=== PATIENT | female | born 1955 | race Caucasian/White ===

== ENCOUNTER 2017-09-19 14:18 | Inpatient (IN) | payer MEDICARE, SELFPAY ==
[2017-09-19] VITALS (9 sets, daily range): BP systolic 113–130; BP diastolic 71–83; PULSE 83–90; RESP 17–22; TEMP 36.8; O2SAT 92–99; BMI 50.2; BMI 47.3
--- NOTE | 2017-09-19 14:42 | EKG12_ITS ---
Test Reason : COMPLIANT Blood Pressure : / mmHG Vent. Rate : 087 BPM Atrial Rate : 087 BPM P-R Int : 198 ms QRS Dur : 092 ms QT Int : 346 ms P-R-T Axes : 045 -14 009 degrees QTc Int : 416 ms Normal sinus rhythm Inferior infarct , age undetermined Abnormal ECG Confirmed by RUBA MAYORGA ([id number]), editorial intern POPPY DIAZ ([id number] on 09/30/2017 6:31:28 PM Referred By: MIGUELANGEL Confirmed By:RUBA MAYORGA
[2017-09-19 15:36] LABS: Absolute Lymphocyte Count 2.76 X10^3/ul (0.83-4.51); Absolute Neutrophil Count 3.2 X10^3/uL (2.0-7.7); Basophil# 0.01 X10^3/uL; Basophil% 0.1 % (0-1); Eosinophil# 0.21 X10^3/uL; Eosinophils% 2.8 % (0-5); Hematocrit 39.3 % (37-47); Hemoglobin 12.4 g/dl (12.0-15.0); Lymphocyte # 2.76 X10^3/ul (4.0); Lymphocyte % 37.4 % (19-41); Mean Corp Hgb Conc 31.6 g/gl (32-36); Mean Corpuscular Hgb 30.5 pg (27.0-32.0); Mean Corpuscular Volume 96.8 fL (81-99); Monocyte# 1.16 X10^3/uL; Monocyte% 15.7 % (0-10); Neutrophil # 3.19 X10^3/uL (2.7-7.7); Neutrophil % 43.5 % (47-70); Platelet Count 153 K/mm3 (150-450); RBC Distribution Width CV 14.4 % (11.6-14.6); RBC Distribution Width SD 48.8 fl (35.1-43.9); Red Blood Count 4.06 M/mm3 (4.2-5.4); White Blood Count 7.4 K/mm3 (4.4-11.0)
[2017-09-19 15:39] LABS: POSITIVE COUNT NO; POSITIVE DIFFERENTIAL NO; POSITIVE MORPHOLOGY NO
[2017-09-19 15:43] LABS: Mucous, Urine 0 SEEN /hpf (<or=2+); Squamous Epithelial Cells - UA 0 SEEN /hpf (5-10)
--- NOTE | 2017-09-19 15:43 | ED.RN ---
PT HAS MULTIPLE OPEN AREAS AND EXCORIATED ABDOMINAL FOLDS AND GROIN. PT ON RIGHT ABDOMINAL FOLD WITH OPEN AREA OOZING THICK YELLOW/BROWN DRAINAGE. PT TURNED OVER AND ON RIGHT BUTTOCK MULTIPLE PINPOINT OPEN AREAS NOTED. PT'S TOES HAVE SCABBED AREAS. DR. MEANS INFORMED OF SAME.
[2017-09-19 15:47] LABS: Anion Gap 4 (5-15); BUN 26 mg/dL (7-18); BUN/Creat Ratio 26.1 RATIO (10-20); Calcium,Total 9.1 mg/dL (8.5-10.1); Chloride 106 mmol/L (98-107); EST Glomerular Filtration Rate 60 mL/min (>60); Est Glom Filt Rate - Afr Amer 72 mL/min (>60); Estimated Creatinine Clearance 46.13 ml/min; Glucose 89 mg/dL (74-106); Potassium 4.4 mmol/L (3.5-5.1); Sodium Level 145 mmol/L (136-145)
[2017-09-19 15:50] LABS: Color, Urine Red (Yellow); Glucose, Dipstick Normal (Normal); Ketone-Dipstick 5 mg/dl (Negative); Leukocyte Esterase-Dipstick 500 /ul (Negative); Nitrite-Dipstick Negative (Negative); Occult Blood-Urine 250 /ul (Negative); Protein-Dipstick 500 mg/dl (Negative); Urine Clarity Turbid (Clear); Urine Urobilinogen 1 mg/dl (Normal)
[2017-09-19 16:04] LABS: Urine Bilirubin Dipstick 1 mg/dL (Negative)
[2017-09-19 16:08] LABS: Bacteria 4+ /hpf (None Seen)
[2017-09-19 16:09] LABS: Red Blood Cells-Urine > 100 SEEN /hpf (0-5); White Blood Cells >100 SEEN /hpf (0-5)
[2017-09-19 16:24] LABS: Lactic Acid 2.5 mmol/L (0.4-2.0)
--- NOTE | 2017-09-19 16:41 | ED.VISSUMM ---
- ER Visit Summary Date of Service: 09/19/17 Chief Complaint: UTI History of Present Illness: The patient is a 62 F sent in from [facility] secondary to UTI. Patient has a chronic indwelling Milan catheter, we do not know when it was last changed. [facility] reports mental status change but did not elaborate a nurse report. Patient has a history of CHF, high cholesterol, diabetes, schizoaffective disorder, cardia myopathy, bipolar disorder, and fibromyalgia. On examination patient knows who she is and where she is. When asked if anything is bothering her she states that her legs are achy. Physical Examination: Blood pressure is 130/83, temperature 98.3, heart rate 90, respiratory rate 22, pulse ox 94% on room air. Patient is an obese female lying flat in bed. She is alert but confused. She is in no distress. Head neck examination reveals dry mucous membranes. Heart is regular rate and rhythm. Lung sounds are grossly clear but diminished at the bases. Abdomen is soft, obese, nontender. Lower external examination reveals no focal tenderness and no pain with logroll. Test Results: EKG is sinus [address] change. CBC is normal. Chemistry studies reveal bicarb of 35 and a BUN of 26. Urinalysis was obtained after placing a new Milan catheter. She has greater than 100 white blood cells, gram 100 red blood cells, and 4+ bacteria. Lactate is minimally elevated at 2.5. Emergency Department Course and Treatment: When nursing staff placed a new Milan catheter, they did report that she has some skin breakdown on her buttocks. There is pinprick area openings. Urine culture from the custodial was sent along with the patient. I do not know if this urine was obtained from a clean catheter or had been indwelling for some time. Urine reportedly grew E. coli as well as Pseudomonas. She has multiple resistances to antibiotics. Her infection is sensitive to meropenem. I spoke with Noemi, nurse at [facility] who is familiar with the patient. She states that 3 weeks ago the patient was alert and able to ambulate. She was working with physical therapy at that time. Over the past 3 weeks she has had slow decline, but symptoms have been much worse over the past 2 days. He states she is much more confused than her baseline and has not been up and walking. At this time we will admit the patient. We will await urine culture from the new catheter that was placed. Patient may require PICC line and IV antibiotics at the custodial. Treatment Plan: [] Disposition: Admit Impression: 1. Cystitis 2. Confusion This note was generated with [employer] dictation software. It may contain incorrect words, spelling, and punctuation that were not noted in review of the chart prior to signing ED Disposition - Plan for ED Patient: Chief Complaint: Complaint Referrals: Geremias Novak III, MD [Primary Care Provider] -
--- NOTE | 2017-09-19 16:45 | ED.DCSUM_ITS ---
- ER Visit Summary Date of Service: 09/19/17 Chief Complaint: UTI History of Present Illness: The patient is a 62 F sent in from [facility] secondary to UTI. Patient has a chronic indwelling Milan catheter , we do not know when it was last changed. [facility] reports mental status change but did not elaborate a nurse report. Patient has a history of CHF, high cholesterol, diabetes, schizoaffective disorder, cardia myopathy, bipolar disorder, and fibromyalgia. On examination patient knows who she is and where she is. When asked if anything is bothering her she states that her legs are achy. Physical Examination: Blood pressure is 130/83, temperature 98.3, heart rate 90 , respiratory rate 22, pulse ox 94% on room air. Patient is an obese female lying flat in bed. She is alert but confused. She is in no distress. Head neck examination reveals dry mucous membranes. Heart is regular rate and rhythm. Lung sounds are grossly clear but diminished at the bases. Abdomen is soft, obese, nontender. Lower external examination reveals no focal tenderness and no pain with logroll. Test Results: EKG is sinus [address] change. CBC is normal. Chemistry studies reveal bicarb of 35 and a BUN of 26. Urinalysis was obtained after placing a new Milan catheter. She has greater than 100 white blood cells , gram 100 red blood cells, and 4+ bacteria. Lactate is minimally elevated at 2.5. Emergency Department Course and Treatment: When nursing staff placed a new Milan catheter, they did report that she has some skin breakdown on her buttocks. There is pinprick area openings. Urine culture from the [facility] was sent along with the patient. I do not know if this urine was obtained from a clean catheter or had been indwelling for some time. Urine reportedly grew E. coli as well as Pseudomonas. She has multiple resistances to antibiotics. Her infection is sensitive to meropenem. I spoke with Noemi, nurse at [facility] who is familiar with the patient. She states that 3 weeks ago the patient was alert and able to ambulate. She was working with physical therapy at that time. Over the past 3 weeks she has had slow decline, but symptoms have been much worse over the past 2 days. He states she is much more confused than her baseline and has not been up and walking. At this time we will admit the patient. We will await urine culture from the new catheter that was placed. Patient may require PICC line and IV antibiotics at the [facility]. Treatment Plan: [] Disposition: Admit Impression: 1. Cystitis 2. Confusion This note was generated with [employer] dictation software. It may contain incorrect words, spelling, and punctuation that were not noted in review of the chart prior to signing ED Disposition - Plan for ED Patient: Chief Complaint: Complaint Referrals: Geremias Novak III, MD [Primary Care Provider] -
[2017-09-19] MEDS: 0.9% Normal Saline 1,000 ML 999 ML IV (16:46)
--- NOTE | 2017-09-19 17:25 | HP.PCM_ITS ---
<Bin Rivas - Last Filed: 09/19/17 17:28> Problem List (1) Cystitis Status: Acute (2) Sepsis Status: Acute (3) Metabolic encephalopathy Status: Acute (4) Benign hypertension Status: Chronic (5) Hyperlipidemia Status: Chronic (6) Schizoaffective disorder Status: Chronic (7) Diabetes mellitus, type 2 Status: Chronic (8) Fibromyalgia Status: Chronic (9) CHF (congestive heart failure) Status: Chronic Comment: ef=40% (10) Morbid obesity with BMI of 40.0-44.9, adult Status: Chronic (11) Sleep apnea Status: Chronic History of Present Illness Date of Admission: 09/19/17 Chief Complaint: confusion The patient is a 62 year old F with a hx of UTIs, chronic systolic CHF, HLD, nonischemic cardiomyopathy - pt of Dr. Chaney, ALLY, morbid obesity, schizoaffective disorder, DMt2, breast cancer s/p right mastectomy 12/14/16 with negative node biopsy, who has been staying at [facility] for debility, who has progressively declining over the past few weeks. She was very confused today and sent to the ER. Her hx is difficult as she is very confused and unable to provide much, for example she could not tell me where she came from today to the ER. She recently had a urine culture taken on 09/13/2017 which did demonstrate >100,000 of ESBL E coli and >100,000 Pseudomonas, and <10,000 E faecalis. She states she has had several UTIs. She has had an indwelling catheter which was changed in the ED today, and when it was changed a new culture was obtained. She remains confused, but with stable vitals. She states she has had fevers and chills the last week, and feels week. She denies dysuria. She is on O2, and when I ask her she states she is supposed to be on o2 normally but does not wear it. She has no dizziness, LH, CP, SOB, cough, nausea, vomiting, diarrhea. [] Past Medical History Past Medical History (Chronic Problems): Chronic Problems (Last Reviewed 05/21/17 @ 14:12 by Jordan Chaney MD) Dilated cardiomyopathy (Chronic) Benign hypertension (Chronic) Hyperlipidemia (Chronic) Intertrigo (Chronic) Schizoaffective disorder (Chronic) Bipolar disorder (Chronic) Diabetes mellitus, type 2 (Chronic) Fibromyalgia (Chronic) Frequent falls (Chronic) Gait abnormality (Chronic) Morbid obesity (Chronic) CHF (congestive heart failure) (Chronic) ef=40% Morbid obesity with BMI of 40.0-44.9, adult (Chronic) Sleep apnea (Chronic) Medical History: Medical History (Last Reviewed 05/21/17 @ 14:12 by Jordan Chaney MD) Dilated cardiomyopathy (Chronic) I42.0 Benign hypertension (Chronic) I10 Hyperlipidemia (Chronic) E78.5 Schizoaffective disorder (Chronic) F25.9 Bipolar disorder (Chronic) F31.9 Diabetes mellitus, type 2 (Chronic) E11.9 Morbid obesity (Chronic) E66.01 CHF (congestive heart failure) (Chronic) I50.9 ef=40% Sleep apnea (Chronic) G47.30 Allergies Sulfa (Sulfonamide Antibiotics) Allergy (Verified 09/19/17 14:48) Unknown sulfamethoxazole [From Bactrim] Allergy (Verified 09/19/17 14:48) Unknown trimethoprim [From Bactrim] Allergy (Verified 09/19/17 14:48) Unknown Home Medications: Ambulatory Orders Medication Instructions Recorded Divalproex (ER) [Depakote ER] 500 mg PO BID 03/16/13 Docusate Sodium [Colace] 200 mg PO DAILY PRN PRN 03/16/13 Levothyroxine Sodium [Levoxyl] 112 mcg PO DAILY 03/16/13 Metformin HCl [Glucophage] 850 mg PO BID 03/16/13 Pravastatin Sodium [Pravachol] 40 mg PO QHS 03/16/13 Aspirin E.C. [Ecotrin] 81 mg PO DAILY@0800 #30 tab 03/20/13 Polyethylene Glycol 3350 [Miralax] 17 gm PO DAILY PRN PRN 01/21/15 Albuterol Aerosols [Ventolin 2.5 mg INHALATION Q6H PRN PRN 08/05/16 Aerosols] Calcitriol [Rocaltrol] 1 mcg PO DAILY 08/05/16 Carvedilol [Coreg (Beta Kaushik)] 6.25 mg PO BID 08/05/16 Cyclobenzaprine [Flexeril] 5 mg PO TID PRN PRN 08/05/16 Gabapentin [Neurontin] 100 mg PO TIDCM 08/05/16 Glucagon,Human Recombinant 1 mg IJ X1 PRN 08/05/16 [Glucagen] Lisinopril [Zestril] 5 mg PO DAILY 08/05/16 buPROPion XL [Wellbutrin Xl] 300 mg PO DAILY 08/05/16 Ibuprofen 800 mg PO BID 12/11/16 Insulin Detemir [Levemir FlexPen] 30 units SC DAILY 12/11/16 Montelukast [Singulair] 10 mg PO QHS 12/11/16 Oxycodone [Oxyir] 5 mg PO Q4H PRN PRN #30 tab 12/15/16 Senna [Senokot] 1 tab PO QHS PRN PRN 02/20/17 furosemide 20 mg tablet 20 mg PO DAILY 05/20/17 paroxetine 20 mg tablet 60 mg PO DAILY 05/20/17 risperidone 1 mg tablet 1 mg PO TID 05/20/17 Acetaminophen [Pain Relief] 1,000 mg PO BID PRN PRN 09/19/17 Anastrozole [Arimidex] 1 mg PO DAILY 09/19/17 Nifblprus-Wfehgmr-Iuhwizuq-Pet 1 applic TP 4X/DAY PRN PRN 09/19/17 [Anbesol Cold Sore Ointment] Fludrocortisone Acetate [Florinef] 0.1 mg PO DAILY@0800 09/19/17 Ibuprofen [Motrin] 800 mg PO TID PRN PRN 09/19/17 Magnesium Hydroxide [Milk Of 30 ml PO DAILY PRN PRN 09/19/17 Magnesia] Melatonin 2 mg PO QHS 09/19/17 Omeprazole 20 mg PO DAILY 09/19/17 Oxybutynin Chloride [Ditropan Xl] 15 mg PO DAILY 09/19/17 Polyvinyl Alcohol/Povidone/Pf 2 drop EACH EYE PRN PRN 09/19/17 [Refresh Classic Eye Drops] Potassium Chloride [K-Dur] 20 meq PO DAILY 09/19/17 Ropinirole HCl [Requip] 0.5 mg PO QHS 09/19/17 Witch Lynne [Preparation H] 1 each TP BID PRN PRN 09/19/17 Surgical History: hysterectomy Smoking Status: Former smoker - *Family History Maternal History Items: Unknown Review of Systems Constitutional: Reports: Chills, Fever, Malaise, Weakness, Fatigue. Denies: Weight Change HEENT: Denies: Head Aches, Sinus Congestion, Sinus Drainage Cardiovascular: Denies: Chest Pain, Palpitations Respiratory: Denies: Cough, Shortness of breath at rest, Sputum production Gastrointestinal: Denies: Abdominal Pain, Nausea, Vomiting Genitourinary: Reports: - - chronic cath. Denies: Dysuria Musculoskeletal: Denies: Joint Pain, Joint Tenderness Skin: Denies: Rash, Wounds Neurological: Denies: Numbness, Tingling, Focal weakness Psychiatric: Denies: Anxiety, Depression, Homicidal Ideations, Suicidal Ideations Hematologic/ Lymphatic: Denies: Easy Bruising, Easy Bleeding VTE Information - Inpt Only VTE Present on Admission: No VTE Mechan Device Prophylaxis: SCD's VTE Pharm Prophylaxis ordered?: Yes Patient Problems: Active and Suspected Problems (Last Reviewed 05/21/17 @ 14:12 by Jordan Chaney MD ) Cystitis (Acute) Sepsis (Acute) Metabolic encephalopathy (Acute) - Physical Exam General: Alert, Cooperative, Confused, - - A/Ox2 HEENT: Atraumatic, PERRLA, EOMI, Normocephalic Neck: Supple, No JVD, Negative Carotid Bruits Lungs: Clear to auscultation, Normal air movement Cardiovascular: Regular rate, No murmurs Abdomen: Bowel Sounds Present, Soft, Non Tender Extremities: No edema, Capillary Refill Less than 3 Seconds Skin: No rashes, No breakdown Musculoskeletal: No Tenderness to Palpation of Joints or Extremities Neurological: Cranial nerves II-XII grossly intact Psych/Mental Status: Normal Affect, Appropriate, Alert and oriented to time, place, person, mood and affect Vital Signs Temp Pulse Resp BP Pulse Ox 98.3 F 86 18 113/74 99 09/19/17 14:20 09/19/17 16:48 09/19/17 16:48 09/19/17 16:48 09/19/17 16:48 Assessment/Plan All Active Problems (Last Reviewed 05/21/17 @ 14:12 by Jordan Chaney MD) Cystitis (Acute) Sepsis (Acute) Metabolic encephalopathy (Acute) Septic shock due to urinary tract infection (Acute) Chest pain (Acute) 1. Acute severe sepsis 2/2 multibacterial UTI - criteria met with + UA, pulse > 90, tachypnea, low BP responded to fluids, elevated lactate. Recent culture with ESBL E coli and pseudomonas - both >100,000. E faecalis with <10,000 growth. Repeat culture taken with new cath placement. Continue Meropenem. Follow cultures. Continue fluids, appears dehydrated. Repeat lactate x 1. -currently no fever or white count elevation 2. Acute metabolic encephalopathy 2/2 above - remains very confused, avoid anticholinergics 3. DMt2 - SSI, continue long acting, hold metformin 4. Chronic sytolic CHF and nonischemic cardiomyopathy - EKG negative. no acute issues, avoid overdiuresis. Hold diuretics x 1 day. 5. Hx Schizoaffective disorder - continue home meds 6. Hypothyroidism - synthroid 7. HTN - was running low, now stable. Hold lasix x 1. 8. Morbid obesity - dietary eval 9. Debility - PTOT, return to SNF DVT ppx: lovenox DC planning: return to SNF This patient was seen by Bin Rivas PA-C under the supervision of Doctor Rhina. <Cassi Lantigua E - Last Filed: 09/19/17 19:13> History of Present Illness The patient is a 62 year old F [] Past Medical History Medical History: Medical History (Last Reviewed 05/21/17 @ 14:12 by Jordan Chaney MD) Dilated cardiomyopathy (Chronic) I42.0 Benign hypertension (Chronic) I10 Hyperlipidemia (Chronic) E78.5 Schizoaffective disorder (Chronic) F25.9 Bipolar disorder (Chronic) F31.9 Diabetes mellitus, type 2 (Chronic) E11.9 Morbid obesity (Chronic) E66.01 CHF (congestive heart failure) (Chronic) I50.9 ef=40% Sleep apnea (Chronic) G47.30 Allergies Sulfa (Sulfonamide Antibiotics) Allergy (Verified 09/19/17 14:48) Unknown sulfamethoxazole [From Bactrim] Allergy (Verified 09/19/17 14:48) Unknown trimethoprim [From Bactrim] Allergy (Verified 09/19/17 14:48) Unknown - Physical Exam Vital Signs Temp Pulse Resp BP Pulse Ox 98.3 F 83 17 126/71 H 92 09/19/17 18:37 09/19/17 18:45 09/19/17 18:37 09/19/17 18:37 09/19/17 18:37 Oxygen Flow Rate (L/min) 2 Oxygen Delivery Method Nasal Cannula Weight: 257 lb 4.471 oz Body Mass Index (BMI) 47.3 Assessment/Plan Hospitalist note: I am seeing this patient in conjunction with Bin Rivas. I independently seen and examined the patient. History and physical, laboratory data and imaging studies reviewed and I agree with above admission and treatment plan. Patient was brought to the emergency room from the residential because of lethargy and confusion. At this time, patient is disoriented to time, oriented to self. Her main presenting complaint was confusion and functional decline over the last couple of weeks. Patient was seen and examined. Recently, she had a urine culture done that demonstrated ESBL E. coli and pseudomonas aeruginosa. She denied chest pain or shortness of breath. Denies focal arm or leg weakness. Her vital signs are stable, afebrile. Her routine blood work is unremarkable, no leukocytosis. Lactic acid was 2.5. Urinalysis revealed turbid urine, negative for nitrite, positive for leukocyte esterase, there was more than 100 WBCs and 4+ bacteria. She is being admitted for acute complicated UTI/cystitis with sepsis. - Physical Exam General: Alert, confused, disoriented, Cooperative, No apparent distress. HEENT: Atraumatic, PERRLA, EOMI. Neck: Supple, No JVD, Negative Carotid Bruits, Trachea Midline, Thyroid Normal. Lungs: Decreased breath sounds bilateral, otherwise clear no rhonchi, No wheeze , No rales. Cardiovascular: Regular rate, Regular Rhythm, Normal S1, Normal S2, PMI Normal. Abdomen: Bowel Sounds Present, Soft, Non Tender, Non-Distended, No Hepato- splenomegaly. Extremities: No clubbing, No cyanosis, No edema Skin: No rashes, No breakdown Neurological: Neuro grossly intact, global weakness. Vital Signs are stable. Assessment and plan: #1 acute complicated cystitis/UTI/sepsis: With recent urine culture that was positive for ESBL E. coli and pseudomonas aeruginosa. Lactic acid is 2.5. Blood pressure and heart rate are stable. Plan: Blood culture, urine culture, IV meropenem as above, repeat CBC and BMP tomorrow morning, PT OT evaluation and treatment. #2 encephalopathy: Likely metabolic because of infection and sepsis. Plan to treat underlying infection. #3 other chronic medical problems: Stable, continue current medication as above. This note was generated with [employer] dictation software. It may contain incorrect words, spelling, and punctuation that were not noted in checking the note before signing. Code Visit Inpatient E&M: 42446 Init Hosp L2
[2017-09-19] MEDS: 0.9% Normal Saline 1,000 ML 75 ML IV (18:35)
--- NOTE | 2017-09-19 19:08 | NURSING ---
histotechnologist supervisor notified of conversation with Dr. Lantigua regarding admission order and that we have no admission order in computer.
--- NOTE | 2017-09-19 19:13 | DT_ITS ---
This patient was seen during an EMR downtime September 23, 2017 - September 30, 2017. This patient may have a combination of paper and electronic documentation or all paper documentation. All documentation is viewable within the e-chart portion of [facility] for each patient visit.
[2017-09-19 19:28] LABS: Reflex Lactate? Y
[2017-09-19] MEDS: Menthol/Lanolin/Calamine/Znox 113 GM Tube 1 APPLIC TOPICAL (22:12)
[2017-09-19] MEDS: Nystatin Powder 15gm Bottle 1 APPLIC TOPICAL (22:12)
[2017-09-19] MEDS: NYSTATIN 500,000 UNIT/5 ML UDC 500000 UNIT PO (22:22)
[2017-09-19] MEDS: RisperiDONE 1 MG Tablet PO (22:22)
[2017-09-19] MEDS: Divalproex (ER) 500 MG Tablet PO (22:25)
[2017-09-19] MEDS: Carvedilol 6.25 MG Tablet PO (22:26)
[2017-09-19] MEDS: Pramipexole Di-HCl 0.25 MG Tablet PO (22:26)
[2017-09-19] MEDS: Montelukast 10 MG Tablet PO (22:27)
[2017-09-19 22:46] LABS: Bedside Glucose 65 mg/dL (70-110)
[2017-09-20] VITALS (8 sets, daily range): BP systolic 125–139; BP diastolic 78–91; PULSE 78–97; RESP 16–18; TEMP 36.5–37.1; O2SAT 94–99
[2017-09-20 00:05] LABS: Bedside Glucose 85 mg/dL (70-110)
[2017-09-20] MEDS: Nystatin Powder 15gm Bottle 1 APPLIC TOPICAL ×3 (05:21→22:20)
[2017-09-20] MEDS: Levothyroxine 112 MCG Tablet PO (05:21)
[2017-09-20] MEDS: RisperiDONE 1 MG Tablet PO ×3 (05:21→22:19)
[2017-09-20] MEDS: Menthol/Lanolin/Calamine/Znox 113 GM Tube 1 APPLIC TOPICAL ×4 (05:22→22:19)
[2017-09-20 06:45] LABS: Bedside Glucose 79 mg/dL (70-110)
--- NOTE | 2017-09-20 06:55 | PCM.PROGNOTE ---
Patient Problems: Active and Suspected Problems (Last Reviewed 05/21/17 @ 14:12 by Jordan Chaney MD) Cystitis (Acute) Sepsis (Acute) Metabolic encephalopathy (Acute) Subjective: The patient is a 62-year-old female with a past medical history of hypertension, hyperlipidemia, schizoaffective disorder, diabetes mellitus type 2, fibromyalgia, morbid obesity, congestive heart failure and obstructive sleep apnea who presented to the emergency department at [facility] on 09/19/2017 from [facility] with complaints of increased confusion. A recent urine culture at [facility] on 09/13/2017 showed greater than 100,000 colonies of an ESBL E. coli and greater than 100,000 colonies of Pseudomonas. She has a chronic indwelling Tijerina catheter. Vital signs at presentation to the emergency room were temperature 98.3, pulse rate 90, blood pressure 130/83, respiratory rate 22 and she was 94% saturated on room air. White blood cell count was 7.4 with an unremarkable differential. Hemoglobin was normal at 12.4 and the platelets were 153,000. BMP showed an elevated serum bicarbonate 35 with a BUN of 26 and a creatinine of 1.0. The initial lactic acid was 2.5 but following hydration dropped rapidly to 1.0. The UA had greater than 100 RBCs and greater than 100 WBCs with 4+ bacteria. Urine and blood cultures were sent from the emergency room. She was admitted to the hospital with a diagnosis of acute severe sepsis secondary to UTI due to E. coli ESBL and pseudomonas aeruginosa. She was started on meropenem. The patient was seen independently and in conjunction with Bin RAGSDALE. She has been afebrile since admission. Current vital signs are temperature 98.3, pulse rate 84, blood pressure 139/91, respiratory rate 18 and she was 95% saturated on 1 L Cannula Fluid balance since admission is +1597. White blood cell count today is 4.6 with 37% neutrophils and 40% lymphocytes. Monocytes are 19.5. Hemoglobin is 10.2 following hydration. Platelet count is down to 122,000. Sodium is 146 today and the potassium is 3.5. BUN is 23 and the creatinine is 0.65. - Physical Exam General: No apparent distress, - - Extremely difficult to arouse this a.m. but once she was awake she was able to follow simple commands. HEENT: PERRLA, EOMI, - - short thick neck Oral: Dry Mucosa Neck: No Nodes, Trachea Midline Lungs: Clear to auscultation - anterior and lateral.....could no turn in the bed or sit forward. She is not tachypneic. No accessory muscle use., Diminished Cardiovascular: Regular rate, Regular Rhythm, Normal S1, Normal S2, No murmurs, No Ectopic Activity, No rub noted, No Gallop Abdomen: Bowel Sounds Present, Soft, Non Tender, Non-Distended, Obese Extremities: No edema - skin over the LE's is wrinkled, Peripheral Pulses Normal Skin: No rashes Neurological: Cranial nerves II-XII grossly intact, Neuro grossly intact Vital Signs Temp Pulse Resp BP Pulse Ox 98.3 F 84 18 139/91 H 95 09/20/17 05:43 09/20/17 05:43 09/20/17 05:43 09/20/17 05:43 09/20/17 05:43 Oxygen Flow Rate (L/min) 1 Oxygen Delivery Method Nasal Cannula Weight: 257 lb 4.471 oz Body Mass Index (BMI) 47.3 Intake and Output for Last 24 Hours 09/18/17 09/19/17 09/20/17 23:59 23:59 23:59 Intake Total 1320 / 1320 977 / 977 Output Total 250 / 250 450 / 450 Balance 1070 / 1070 527 / 527 Laboratory Tests Past 24 Hrs 09/19/17 21:30 Lactic Acid 1.0 POC Glucose 09/20/17 09/19/17 09/19/17 06:41 23:59 22:36 POC Glucose 79 85 65 L Medical Necessity - Tobacco Use Smoking Status: Former smoker Assessment/Plan All Active Problems (Last Reviewed 05/21/17 @ 14:12 by Jordan Chaney MD) Cystitis (Acute) Sepsis (Acute) Metabolic encephalopathy (Acute) Septic shock due to urinary tract infection (Acute) Chest pain (Acute) Impressions 1. Severe sepsis due to E. Coli ESBL and Pseudomonas complicated cystitis - due to the presence of chronic indwelling tijerina. 2. recent decline in function over the past few weeks 3. Hypoxemia - 94% on RA in the ED while awake States she is supposed to be on oxygen but she does not wear it. PSG in late 2016 was negative for leep apnea. 4. CM with a 40% EF in 2012....global hypokinesis with moderate LVH. An ECHO in 2017 showed mild concentric left ventricular hypertrophy with normal left ventricular systolic function and an ejection fraction of 60%. There was a suggestion of impaired relaxation of the left ventricle. 5. Metabolic encephalopathy-secondary to infection? 6. Hypertension 7. Hyperlipidemia 8. Schizoaffective disorder 9. Diabetes mellitus type 2-hemoglobin A1c is 5.8 10. Fibromyalgia 11. History of systolic congestive heart failure 12. Super obesity 13. reported hx of ALLY - sleep study in February of 2017 was negative for sleep apnea. 14. Hx of invasive ductal CA left breast November 2016 continue the current antibiotic. Await the results of the culture obtained after the tijerina was changed in the ED. I suspect the reason for her decline recently is psychiatric and not due to infection. she was obviously awake when I was trying to get her to talk to ne this AM because she resisted me when I tried to open her eyes and mouth but chose not to comply. Can likely DC as soon as the cultures are available. If the organisms are not sensitive to any oral antibiotics then will need a midline and then can be discharged on IV antibiotics Code Visit Inpatient E&M: 53655 Subs Hosp L2
--- NOTE | 2017-09-20 07:06 | PN_ITS ---
Patient Problems: Active and Suspected Problems (Last Reviewed 05/21/17 @ 14:12 by Jordan Chaney MD ) Cystitis (Acute) Sepsis (Acute) Metabolic encephalopathy (Acute) Subjective: The patient is a 62-year-old female with a past medical history of hypertension , hyperlipidemia, schizoaffective disorder, diabetes mellitus type 2, fibromyalgia, morbid obesity, congestive heart failure and obstructive sleep apnea who presented to the emergency department at [facility] on 09/19/2017 from [facility] with complaints of increased confusion. A recent urine culture at [facility] on 09/13/2017 showed greater than 100,000 colonies of an ESBL E. coli and greater than 100,000 colonies of Pseudomonas. She has a chronic indwelling Tijerina catheter. Vital signs at presentation to the emergency room were temperature 98.3, pulse rate 90, blood pressure 130/83, respiratory rate 22 and she was 94% saturated on room air. White blood cell count was 7.4 with an unremarkable differential. Hemoglobin was normal at 12.4 and the platelets were 153,000. BMP showed an elevated serum bicarbonate 35 with a BUN of 26 and a creatinine of 1.0. The initial lactic acid was 2.5 but following hydration dropped rapidly to 1.0. The UA had greater than 100 RBCs and greater than 100 WBCs with 4+ bacteria. Urine and blood cultures were sent from the emergency room. She was admitted to the hospital with a diagnosis of acute severe sepsis secondary to UTI due to E. coli ESBL and pseudomonas aeruginosa. She was started on meropenem. The patient was seen independently and in conjunction with Bin RAGSDALE. She has been afebrile since admission. Current vital signs are temperature 98.3, pulse rate 84, blood pressure 139/91, respiratory rate 18 and she was 95% saturated on 1 L Cannula Fluid balance since admission is +1597. White blood cell count today is 4.6 with 37% neutrophils and 40% lymphocytes. Monocytes are 19.5. Hemoglobin is 10.2 following hydration. Platelet count is down to 122,000. Sodium is 146 today and the potassium is 3.5. BUN is 23 and the creatinine is 0.65. - Physical Exam General: No apparent distress, - - Extremely difficult to arouse this a.m. but once she was awake she was able to follow simple commands. HEENT: PERRLA, EOMI, - - short thick neck Oral: Dry Mucosa Neck: No Nodes, Trachea Midline Lungs: Clear to auscultation - anterior and lateral.....could no turn in the bed or sit forward. She is not tachypneic. No accessory muscle use., Diminished Cardiovascular: Regular rate, Regular Rhythm, Normal S1, Normal S2, No murmurs, No Ectopic Activity, No rub noted, No Gallop Abdomen: Bowel Sounds Present, Soft, Non Tender, Non-Distended, Obese Extremities: No edema - skin over the LE's is wrinkled, Peripheral Pulses Normal Skin: No rashes Neurological: Cranial nerves II-XII grossly intact, Neuro grossly intact Vital Signs Temp Pulse Resp BP Pulse Ox 98.3 F 84 18 139/91 H 95 09/20/17 05:43 09/20/17 05:43 09/20/17 05:43 09/20/17 05:43 09/20/17 05:43 Oxygen Flow Rate (L/min) 1 Oxygen Delivery Method Nasal Cannula Weight: 257 lb 4.471 oz Body Mass Index (BMI) 47.3 Intake and Output for Last 24 Hours 09/18/17 09/19/17 09/20/17 23:59 23:59 23:59 Intake Total 1320 / 1320 977 / 977 Output Total 250 / 250 450 / 450 Balance 1070 / 1070 527 / 527 Laboratory Tests Past 24 Hrs 09/19/17 21:30 Lactic Acid 1.0 POC Glucose 09/20/17 09/19/17 09/19/17 06:41 23:59 22:36 POC Glucose 79 85 65 L Medical Necessity - Tobacco Use Smoking Status: Former smoker Assessment/Plan All Active Problems (Last Reviewed 05/21/17 @ 14:12 by Jordan Chaney MD) Cystitis (Acute) Sepsis (Acute) Metabolic encephalopathy (Acute) Septic shock due to urinary tract infection (Acute) Chest pain (Acute) Impressions 1. Severe sepsis due to E. Coli ESBL and Pseudomonas complicated cystitis - due to the presence of chronic indwelling tijerina. 2. recent decline in function over the past few weeks 3. Hypoxemia - 94% on RA in the ED while awake States she is supposed to be on oxygen but she does not wear it. PSG in late 2016 was negative for leep apnea. 4. CM with a 40% EF in 2012....global hypokinesis with moderate LVH. An ECHO in 2017 showed mild concentric left ventricular hypertrophy with normal left ventricular systolic function and an ejection fraction of 60%. There was a suggestion of impaired relaxation of the left ventricle. 5. Metabolic encephalopathy-secondary to infection? 6. Hypertension 7. Hyperlipidemia 8. Schizoaffective disorder 9. Diabetes mellitus type 2-hemoglobin A1c is 5.8 10. Fibromyalgia 11. History of systolic congestive heart failure 12. Super obesity 13. reported hx of ALLY - sleep study in February of 2017 was negative for sleep apnea. 14. Hx of invasive ductal CA left breast November 2016 continue the current antibiotic. Await the results of the culture obtained after the tijerina was changed in the ED. I suspect the reason for her decline recently is psychiatric and not due to infection. she was obviously awake when I was trying to get her to talk to ne this AM because she resisted me when I tried to open her eyes and mouth but chose not to comply. Can likely DC as soon as the cultures are available. If the organisms are not sensitive to any oral antibiotics then will need a midline and then can be discharged on IV antibiotics Code Visit Inpatient E&M: 51827 Subs Hosp L2
[2017-09-20 07:40] LABS: Absolute Lymphocyte Count 1.83 X10^3/ul (0.83-4.51); Absolute Neutrophil Count 1.7 X10^3/uL (2.0-7.7); Basophil# 0.01 X10^3/uL; Basophil% 0.2 % (0-1); Eosinophil# 0.13 X10^3/uL; Eosinophils% 2.8 % (0-5); Hematocrit 32.6 % (37-47); Hemoglobin 10.2 g/dl (12.0-15.0); Lymphocyte # 1.83 X10^3/ul (4.0); Mean Corp Hgb Conc 31.3 g/gl (32-36); Mean Corpuscular Hgb 29.7 pg (27.0-32.0); Mean Corpuscular Volume 94.8 fL (81-99); Mean Platelet Vol. 10.3 fl (6.2-12.0); Monocyte# 0.89 X10^3/uL; Monocyte% 19.5 % (0-10); Neutrophil % 37.3 % (47-70); Platelet Count 122 K/mm3 (150-450); RBC Distribution Width CV 14.4 % (11.6-14.6); RBC Distribution Width SD 49.2 fl (35.1-43.9); Red Blood Count 3.44 M/mm3 (4.2-5.4); White Blood Count 4.6 K/mm3 (4.4-11.0)
[2017-09-20 07:45] LABS: POSITIVE COUNT NO; POSITIVE DIFFERENTIAL NO; POSITIVE MORPHOLOGY NO
[2017-09-20 08:06] LABS: Anion Gap 8 (5-15); BUN 23 mg/dL (7-18); BUN/Creat Ratio 35.6 RATIO (10-20); Calcium,Total 8.4 mg/dL (8.5-10.1); Chloride 106 mmol/L (98-107); Creatinine, Serum 0.65 mg/dL (0.55-1.02); EST Glomerular Filtration Rate 99 mL/min (>60); Est Glom Filt Rate - Afr Amer 120 mL/min (>60); Estimated Creatinine Clearance 67.72 ml/min; Glucose 74 mg/dL (74-106); Potassium 3.5 mmol/L (3.5-5.1); Sodium Level 146 mmol/L (136-145)
[2017-09-20 08:14] LABS: Hemoglobin A1c 5.8 % (4.2-6.3)
[2017-09-20] MEDS: Gabapentin 100 MG Capsule PO ×3 (08:23→17:30)
[2017-09-20] MEDS: Aspirin E.C. 81 MG Tablet PO (08:23)
[2017-09-20] MEDS: Fludrocortisone Acetate 0.1 MG Tablet PO (08:23)
[2017-09-20] MEDS: Glucerna Shake 120 ML LIQUID PO ×3 (08:25→17:29)
[2017-09-20 09:20] LABS: AST(SGOT) 19 U/L (15-37); Alanine Aminotransfer ALT/SGPT 14 U/L (13-56); Albumin, Serum 2.1 g/dL (3.2-5.0); Alkaline Phosphatase 62 U/L (45-117); Bilirubin, Direct 0.08 mg/dL (0.00-0.30); Globulin 3.5 g/dL (2.2-4.2); Magnesium 1.3 mg/dL (1.6-2.6); Protein, Total 5.6 g/dL (6.4-8.2)
[2017-09-20] MEDS: Pantoprazole Sodium 20 MG Tablet PO (09:53)
[2017-09-20] MEDS: buPROPion (XL) 300 MG TABLET.XL PO (09:53)
[2017-09-20] MEDS: Carvedilol 6.25 MG Tablet PO ×2 (09:53→22:20)
[2017-09-20] MEDS: Lisinopril 5 MG Tablet PO (09:53)
[2017-09-20] MEDS: Divalproex (ER) 500 MG Tablet PO ×2 (09:54→22:19)
[2017-09-20] MEDS: Enoxaparin 40 MG/0.4 ML Syringe SC (09:54)
[2017-09-20] MEDS: Tolterodine Tartrate 4 MG CAP.SA PO (09:54)
[2017-09-20] MEDS: Pravastatin 40 MG Tablet PO (09:57)
[2017-09-20] MEDS: Calcitriol 0.25 MCG Capsule 1 MCG PO (09:57)
[2017-09-20] MEDS: NYSTATIN 500,000 UNIT/5 ML UDC 500000 UNIT PO ×4 (09:57→22:20)
[2017-09-20] MEDS: Anastrozole 1 MG Tablet PO (10:13)
--- NOTE | 2017-09-20 11:11 | CASEMGMT ---
Social Work Note This worker was informed that pt is from [facility]. SW in to meet with pt to confirm discharge plans. Pt is confused unable to answer questions. Pt denied having any family or friends for this worker to call. KAREN placed a call to [facility] and spoke with iM in admissions. Per Mi pt originally came to [facility] on skilled side but transferred to [facility]. Mi states that pt will come back to [facility] long term care pharmacist. Per Mi pt will need pre-cert if pt returns to [facility] on skilled side. KAREN faxed available clinicals to Mi at [facility]. Green sheet on chart in the event that pt is able to return to [facility] side without skilled services. If pt requires skilled, pre-cert will need to be obtained before pt is able to return. KAREN will continue to follow to assist with discharge planning. Plan: Return to [facility] at discharge skilled vs. long term care pharmacist Aura Gonzalez TWISTER TENDER PAPER, DISABILITY MANAGER
[2017-09-20 13:15] LABS: Bedside Glucose 84 mg/dL (70-110)
--- NOTE | 2017-09-20 13:45 | CHAPLAIN ---
Type of Pastoral Visit _x__ Initial Visit ___ Follow-up Visit ___ On-call Visit ___ General Patient Visit ___ Spiritual Assessment ___ Family Conference ___ Bereavement ___ Rapid Response ___ Code Blue ___ Other (describe below) Pastoral Care Referral From _x__ Patient ___ Family ___ Nurse ___ Physician ___ [place] Knock Out Worker ___ Compliance Review Specialist ___ Other (describe below) Sacrament/Intervention _x__ Active listening ___ Anointing ___ Denominational ___ Bereavement ___ Communion ___ Peace exploration ___ ___ Life review _x__ Prayer ___ Reconciliation ___ Sacrament of Sick _x__ Supportive presence ___ Wedding ___ Other (describe below) Pastoral Comments
--- NOTE | 2017-09-20 14:19 | PN_ITS ---
Patient Problems: Active and Suspected Problems (Last Reviewed 05/21/17 @ 14:12 by Jordan Chaney MD ) Cystitis (Acute) Sepsis (Acute) Metabolic encephalopathy (Acute) - Physical Exam General: Alert, Cooperative, Confused, - - alert, but cannot / or will not tell me her full name, or answer the a/o questions correctly. mumbling answers and refusing to answer some questions, others normal HEENT: Atraumatic, PERRLA, EOMI, Normocephalic Neck: Supple, No JVD, Negative Carotid Bruits Lungs: Clear to auscultation, Normal air movement Cardiovascular: Regular rate, No murmurs Abdomen: Bowel Sounds Present, Soft, Non Tender Extremities: No edema, Capillary Refill Less than 3 Seconds Skin: No rashes, No breakdown Musculoskeletal: No Tenderness to Palpation of Joints or Extremities Neurological: Cranial nerves II-XII grossly intact Psych/Mental Status: Flat Affect Vital Signs Temp Pulse Resp BP Pulse Ox 98.1 F 78 18 135/80 H 98 09/20/17 09:50 09/20/17 09:50 09/20/17 09:50 09/20/17 09:50 09/20/17 09:50 Oxygen Flow Rate (L/min) 1 Oxygen Delivery Method Nasal Cannula Weight: 116.7 kg Intake and Output for Last 24 Hours 09/18/17 09/19/17 09/20/17 23:59 23:59 23:59 Intake Total 1320 / 1320 1277 / 1277 Output Total 250 / 250 950 / 950 Balance 1070 / 1070 327 / 327 Laboratory Tests Past 24 Hrs 09/19/17 09/20/17 09/20/17 21:30 06:53 06:53 WBC 4.6 RBC 3.44 L Hgb 10.2 L Hct 32.6 L MCV 94.8 MCH 29.7 MCHC 31.3 L RDW 14.4 RDW Differential 49.2 H Plt Count 122 L MPV 10.3 Immature Gran % (Auto) 0.200 Neut % (Auto) 37.3 L Lymph % (Auto) 40.0 Dickinson % (Auto) 19.5 H Eos % (Auto) 2.8 Baso % (Auto) 0.2 Absolute Neuts (auto) 1.7 L Absolute Lymphs (auto) 1.83 Total Counted Not Reportable Sodium 146 H Potassium 3.5 Chloride 106 Carbon Dioxide 32.0 Anion Gap 8 BUN 23 H Creatinine 0.65 Estim Creat Clear Calc 67.72 Est GFR (MDRD) Af Amer 120 Est GFR (MDRD) Non-Af 99 BUN/Creatinine Ratio 35.6 H Glucose 74 Hemoglobin A1c Lactic Acid 1.0 Calcium 8.4 L Magnesium Total Bilirubin Direct Bilirubin AST ALT Alkaline Phosphatase Total Protein Albumin Globulin 09/20/17 09/20/17 06:53 06:53 WBC RBC Hgb Hct MCV MCH MCHC RDW RDW Differential Plt Count MPV Immature Gran % (Auto) Neut % (Auto) Lymph % (Auto) Dickinson % (Auto) Eos % (Auto) Baso % (Auto) Absolute Neuts (auto) Absolute Lymphs (auto) Total Counted Sodium Potassium Chloride Carbon Dioxide Anion Gap BUN Creatinine Estim Creat Clear Calc Est GFR (MDRD) Af Amer Est GFR (MDRD) Non-Af BUN/Creatinine Ratio Glucose Hemoglobin A1c 5.8 Lactic Acid Calcium Magnesium 1.3 L Total Bilirubin 0.20 Direct Bilirubin 0.08 AST 19 ALT 14 Alkaline Phosphatase 62 Total Protein 5.6 L Albumin 2.1 L Globulin 3.5 POC Glucose 09/20/17 09/20/17 09/19/17 12:16 06:41 23:59 POC Glucose 84 79 85 09/19/17 22:36 POC Glucose 65 L Medical Necessity - Tobacco Use Smoking Status: Former smoker Assessment/Plan All Active Problems (Last Reviewed 05/21/17 @ 14:12 by Jordan Chaney MD) Cystitis (Acute) Sepsis (Acute) Metabolic encephalopathy (Acute) Septic shock due to urinary tract infection (Acute) Chest pain (Acute) 1. Acute severe sepsis 2/2 multibacterial UTI - criteria met with + UA, pulse > 90, tachypnea, low BP responded to fluids, elevated lactate. Recent culture with ESBL E coli and pseudomonas - both >100,000. E faecalis with <10,000 growth. Repeat culture taken with new cath placement. Continue Meropenem. Follow cultures. Repeat lactate x 1 is normal. -currently no fever or white count elevation -repeat culture prelim showing gnr lactose orthopedic shoe fitter, gnr both >100,000 growth. 2. Acute metabolic encephalopathy 2/2 above - remains confused, avoid anticholinergics. She answers some questions, but others like her name she will not answer, which is unusual. Flat affect. Possibly skewed by underlying psychiatric issues as below. 3. DMt2 - SSI, continue long acting, hold metformin. A1c with good control, daily glucose stable. 4. Chronic sytolic CHF and nonischemic cardiomyopathy - EKG negative. no acute issues, avoid overdiuresis. Hold diuretics x 1 more day, but will dc fluids. 5. Hx Schizoaffective disorder - continue home meds 6. Hypothyroidism - synthroid 7. HTN - was running low, now stable. Hold lasix x 1. 8. Morbid obesity - dietary eval 9. Debility - PTOT, return to SNF 10. Low mag - replete with oral. DVT ppx: lovenox - mild drop in platelets - trend. dc if continues. DC planning: return to SNF This patient was seen by Bin Rivas PA-C under the supervision of Doctor Casas.
[2017-09-20] MEDS: Magnesium Oxide 400 MG Tablet PO ×2 (14:30→17:31)
[2017-09-20 18:10] LABS: Bedside Glucose 77 mg/dL (70-110)
--- NOTE | 2017-09-20 19:45 | NURSING ---
This nurse spoke with Martina at [facility] regarding whether or not patient usually has a chronic tijerina catheter. Per Martina patient does not have a chronic tijerina catheter and is able to get up and use the bathroom with assistance. Patient is also partially incontinent and wears attends. Will reevalute pt's need for tijerina this shift.
[2017-09-20] MEDS: Montelukast 10 MG Tablet PO (22:19)
[2017-09-20] MEDS: Pramipexole Di-HCl 0.25 MG Tablet PO (22:19)
[2017-09-20 23:25] LABS: Bedside Glucose 118 mg/dL (70-110)
[2017-09-21 02:00] VITALS: BP 146/88; PULSE 83; RESP 16; TEMP 36.2; O2SAT 96
[2017-09-21 03:36] LABS: Bedside Glucose 74 mg/dL (70-110)
[2017-09-21] MEDS: Nystatin Powder 15gm Bottle 1 APPLIC TOPICAL ×3 (06:08→22:08)
[2017-09-21] MEDS: RisperiDONE 1 MG Tablet PO ×3 (06:09→22:08)
[2017-09-21] MEDS: Levothyroxine 112 MCG Tablet PO (06:09)
[2017-09-21 06:50] LABS: Basophil# 0.01 X10^3/uL; Basophil% 0.2 % (0-1); Eosinophil# 0.14 X10^3/uL; Eosinophils% 2.6 % (0-5); Hematocrit 32.7 % (37-47); Hemoglobin 10.6 g/dl (12.0-15.0); Lymphocyte % 43.7 % (19-41); Mean Corp Hgb Conc 32.4 g/gl (32-36); Mean Corpuscular Volume 92.6 fL (81-99); Mean Platelet Vol. 10.2 fl (6.2-12.0); Monocyte# 0.92 X10^3/uL; Monocyte% 16.8 % (0-10); Neutrophil % 36.3 % (47-70); Platelet Count 121 K/mm3 (150-450); RBC Distribution Width CV 14.1 % (11.6-14.6); RBC Distribution Width SD 47.6 fl (35.1-43.9); Red Blood Count 3.53 M/mm3 (4.2-5.4); White Blood Count 5.5 K/mm3 (4.4-11.0)
[2017-09-21 06:51] LABS: Bedside Glucose 78 mg/dL (70-110)
[2017-09-21 06:56] LABS: POSITIVE COUNT NO; POSITIVE DIFFERENTIAL NO; POSITIVE MORPHOLOGY NO
[2017-09-21 08:51] VITALS: BP 146/80; PULSE 81; RESP 16; TEMP 36.7; O2SAT 96
[2017-09-21 08:55] LABS: Anion Gap 6 (5-15); BUN 15 mg/dL (7-18); BUN/Creat Ratio 30.6 RATIO (10-20); Calcium,Total 8.3 mg/dL (8.5-10.1); Chloride 103 mmol/L (98-107); Creatinine, Serum 0.49 mg/dL (0.55-1.02); EST Glomerular Filtration Rate 136 mL/min (>60); Est Glom Filt Rate - Afr Amer 165 mL/min (>60); Estimated Creatinine Clearance 89.83 ml/min; Glucose 76 mg/dL (74-106); Magnesium 1.2 mg/dL (1.6-2.6); Potassium 3.3 mmol/L (3.5-5.1); Sodium Level 143 mmol/L (136-145)
[2017-09-21] MEDS: Fludrocortisone Acetate 0.1 MG Tablet PO (09:11)
[2017-09-21] MEDS: Aspirin E.C. 81 MG Tablet PO (09:11)
[2017-09-21] MEDS: Magnesium Oxide 400 MG Tablet PO ×2 (09:11→12:06)
[2017-09-21] MEDS: Glucerna Shake 120 ML LIQUID PO ×3 (09:11→16:26)
[2017-09-21] MEDS: Menthol/Lanolin/Calamine/Znox 113 GM Tube 1 APPLIC TOPICAL ×4 (09:12→22:07)
[2017-09-21] MEDS: Anastrozole 1 MG Tablet PO (09:12)
[2017-09-21] MEDS: Gabapentin 100 MG Capsule PO ×3 (09:12→16:26)
[2017-09-21] MEDS: Divalproex (ER) 500 MG Tablet PO ×2 (09:13→22:09)
[2017-09-21] MEDS: Carvedilol 6.25 MG Tablet PO ×2 (09:14→22:07)
[2017-09-21] MEDS: Tolterodine Tartrate 4 MG CAP.SA PO (09:14)
[2017-09-21] MEDS: NYSTATIN 500,000 UNIT/5 ML UDC 500000 UNIT PO ×4 (09:15→22:09)
[2017-09-21] MEDS: Enoxaparin 40 MG/0.4 ML Syringe SC (09:15)
[2017-09-21] MEDS: Pravastatin 40 MG Tablet PO (09:17)
[2017-09-21] MEDS: Calcitriol 0.25 MCG Capsule 1 MCG PO (09:17)
[2017-09-21] MEDS: Pantoprazole Sodium 20 MG Tablet PO (09:17)
[2017-09-21] MEDS: buPROPion (XL) 300 MG TABLET.XL PO (09:19)
[2017-09-21] MEDS: Lisinopril 5 MG Tablet PO (09:19)
[2017-09-21 09:52] LABS: Phosphorus 2.2 mg/dL (2.5-4.9)
[2017-09-21 11:21] LABS: Bedside Glucose 108 mg/dL (70-110)
[2017-09-21 14:01] VITALS: O2SAT 93
[2017-09-21 14:20] VITALS: BP 137/69; PULSE 85; RESP 16; TEMP 36.8; O2SAT 94
--- NOTE | 2017-09-21 15:57 | PCM.PROGNOTE ---
<Bin Rivas - Last Filed: 09/21/17 15:57> Patient Problems: Active and Suspected Problems (Last Reviewed 05/21/17 @ 14:12 by Jordan Chaney MD) Cystitis (Acute) Sepsis (Acute) Metabolic encephalopathy (Acute) Subjective: Pt resting comfortably in bed. Appears lethargic. Slow to respond to questions. Mumbling. No fever or chills. Describes some lower abdominal pain, rubbing lower abdomen saying it hurts. Tolerating cath. Cannot tell me why she has this all the time. - Physical Exam General: Alert, Cooperative, Confused, Lethargic HEENT: Atraumatic, PERRLA, EOMI, Normocephalic Neck: Supple, No JVD, Negative Carotid Bruits Lungs: Clear to auscultation, Normal air movement Cardiovascular: Regular rate, No murmurs Abdomen: Bowel Sounds Present, Soft, Non Tender Extremities: No edema, Capillary Refill Less than 3 Seconds Skin: No rashes, No breakdown Musculoskeletal: No Tenderness to Palpation of Joints or Extremities Neurological: Cranial nerves II-XII grossly intact Psych/Mental Status: Flat Affect Vital Signs Temp Pulse Resp BP Pulse Ox 98.3 F 85 16 137/69 H 94 09/21/17 14:20 09/21/17 14:20 09/21/17 14:20 09/21/17 14:20 09/21/17 14:20 Oxygen Flow Rate (L/min) 2 Oxygen Delivery Method Room Air Weight: 116.7 kg Intake and Output for Last 24 Hours 09/19/17 09/20/17 09/21/17 23:59 23:59 23:59 Intake Total 1320 / 1320 1960 / 1960 1421 / 1421 Output Total 250 / 250 1275 / 1275 1050 / 1050 Balance 1070 / 1070 685 / 685 371 / 371 Laboratory Tests Past 24 Hrs 09/21/17 09/21/17 09/21/17 05:50 05:50 05:50 WBC 5.5 RBC 3.53 L Hgb 10.6 L Hct 32.7 L MCV 92.6 MCH 30.0 MCHC 32.4 RDW 14.1 RDW Differential 47.6 H Plt Count 121 L MPV 10.2 Immature Gran % (Auto) 0.400 Neut % (Auto) 36.3 L Lymph % (Auto) 43.7 H Maury % (Auto) 16.8 H Eos % (Auto) 2.6 Baso % (Auto) 0.2 Absolute Neuts (auto) 2.0 Absolute Lymphs (auto) 2.40 Total Counted Not Reportable Sodium 143 Potassium 3.3 L Chloride 103 Carbon Dioxide 34.0 H Anion Gap 6 BUN 15 Creatinine 0.49 L Estim Creat Clear Calc 89.83 Est GFR (MDRD) Af Amer 165 Est GFR (MDRD) Non-Af 136 BUN/Creatinine Ratio 30.6 H Glucose 76 Calcium 8.3 L Phosphorus 2.2 L Magnesium 1.2 L POC Glucose 09/21/17 09/21/17 09/21/17 11:15 06:46 03:28 POC Glucose 108 78 74 09/20/17 09/20/17 22:07 17:33 POC Glucose 118 H 77 Medical Necessity - Tobacco Use Smoking Status: Former smoker Assessment/Plan All Active Problems (Last Reviewed 05/21/17 @ 14:12 by Jordan Chaney MD) Cystitis (Acute) Sepsis (Acute) Metabolic encephalopathy (Acute) Septic shock due to urinary tract infection (Acute) Chest pain (Acute) 1. Acute severe sepsis 2/2 multibacterial UTI - criteria met with + UA, pulse >90, tachypnea, low BP responded to fluids, elevated lactate. Recent culture with ESBL E coli and pseudomonas - both >100,000. E faecalis with <10,000 growth. Repeat culture taken with new cath placement. Continue Meropenem. Follow cultures. Repeat lactate x 1 is normal. -currently no fever or white count elevation -repeat culture prelim showing gnr lactose piston maker, gnr both >100,000 growth. Possible Pseudomonas, await final cx/sens. This is c/w prior culture. -Blood cx negative. 2. Acute metabolic encephalopathy 2/2 above - remains confused, avoid anticholinergics. She answers some questions, but others like her name she will not answer, which is unusual. Flat affect. Possibly skewed by underlying psychiatric issues as below. 3. DMt2 - SSI, continue long acting, hold metformin. A1c with good control, daily glucose stable. 4. Chronic sytolic CHF and nonischemic cardiomyopathy - restart diuretics when appropriate. 5. Hx Schizoaffective disorder - continue home meds 6. Hypothyroidism - synthroid 7. HTN - was running low, now stable. 8. Morbid obesity - dietary eval 9. Debility - PTOT, return to SNF 10. Low mag / phos / potassium - replete all with oral and re-evaluate. DVT ppx: lovenox - mild drop in platelets - trend. dc if continues. DC planning: return to SNF - needs to go back on skilled side so needs pre auth and qualifying stay. This patient was seen by Bin Rivas PA-C under the supervision of Doctor Azam. <Batsheva Nascimento - Last Filed: 09/21/17 16:37> - Physical Exam Vital Signs Temp Pulse Resp BP Pulse Ox 98.3 F 85 16 137/69 H 94 09/21/17 14:20 09/21/17 14:20 09/21/17 14:20 09/21/17 14:20 09/21/17 14:20 Oxygen Flow Rate (L/min) 2 Oxygen Delivery Method Room Air Weight: 116.7 kg Intake and Output for Last 24 Hours 09/19/17 09/20/17 09/21/17 23:59 23:59 23:59 Intake Total 1320 / 1320 1960 / 1960 1421 / 1421 Output Total 250 / 250 1275 / 1275 1050 / 1050 Balance 1070 / 1070 685 / 685 371 / 371 Laboratory Tests Past 24 Hrs 09/21/17 09/21/17 09/21/17 05:50 05:50 05:50 WBC 5.5 RBC 3.53 L Hgb 10.6 L Hct 32.7 L MCV 92.6 MCH 30.0 MCHC 32.4 RDW 14.1 RDW Differential 47.6 H Plt Count 121 L MPV 10.2 Immature Gran % (Auto) 0.400 Neut % (Auto) 36.3 L Lymph % (Auto) 43.7 H Maury % (Auto) 16.8 H Eos % (Auto) 2.6 Baso % (Auto) 0.2 Absolute Neuts (auto) 2.0 Absolute Lymphs (auto) 2.40 Total Counted Not Reportable Sodium 143 Potassium 3.3 L Chloride 103 Carbon Dioxide 34.0 H Anion Gap 6 BUN 15 Creatinine 0.49 L Estim Creat Clear Calc 89.83 Est GFR (MDRD) Af Amer 165 Est GFR (MDRD) Non-Af 136 BUN/Creatinine Ratio 30.6 H Glucose 76 Calcium 8.3 L Phosphorus 2.2 L Magnesium 1.2 L POC Glucose 09/21/17 09/21/17 09/21/17 11:15 06:46 03:28 POC Glucose 108 78 74 09/20/17 09/20/17 22:07 17:33 POC Glucose 118 H 77 Assessment/Plan Patient was seen and examined with physician assistant auto center manager Bin Rivas. I agree with this above interval history, physical examination assessment and plan. Patient denies any new complaints, states he feels much better than she did before. She is slightly slow in answering questions but is appropriate. Denies any fever or chills or shortness of breath. Vitals were reviewed and were stable. Medications were also reviewed. However that she is running relatively low in blood sugars, changes made to her insulin with a decrease from 28 units of Levemir to 25 units, will continue to monitor Accu-Cheks and hold metformin. Urine cultures are growing gram-negative niyah lactose piston maker, will await final culture and sensitivity; continue on meropenem for now Code Visit Inpatient E&M: 19368 Subs Hosp L2
--- NOTE | 2017-09-21 16:03 | PN_ITS ---
<Bin Rivas - Last Filed: 09/21/17 15:57> Patient Problems: Active and Suspected Problems (Last Reviewed 05/21/17 @ 14:12 by Jordan Chaney MD ) Cystitis (Acute) Sepsis (Acute) Metabolic encephalopathy (Acute) Subjective: Pt resting comfortably in bed. Appears lethargic. Slow to respond to questions. Mumbling. No fever or chills. Describes some lower abdominal pain, rubbing lower abdomen saying it hurts. Tolerating cath. Cannot tell me why she has this all the time. - Physical Exam General: Alert, Cooperative, Confused, Lethargic HEENT: Atraumatic, PERRLA, EOMI, Normocephalic Neck: Supple, No JVD, Negative Carotid Bruits Lungs: Clear to auscultation, Normal air movement Cardiovascular: Regular rate, No murmurs Abdomen: Bowel Sounds Present, Soft, Non Tender Extremities: No edema, Capillary Refill Less than 3 Seconds Skin: No rashes, No breakdown Musculoskeletal: No Tenderness to Palpation of Joints or Extremities Neurological: Cranial nerves II-XII grossly intact Psych/Mental Status: Flat Affect Vital Signs Temp Pulse Resp BP Pulse Ox 98.3 F 85 16 137/69 H 94 09/21/17 14:20 09/21/17 14:20 09/21/17 14:20 09/21/17 14:20 09/21/17 14:20 Oxygen Flow Rate (L/min) 2 Oxygen Delivery Method Room Air Weight: 116.7 kg Intake and Output for Last 24 Hours 09/19/17 09/20/17 09/21/17 23:59 23:59 23:59 Intake Total 1320 / 1320 1960 / 1960 1421 / 1421 Output Total 250 / 250 1275 / 1275 1050 / 1050 Balance 1070 / 1070 685 / 685 371 / 371 Laboratory Tests Past 24 Hrs 09/21/17 09/21/17 09/21/17 05:50 05:50 05:50 WBC 5.5 RBC 3.53 L Hgb 10.6 L Hct 32.7 L MCV 92.6 MCH 30.0 MCHC 32.4 RDW 14.1 RDW Differential 47.6 H Plt Count 121 L MPV 10.2 Immature Gran % (Auto) 0.400 Neut % (Auto) 36.3 L Lymph % (Auto) 43.7 H Rawlins % (Auto) 16.8 H Eos % (Auto) 2.6 Baso % (Auto) 0.2 Absolute Neuts (auto) 2.0 Absolute Lymphs (auto) 2.40 Total Counted Not Reportable Sodium 143 Potassium 3.3 L Chloride 103 Carbon Dioxide 34.0 H Anion Gap 6 BUN 15 Creatinine 0.49 L Estim Creat Clear Calc 89.83 Est GFR (MDRD) Af Amer 165 Est GFR (MDRD) Non-Af 136 BUN/Creatinine Ratio 30.6 H Glucose 76 Calcium 8.3 L Phosphorus 2.2 L Magnesium 1.2 L POC Glucose 09/21/17 09/21/17 09/21/17 11:15 06:46 03:28 POC Glucose 108 78 74 09/20/17 09/20/17 22:07 17:33 POC Glucose 118 H 77 Medical Necessity - Tobacco Use Smoking Status: Former smoker Assessment/Plan All Active Problems (Last Reviewed 05/21/17 @ 14:12 by Jordan Chaney MD) Cystitis (Acute) Sepsis (Acute) Metabolic encephalopathy (Acute) Septic shock due to urinary tract infection (Acute) Chest pain (Acute) 1. Acute severe sepsis 2/2 multibacterial UTI - criteria met with + UA, pulse > 90, tachypnea, low BP responded to fluids, elevated lactate. Recent culture with ESBL E coli and pseudomonas - both >100,000. E faecalis with <10,000 growth. Repeat culture taken with new cath placement. Continue Meropenem. Follow cultures. Repeat lactate x 1 is normal. -currently no fever or white count elevation -repeat culture prelim showing gnr lactose manager english, gnr both >100,000 growth. Possible Pseudomonas, await final cx/sens. This is c/w prior culture. -Blood cx negative. 2. Acute metabolic encephalopathy 2/2 above - remains confused, avoid anticholinergics. She answers some questions, but others like her name she will not answer, which is unusual. Flat affect. Possibly skewed by underlying psychiatric issues as below. 3. DMt2 - SSI, continue long acting, hold metformin. A1c with good control, daily glucose stable. 4. Chronic sytolic CHF and nonischemic cardiomyopathy - restart diuretics when appropriate. 5. Hx Schizoaffective disorder - continue home meds 6. Hypothyroidism - synthroid 7. HTN - was running low, now stable. 8. Morbid obesity - dietary eval 9. Debility - PTOT, return to SNF 10. Low mag / phos / potassium - replete all with oral and re-evaluate. DVT ppx: lovenox - mild drop in platelets - trend. dc if continues. DC planning: return to SNF - needs to go back on skilled side so needs pre auth and qualifying stay. This patient was seen by Bin Rivas PA-C under the supervision of Doctor Azam. <Batsheva Nascimento - Last Filed: 09/21/17 16:37> - Physical Exam Vital Signs Temp Pulse Resp BP Pulse Ox 98.3 F 85 16 137/69 H 94 09/21/17 14:20 09/21/17 14:20 09/21/17 14:20 09/21/17 14:20 09/21/17 14:20 Oxygen Flow Rate (L/min) 2 Oxygen Delivery Method Room Air Weight: 116.7 kg Intake and Output for Last 24 Hours 09/19/17 09/20/17 09/21/17 23:59 23:59 23:59 Intake Total 1320 / 1320 1960 / 1960 1421 / 1421 Output Total 250 / 250 1275 / 1275 1050 / 1050 Balance 1070 / 1070 685 / 685 371 / 371 Laboratory Tests Past 24 Hrs 09/21/17 09/21/17 09/21/17 05:50 05:50 05:50 WBC 5.5 RBC 3.53 L Hgb 10.6 L Hct 32.7 L MCV 92.6 MCH 30.0 MCHC 32.4 RDW 14.1 RDW Differential 47.6 H Plt Count 121 L MPV 10.2 Immature Gran % (Auto) 0.400 Neut % (Auto) 36.3 L Lymph % (Auto) 43.7 H Rawlins % (Auto) 16.8 H Eos % (Auto) 2.6 Baso % (Auto) 0.2 Absolute Neuts (auto) 2.0 Absolute Lymphs (auto) 2.40 Total Counted Not Reportable Sodium 143 Potassium 3.3 L Chloride 103 Carbon Dioxide 34.0 H Anion Gap 6 BUN 15 Creatinine 0.49 L Estim Creat Clear Calc 89.83 Est GFR (MDRD) Af Amer 165 Est GFR (MDRD) Non-Af 136 BUN/Creatinine Ratio 30.6 H Glucose 76 Calcium 8.3 L Phosphorus 2.2 L Magnesium 1.2 L POC Glucose 09/21/17 09/21/17 09/21/17 11:15 06:46 03:28 POC Glucose 108 78 74 09/20/17 09/20/17 22:07 17:33 POC Glucose 118 H 77 Assessment/Plan Patient was seen and examined with physician school health assistant Bin Rivas. I agree with this above interval history, physical examination assessment and plan. Patient denies any new complaints, states he feels much better than she did before. She is slightly slow in answering questions but is appropriate. Denies any fever or chills or shortness of breath. Vitals were reviewed and were stable. Medications were also reviewed. However that she is running relatively low in blood sugars, changes made to her insulin with a decrease from 28 units of Levemir to 25 units, will continue to monitor Accu-Cheks and hold metformin. Urine cultures are growing gram-negative niyah lactose manager english, will await final culture and sensitivity; continue on meropenem for now Code Visit Inpatient E&M: 85147 Subs Hosp L2
[2017-09-21 16:35] LABS: Bedside Glucose 99 mg/dL (70-110)
[2017-09-21 19:50] VITALS: BP 147/81; PULSE 84; RESP 16; TEMP 37.4; O2SAT 96
[2017-09-21] MEDS: Pramipexole Di-HCl 0.25 MG Tablet PO (22:09)
[2017-09-21] MEDS: Montelukast 10 MG Tablet PO (22:11)
[2017-09-21] MEDS: Na Biphos/Potassium Phosphate PACKET 1 PACKET PO (22:21)
[2017-09-21 22:26] LABS: Bedside Glucose 83 mg/dL (70-110)
[2017-09-22] VITALS (7 sets, daily range): BP systolic 123–140; BP diastolic 72–91; PULSE 83–86; RESP 15–20; TEMP 36.6–37.3; O2SAT 92–94
[2017-09-22] MEDS: Nystatin Powder 15gm Bottle 1 APPLIC TOPICAL ×3 (05:59→21:53)
[2017-09-22] MEDS: Levothyroxine 112 MCG Tablet PO (06:03)
[2017-09-22] MEDS: RisperiDONE 1 MG Tablet PO ×3 (06:03→21:52)
[2017-09-22 06:11] LABS: Bedside Glucose 88 mg/dL (70-110)
[2017-09-22 06:21] LABS: Absolute Lymphocyte Count 2.48 X10^3/ul (0.83-4.51); Absolute Neutrophil Count 1.8 X10^3/uL (2.0-7.7); Basophil# 0.02 X10^3/uL; Basophil% 0.4 % (0-1); Eosinophils% 1.9 % (0-5); Hematocrit 34.1 % (37-47); Hemoglobin 11.2 g/dl (12.0-15.0); Lymphocyte # 2.48 X10^3/ul (4.0); Lymphocyte % 46.6 % (19-41); Mean Corp Hgb Conc 32.8 g/gl (32-36); Mean Corpuscular Hgb 29.9 pg (27.0-32.0); Mean Corpuscular Volume 91.2 fL (81-99); Mean Platelet Vol. 9.7 fl (6.2-12.0); Monocyte# 0.87 X10^3/uL; Monocyte% 16.4 % (0-10); Neutrophil # 1.82 X10^3/uL (2.7-7.7); Neutrophil % 34.1 % (47-70); Platelet Count 131 K/mm3 (150-450); RBC Distribution Width CV 13.9 % (11.6-14.6); RBC Distribution Width SD 45.8 fl (35.1-43.9); Red Blood Count 3.74 M/mm3 (4.2-5.4); White Blood Count 5.3 K/mm3 (4.4-11.0)
[2017-09-22 06:28] LABS: POSITIVE COUNT NO; POSITIVE DIFFERENTIAL NO; POSITIVE MORPHOLOGY NO
[2017-09-22 06:35] LABS: Anion Gap 6 (5-15); BUN 9 mg/dL (7-18); BUN/Creat Ratio 19.1 RATIO (10-20); Calcium,Total 8.3 mg/dL (8.5-10.1); Chloride 102 mmol/L (98-107); Creatinine, Serum 0.47 mg/dL (0.55-1.02); EST Glomerular Filtration Rate 142 mL/min (>60); Est Glom Filt Rate - Afr Amer 172 mL/min (>60); Estimated Creatinine Clearance 93.65 ml/min; Glucose 79 mg/dL (74-106); Magnesium 1.4 mg/dL (1.6-2.6); Potassium 3.4 mmol/L (3.5-5.1); Sodium Level 141 mmol/L (136-145)
[2017-09-22 06:43] LABS: Phosphorus 2.2 mg/dL (2.5-4.9)
[2017-09-22] MEDS: Gabapentin 100 MG Capsule PO ×3 (08:40→17:24)
[2017-09-22] MEDS: Fludrocortisone Acetate 0.1 MG Tablet PO (08:40)
[2017-09-22] MEDS: Glucerna Shake 120 ML LIQUID PO (08:40)
[2017-09-22] MEDS: Aspirin E.C. 81 MG Tablet PO (08:40)
[2017-09-22] MEDS: Magnesium Oxide 400 MG Tablet PO ×2 (09:08→18:35)
[2017-09-22] MEDS: Pravastatin 40 MG Tablet PO (11:24)
[2017-09-22] MEDS: Pantoprazole Sodium 20 MG Tablet PO (11:24)
[2017-09-22] MEDS: Lisinopril 5 MG Tablet PO (11:24)
[2017-09-22] MEDS: Calcitriol 0.25 MCG Capsule 1 MCG PO (11:24)
[2017-09-22] MEDS: buPROPion (XL) 300 MG TABLET.XL PO (11:24)
[2017-09-22] MEDS: Tolterodine Tartrate 4 MG CAP.SA PO (11:25)
[2017-09-22] MEDS: Divalproex (ER) 500 MG Tablet PO ×2 (11:25→21:52)
[2017-09-22] MEDS: Anastrozole 1 MG Tablet PO (11:25)
[2017-09-22] MEDS: Furosemide 20 MG Tablet PO (11:25)
[2017-09-22] MEDS: Menthol/Lanolin/Calamine/Znox 113 GM Tube 1 APPLIC TOPICAL ×4 (11:26→21:53)
[2017-09-22] MEDS: Carvedilol 6.25 MG Tablet PO ×2 (11:26→21:53)
[2017-09-22] MEDS: Enoxaparin 40 MG/0.4 ML Syringe SC (11:27)
[2017-09-22] MEDS: Na Biphos/Potassium Phosphate PACKET 1 PACKET PO ×2 (11:27→21:53)
[2017-09-22 12:00] LABS: Bedside Glucose 131 mg/dL (70-110)
--- NOTE | 2017-09-22 12:28 | PN_ITS ---
<Bin Rivas - Last Filed: 09/22/17 12:23> Patient Problems: Active and Suspected Problems (Last Reviewed 05/21/17 @ 14:12 by Jordan Chaney MD ) Cystitis (Acute) Sepsis (Acute) Metabolic encephalopathy (Acute) Subjective: Pt resting comfortably in bed NAD. No abdominal pain, no SOB, no cough, no CP, no n/v. No BM since admission, would like stool softener. No F/C. - Physical Exam General: Alert, Oriented x3, Cooperative HEENT: Atraumatic, PERRLA, EOMI, Normocephalic Neck: Supple, No JVD, Negative Carotid Bruits Lungs: Clear to auscultation, Normal air movement Cardiovascular: Regular rate, No murmurs Abdomen: Bowel Sounds Present, Soft, Non Tender Extremities: No edema, Capillary Refill Less than 3 Seconds Skin: No rashes, No breakdown Musculoskeletal: No Tenderness to Palpation of Joints or Extremities Neurological: Cranial nerves II-XII grossly intact Psych/Mental Status: Normal Affect, Appropriate, Alert and oriented to time, place, person, mood and affect Vital Signs Temp Pulse Resp BP Pulse Ox 98.5 F 85 20 H 123/74 H 93 09/22/17 08:32 09/22/17 08:55 09/22/17 08:55 09/22/17 08:32 09/22/17 08:32 Oxygen Flow Rate (L/min) 2 Oxygen Delivery Method Room Air Weight: 119.3 kg Intake and Output for Last 24 Hours 09/20/17 09/21/17 09/22/17 23:59 23:59 23:59 Intake Total 1959 / 1959 1421 / 1421 521.7 / 521.7 Output Total 1275 / 1275 1050 / 1050 1550 / 1550 Balance 685 / 685 371 / 371 -1028.3 / -1028.3 Laboratory Tests Past 24 Hrs 09/22/17 09/22/17 09/22/17 05:50 05:50 05:50 WBC 5.3 RBC 3.74 L Hgb 11.2 L Hct 34.1 L MCV 91.2 MCH 29.9 MCHC 32.8 RDW 13.9 RDW Differential 45.8 H Plt Count 131 L MPV 9.7 Immature Gran % (Auto) 0.600 Neut % (Auto) 34.1 L Lymph % (Auto) 46.6 H Kershaw % (Auto) 16.4 H Eos % (Auto) 1.9 Baso % (Auto) 0.4 Absolute Neuts (auto) 1.8 L Absolute Lymphs (auto) 2.48 Total Counted Not Reportable Sodium 141 Potassium 3.4 L Chloride 102 Carbon Dioxide 33.0 H Anion Gap 6 BUN 9 Creatinine 0.47 L Estim Creat Clear Calc 93.65 Est GFR (MDRD) Af Amer 172 Est GFR (MDRD) Non-Af 142 BUN/Creatinine Ratio 19.1 Glucose 79 Calcium 8.3 L Phosphorus 2.2 L Magnesium 1.4 L POC Glucose 09/22/17 09/22/17 09/21/17 11:43 06:05 22:03 POC Glucose 131 H 88 83 09/21/17 16:28 POC Glucose 99 Medical Necessity - Tobacco Use Smoking Status: Former smoker Assessment/Plan All Active Problems (Last Reviewed 05/21/17 @ 14:12 by Jordan Chaney MD) Cystitis (Acute) Sepsis (Acute) Metabolic encephalopathy (Acute) Septic shock due to urinary tract infection (Acute) Chest pain (Acute) 1. Acute severe sepsis 2/2 multibacterial UTI - criteria met with + UA, pulse > 90, tachypnea, low BP responded to fluids, elevated lactate. Recent culture with ESBL E coli and pseudomonas - both >100,000. E faecalis with <10,000 growth. Repeat culture taken with new cath placement. Repeat lactate x 1 is normal. -currently no fever or white count elevation -Urine Culture with 3 bacteria - E coli, pseudomonas, Burkholderia, the first 2 which are suspectible to cabapenems, only aztronam tested for B cepacia. -ID will be consulted with the above findings to direct type and duration of abx therapy going forward. -Blood cx negative. 2. Acute metabolic encephalopathy 2/2 above -improving, skewed by underlying psychosis. 3. DMt2 - SSI, continue long acting, hold metformin. A1c with good control, daily glucose stable. 4. Chronic sytolic CHF and nonischemic cardiomyopathy - stable 5. Hx Schizoaffective disorder - continue home meds 6. Hypothyroidism - synthroid 7. HTN - stable 8. Morbid obesity - dietary c/s. supplement daily. PO intake poor. 9. Debility - PTOT, return to SNF 10. Low mag / phos / potassium - replete all with oral and re-evaluate. 11. Thrombocytopenia - trending with lovenox therapy. DVT ppx: lovenox - trend with low platelets DC planning: return to SNF - needs to go back on skilled side of ECF so she needs pre auth and qualifying stay. Plan for DC tomorrow with ID rec. for abx. This patient was seen by Bin Rivas PA-C under the supervision of Doctor Nascimento. <Batsheva Nascimento - Last Filed: 09/22/17 15:40> - Physical Exam Vital Signs Temp Pulse Resp BP Pulse Ox 98 F 83 20 H 137/83 H 93 09/22/17 14:30 09/22/17 14:53 09/22/17 14:53 09/22/17 14:30 09/22/17 14:30 Oxygen Flow Rate (L/min) 2 Oxygen Delivery Method Room Air Weight: 119.3 kg Intake and Output for Last 24 Hours 09/20/17 09/21/17 09/22/17 23:59 23:59 23:59 Intake Total 1959 / 1959 1421 / 1421 895.7 / 895.7 Output Total 1275 / 1275 1050 / 1050 2150 / 2150 Balance 685 / 685 371 / 371 -1254.3 / -1254.3 Laboratory Tests Past 24 Hrs 09/22/17 09/22/17 09/22/17 05:50 05:50 05:50 WBC 5.3 RBC 3.74 L Hgb 11.2 L Hct 34.1 L MCV 91.2 MCH 29.9 MCHC 32.8 RDW 13.9 RDW Differential 45.8 H Plt Count 131 L MPV 9.7 Immature Gran % (Auto) 0.600 Neut % (Auto) 34.1 L Lymph % (Auto) 46.6 H Kershaw % (Auto) 16.4 H Eos % (Auto) 1.9 Baso % (Auto) 0.4 Absolute Neuts (auto) 1.8 L Absolute Lymphs (auto) 2.48 Total Counted Not Reportable Sodium 141 Potassium 3.4 L Chloride 102 Carbon Dioxide 33.0 H Anion Gap 6 BUN 9 Creatinine 0.47 L Estim Creat Clear Calc 93.65 Est GFR (MDRD) Af Amer 172 Est GFR (MDRD) Non-Af 142 BUN/Creatinine Ratio 19.1 Glucose 79 Calcium 8.3 L Phosphorus 2.2 L Magnesium 1.4 L POC Glucose 09/22/17 09/22/17 09/21/17 11:43 06:05 22:03 POC Glucose 131 H 88 83 09/21/17 16:28 POC Glucose 99 Assessment/Plan Patient was seen and examined with physician assistant men's soccer coach Bin Rivas. I agree with this above interval history, physical examination assessment and plan. Patient denies any new complaints, no acute events overnight. Denies any fever or chills or shortness of breath. Vitals were reviewed and were stable. Urine cultures are growing E. Coli and Burkholderia, sensitive to both imipenem and Zosyn, will switch to Zosyn for now pending ID consult. Blood sugars are still relatively low, will decrease from Levemir 25 units, to 23 units, continue to monitor Accu-Cheks and hold metformin. Code Visit Inpatient E&M: 41410 Subs Hosp L2
[2017-09-22] MEDS: NYSTATIN 500,000 UNIT/5 ML UDC 500000 UNIT PO ×2 (14:45→22:07)
[2017-09-22 17:31] LABS: Bedside Glucose 110 mg/dL (70-110)
[2017-09-22] MEDS: Docusate Sodium 100 MG Capsule 200 MG PO (18:34)
[2017-09-22] MEDS: Montelukast 10 MG Tablet PO (21:52)
[2017-09-22] MEDS: Pramipexole Di-HCl 0.25 MG Tablet PO (21:52)
[2017-09-22] MEDS: Piperacil/Tazobactam 3.375 GM/50 ML ML IV (21:58)
[2017-09-23] VITALS: RESP 15
[2017-10-01 14:09] LABS: Bedside Glucose 174 mg/dL (70-110)
[2017-10-01 14:10] LABS: Bedside Glucose 159 mg/dL (70-110)
[2017-10-09 10:35] LABS: Bedside Glucose 99 mg/dL (70-110)
[2017-10-09 10:35] LABS: Bedside Glucose 82 mg/dL (70-110)
== END 2017-09-24 16:20 | disposition skilled nursing facility (03) | DRG 871 ==
LOC: ED 15:08 → MS3 17:05
PROVIDERS: Internal Medicine; Physician Assistant; Admitting Provider Hospitalist; Emergency Provider Emergency Medicine; Family Provider Family Medicine; PCP Family Medicine; Visit Provider Internal Medicine
DX: A41.51 Sepsis due to Escherichia coli [E. coli] (principal); G93.41 Metabolic encephalopathy; N30.00 Acute cystitis without hematuria; I50.22 Chronic systolic (congestive) heart failure; Z68.41 Body mass index [BMI] 40.0-44.9, adult; I42.9 Cardiomyopathy, unspecified; R33.9 Retention of urine, unspecified; I11.0 Hypertensive heart disease with heart failure; F25.9 Schizoaffective disorder, unspecified; E11.9 Type 2 diabetes mellitus without complications; M79.7 Fibromyalgia; E78.5 Hyperlipidemia, unspecified; E66.01 Morbid (severe) obesity due to excess calories; Z71.3 Dietary counseling and surveillance; G47.33 Obstructive sleep apnea (adult) (pediatric); E03.9 Hypothyroidism, unspecified; Z16.12 Extended spectrum beta lactamase (ESBL) resistance; Z85.3 Personal history of malignant neoplasm of breast; Z87.891 Personal history of nicotine dependence
CPT/HCPCS: 36415; 51702; 80048; 80076; 81001; 82962; 83036; 83605; 83735; 84100; 85025; 87040; 87077; 87086; 87088; 87184; 87186; 93005; 97110; 97162; 97166; 97530; 97802; 99285; J2185; J7030; J7050; A4216

== ENCOUNTER → 2020-01-28 15:40 | Outpatient (CLI) | payer MEDICARE, SELFPAY ==
--- NOTE | 2020-01-28 15:42 | BI_ITS ---
MAMMOGRAPHY - UNILATERAL SCREENING: RIGHT BREAST REASON FOR EXAM: Female, 64 years old. Routine annual screening examination (unilateral). PERTINENT HISTORY: Personal history of breast cancer. Prior left lumpectomy. TECHNIQUE: Digital unilateral breast iveth (3D mammographic acquisition) in the CC and MLO projections. 2-D mediolateral oblique (MLO) and craniocaudad (CC) views of both breasts were obtained. CAD: Full Field Digital Mammography with Computer Added Detection was performed. COMPARISON: Comparison is made with prior outside examination dated 02/24/2018 and 07/09/2013. FINDINGS: Breast Composition: There are scattered areas of fibroglandular density. There are no dominant masses or suspicious calcifications. No other significant abnormalities are identified. There has been no significant change since the prior study. BI/SCREEN MAMM (CAD) W/IVETH UNI R IMPRESSION: Stable unilateral screening mammogram. Yearly follow-up mammogram recommended. (A) ASSESSMENT CATEGORY: BIRADS Category 1: Negative. A letter regarding these results will be sent to the patient by the facility within 30 days. Approximately 10% of breast cancers are not detected by mammography. A normal mammogram should not delay biopsy of a clinically suspicious abnormality. [id number] Electronically Signed: Pablo Bean, at 14:49 EDT , Service support ,
== END ==
PROVIDERS: PCP Family Medicine; Referring Provider Family Medicine; Visit Provider Family Medicine
DX: Z12.31 Encounter for screening mammogram for malignant neoplasm of breast (principal); Z85.3 Personal history of malignant neoplasm of breast; Z90.12 Acquired absence of left breast and nipple
CPT/HCPCS: 77063; 77067

== ENCOUNTER 2020-03-02 10:52 | Inpatient (IN) | payer MEDICARE, MEDICAID, SELFPAY ==
[2020-02-01 13:39] VITALS: BMI 47.3
[2020-03-02] VITALS (7 sets, daily range): BP systolic 81–141; BP diastolic 35–81; PULSE 74–90; RESP 18–28; TEMP 36.4–37.2; O2SAT 92–99; BMI 43.1; BMI 41.6
--- NOTE | 2020-03-02 11:09 | ED.DCSUM_ITS ---
- ER Visit Summary Date of Service: 03/02/20 Chief Complaint: [Rash and possible UTI] History of Present Illness: The patient is a 64 F [presents to the emergency department via EMS from group home. Patient's had a rash for several days. Patient apparently developed a fever and there is concern that her urine looks infected as she has a indwelling catheter. Patient has history of urosepsis. She denies any cough. She denies any chest pain or abdominal pain. Patient denies feeling short of breath. She has history of CHF, diabetes, hypertension, high cholesterol, and sleep apnea.] Patient had COVID-19 testing today and it was negative per note that arrived with patient from extended-care facility. Physical Examination: [HEENT-PERRLA, EOMI. Cranial nerves II through XII grossly intact. TMs clear. Mucous membranes moist. No adenopathy. Cardiovascular-regular rate and rhythm without murmur or ectopy Lungs-coarse rhonchi bilaterally. Good aeration. No significant conversational dyspnea. No accessory muscle use or retractions. Abdomen-normoactive bowel sounds, soft, nontender, no rebound or rigidity, no peritoneal signs. Patient has a indwelling Milan catheter that has thick whitish discharge noted within the catheter and urine that appears infected. Extremities-intact ?4, normal range of motion, normal pulses, atraumatic] Test Results: [CBC with differential obtained showed a white count 10.5, hemoglobin 11.5, hematocrit 38, placed 239. Chemistries unremarkable. Lactate was 1.3. Urinalysis was positive for 5 1 leukocyte esterase and positive for nitrites. She was positive for greater than 100 WBCs and +2 bacteria. Chest x- ray showed nothing acute.] Emergency Department Course and Treatment: [IV line established on arrival. Patient was given total of a liter normal same fluid bolus initially followed by second liter and ordered 1/3 L as well to make 30 cc/kg. His blood pressure did respond to IV hydration. She looks well and is mentating. Does not appear diaphoretic. Patient has good pulses throughout. She was started on Zosyn 4.5 g IV. Urine culture sent.] Treatment Plan: [Admit] Disposition: [Admit] Impression: [UTI Sepsis Hypotension] This note was generated with [employer] dictation software. It may contain incorrect words, spelling, and punctuation that were not noted in review of the chart prior to signing ED Disposition - Plan for ED Patient: Referrals: Babar Sahu MD [Primary Care Provider] -
--- NOTE | 2020-03-02 11:30 | RAD_ITS ---
STUDY: X-RAY CHEST REASON FOR EXAM: Female, 64 years old. FEVER, RASH, POSSIBLE UTI. TECHNIQUE: Single AP portable view of the chest. COMPARISON: Comparison is made with prior study dated 08/05/2016. FINDINGS: EKG electrodes are seen. The lungs are clear. There is no demonstrated pleural abnormality. Normal size heart. Normal mediastinum and john. Normal visualized pulmonary arteries. There is atherosclerotic tortuosity of the aortic arch and descending thoracic aorta. There are diffuse degenerative changes of the visualized thoracic spine. There is degenerative osteoarthritis of the bilateral shoulders. There is no demonstrated abnormality of the visualized soft tissue structures of the upper abdomen. RAD/Chest 1 View (Portable) IMPRESSION: No acute abnormality is seen. Electronically Signed: Pablo Bean, at 12:11 EST , Service support ,
[2020-03-02 11:31] LABS: Absolute Lymphocyte Count 3.35 X10^3/uL (0.83-4.51); Absolute Neutrophil Count 5.5 X10^3/uL (2.0-7.7); Basophil# 0.05 X10^3/uL; Basophil% 0.5 % (0-1); Eosinophil# 0.11 X10^3/uL; Eosinophils% 1.1 % (0-5); Hematocrit 37.6 % (37-47); Hemoglobin 11.5 g/dL (12.0-15.0); Lymphocyte # 3.35 X10^3/ul (4.0); Lymphocyte % 32.1 % (19-41); Mean Corp Hgb Conc 30.6 g/dL (32-36); Mean Corpuscular Hgb 26.6 pg (27.0-32.0); Mean Platelet Vol. 10.7 fl (6.2-12.0); Monocyte# 1.44 X10^3/uL; Monocyte% 13.8 % (0-10); NRBC Flagged by Analyzer 0 % (0-5); Neutrophil # 5.47 X10^3/uL (2.7-7.7); Neutrophil % 52.2 % (47-70); Platelet Count 239 K/mm3 (150-450); RBC Distribution Width SD 44.7 fl (35.1-43.9); Red Blood Count 4.32 M/mm3 (4.2-5.4); White Blood Count 10.5 K/mm3 (4.4-11.0)
[2020-03-02] MEDS: 0.9% Normal Saline 1,000 ML 1000 ML IV (11:40)
[2020-03-02 11:45] LABS: ALB/GLOB Ratio 0.5 RATIO (0.9-2.4); AST(SGOT) 15 U/L (15-37); Alanine Aminotransfer ALT/SGPT 23 U/L (13-56); Albumin, Serum 2.3 g/dL (3.2-5.0); Alkaline Phosphatase 123 U/L (45-117); Anion Gap 3 (5-15); BUN 21 mg/dL (7-18); BUN/Creat Ratio 22.4 RATIO (10-20); Calcium,Total 8.6 mg/dL (8.5-10.1); Chloride 106 mmol/L (98-107); Creatinine, Serum 0.94 mg/dL (0.55-1.02); EST Glomerular Filtration Rate 64 mL/min (>60); Est Glom Filt Rate - Afr Amer 77 mL/min (>60); Estimated Creatinine Clearance 47.82 ml/min; Glucose 118 mg/dL (74-106); Potassium 3.6 mmol/L (3.5-5.1); Protein, Total 7.3 g/dL (6.4-8.2); Sodium Level 142 mmol/L (136-145)
[2020-03-02 11:58] LABS: Lactic Acid 1.3 mmol/L (0.4-1.9)
[2020-03-02] MEDS: 0.9% Normal Saline 1,000 ML 999 ML IV ×2 (12:37→14:37)
[2020-03-02 13:25] LABS: Mucous, Urine 0 SEEN /hpf (<or=2+); Squamous Epithelial Cells - UA 0 SEEN /hpf (5-10)
[2020-03-02 13:27] LABS: Color, Urine Straw (Yellow); Glucose, Dipstick Normal (Normal); Ketone-Dipstick Negative (Negative); Leukocyte Esterase-Dipstick 500 /ul (Negative); Nitrite-Dipstick Positive (Negative); Occult Blood-Urine 250 /ul (Negative); Protein-Dipstick 30 mg/dl (Negative); Specific Gravity, Urine 1.015 (1.002-1.030); Urine Bilirubin Dipstick Negative (Negative); Urine Clarity Cloudy (Clear); Urine Urobilinogen Normal (Normal)
[2020-03-02 13:33] LABS: Red Blood Cells-Urine 50-100 SEEN /hpf (0-5); White Blood Cells >100 SEEN /hpf (0-5)
[2020-03-02 13:34] LABS: Bacteria 2+ /hpf (None Seen)
--- NOTE | 2020-03-02 14:07 | NURSING ---
DR JAIME FORDE
--- NOTE | 2020-03-02 14:22 | NURSING ---
MED SURG JAIME UTI, SEPSIS, HYPOTENSION
--- NOTE | 2020-03-02 14:45 | PCM.HP.STD ---
Problem List (1) UTI (urinary tract infection) Status: Acute Qualifiers: Urinary tract infection type: catheter-associated UTI Indwelling urinary catheter type: indwelling urethral catheter Encounter type: initial encounter Qualified Code(s): T83.511A - Infection and inflammatory reaction due to indwelling urethral catheter, initial encounter; N39.0 - Urinary tract infection, site not specified (2) Peripheral arterial occlusive disease Status: Chronic (3) Cystitis Status: Acute (4) Metabolic encephalopathy Status: Acute (5) Dilated cardiomyopathy Status: Chronic (6) Benign hypertension Status: Chronic (7) Hyperlipidemia Status: Chronic Qualifiers: (8) Intertrigo Status: Chronic (9) Schizoaffective disorder Status: Chronic (10) Bipolar disorder Status: Chronic (11) Diabetes mellitus, type 2 Status: Chronic Qualifiers: (12) Fibromyalgia Status: Chronic (13) Frequent falls Status: Chronic (14) Gait abnormality Status: Chronic (15) Morbid obesity Status: Chronic (16) CHF (congestive heart failure) Status: Chronic Comment: ef=40% (17) Morbid obesity with BMI of 40.0-44.9, adult Status: Chronic (18) Sleep apnea Status: Chronic (19) Septic shock due to urinary tract infection Status: Acute (20) Chest pain Status: Acute History of Present Illness Date of Admission: 03/02/20 Chief Complaint: malaise The patient is a 64 year old F presents from retirement with malaise over the past few days. Patient is also developed a rash. That began across her body. Patient feels that the rash may be associated with the facility using a different detergent other than Dreft. She states that the rash is actually gotten better. Patient does have a chronic Milan and concern was for UTI. Patient's urinalysis in the emergency room was abnormal. Catheter was changed and given her history of ESBL organisms, patient received Pipracil and/tazobactam. The hospitalist service was contacted for admission. Patient did have a rapid Covid test at the facility prior to transfer and that was negative. I did call [facility] to verify this and they verified that it was negative. They also stated that there are no active Covid cases at their facility currently. [] Past Medical History Past Medical History (Chronic Problems): Chronic Problems (Last Reviewed 02/01/20 @ 13:35 by Yeimi Olsen) Peripheral arterial occlusive disease (Chronic) Dilated cardiomyopathy (Chronic) Benign hypertension (Chronic) Hyperlipidemia (Chronic) Intertrigo (Chronic) Schizoaffective disorder (Chronic) Bipolar disorder (Chronic) Diabetes mellitus, type 2 (Chronic) Fibromyalgia (Chronic) Frequent falls (Chronic) Gait abnormality (Chronic) Morbid obesity (Chronic) CHF (congestive heart failure) (Chronic) ef=40% Morbid obesity with BMI of 40.0-44.9, adult (Chronic) Sleep apnea (Chronic) Medical History: Medical History (Last Reviewed 03/02/20 @ 14:[address] Johann Malloy, DO) Dilated cardiomyopathy (Chronic) I42.0 Benign hypertension (Chronic) I10 Hyperlipidemia (Chronic) E78.5 Schizoaffective disorder (Chronic) F25.9 Bipolar disorder (Chronic) F31.9 Diabetes mellitus, type 2 (Chronic) E11.9 Morbid obesity (Chronic) E66.01 CHF (congestive heart failure) (Chronic) I50.9 ef=40% Sleep apnea (Chronic) G47.30 Allergies Sulfa (Sulfonamide Antibiotics) Allergy (Verified 03/02/20 10:54) Unknown sulfamethoxazole [From Bactrim] Allergy (Verified 03/02/20 10:54) Unknown trimethoprim [From Bactrim] Allergy (Verified 03/02/20 10:54) Unknown Home Medications: Ambulatory Orders Medication Instructions Recorded Divalproex (ER) [Depakote ER] 500 mg PO QHS 03/16/13 Docusate Sodium [Colace] 200 mg PO DAILY PRN PRN 03/16/13 Levothyroxine Sodium [Levoxyl] 125 mcg PO DAILY 03/16/13 Pravastatin Sodium [Pravachol] 40 mg PO QHS 03/16/13 Aspirin E.C. [Ecotrin] 81 mg PO DAILY@0800 #30 tab 03/20/13 furosemide 20 mg tablet 20 mg PO DAILY 05/20/17 Acetaminophen [Pain Relief] 1,000 mg PO Q6H PRN 09/19/17 Anastrozole [Arimidex] 1 mg PO DAILY 09/19/17 Fludrocortisone Acetate [Florinef] 0.1 mg PO BID 09/19/17 Ibuprofen [Motrin] 400 mg PO TID PRN PRN 09/19/17 Melatonin 2 mg PO QHS 09/19/17 Omeprazole 20 mg PO DAILY 09/19/17 Apixaban [Eliquis] 5 mg PO BID 03/02/20 Atenolol 25 mg PO DAILY 03/02/20 Bisacodyl 10 mg RC DAILY PRN 03/02/20 Cetirizine HCl [Allergy Relief] 10 mg PO DAILY 03/02/20 DiphenhydrAMINE [Benadryl] 25 mg PO TID PRN PRN 03/02/20 Divalproex Sodium [Depakote] 250 mg PO DAILY 03/02/20 Ergocalciferol (Vitamin D2) 50,000 unit PO QWEEK 03/02/20 [Vitamin D2] Erythromycin Base [Erythromycin] 0 gm RIGHT EYE 4X/DAY 03/02/20 Insulin Detemir [Levemir] 45 unit SQ QHS 03/02/20 Insulin Lispro [Humalog] 16 unit SQ TIDCM 03/02/20 Lactobacillus Acidophilus 2 ea PO TID 03/02/20 [Acidophilus] Nystatin Powder [Mycostatin Powder] 1 applic TOPICAL BID 03/02/20 Potassium Chloride 10 meq PO DAILY 03/02/20 Quetiapine Fumarate [Seroquel] 100 mg PO BID 03/02/20 Surgical History: Surgical History (Last Reviewed 03/02/20 @ 14:[address] 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 Denies: Anorexia, Chills, Fever Eyes: Denies: Blurred vision, Drainage HEENT: Denies: Head Aches, Sinus Congestion, Sinus Drainage Cardiovascular: Denies: Chest Pain, Palpitations Respiratory: Reports: Cough. Denies: Shortness of Breath Gastrointestinal: Denies: Abdominal Pain, Nausea, Vomiting Genitourinary: Reports: Dysuria - Did have pain at the catheter site but actually improved once a change the catheter over in the emergency room Skin: Reports: Rash - Diffuse rash on her trunk, arms and legs. Neurological: Denies: Numbness, Tingling, Focal weakness Psychiatric: Denies: Anxiety, Depression Hematologic/ Lymphatic: Denies: Easy Bruising, Easy Bleeding, Hx of blood clot Comment: All review of systems were negative except as mentioned above in the history of present illness and the other review of systems. VTE Information - Inpt Only VTE Present on Admission: No VTE Mechan Device Prophylaxis: None VTE Pharm Prophylaxis ordered?: No Reason prophylaxis not ordered:: Treatment Not Indicated - Physical Exam Vitals/I&O's: Vital Signs Temp Pulse Resp BP Pulse Ox 36.6 C 74 24 H 105/62 99 03/02/20 14:34 03/02/20 14:34 03/02/20 14:34 03/02/20 14:34 03/02/20 14:34 Oxygen Flow Rate (L/min) 2 Oxygen Delivery Method Nasal Cannula Weight: 106.9 kg Body Mass Index (BMI) 43.1 Finger Stick Blood Glucose 99 Intake and Output for Last 24 Hours 02/29/20 03/01/20 03/02/20 23:59 23:59 23:59 Intake Total 2099 Balance 2099 General: Alert, Cooperative, No apparent distress HEENT: Atraumatic, Normocephalic Oral: Moist Mucosa, No Gingival or Mucosal Lesions/ Ulcerations Neck: No Nodes, Thyroid Normal Size and Texture Lungs: Clear to auscultation, Normal air movement, No rhonchi, No wheeze, No rales Cardiovascular: Regular rate, Regular Rhythm, Normal S1, Normal S2, No murmurs Abdomen: Bowel Sounds Present, Soft, Non Tender, Non-Distended, No Hepato-splenomegaly, Obese Extremities: No edema, No Calf Tenderness Skin: - - Morbilliform rash involving her trunk, back, arms. Less prominent on her legs. The overall color of the rash is a very light pink. It seems to be sparing her neck and face. Neurological: Muscle tone normal, - - No clonus Psych/Mental Status: Normal Affect, Appropriate Laboratory Results 03/02/20:: WBC 10.5, RBC 4.32, Hgb 11.5 L, Hct 37.6, MCV 87.0, MCH 26.6 L, MCHC 30.6 L, RDW Std Deviation 44.7 H, RDW Coeff of Derek 14.0, Plt Count 239, MPV 10.7, Immature Gran % (Auto) 0.300, Neut % (Auto) 52.2, Lymph % (Auto) 32.1, [place] % (Auto) 13.8 H, Eos % (Auto) 1.1, Baso % (Auto) 0.5, Absolute Neuts (auto) 5.5, Absolute Lymphs (auto) 3.35, Nucleated RBC % 0 03/02/20 11:20: Sodium 142, Potassium 3.6, Chloride 106, Carbon Dioxide 33.0 H, Anion Gap 3 L, BUN 21 H, Creatinine 0.94, Estim Creat Clear Calc 47.82, Est GFR (MDRD) Af Amer 77, Est GFR (MDRD) Non-Af 64, BUN/Creatinine Ratio 22.4 H, Glucose 118 H, Calcium 8.6, Total Bilirubin 0.30, AST 15, ALT 23, Alkaline Phosphatase 123 H, Total Protein 7.3, Albumin 2.3 L, Globulin 5.0 H, Albumin/Globulin Ratio 0.5 L 03/02/20 11:20: Lactic Acid 1.3 03/02/20 13:20: Urine Color Straw, Urine Clarity Cloudy, Urine pH 6.0, Ur Specific [place] 1.015, Urine Protein 30 H, Urine Glucose (UA) Normal, Urine Ketones Negative, Urine Occult Blood 250 H, Urine Nitrite Positive H, Urine Bilirubin Negative, Urine Urobilinogen Normal, Ur Leukocyte Esterase 500 H, Urine RBC 50-100 SEEN, Urine WBC >100 SEEN, Ur Squamous Epith Cells 0 SEEN, Urine Bacteria 2+, Urine Mucus 0 SEEN Clinical Impression(s) from Imaging Studies Chest X-Ray 03/02/20 11:30 IMPRESSION: No acute abnormality is seen. Electronically Signed: Pablo Bean, at 12:11 EST , Service support , Assessment/Plan All Active Problems (Last Reviewed 02/01/20 @ 13:35 by Yeimi Olsen) UTI (urinary tract infection) (Acute) Cystitis (Acute) Metabolic encephalopathy (Acute) Septic shock due to urinary tract infection (Acute) Chest pain (Acute) 1. Urinary tract infection, catheter associated: Catheter changed over in the emergency room. Patient does have history of ESBL E. coli from 2018. Is possible she may not have one now but, given that she has a chronic catheter, will continue with treatment with Pipracil and/tazobactam. Follow-up on urine cultures and adjust antibiotics accordingly. 2. Rash: Suspect contact dermatitis. Even though it is fairly diffuse this seems to be more confined to the trunk and arms and sparing the face and less prominent on her legs. Patient concerned that it may been related with the detergent change at her facility though she is not completely sure about that. Patient does state that it is getting better. I do not feel that this is a viral exanthem. 3. Diabetes mellitus type 2: Continue with basal insulin and add sliding scale. 4. Hypotension, transient: Hold off on furosemide for now. Will give additional liter of IV fluids slowly. Patient did receive 3 L of IV fluids in the emergency room. 5. VTE prophylaxis: Patient is already anticoagulated on apixaban. 6. Advanced care planning: [facility]PC forms at the patient is DNR comfort care. Will modify that to DNR Comfort Care arrest no intubation in the hospital. 7. Disposition: Given that we are currently waiting on a culture, anticipate the patient not be able to be discharged for another 48 hours. Inpatient E&M: 23693 Init Hosp L3
[2020-03-02] MEDS: 0.9% Normal Saline 1,000 ML 150 ML IV ×2 (16:00→20:25)
--- NOTE | 2020-03-02 16:03 | NURSING ---
Was asked to see patient for redness to buttocks and abdominal folds. patient has large area of incontinence associated dermatitis to bilateral buttocks. Pt also has redness to abdominal folds. received orders for calmoseptine and nystatin powder. will monitor as needed.
[2020-03-02 17:15] LABS: Bedside Glucose 89 mg/dL (70-110)
--- NOTE | 2020-03-02 17:21 | CASEMGMT ---
Social Work Note Pt is listed as being from [place]. SW placed a call to Maryana at [place]. 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 Maryana states if pt returns within 72 hours, COVID test will not be needed for pt to return. Aura Gonzalez HEAVY FORGER HELPER, COMPUTER FORENSICS TECHNICIAN
--- NOTE | 2020-03-02 18:14 | NURSING ---
attempted to call patient's brother to notify of admission and give and update. there was no answer. patient has her personal cell phone and states she will call him later.
[2020-03-02] MEDS: Menthol/Lanolin/Calamine/Znox 113 GM Tube 1 APPLIC TOPICAL (18:30)
[2020-03-02] MEDS: Nystatin Powder 15gm Bottle 1 APPLIC TOPICAL (18:31)
[2020-03-02] MEDS: Fludrocortisone Acetate 0.1 MG Tablet PO (18:32)
[2020-03-02] MEDS: Divalproex (ER) 500 MG Tablet PO (20:38)
[2020-03-02] MEDS: Pravastatin 40 MG Tablet PO (20:44)
[2020-03-02] MEDS: QUEtiapine 100 MG Tablet PO (20:44)
[2020-03-02] MEDS: APIXABAN 5 MG TABLET PO (20:46)
[2020-03-02 21:21] LABS: Bedside Glucose 163 mg/dL (70-110)
[2020-03-03] VITALS (7 sets, daily range): BP systolic 103–141; BP diastolic 57–82; PULSE 67–106; RESP 16–20; TEMP 36.4–37.7; O2SAT 93–99
[2020-03-03] MEDS: Ibuprofen 400 MG Tablet PO (02:44)
[2020-03-03] MEDS: 0.9% Normal Saline 1,000 ML 150 ML IV ×4 (02:57→23:05)
[2020-03-03 05:41] LABS: Bedside Glucose 173 mg/dL (70-110)
[2020-03-03] MEDS: Levothyroxine 125 MCG Tablet PO (05:58)
[2020-03-03 06:01] LABS: Absolute Lymphocyte Count 2.73 X10^3/uL (0.83-4.51); Absolute Neutrophil Count 7.5 X10^3/uL (2.0-7.7); Basophil# 0.05 X10^3/uL; Basophil% 0.4 % (0-1); Hematocrit 33.2 % (37-47); Hemoglobin 9.9 g/dL (12.0-15.0); Lymphocyte # 2.73 X10^3/ul (4.0); Mean Corp Hgb Conc 29.8 g/dL (32-36); Mean Corpuscular Hgb 26.2 pg (27.0-32.0); Mean Corpuscular Volume 87.8 fL (81-99); Mean Platelet Vol. 10.6 fl (6.2-12.0); Monocyte# 1.51 X10^3/uL; Monocyte% 12.7 % (0-10); NRBC Flagged by Analyzer 0 % (0-5); Neutrophil # 7.49 X10^3/uL (2.7-7.7); Neutrophil % 63.3 % (47-70); POSITIVE DIFFERENTIAL YES; Platelet Count 206 K/mm3 (150-450); RBC Distribution Width SD 45.1 fl (35.1-43.9); Red Blood Count 3.78 M/mm3 (4.2-5.4); White Blood Count 11.9 K/mm3 (4.4-11.0)
[2020-03-03] MEDS: 0.9% Saline Lock 10 ML Syringe IV (06:09)
[2020-03-03] MEDS: Insulin Lispro 100 UNIT/ML INSULN.PEN SC ×2 (06:14→12:24)
[2020-03-03 06:18] LABS: Differential Indicated SCAN CRITERIA MET
[2020-03-03 06:22] LABS: Differential Comment SCANNED
[2020-03-03 06:44] LABS: Anion Gap 5 (5-15); BUN 20 mg/dL (7-18); BUN/Creat Ratio 20.1 RATIO (10-20); Calcium,Total 7.7 mg/dL (8.5-10.1); Chloride 110 mmol/L (98-107); Creatinine, Serum 0.99 mg/dL (0.55-1.02); EST Glomerular Filtration Rate 60 mL/min (>60); Est Glom Filt Rate - Afr Amer 72 mL/min (>60); Estimated Creatinine Clearance 47.49 ml/min; Glucose 169 mg/dL (74-106); Potassium 3.3 mmol/L (3.5-5.1); Sodium Level 144 mmol/L (136-145)
--- NOTE | 2020-03-03 07:25 | PN_ITS ---
Patient Problems: Active and Suspected Problems (Last Reviewed 03/02/20 @ 14:[address] Johann Malloy, DO) UTI (urinary tract infection) (Acute) Cystitis (Acute) Metabolic encephalopathy (Acute) Septic shock due to urinary tract infection (Acute) Chest pain (Acute) Subjective: Patient with no acute events overnight per discussion with staff, unclear if catheter was changed in the emergency room, possibly only tubing and bag, requested investigation and catheter changed if not. Patient is intermittently alert with staff and oriented, from [place] but per report frequent episodes of decreased interaction which is chronic and possibly psychiatrically related with underlying history of schizoaffective and bipolar disorder. Patient vitals remained stable overnight, afebrile, low blood pressures improved. Patient without evidence of fevers, chills, nausea, emesis, abdominal pain, chest pain or dyspnea. Objective: Physical Examination: General: Awakens, intermittently alert, will answer orientation questions to various individuals but does have periods of decreased interactivity, laying in the medical surgical bed, currently no acute distress. Skin: normal color, turgor, no icterus, cyanosis noted intertrigo. HEENT: AT/NC, EOMI, PERRLA, mildly dry MM. Lungs: CTA bilaterally, moderate effort, mild decrease BL bases, no rales, ronchi or wheezing. Heart: Regular rate and rhythm; no gallop, rub audible. Abdomen: soft, morbidly obese, mild suprapubic discomfort with palpation otherwise nontender to palpation of the abdomen, unable to discern distention, distant normal bowel sounds. Extremities: no cyanosis or clubbing, mild bilateral ankle nonpitting edema. Neurological: patient awake, alert, oriented as noted; cognitive function vacillates which is chronic for patient with underlying psychiatric history, intermittently interactive; pupils equally reactive to light and accomodation; cranial nerves II-XII grossly normal, moving all 4 extremities, no focal deficits, strength moderately to severely global decreased. Psychiatric: affect appears currently flat, no acute evidence of depressive or anxiety feelings. Vitals/I&O's: Vital Signs Temp Pulse Resp BP Pulse Ox 98 F 106 H 20 H 113/61 99 03/03/20 05:40 03/03/20 02:38 03/03/20 02:39 03/03/20 02:38 03/03/20 02:38 Oxygen Flow Rate (L/min) 2 Oxygen Delivery Method Room Air Weight: 235 lb 1.6 oz Body Mass Index (BMI) 41.6 Finger Stick Blood Glucose 99 Intake and Output for Last 24 Hours 03/01/20 03/02/20 03/03/20 23:59 23:59 23:59 Intake Total 3912.5 / 3912.5 1305 / 1305 Output Total 400 / 400 700 / 700 Balance 3512.5 / 3512.5 605 / 605 Laboratory Results 03/02/20 11:20: WBC 10.5, RBC 4.32, Hgb 11.5 L, Hct 37.6, MCV 87.0, MCH 26.6 L, MCHC 30.6 L, RDW Std Deviation 44.7 H, RDW Coeff of Derek 14.0, Plt Count 239, MPV 10.7, Immature Gran % (Auto) 0.300, Neut % (Auto) 52.2, Lymph % (Auto) 32.1, [place] % (Auto) 13.8 H, Eos % (Auto) 1.1, Baso % (Auto) 0.5, Absolute Neuts (auto) 5.5, Absolute Lymphs (auto) 3.35, Nucleated RBC % 0 03/02/20 11:20: Sodium 142, Potassium 3.6, Chloride 106, Carbon Dioxide 33.0 H, Anion Gap 3 L, BUN 21 H, Creatinine 0.94, Estim Creat Clear Calc 47.82, Est GFR (MDRD) Af Amer 77, Est GFR (MDRD) Non-Af 64, BUN/Creatinine Ratio 22.4 H, Glucose 118 H, Calcium 8.6, Total Bilirubin 0.30, AST 15, ALT 23, Alkaline Phosphatase 123 H, Total Protein 7.3, Albumin 2.3 L, Globulin 5.0 H, Album in/Globulin Ratio 0.5 L 03/02/20 11:20: Lactic Acid 1.3 03/02/20 13:20: Urine Color Straw, Urine Clarity Cloudy, Urine pH 6.0, Ur Specific [place] 1.015, Urine Protein 30 H, Urine Glucose (UA) Normal, Urine Ketones Negative, Urine Occult Blood 250 H, Urine Nitrite Positive H, Urine Bilirubin Negative, Urine Urobilinogen Normal, Ur Leukocyte Esterase 500 H, Urine RBC 50-100 SEEN, Urine WBC >100 SEEN, Ur Squamous Epith Cells 0 SEEN, Urine Bacteria 2+, Urine Mucus 0 SEEN 03/02/20 17:03: POC Glucose 89 03/02/20 20:31: POC Glucose 163 H 03/03/20 05:28: WBC 11.9 H, RBC 3.78 L, Hgb 9.9 L, Hct 33.2 L, MCV 87.8, MCH 26.2 L, MCHC 29.8 L, RDW Std Deviation 45.1 H, RDW Coeff of Derek 14.0, Plt Count 206, MPV 10.6, Immature Gran % (Auto) 0.600, Neut % (Auto) 63.3, Lymph % (Auto) 23.0, [place] % (Auto) 12.7 H, Eos % (Auto) 0.0, Baso % (Auto) 0.4, Absolute Neuts (auto) 7.5, Absolute Lymphs (auto) 2.73, Nucleated RBC % 0, Differential Comment SCANNED, Diff Path Review August03/03/20 05:28: Sodium 144, Potassium 3.3 L, Chloride 110 H, Carbon Dioxide 29.0, Anion Gap 5, BUN 20 H, Creatinine 0.99, Estim Creat Clear Calc 47.49, Est GFR (MDRD) Af Amer 72, Est GFR (MDRD) Non-Af 60, BUN/Creatinine Ratio 20.1 H, Glucose 169 H, Calcium 7.7 L 03/03/20 05:33: POC Glucose 173 H Current Medications Acetaminophen (Acetaminophen 500 Mg Tablet) 1,000 mg PO Q6H PRN PRN Reason: Pain Score 1-10 Anastrozole (Anastrozole 1 Mg Tablet) 1 mg PO DAILY PENDING SALE TO [facility] Apixaban (Apixaban 5 Mg Tablet) 5 mg PO BID PENDING SALE TO [facility] Last Admin: 03/02/20 20:46 Dose: 5 mg Documented by: Aspirin (Aspirin E.C. 81 Mg Tablet) 81 mg PO DAILY@0800 PENDING SALE TO [facility] Atenolol (Atenolol 25 Mg Tablet) 25 mg PO DAILY PENDING SALE TO [facility] Bisacodyl (Bisacodyl 10 Mg Suppository) 10 mg RECTAL DAILY PRN PRN Reason: Constipation Calamine/Phenol (Menthol/Lanolin/Calamine/Znox 113 Gm Tube) 1 applic TOPICAL BID PENDING SALE TO [facility]; Protocol Last Admin: 03/02/20 18:30 Dose: 1 applicatio Documented by: Dextrose (Dextrose 50%-Water 25 Gm/50 Ml Disp.Syrin) 0 gm IV X1 PRN; Protocol PRN Reason: Hypoglycemia Diphenhydramine HCl (Diphenhydramine 25 Mg Capsule) 25 mg PO TID PRN PRN PRN Reason: RASH/TOPICAL IRRITATION Divalproex Sodium (Divalproex (Er) 500 Mg Tablet) 500 mg PO QHS PENDING SALE TO [facility] Last Admin: 03/02/20 20:38 Dose: 500 mg Documented by: Divalproex Sodium (Divalproex Sodium 250 Mg Tablet) 250 mg PO DAILY PENDING SALE TO [facility] Docusate Sodium (Docusate Sodium 100 Mg Capsule) 200 mg PO DAILY PRN PRN PRN Reason: Constipation Ergocalciferol (Ergocalciferol 50,000 Unit Capsule) 50,000 unit PO Fr PENDING SALE TO [facility] Erythromycin (Erythromycin Base 1 Gm Opth.Tube) 1 gm RIGHT EYE 4X/DAY PENDING SALE TO [facility] Last Admin: 03/02/20 20:38 Dose: 1 gm Documented by: Fludrocortisone Acetate (Fludrocortisone Acetate 0.1 Mg Tablet) 0.1 mg PO BIDCM PENDING SALE TO [facility] Last Admin: 03/02/20 18:32 Dose: 0.1 mg Documented by: Glucagon (Glucagon 1 Mg/Ml Syringe) 1 mg IM .X1 PRN PRN Reason: Hypoglycemia Sodium Chloride () 1,000 mls @ 150 mls/hr IV .Q6H40M PENDING SALE TO [facility] Last Admin: 03/03/20 02:57 Dose: 150 mls/hr Documented by: Piperacillin Sod/Tazobactam (Sod 3.375 gm/ Sodium Chloride) 50 mls @ 12.5 mls/hr IV Q8 PENDING SALE TO [facility] Stop: 03/09/20 22:01 Last Admin: 03/03/20 06:09 Dose: 12.5 mls/hr Documented by: Ibuprofen (Ibuprofen 400 Mg Tablet) 400 mg PO TID PRN PRN PRN Reason: PAIN 1-10/FEVER Last Admin: 03/03/20 02:44 Dose: 400 mg Documented by: Insulin Glargine (Insulin Glargine 100 Units/Ml Pen) 45 units SC QHS PENDING SALE TO [facility] Last Admin: 03/02/20 20:43 Dose: 45 u Documented by: Insulin Human Lispro (Insulin Lispro 100 Unit/Ml Insuln.Pen) 16 unit SC TIDCM PENDING SALE TO [facility] Insulin Human Lispro (Insulin Lispro 100 Unit/Ml Insuln.Pen) 0 unit SC TIDAC PENDING SALE TO [facility]; Protocol Last Admin: 03/03/20 06:14 Dose: 1 u Documented by: Lactobacillus Acidophilus (Lactobacillus Acidophilus) 2 tablet PO TID PENDING SALE TO [facility] Last Admin: 03/03/20 05:58 Dose: 2 tablet Documented by: Levothyroxine Sodium (Levothyroxine 125 Mcg Tablet) 125 mcg PO DAILY@0600 PENDING SALE TO [facility] Last Admin: 03/03/20 05:58 Dose: 125 mcg Documented by: Loratadine (Loratadine 10 Mg Tablet) 10 mg PO DAILY PENDING SALE TO [facility] Nutritional Formula (Lactose Free) (Glucerna Shake 120 Ml Liquid) 120 ml PO 4X/DAY PENDING SALE TO [facility] Last Admin: 03/02/20 20:43 Dose: Not Given Documented by: Nystatin (Nystatin Powder 15gm Bottle) 1 applic TOPICAL BID PENDING SALE TO [facility]; Protocol Last Admin: 03/02/20 18:31 Dose: 1 applicatio Documented by: Ondansetron HCl (Ondansetron 4 Mg/2 Ml Vial) 4 mg IV Q8H PRN PRN PRN Reason: NAUSEA/VOMITING Pantoprazole Sodium (Pantoprazole Sodium 20 Mg Tablet) 20 mg PO DAILY PENDING SALE TO [facility] Potassium Chloride (Potassium Chloride 10 Meq Tablet) [facility] Pravastatin Sodium (Pravastatin 40 Mg Tablet) 40 mg PO QHS PENDING SALE TO [facility] Last Admin: 03/02/20 20:44 Dose: 40 mg Documented by: Quetiapine Fumarate (Quetiapine 100 Mg Tablet) 100 mg PO BID PENDING SALE TO [facility] Last Admin: 03/02/20 20:44 Dose: 100 mg Documented by: Sodium Chloride (0.9% Saline Lock 10 Ml Syringe) 10 - 40 ml IV UD PRN PRN Reason: SALINE FLUSH Last Admin: 03/03/20 06:09 Dose: 10 ml Documented by: STROKE Vital Signs/Narrative: Vital Signs Temp 03/03/20 05:40 98 F 03/03/20 05:36 98.0 F Medical Necessity - Tobacco Use Smoking Status: Unknown if ever smoked Assessment/Plan All Active Problems (Last Reviewed 03/02/20 @ 14:[address] Johann Malloy DO) UTI (urinary tract infection) (Acute) Cystitis (Acute) Metabolic encephalopathy (Acute) Septic shock due to urinary tract infection (Acute) Chest pain (Acute) The patient is a 64 y/o F w/ PMHx: PAOD, HTN, HLD, Chronic CHF, Dilated Cardiomyopathy, Bipolar disorder/Schizoaffective disorder, Morbid obesity, ALLY, Former tobacco use, Hx Breast CA who presents to the [facility] ED from SNF on 03/02/20 with history of fatigue, malaise, erythematous rash across her body possibly secondary to a detergent which clinically improved with a chronic Milan with history of ESBL with recent change with noted negative Covid testing at their facility. 1. Acute Encephalopathy secondary to Acute Complicated Urinary Tract Infection with chronic indwelling Milan catheter, complicated by underlying psychiatric disease: Work-up in the ED included T 98.8, heart rate 89, BP initially 81/35, respiratory rate 28, 97% on 2 L nasal cannula, CBC with WC 10.5, hemoglobin 11.5, platelet 239 without market shift, CMP with carbon oxide 33, BUN/creatinine 21/0.94, glucose 118, lactic acid 1.3, urinalysis with specific gravity 1.015, protein 30, occult blood 250, positive nitrite, 500 leukocyte esterase, RBC 50-100, greater than 100 WBC, 2+ urine bacteria, blood culture x2 pending per ED, urine culture pending per ED. Given patient initial BP improvement as initially low upon ED presentation, patient admitted to medical surgical floor, continued on a judicious hydration, catheter complete change will be performed as unclear upon presentation, urinalysis remarkable, pending UCX and blood culture x2, will continue IVFs, monitor I/Os, continue IV Zosyn given history w/ transition as able pending sensitivities and speciation. 2. Diabetes mellitus type II: Hold oral home regimen, continue home insulin regimen, ADA diet, accu checks w/ ISS. 3. Chronic CHF, unclear type with reportedly dilated cardiomyopathy: We will continue patient home aspirin, Eliquis, atenolol, statin therapy, not on RONALDO inhibitor or ARB. 4. History of asthma: Reported per patient, encourage head of bed, I-S, as needed albuterol if needed. 5. Hypertension: Given clinical improvement we will continue patient home atenolol regimen with hold parameters as needed, as needed IV hydralazine. 6. Hyperlipidemia: Continue home statin regimen. 7. Hypothyroidism: Continue home synthroid regimen, TSH pending. 8. Bipolar disorder/schizoaffective disorder: We will continue patient home quetiapine and Depakote regimen. 9. History of breast cancer: Status post left mastectomy, continue Arimidex, remission. 10. Morbid Obesity: Weight loss and lifestyle changes encouraged, nutrition consulted. 11. GERD: We will continue patient on PPI. 12. DVT prophylaxis: SCDs, continue home Eliquis regimen. 13. Code status: DNR-CCA, no intubation. Inpatient E&M: 13016 Subs Hosp L2
[2020-03-03 07:35] LABS: Bedside Glucose 166 mg/dL (70-110)
[2020-03-03] MEDS: Aspirin E.C. 81 MG Tablet PO (09:18)
[2020-03-03] MEDS: Fludrocortisone Acetate 0.1 MG Tablet PO ×2 (09:19→17:46)
[2020-03-03] MEDS: Menthol/Lanolin/Calamine/Znox 113 GM Tube 1 APPLIC TOPICAL ×2 (09:24→22:48)
[2020-03-03] MEDS: Anastrozole 1 MG Tablet PO (09:24)
[2020-03-03] MEDS: Loratadine 10 MG Tablet PO (09:25)
[2020-03-03] MEDS: Atenolol 25 MG Tablet PO (09:26)
[2020-03-03] MEDS: APIXABAN 5 MG TABLET PO ×2 (09:27→22:49)
[2020-03-03] MEDS: Divalproex Sodium 250 MG Tablet PO (09:27)
[2020-03-03] MEDS: Nystatin Powder 15gm Bottle 1 APPLIC TOPICAL ×2 (09:29→22:49)
[2020-03-03] MEDS: Glucerna Shake 120 ML LIQUID PO ×2 (09:31→14:40)
[2020-03-03] MEDS: QUEtiapine 100 MG Tablet PO ×2 (09:32→22:49)
[2020-03-03] MEDS: Pantoprazole Sodium 20 MG Tablet PO (09:32)
[2020-03-03] MEDS: Insulin Lispro 100 UNIT/ML INSULN.PEN 16 UNIT SC ×3 (09:39→17:46)
--- NOTE | 2020-03-03 10:32 | CASEMGMT ---
Social Work Note SW in to speak with pt. SW introduced self and role at [facility]. Pt is alert and orientated. Pt confirms that she is from [place] and plan is to return. SW faxed updated clinicals to [place]. Plan: Return to [place] when medically cleared Aura Gonzalez STAMPING MACHINE OPERATOR, WEB CONTENT SPECIALIST
[2020-03-03 11:00] LABS: Bedside Glucose 183 mg/dL (70-110)
[2020-03-03 13:48] LABS: Pathologist Review Reviewed
[2020-03-03 16:51] LABS: Bedside Glucose 124 mg/dL (70-110)
[2020-03-03] MEDS: Fluconazole 100 MG Tablet 200 MG PO (17:46)
[2020-03-03] MEDS: Divalproex (ER) 500 MG Tablet PO (22:48)
[2020-03-03] MEDS: Pravastatin 40 MG Tablet PO (22:50)
[2020-03-03 23:01] LABS: Bedside Glucose 139 mg/dL (70-110)
[2020-03-04 03:46] VITALS: BP 131/78; PULSE 84; RESP 18; TEMP 37.1; O2SAT 95
[2020-03-04] MEDS: 0.9% Normal Saline 1,000 ML 150 ML IV ×2 (06:07→14:26)
[2020-03-04] MEDS: Levothyroxine 125 MCG Tablet PO (06:07)
--- NOTE | 2020-03-04 07:21 | PN_ITS ---
Patient Problems: Active and Suspected Problems (Last Reviewed 03/02/20 @ 14:[address] Johann Malloy, DO) UTI (urinary tract infection) (Acute) Cystitis (Acute) Metabolic encephalopathy (Acute) Septic shock due to urinary tract infection (Acute) Chest pain (Acute) Vitals/I&O's: Vital Signs Temp Pulse Resp BP Pulse Ox 98.7 F 84 18 131/78 H 95 03/04/20 03:46 03/04/20 03:46 03/04/20 03:46 03/04/20 03:46 03/04/20 03:46 Oxygen Flow Rate (L/min) 2 Oxygen Delivery Method Room Air Weight: 235 lb 1.615 oz Body Mass Index (BMI) 41.6 Finger Stick Blood Glucose 99 Intake and Output for Last 24 Hours 03/02/20 03/03/20 03/04/20 23:59 23:59 23:59 Intake Total 3912.5 / 3912.5 5194.75 / 5614.75 1892.75 / 1892.75 Output Total 400 / 400 1700 / 2100 2150 / 2150 Balance 3512.5 / 3512.5 3494.75 / 3514.75 -257.25 / -257.25 Microbiology Past 72 Hours 03/02/20 11:15 Blood Culture (Wb) - Left Wrist Blood Culture - Preliminary No growth in 48 hours. 03/02/20 11:20 Blood Culture (Wb) - Right Wrist Blood Culture - Preliminary No growth in 48 hours. 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 81 Mg Tablet) 81 mg PO DAILY@0800 [facility] Last Admin: 03/03/20 09:18 Dose: 81 mg Documented by: Atenolol (Atenolol 25 Mg Tablet) 25 mg PO DAILY [facility] Last Admin: 03/03/20 09:26 Dose: 25 mg Documented by: Bisacodyl (Bisacodyl 10 Mg Suppository) 10 mg RECTAL DAILY PRN PRN Reason: Constipation Calamine/Phenol (Menthol/Lanolin/Calamine/Znox 113 Gm Tube) 1 applic TOPICAL BID [facility]; Protocol Last Admin: 03/03/20 22:48 Dose: 1 applicatio Documented by: Dextrose (Dextrose 50%-Water 25 Gm/50 Ml Disp.Syrin) 0 gm IV X1 PRN; Protocol PRN Reason: Hypoglycemia Diphenhydramine HCl (Diphenhydramine 25 Mg Capsule) 25 mg PO TID PRN PRN PRN Reason: RASH/TOPICAL IRRITATION Divalproex Sodium (Divalproex (Er) 500 Mg Tablet) 500 mg PO QHS [facility] Last Admin: 03/03/20 22:48 Dose: 500 mg Documented by: Divalproex Sodium (Divalproex Sodium 250 Mg Tablet) 250 mg PO DAILY [facility] Last Admin: 03/03/20 09:27 Dose: 250 mg Documented by: Docusate Sodium (Docusate Sodium 100 Mg Capsule) 200 mg PO DAILY PRN PRN PRN Reason: Constipation Ergocalciferol (Ergocalciferol 50,000 Unit Capsule) 50,000 unit PO Fr [facility] Erythromycin (Erythromycin Base 1 Gm Opth.Tube) 1 gm RIGHT EYE 4X/DAY [facility] Last Admin: 03/03/20 22:49 Dose: 1 gm Documented by: Fludrocortisone Acetate (Fludrocortisone Acetate 0.1 Mg Tablet) 0.1 mg PO BIDCM [facility] Last Admin: 03/03/20 17:46 Dose: 0.1 mg Documented by: Glucagon (Glucagon 1 Mg/Ml Syringe) 1 mg IM .X1 PRN PRN Reason: Hypoglycemia Sodium Chloride () 1,000 mls @ 150 mls/hr IV .Q6H40M [facility] Last Admin: 03/04/20 06:07 Dose: 150 mls/hr Documented by: Piperacillin Sod/Tazobactam (Sod 3.375 gm/ Sodium Chloride) 50 mls @ 12.5 mls/hr IV Q8 [facility] Stop: 03/09/20 22:01 Last Admin: 03/04/20 06:07 Dose: 12.5 mls/hr Documented by: Sodium Chloride () 250 mls @ 15 mls/hr IV .[id number] PRN PRN Reason: Saline Flush Last Infusion: 03/04/20 06:07 Dose: 0 mls/hr Documented by: Sodium Chloride () 250 mls @ 15 mls/hr IV .[id number] PRN PRN Reason: Additional IVPB Infusion Ibuprofen (Ibuprofen 400 Mg Tablet) 400 mg PO TID PRN PRN PRN Reason: PAIN 1-10/FEVER Last Admin: 03/03/20 02:44 Dose: 400 mg Documented by: Insulin Glargine (Insulin Glargine 100 Units/Ml Pen) 45 units SC QHS [facility] Last Admin: 03/03/20 22:55 Dose: 45 u Documented by: Insulin Human Lispro (Insulin Lispro 100 Unit/Ml Insuln.Pen) 16 unit SC TIDCM [facility] Last Admin: 03/03/20 17:46 Dose: 16 u Documented by: Insulin Human Lispro (Insulin Lispro 100 Unit/Ml Insuln.Pen) 0 unit SC TIDAC [facility]; Protocol Last Admin: 03/03/20 16:41 Dose: Not Given Documented by: Lactobacillus Acidophilus (Lactobacillus Acidophilus) 2 tablet PO TID [facility] Last Admin: 03/04/20 06:07 Dose: 2 tablet Documented by: Levothyroxine Sodium (Levothyroxine 125 Mcg Tablet) 125 mcg PO DAILY@0600 [facility] Last Admin: 03/04/20 06:07 Dose: 125 mcg Documented by: Loratadine (Loratadine 10 Mg Tablet) 10 mg PO DAILY [facility] Last Admin: 03/03/20 09:25 Dose: 10 mg Documented by: Nystatin (Nystatin Powder 15gm Bottle) 1 applic TOPICAL BID [facility]; Protocol Last Admin: 03/03/20 22:49 Dose: 1 applicatio Documented by: Ondansetron HCl (Ondansetron 4 Mg/2 Ml Vial) 4 mg IV Q8H PRN PRN PRN Reason: NAUSEA/VOMITING Pantoprazole Sodium (Pantoprazole Sodium 20 Mg Tablet) 20 mg PO DAILY [facility] Last Admin: 03/03/20 09:32 Dose: 20 mg Documented by: Potassium Chloride (Potassium Chloride 10 Meq Tablet) 10 meq PO DAILYCM [facility] Last Admin: 03/03/20 09:22 Dose: 10 meq Documented by: Pravastatin Sodium (Pravastatin 40 Mg Tablet) 40 mg PO QHS [facility] Last Admin: 03/03/20 22:50 Dose: 40 mg Documented by: Quetiapine Fumarate (Quetiapine 100 Mg Tablet) 100 mg PO BID [facility] Last Admin: 03/03/20 22:49 Dose: 100 mg Documented by: Sodium Chloride (0.9% Saline Lock 10 Ml Syringe) 10 - 40 ml IV UD PRN PRN Reason: SALINE FLUSH Last Admin: 03/03/20 06:09 Dose: 10 ml Documented by: STROKE Vital Signs/Narrative: Vital Signs Temp Pulse Resp BP Pulse Ox 03/04/20 03:46 98.7 F 84 18 131/78 H 95 Medical Necessity - Tobacco Use Smoking Status: Unknown if ever smoked Assessment/Plan All Active Problems (Last Reviewed 03/02/20 @ 14:[address] Johann Malloy, DO) UTI (urinary tract infection) (Acute) Cystitis (Acute) Metabolic encephalopathy (Acute) Septic shock due to urinary tract infection (Acute) Chest pain (Acute)
[2020-03-04 07:50] LABS: Bedside Glucose 175 mg/dL (70-110)
[2020-03-04] MEDS: QUEtiapine 100 MG Tablet PO (08:21)
[2020-03-04] MEDS: Fludrocortisone Acetate 0.1 MG Tablet PO ×2 (08:25→17:24)
[2020-03-04] MEDS: Pantoprazole Sodium 20 MG Tablet PO (08:25)
[2020-03-04] MEDS: Aspirin E.C. 81 MG Tablet PO (08:26)
[2020-03-04] MEDS: Loratadine 10 MG Tablet PO (08:27)
[2020-03-04] MEDS: Atenolol 25 MG Tablet PO (08:28)
[2020-03-04] MEDS: APIXABAN 5 MG TABLET PO (08:28)
[2020-03-04] MEDS: Anastrozole 1 MG Tablet PO (08:29)
[2020-03-04] MEDS: Divalproex Sodium 250 MG Tablet PO (08:29)
[2020-03-04 08:30] VITALS: BP 141/62; PULSE 111; RESP 17; TEMP 36.6; O2SAT 95
[2020-03-04] MEDS: Insulin Lispro 100 UNIT/ML INSULN.PEN 16 UNIT SC ×3 (08:30→17:22)
[2020-03-04] MEDS: Insulin Lispro 100 UNIT/ML INSULN.PEN SC ×3 (08:31→17:23)
[2020-03-04] MEDS: Menthol/Lanolin/Calamine/Znox 113 GM Tube 1 APPLIC TOPICAL (08:32)
[2020-03-04] MEDS: Nystatin Powder 15gm Bottle 1 APPLIC TOPICAL (08:33)
[2020-03-04 09:07] LABS: Absolute Lymphocyte Count 2.27 X10^3/uL (0.83-4.51); Absolute Neutrophil Count 6.6 X10^3/uL (2.0-7.7); Basophil# 0.04 X10^3/uL; Basophil% 0.4 % (0-1); Eosinophil# 0.03 X10^3/uL; Eosinophils% 0.3 % (0-5); Hematocrit 33.4 % (37-47); Hemoglobin 10.6 g/dL (12.0-15.0); Lymphocyte # 2.27 X10^3/ul (4.0); Lymphocyte % 22.6 % (19-41); Mean Corp Hgb Conc 31.7 g/dL (32-36); Mean Corpuscular Hgb 28.6 pg (27.0-32.0); Mean Platelet Vol. 10.7 fl (6.2-12.0); Monocyte# 1.09 X10^3/uL; Monocyte% 10.8 % (0-10); NRBC Flagged by Analyzer 0 % (0-5); Neutrophil # 6.57 X10^3/uL (2.7-7.7); Neutrophil % 65.3 % (47-70); Platelet Count 241 K/mm3 (150-450); RBC Distribution Width CV 16.8 % (11.6-14.6); RBC Distribution Width SD 54.4 fl (35.1-43.9); Red Blood Count 3.71 M/mm3 (4.2-5.4); White Blood Count 10.1 K/mm3 (4.4-11.0)
[2020-03-04 09:17] LABS: Anion Gap 7 (5-15); BUN 24 mg/dL (7-18); BUN/Creat Ratio 21.8 RATIO (10-20); Calcium,Total 7.7 mg/dL (8.5-10.1); Chloride 112 mmol/L (98-107); EST Glomerular Filtration Rate 53 mL/min (>60); Est Glom Filt Rate - Afr Amer 64 mL/min (>60); Estimated Creatinine Clearance 42.74 ml/min; Glucose 159 mg/dL (74-106); Potassium 3.9 mmol/L (3.5-5.1); Sodium Level 144 mmol/L (136-145)
[2020-03-04 10:00] VITALS: BP 136/78; PULSE 113; RESP 18; TEMP 37; O2SAT 95
--- NOTE | 2020-03-04 10:20 | CASEMGMT ---
Social Work Note Pt may be able to discharge back to [facility] today. KAREN reviewed chart, no PT/OT available. KAREN placed a call to Maryana at [facility]. Maryana states if pt discharges today, a new COVID will not be needed. If pt doesn't discharge today and will be discharged over the weekend then a new COVID will be needed. KAREN informed Maryana that there are no PT/OT notes available. Plan: Return to [facility] when medically cleared Aura Gonzalez CARTRIDGE LOADER, [employer]
[2020-03-04 12:00] LABS: Bedside Glucose 211 mg/dL (70-110)
--- NOTE | 2020-03-04 14:40 | PCM.TXEXTCAR ---
- Diet ADMISSION DIAGNOSES: 1. Acute Encephalopathy secondary to Acute Complicated Klebsiella pneumoniae Urinary Tract Infection with chronic indwelling Milan catheter, complicated by underlying psychiatric disease 2. Diabetes mellitus type II 3. Chronic CHF, unclear type with reportedly dilated cardiomyopathy 4. History of asthma 5. Hypertension 6. Hyperlipidemia 7. Hypothyroidism 8. Bipolar disorder/schizoaffective disorder 9. History of breast cancer 10. Morbid Obesity 11. GERD 03/02/20 16:04 Diet: Consistent Carb - Calorie Controlled Food consistency:: Regular Liquid Consistency:: Regular/Thin Dietary Modifications:: Cardiac / Heart Healthy How many daily calories?: 1800 calorie - Routine Orders/Code Status Enema Type: Fleetz Enema Frequency: Daily PRN Suppository Type: Dulcolax 10mg Suppository Frequency: Daily PRN Keep PO Greater than or Equal to (%): 92 Code Status: DNRCC-A - DNR-CCA, no intubation - Wound(s) bilateral buttocks Wound Type: incontinence associated dermatitis Dressing Change: Barrier cream - Suggestions for Active Care Change Position every (hours): 2 Hours to sit in a chair: 6 Times a day to sit in chair: 3 - Therapies Weight Bearing: Full weight bearing Physical Therapy: Eval and Treat Occupational Therapy: Eval and Treat - Allergies/Procedures Done in Hospital Allergies/Adverse Reactions: Allergies Sulfa (Sulfonamide Antibiotics) Allergy (Verified 03/02/20 10:54) Unknown sulfamethoxazole [From Bactrim] Allergy (Verified 03/02/20 10:54) Unknown trimethoprim [From Bactrim] Allergy (Verified 03/02/20 10:54) Unknown Procedures: EKG - Type of Care/Length of Stay Estimated LOS: More Than 30 Days Type of Care Needed: Retirement/Assisted Living Rehab Potential: Good Prognosis: Good - Additional Orders/Day of Discharge Additional Orders: (1) Maintain HOB with aspiration precautions. (2) Maintain on fall precautions. (3) Encourage IS usage 10x/hr 7a-7p. (4) Continue antibiotic treatment to completion for complicated UTI. (5) Continue aggressive barrier carrier for patient buttock/coccyx region. (6) Continue aggressive treatment intertrigo care with nystatin powder and general fold skin care. Day of Discharge: 03/04/20 - Dietary and Speech Recommendations Dietitian Recommendations/Changes: Will change diet to cardiac- consistent carb, 1800 calorie controlled. Will d/c Glucerna Shake 4x/day w/ medpass given BMI and overall good intake. - Follow Up Care Primary Care Physician: Babar Sahu MD [Primary Care Provider] - Please follow up with your Primary Care Physician in: Follow-up within 3-5 days to review admission.
[2020-03-04 16:00] VITALS: RESP 18
--- NOTE | 2020-03-04 16:15 | CASEMGMT ---
Social Work Note Pt is discharging back to [place] today. KAREN faxed completed discharge paperwork to Maryana at [facility] including transfer to extended care facility, signed medication list and any scripts. Original in SNF folder and copy on pt's chart. RN states pt is [facility], needs cot transportation. KAREN placed a call to physician's and arranged transportation via cot for 5:00pm. Transportation form completed and placed on SNF folder and copy on pt's chart. SW updated RN on transportation time. KAREN placed a call to Maryana and updated her on transportation time. SW updated pt on transportation time. Pt is alert and orientated. Plan: Return to [place] with physician's ambulance transportation pt at 5:00pm Aura CARLSON, QUALITY CONTROL DIRECTOR
[2020-03-04 16:35] LABS: Bedside Glucose 197 mg/dL (70-110)
[2020-03-04 16:42] VITALS: BP 125/64; PULSE 75; RESP 18; TEMP 36.8; O2SAT 98
--- NOTE | 2020-03-04 17:01 | DS.PCM_ITS ---
Discharge Date and Diagnosis - Problem List Patient Problems: Active and Suspected Problems (Last Reviewed 03/02/20 @ 14:[address] Johann Malloy DO) UTI (urinary tract infection) (Acute) Cystitis (Acute) Metabolic encephalopathy (Acute) Septic shock due to urinary tract infection (Acute) Chest pain (Acute) Date of Admission: 03/02/20 Date of Discharge: 03/04/20 - Primary Discharge Diagnosis Acute Problems: Active Problems (Last Reviewed 03/02/20 @ 14:[address] Johann Malloy DO) 1. Acute Encephalopathy secondary to Acute Complicated Klebsiella pneumoniae Urinary Tract Infection with chronic indwelling Milan catheter, complicated by underlying psychiatric disease 2. Diabetes mellitus type II 3. Chronic CHF, unclear type with reportedly dilated cardiomyopathy 4. History of asthma 5. Hypertension 6. Hyperlipidemia 7. Hypothyroidism 8. Bipolar disorder/schizoaffective disorder 9. History of breast cancer 10. Morbid Obesity 11. GERD - Secondary Discharge Diagnosis Chronic Problems: Chronic Problems (Last Reviewed 03/02/20 @ 14:[address] Johann Malloy DO) Peripheral arterial occlusive disease (Chronic) Dilated cardiomyopathy (Chronic) Benign hypertension (Chronic) Hyperlipidemia (Chronic) Intertrigo (Chronic) Schizoaffective disorder (Chronic) Bipolar disorder (Chronic) Diabetes mellitus, type 2 (Chronic) Fibromyalgia (Chronic) Frequent falls (Chronic) Gait abnormality (Chronic) Morbid obesity (Chronic) CHF (congestive heart failure) (Chronic) ef=40% Morbid obesity with BMI of 40.0-44.9, adult (Chronic) Sleep apnea (Chronic) Hospital Course and Treatment Operations: None Procedures: EKG Summary of Care Provided: The patient is a 64 y/o F w/ PMHx: PAOD, HTN, HLD, Chronic CHF, Dilated Cardiomyopathy, Bipolar disorder/Schizoaffective disorder, Morbid obesity, ALLY, Former tobacco use, Hx Breast CA who presented to the [facility] ED from SNF on [facility]20 with history of fatigue, malaise, erythematous rash across her body possibly secondary to a detergent which clinically improved with a chronic Milan with history of ESBL with recent change with noted negative Covid testing at their facility. Work-up in the ED included T 98.8, heart rate 89, BP initially 81/35, respiratory rate 28, 97% on 2 L nasal cannula, CBC with WC 10.5, hemoglobin 11.5, platelet 239 without market shift, CMP with carbon oxide 33, BUN/creatinine 21/0.94, glucose 118, lactic acid 1.3, urinalysis with specific gravity 1.015, protein 30, occult blood 250, positive nitrite, 500 leukocyte es terase, RBC 50-100, greater than 100 WBC, 2+ urine bacteria, blood culture x2 pending per ED, urine culture eventually with Klebsiella noted susceptible to cephalosporins with transition at discharge to Keflex. Given patient initial BP improvement as initially low upon ED presentation, patient admitted to medical surgical floor, continued on a judicious hydration, catheter complete change will be performed as unclear upon presentation. Given patient clinical improvement, improvement of mental status with increased activity and alertness with susceptibilities obtained patient discharged back to detention facility for ongoing jail care. Encourage continuation and completion of antibiotic therapy regimen as well as more aggressive skin care with rx for calmoseptine and encouraged continued usage of nystatin powder for intertrigo. DAY OF DISCHARGE PROGRESS NOTE: Subjective: Patient without acute event overnight per self and nursing report. Patient denies fever, chills, nausea, emesis, abdominal pain, chest pain or dyspnea but not best historian but no overt findings noted per staff with increased interactivity. Patient agreeable to discharge to detention facility. Patient will be discharged with follow-up with primary care physician within 3-5 days. Objective: T 98.3, heart rate 75, BP 125/64, respiratory rate 18, 98% on room air. Physical Examination: General: awake, alert, oriented self and some recent events but chronic underlying difficulties with interaction secondary to underlying psychiatric history, remains cooperative, seated upright in the medical surgical bed, eating food, no acute distress. Skin: normal color, turgor, no icterus, cyanosis. HEENT: AT/NC, EOMI, PERRLA, MMM. Lungs: CTA bilaterally, moderate effort, mild decrease BL bases, no rales, ronchi or wheezing; Heart: Regular rate and rhythm; no gallop, rub audible. Abdomen: soft, obese, NTTP, ND, normal BS, catheter in place with improved appearance of urine. Extremities: no cyanosis or clubbing, mild bilateral ankle nonpitting edema. Neurological: patient awake, alert, oriented as noted; cognitive function suspect near baseline with deficits baseline; pupils equally reactive to light and accomodation; cranial nerves II-XII grossly normal, moving all 4 extremities, strength improving, moderately global decrease. Psychiatric: affect appears improved, more normal, no acute evidence of depressive or anxiety feelings. Assessment and Plan: Please see hospital summary above. Patient Problems: Active and Suspected Problems (Last Reviewed 03/02/20 @ 14:[address] Johann Malloy, DO) UTI (urinary tract infection) (Acute) Cystitis (Acute) Metabolic encephalopathy (Acute) Septic shock due to urinary tract infection (Acute) Chest pain (Acute) - Physical Exam Vitals/I&O's: Vital Signs Temp Pulse Resp BP Pulse Ox 98.3 F 75 18 125/64 H 98 03/04/20 16:42 03/04/20 16:42 03/04/20 16:42 03/04/20 16:42 03/04/20 16:42 Oxygen Flow Rate (L/min) 2 Oxygen Delivery Method Room Air Weight: 235 lb 1.615 oz Body Mass Index (BMI) 41.6 Finger Stick Blood Glucose 99 Intake and Output for Last 24 Hours 03/02/20 03/03/20 03/04/20 23:59 23:59 23:59 Intake Total 3912.5 / 3912.5 5194.75 / 5614.75 3592.75 / 3592.75 Output Total 400 / 400 1700 / 2100 3250 / 3250 Balance 3512.5 / 3512.5 3494.75 / 3514.75 342.75 / 342.75 Microbiology Past 72 Hours 03/02/20 13:20 Urine Catheter - Catheter Urine Culture - Preliminary Klebsiella pneumoniae sp pneum 03/02/20 11:15 Blood Culture (Wb) - Left Wrist Blood Culture - Preliminary No growth in 48 hours. 03/02/20 11:20 Blood Culture (Wb) - Right Wrist Blood Culture - Preliminary No growth in 48 hours. Laboratory Results 03/03/20 22:54: POC Glucose 139 H 03/04/20 07:38: POC Glucose 175 H 03/04/20 07:48: WBC 10.1, RBC 3.71 L, Hgb 10.6 L, Hct 33.4 L, MCV 90.0, MCH 28.6, MCHC 31.7 L D, RDW Std Deviation 54.4 H, RDW Coeff of Derek 16.8 H, Plt Count 241, MPV 10.7, Immature Gran % (Auto) 0.600, Neut % (Auto) 65.3, Lymph % (Auto) 22.6, [place] % (Auto) 10.8 H, Eos % (Auto) 0.3, Baso % (Auto) 0.4, Absolute Neuts (auto) 6.6, Absolute Lymphs (auto) 2.27, Nucleated RBC % 0 03/04/20 07:48: Sodium 144, Potassium 3.9, Chloride 112 H, Carbon Dioxide 25.0, Anion Gap 7, BUN 24 H, Creatinine 1.10 H, Estim Creat Clear Calc 42.74, Est GFR (MDRD) Af Amer 64, Est GFR (MDRD) Non-Af 53 L, BUN/Creatinine Ratio 21.8 H, Glucose 159 H, Calcium 7.7 L 03/04/20 11:43: POC Glucose 211 H 03/04/20 16:30: POC Glucose 197 H Current Medications Acetaminophen (Acetaminophen 500 Mg Tablet) 1,000 mg PO Q6H PRN PRN Reason: Pain Score 1-10 Anastrozole (Anastrozole 1 Mg Tablet) 1 mg PO DAILY [facility] Last Admin: 03/04/20 08:29 Dose: 1 mg Documented by: Apixaban (Apixaban 5 Mg Tablet) 5 mg PO BID [facility] Last Admin: 03/04/20 08:28 Dose: 5 mg Documented by: Aspirin (Aspirin E.C. 81 Mg Tablet) 81 mg PO DAILY@0800 [facility] Last Admin: 03/04/20 08:26 Dose: 81 mg Documented by: Atenolol (Atenolol 25 Mg Tablet) 25 mg PO DAILY [facility] Last Admin: 03/04/20 08:28 Dose: 25 mg Documented by: Bisacodyl (Bisacodyl 10 Mg Suppository) 10 mg RECTAL DAILY PRN PRN Reason: Constipation Calamine/Phenol (Menthol/Lanolin/Calamine/Znox 113 Gm Tube) 1 applic TOPICAL BID [facility]; Protocol Last Admin: 03/04/20 08:32 Dose: 1 applicatio Documented by: Dextrose (Dextrose 50%-Water 25 Gm/50 Ml Disp.Syrin) 0 gm IV X1 PRN; Protocol PRN Reason: Hypoglycemia Diphenhydramine HCl (Diphenhydramine 25 Mg Capsule) 25 mg PO TID PRN PRN PRN Reason: RASH/TOPICAL IRRITATION Divalproex Sodium (Divalproex (Er) 500 Mg Tablet) 500 mg PO QHS [facility] Last Admin: 03/03/20 22:48 Dose: 500 mg Documented by: Divalproex Sodium (Divalproex Sodium 250 Mg Tablet) 250 mg PO DAILY [facility] Last Admin: 03/04/20 08:29 Dose: 250 mg Documented by: Docusate Sodium (Docusate Sodium 100 Mg Capsule) 200 mg PO DAILY PRN PRN PRN Reason: Constipation Ergocalciferol (Ergocalciferol 50,000 Unit Capsule) 50,000 unit PO Fr [facility] Last Admin: 03/04/20 08:26 Dose: 50,000 unit Documented by: Erythromycin (Erythromycin Base 1 Gm Opth.Tube) 1 gm RIGHT EYE 4X/DAY [facility] Last Admin: 03/04/20 14:29 Dose: 1 gm Documented by: Fludrocortisone Acetate (Fludrocortisone Acetate 0.1 Mg Tablet) 0.1 mg PO BIDCM [facility] Last Admin: 03/04/20 08:25 Dose: 0.1 mg Documented by: Glucagon (Glucagon 1 Mg/Ml Syringe) 1 mg IM .X1 PRN PRN Reason: Hypoglycemia Sodium Chloride () 1,000 mls @ 150 mls/hr IV .[id number] [facility] Last Admin: 03/04/20 14:26 Dose: 150 mls/hr Documented by: Piperacillin Sod/Tazobactam (Sod 3.375 gm/ Sodium Chloride) 50 mls @ 12.5 mls/hr IV Q8 [facility] Stop: 03/09/20 22:01 Last Admin: 03/04/20 14:25 Dose: 12.5 mls/hr Documented by: Sodium Chloride () 250 mls @ 15 mls/hr IV .[id number] PRN PRN Reason: Saline Flush Last Infusion: 03/04/20 06:07 Dose: 0 mls/hr Documented by: Sodium Chloride () 250 mls @ 15 mls/hr IV .[id number] PRN PRN Reason: Additional IVPB Infusion Ibuprofen (Ibuprofen 400 Mg Tablet) 400 mg PO TID PRN PRN PRN Reason: PAIN 1-10/FEVER Last Admin: 03/03/20 02:44 Dose: 400 mg Documented by: Insulin Glargine (Insulin Glargine 100 Units/Ml Pen) 45 units SC QHS [facility] Last Admin: 03/03/20 22:55 Dose: 45 u Documented by: Insulin Human Lispro (Insulin Lispro 100 Unit/Ml Insuln.Pen) 16 unit SC TIDCM [facility] Last Admin: 03/04/20 11:47 Dose: 16 u Documented by: Insulin Human Lispro (Insulin Lispro 100 Unit/Ml Insuln.Pen) 0 unit SC TIDAC [facility]; Protocol Last Admin: 03/04/20 11:47 Dose: 2 u Documented by: Lactobacillus Acidophilus (Lactobacillus Acidophilus) 2 tablet PO TID [facility] Last Admin: 03/04/20 14:29 Dose: 2 tablet Documented by: Levothyroxine Sodium (Levothyroxine 125 Mcg Tablet) 125 mcg PO DAILY@0600 [facility] Last Admin: 03/04/20 06:07 Dose: 125 mcg Documented by: Loratadine (Loratadine 10 Mg Tablet) 10 mg PO DAILY [facility] Last Admin: 03/04/20 08:27 Dose: 10 mg Documented by: Nystatin (Nystatin Powder 15gm Bottle) 1 applic TOPICAL BID [facility]; Protocol Last Admin: 03/04/20 08:33 Dose: 1 applicatio Documented by: Ondansetron HCl (Ondansetron 4 Mg/2 Ml Vial) 4 mg IV Q8H PRN PRN PRN Reason: NAUSEA/VOMITING Pantoprazole Sodium (Pantoprazole Sodium 20 Mg Tablet) 20 mg PO DAILY [facility] Last Admin: 03/04/20 08:25 Dose: 20 mg Documented by: Potassium Chloride (Potassium Chloride 10 Meq Tablet) [facility] Last Admin: 03/04/20 08:26 Dose: 10 meq Documented by: Pravastatin Sodium (Pravastatin 40 Mg Tablet) 40 mg PO QHS [facility] Last Admin: 03/03/20 22:50 Dose: 40 mg Documented by: Quetiapine Fumarate (Quetiapine 100 Mg Tablet) 100 mg PO BID [facility] Last Admin: 03/04/20 08:21 Dose: 100 mg Documented by: Sodium Chloride (0.9% Saline Lock 10 Ml Syringe) 10 - 40 ml IV UD PRN PRN Reason: SALINE FLUSH Last Admin: 03/03/20 06:09 Dose: 10 ml Documented by: Home Medications: Medications to take at Discharge Divalproex (ER) [Depakote ER] 500 mg PO QHS 03/16/13 Docusate Sodium [Colace] 200 mg PO DAILY PRN PRN 03/16/13 Levothyroxine Sodium [Levoxyl] 125 mcg PO DAILY 03/16/13 Pravastatin Sodium [Pravachol] 40 mg PO QHS 03/16/13 Aspirin E.C. [Ecotrin] 81 mg PO DAILY@0800 #30 tab 03/20/13 furosemide 20 mg tablet 20 mg PO DAILY 05/20/17 Anastrozole [Arimidex] 1 mg PO DAILY 09/19/17 Fludrocortisone Acetate [Florinef] 0.1 mg PO BID 09/19/17 Ibuprofen [Motrin] 400 mg PO TID PRN PRN 09/19/17 Melatonin 2 mg PO QHS 09/19/17 Omeprazole 20 mg PO DAILY 09/19/17 Apixaban [Eliquis] 5 mg PO BID 03/02/20 Ascorbic Acid [Vitamin C] 500 mg PO DAILY 03/02/20 Atenolol 25 mg PO DAILY 03/02/20 Bisacodyl 10 mg RC DAILY PRN 03/02/20 Cetirizine HCl [Allergy Relief] 10 mg PO DAILY 03/02/20 DiphenhydrAMINE [Benadryl] 25 mg PO TID PRN PRN 03/02/20 Divalproex Sodium [Depakote] 250 mg PO DAILY 03/02/20 Ergocalciferol (Vitamin D2) [Vitamin D2] 50,000 unit PO FR 03/02/20 Erythromycin Base [Erythromycin] 0 gm RIGHT EYE 4X/DAY 03/02/20 Insulin Detemir [Levemir] 45 unit SQ QHS 03/02/20 Insulin Lispro [Humalog] 16 unit SQ TIDCM 03/02/20 Lactobacillus Acidophilus [Acidophilus] 2 ea PO TID 03/02/20 Nystatin Powder [Mycostatin Powder] 1 applic TOPICAL BID 03/02/20 Ondansetron [Zofran Odt] 4 mg PO Q12H PRN PRN 03/02/20 Potassium Chloride 20 meq PO DAILY 03/02/20 Quetiapine Fumarate [Seroquel] 100 mg PO BID 03/02/20 Cephalexin [Keflex] 500 mg PO Q6 5 Days #20 cap 03/04/20 Menthol/Lanolin/Calamine/Znox [Calmoseptine Ointment] 1 applic TOPICAL BID #1 tube 03/04/20 Following Prescriptions Were Given to Patient: Menthol/Lanolin/Calamine/Znox [Calmoseptine Ointment] 1 applic TOPICAL BID #1 tube Cephalexin [Keflex] 500 mg PO Q6 5 Days #20 cap Primary Care Physician: Babar Sahu MD [Primary Care Provider] - Please follow up with your Primary Care Physician in: Follow-up within 3-5 days to review admission. Disposition: Care Home facility Minutes spent on discharge:: 35 Patient Condition:: Fair Medical Necessity - Tobacco Use Smoking Status: Unknown if ever smoked Meaningful Use Info Meaningful Use Diagnoses (Choose all that apply): None applicable Inpatient E&M: [id number] [facility]
== END 2020-03-04 18:31 | disposition skilled nursing facility (03) | DRG 698 ==
LOC: ED 11:41 → MS3 15:13
PROVIDERS: Emergency Provider Emergency Medicine; PCP Family Medicine; Visit Provider Family Medicine
DX: T83.511A Infection and inflammatory reaction due to indwelling urethral catheter, initial encounter (principal); G93.41 Metabolic encephalopathy; N30.00 Acute cystitis without hematuria; I42.0 Dilated cardiomyopathy; Z68.41 Body mass index [BMI] 40.0-44.9, adult; M79.7 Fibromyalgia; B96.1 Klebsiella pneumoniae [K. pneumoniae] as the cause of diseases classified elsewhere; K21.9 Gastro-esophageal reflux disease without esophagitis; E66.01 Morbid (severe) obesity due to excess calories; Z85.3 Personal history of malignant neoplasm of breast; F31.9 Bipolar disorder, unspecified; I11.0 Hypertensive heart disease with heart failure; I50.9 Heart failure, unspecified; F25.9 Schizoaffective disorder, unspecified; E78.00 Pure hypercholesterolemia, unspecified; E11.51 Type 2 diabetes mellitus with diabetic peripheral angiopathy without gangrene; E03.9 Hypothyroidism, unspecified; J45.909 Unspecified asthma, uncomplicated; L30.4 Erythema intertrigo; L25.9 Unspecified contact dermatitis, unspecified cause; G47.33 Obstructive sleep apnea (adult) (pediatric); R26.9 Unspecified abnormalities of gait and mobility; R29.6 Repeated falls; Y84.6 Urinary catheterization as the cause of abnormal reaction of the patient, or of later complication, without mention of misadventure at the time of the procedure; Z66 Do not resuscitate; Z86.19 Personal history of other infectious and parasitic diseases; Z90.12 Acquired absence of left breast and nipple; Z79.01 Long term (current) use of anticoagulants; Z79.4 Long term (current) use of insulin; Z79.82 Long term (current) use of aspirin; Z79.890 Hormone replacement therapy; Z87.891 Personal history of nicotine dependence; Z79.899 Other long term (current) drug therapy
CPT/HCPCS: 36415; 71045; 80048; 80053; 81001; 82962; 83605; 85025; 87040; 87077; 87086; 87088; 87184; 87186; 97162; 97165; 97802; 99285; J7030; J7050; A4216

== ENCOUNTER 2020-06-28 13:57 | Inpatient (IN) | payer MEDICARE, MEDICAID, SELFPAY ==
[2020-03-02 16:04] VITALS: BMI 41.6
[2020-06-28] VITALS (10 sets, daily range): BP systolic 109–129; BP diastolic 64–74; PULSE 74–82; RESP 16–25; TEMP 36.2–36.9; O2SAT 96–100; BMI 36.3; BMI 35.8
--- NOTE | 2020-06-28 14:12 | ED.RN ---
PT ONLY ALERT AND ORIENTED X 1. USUALLY 4. PT DOES NOT ANSWER QUESTIONS NOR COMMUNICATE WITH STAFF AT THIS TIME
--- NOTE | 2020-06-28 14:28 | EKG12_ITS ---
Test Reason : Blood Pressure : / mmHG Vent. Rate : 080 BPM Atrial Rate : 080 BPM P-R Int : 214 ms QRS Dur : 100 ms QT Int : 316 ms P-R-T Axes : 052 -05 -05 degrees QTc Int : 364 ms Sinus rhythm with 1st degree A-V block Inferior infarct , age undetermined Abnormal ECG Confirmed by KESHA KEENAN, HUGO ([id number]), film editor supervisor JOSE FLORES ([id number]) on 07/04/2020 10:20:46 A M Referred By: JASBIR Confirmed By:COMFORT REBOLLEDO MD
[2020-06-28 14:41] LABS: Absolute Lymphocyte Count 2.69 X10^3/uL (0.83-4.51); Basophil# 0.04 X10^3/uL; Basophil% 0.4 % (0-1); Eosinophil# 0.11 X10^3/uL; Eosinophils% 1.2 % (0-5); Hematocrit 33.1 % (37-47); Hemoglobin 10.1 g/dL (12.0-15.0); Lymphocyte # 2.69 X10^3/ul (4.0); Lymphocyte % 29.6 % (19-41); Mean Corp Hgb Conc 30.5 g/dL (32-36); Mean Corpuscular Hgb 26.9 pg (27.0-32.0); Mean Corpuscular Volume 88.3 fL (81-99); Mean Platelet Vol. 10.5 fl (6.2-12.0); Monocyte# 1.26 X10^3/uL; Monocyte% 13.9 % (0-10); NRBC Flagged by Analyzer 0 % (0-5); Neutrophil # 4.96 X10^3/uL (2.7-7.7); Neutrophil % 54.6 % (47-70); Platelet Count 167 K/mm3 (150-450); RBC Distribution Width CV 14.1 % (11.6-14.6); RBC Distribution Width SD 45.2 fl (35.1-43.9); Red Blood Count 3.75 M/mm3 (4.2-5.4); White Blood Count 9.1 K/mm3 (4.4-11.0)
[2020-06-28 14:53] LABS: Anion Gap 5 (5-15); BUN 40 mg/dL (7-18); BUN/Creat Ratio 23.5 RATIO (10-20); Calcium,Total 8.8 mg/dL (8.5-10.1); Chloride 104 mmol/L (98-107); EST Glomerular Filtration Rate 32 mL/min (>60); Est Glom Filt Rate - Afr Amer 39 mL/min (>60); Estimated Creatinine Clearance 32.51 ml/min; Glucose 75 mg/dL (74-106); Potassium 2.9 mmol/L (3.5-5.1); Sodium Level 141 mmol/L (136-145)
[2020-06-28 14:56] LABS: Lactic Acid 0.7 mmol/L (0.4-1.9)
--- NOTE | 2020-06-28 15:11 | RAD_ITS ---
STUDY: X-RAY CHEST REASON FOR EXAM: Female, 64 years old. sob TECHNIQUE: Single AP portable view of the chest. COMPARISON: 08/05/2016. FINDINGS: The lungs are underexpanded. Subsegmental atelectases are noted in the left lung base. There is no demonstrated pleural abnormality. Normal size heart. Normal mediastinum and john. Normal visualized pulmonary arteries. Normal visualized aortic arch and descending thoracic aorta. Normal visualized thoracic spine. There is degenerative osteoarthritis of the bilateral shoulders. There is no demonstrated abnormality of the visualized soft tissue structures of the upper abdomen. RAD/Chest 1 View (Portable) IMPRESSION: Degenerative changes, as described above. No demonstrated acute cardiopulmonary process. Electronically Signed: Jason Arceo MD at 16:13 EST Tel , Service support ,
[2020-06-28 15:17] LABS: Mucous, Urine 0 SEEN /hpf (<or=2+)
[2020-06-28] MEDS: 0.9% Normal Saline 1,000 ML 1000 ML IV (15:20)
[2020-06-28 15:24] LABS: Color, Urine Yellow (Yellow); Glucose, Dipstick Normal (Normal); Ketone-Dipstick 5 mg/dl (Negative); Leukocyte Esterase-Dipstick 500 /ul (Negative); Nitrite-Dipstick Positive (Negative); Occult Blood-Urine 250 /ul (Negative); Protein-Dipstick 100 mg/dl (Negative); Specific Gravity, Urine 1.015 (1.002-1.030); Urine Bilirubin Dipstick Negative (Negative); Urine Clarity Cloudy (Clear); Urine Urobilinogen 1 mg/dl (Normal)
[2020-06-28 15:32] LABS: Bacteria 2+ /hpf (None Seen); Red Blood Cells-Urine 25-50 SEEN /hpf (0-5); Squamous Epithelial Cells - UA 0-5 SEEN /hpf (5-10); White Blood Cells 25-50 SEEN /hpf (0-5)
--- NOTE | 2020-06-28 16:56 | ED.DCSUM_ITS ---
- ER Visit Summary Date of Service: 06/28/20 Chief Complaint: Decreased responsiveness History of Present Illness: The patient is a 64 F presenting with decreased [facility] from [facility]. Patient has been less responsive than usual. Per [facility] staff she was A&O x1 today. Typically she is A&O x3. She is currently on Cipro for UTI. She has had UTI on and off for the past several months. She has not been eating or drinking. No fever. Physical Examination: Vitals are stable. Patient is afebrile. Alert no acute distress. HEENT exam dry mucous membranes Neck is supple. Lungs are clear and equal bilaterally. Heart is regular rate and rhythm. Abdomen is soft nontender nondistended. Extremities are unremarkable. Skin is warm and dry. Alert and oriented x2, no focal neuro deficit. Remainder of exam is unremarkable. Emergency Department Course and Treatment: EKG is sinus rhythm rate of 80 with no acute ischemic changes. Chest x-ray read by myself and radiology shows no acute process. CBC shows hemoglobin 10.1. Chemistries show potassium 2.9, BUN 40, creatinine 1.7. Urinalysis shows 25-50 white blood cells, 25-50 red blood cells. Troponin is negative. Lactic acid is normal. Covid is negative. Blood and urine cultures were sent. Patient was given vancomycin and Zosyn IV. Discussed with hospitalist for admission. Disposition: Admission Impression: Altered mental status, UTI This note was generated with [employer] dictation software. It may contain incorrect words, spelling, and punctuation that were not noted in review of the chart prior to signing ED Disposition - Plan for ED Patient: Referrals: Babar Sahu MD [Primary Care Provider] -
--- NOTE | 2020-06-28 17:05 | NURSING ---
MED SURG UTI, AMS BOZENA
--- NOTE | 2020-06-28 17:05 | PCM.HP.STD ---
Problem List (1) LING (acute kidney injury) Status: Acute (2) CKD (chronic kidney disease) stage 2, GFR 60-89 ml/min Status: Chronic (3) Anemia Status: Chronic (4) Hypokalemia Status: Acute (5) UTI (urinary tract infection) Status: Acute Qualifiers: (6) Peripheral arterial occlusive disease Status: Chronic (7) Cystitis Status: Resolved (8) Metabolic encephalopathy Status: Acute (9) Dilated cardiomyopathy Status: Chronic (10) Benign hypertension Status: Chronic (11) Hyperlipidemia Status: Chronic Qualifiers: (12) Intertrigo Status: Chronic (13) Schizoaffective disorder Status: Chronic (14) Bipolar disorder Status: Chronic (15) Diabetes mellitus, type 2 Status: Chronic Qualifiers: (16) Fibromyalgia Status: Chronic (17) Frequent falls Status: Chronic (18) Gait abnormality Status: Chronic (19) Morbid obesity Status: Chronic (20) CHF (congestive heart failure) Status: Chronic Comment: ef=40% (21) Morbid obesity with BMI of 40.0-44.9, adult Status: Chronic (22) Sleep apnea Status: Chronic History of Present Illness Date of Admission: 06/28/20 Ms. Bruce is a 64 year old WF with a past medical history of HFrEF (EF 40%), DM-2, HPL, morbid obesity, recurrent urinary tract infections, chronic Milan, schizoaffective disorder, hypertension, bipolar disorder, neck anemia, hypothyroidism, adrenal insufficiency, breast cancer, DVT, and vitamin D deficiency presented to the emergency department [facility] on 06/28/2020 from her resident skilled nursing secondary to acute mental status change. Per the skilled nursing staff she is typically ANO x3 and upon presentation she was ANO x1. She was diagnosed with a urinary tract infection and placed on ciprofloxacin. Per the discussion with the skilled nursing and the ED physician she has been on antibiotics on and off for the last several months secondary to UTI. She has a chronic Milan. They also reports she has not been eating or drinking well for approximately 1 week. The patient is unfortunately unable to give me a reliable view of systems. Her vital signs emergency department were stable, she is afebrile and satting 100% on room air. Her CBC shows a mild chronic anemia but no white count. Her hemoglobin is at baseline. Her BMP shows hypokalemia with a potassium of 2.9, and an elevated BUN and creatinine. Her lactic acid was 0.7. And her troponin was 0.015. A chest x-ray was unremarkable. Her UA shows elevated protein, occult blood, positivity for nitrite and leukoesterase and marked white blood cells were noted. X-ray was performed and shows no acute processes. In the emergency department she was given Vanco and Zosyn after discussing the case with the ER physician because she has a chronic indwelling Milan and lives in a nursing facility. She will be admitted to [facility] for further treatment and work-up. Past Medical History Past Medical History (Chronic Problems): Chronic Problems (Last Reviewed 03/02/20 @ 14:[address] Johann Malloy DO) CKD (chronic kidney disease) stage 2, GFR 60-89 ml/min (Chronic) Anemia (Chronic) Peripheral arterial occlusive disease (Chronic) Dilated cardiomyopathy (Chronic) Benign hypertension (Chronic) Hyperlipidemia (Chronic) Intertrigo (Chronic) Schizoaffective disorder (Chronic) Bipolar disorder (Chronic) Diabetes mellitus, type 2 (Chronic) Fibromyalgia (Chronic) Frequent falls (Chronic) Gait abnormality (Chronic) Morbid obesity (Chronic) CHF (congestive heart failure) (Chronic) ef=40% Morbid obesity with BMI of 40.0-44.9, adult (Chronic) Sleep apnea (Chronic) Medical History: Medical History (Last Reviewed 06/28/20 @ 17:[address] Viri Munoz DO) Dilated cardiomyopathy (Chronic) I42.0 Benign hypertension (Chronic) I10 Hyperlipidemia (Chronic) E78.5 Schizoaffective disorder (Chronic) F25.9 Bipolar disorder (Chronic) F31.9 Diabetes mellitus, type 2 (Chronic) E11.9 Morbid obesity (Chronic) E66.01 CHF (congestive heart failure) (Chronic) I50.9 ef=40% Sleep apnea (Chronic) G47.30 Allergies Sulfa (Sulfonamide Antibiotics) Allergy (Verified 06/28/20 14:05) Unknown sulfamethoxazole [From Bactrim] Allergy (Verified 06/28/20 14:05) Unknown trimethoprim [From Bactrim] Allergy (Verified 06/28/20 14:05) Unknown Home Medications: Ambulatory Orders Medication Instructions Recorded Divalproex (ER) [Depakote ER] 500 mg PO QHS 03/16/13 Docusate Sodium [Colace] 200 mg PO QHS 03/16/13 Aspirin E.C. [Ecotrin] 81 mg PO DAILY@0800 #30 tab 03/20/13 furosemide 20 mg tablet 20 mg PO DAILY 05/20/17 Anastrozole [Arimidex] 1 mg PO DAILY 09/19/17 Fludrocortisone Acetate [Florinef] 0.1 mg PO BID 09/19/17 Apixaban [Eliquis] 5 mg PO BID 03/02/20 Ascorbic Acid [Vitamin C] 500 mg PO DAILY 03/02/20 Atenolol 25 mg PO DAILY 03/02/20 Divalproex Sodium [Depakote] 250 mg PO DAILY 03/02/20 Ergocalciferol (Vitamin D2) 50,000 unit PO TH 03/02/20 [Vitamin D2] Insulin Detemir [Levemir] 45 unit SQ QHS 03/02/20 Insulin Lispro [Humalog] 16 unit SQ TIDCM 03/02/20 Lactobacillus Acidophilus 1 cap PO BID 03/02/20 [Acidophilus] Potassium Chloride 20 meq PO DAILY 03/02/20 Quetiapine Fumarate [Seroquel] 100 mg PO BID 03/02/20 Cetirizine HCl 10 mg PO DAILY 06/28/20 Ciprofloxacin [Cipro] 500 mg PO BID 06/28/20 Cran/Vitc/Mannose/Fos/Bromeln 30 ml PO DAILY 06/28/20 [Uti-Stat Liquid] Levothyroxine Sodium 125 mcg PO DAILY 06/28/20 Melatonin 2 mg PO QHS 06/28/20 Menthol/Lanolin/Calamine/Znox 1 applic TOPICAL BID 06/28/20 [Calmoseptine Ointment] Multivitamins,Therapeutic 1 tab PO DAILY 06/28/20 [Multivitamin] Omeprazole 20 mg PO DAILY 06/28/20 Pravastatin Sodium 40 mg PO DAILY 06/28/20 buPROPion XL [Wellbutrin Xl] 300 mg PO DAILY 06/28/20 Surgical History: Surgical History (Last Reviewed 06/28/20 @ 17:[address] 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 Lives: [facility] Smoking Status: Unknown if ever smoked Alcohol: None Drugs: None - *Family History Maternal History Items: Unknown Review of Systems Unable to obtain accurate/complete ROS d/t: patient unable to communicate any specific complaints/states she feels unwe VTE Information - Inpt Only VTE Present on Admission: No VTE Mechan Device Prophylaxis: None VTE Pharm Prophylaxis ordered?: No Reason prophylaxis not ordered:: Treatment Not Indicated - Patient already fully anticoagulated with apixaban - Physical Exam Vitals/I&O's: Vital Signs Temp Pulse Resp BP Pulse Ox 97.8 F 76 19 H 121/74 H 100 06/28/20 16:10 06/28/20 16:10 06/28/20 16:10 06/28/20 16:10 06/28/20 16:10 Oxygen Flow Rate (L/min) 2 Oxygen Delivery Method Room Air Weight: 105.3 kg Body Mass Index (BMI) 36.3 Finger Stick Blood Glucose 99 Intake and Output for Last 24 Hours 06/26/20 06/27/20 06/28/20 23:59 23:59 23:59 Intake Total 1000 / 1000 Balance 1000 / 1000 General: Alert, Oriented x3, Cooperative, No apparent distress, Well developed, Well nourished, - - Morbidly obese white female who appears much older than stated age lying in bed somewhat somnolent, able to answer simple questions but not specifics HEENT: Atraumatic, PERRLA, EOMI, Normocephalic, EAC Clear Oral: Moist Mucosa, Dry Mucosa, - - Edentulous, Mallampati 4 Neck: Supple, No JVD, Negative Carotid Bruits, Negative Hepatojugular Reflux, No Nodes, No Nuchal Rigidity, Trachea Midline, Thyroid Normal Size and Texture Lungs: Clear to auscultation, Normal air movement, No rhonchi, No wheeze, No rales Cardiovascular: Regular rate, Regular Rhythm, Normal S1, Normal S2, No murmurs, No Ectopic Activity, No rub noted, No Gallop Abdomen: Bowel Sounds Present, Soft, Non-Distended, Obese, Tender - Use Extremities: No clubbing, No cyanosis, No edema, Capillary Refill Less than 3 Seconds, Peripheral Pulses Normal Skin: No rashes, No breakdown, - - Pale Musculoskeletal: No Tenderness to Palpation of Joints or Extremities, No Muscle Wasting, Arthritic Changes Lymphatic: No Cervical, Supraclavicular, or Inguinal Adenopathy Neurological: Cranial nerves II-XII grossly intact, Deep Tendon Reflexes 2+/4 and Symmetrical, Neuro grossly intact, Muscle tone normal, Sensory exam intact to light touch and pain, - - Generalized weakness proximal greater than distal and patient nonambulatory, patient is confused and alert to self, birthdate, month but not year and president of [facility] Psych/Mental Status: Flat Affect, - - Confused Microbiology Past 72 Hours 06/28/20 15:35 Mucosa - Nose SARS-CoV-2 Antigen (Rapid) - Final Laboratory Results 06/28/20 14:25: WBC 9.1, RBC 3.75 L, Hgb 10.1 L, Hct 33.1 L, MCV 88.3, MCH 26.9 L, MCHC 30.5 L, RDW Std Deviation 45.2 H, RDW Coeff of Derek 14.1, Plt Count 167, MPV 10.5, Immature Gran % (Auto) 0.300, Neut % (Auto) 54.6, Lymph % (Auto) 29.6, [place] % (Auto) 13.9 H, Eos % (Auto) 1.2, Baso % (Auto) 0.4, Absolute Neuts (auto) 5.0, Absolute Lymphs (auto) 2.69, Nucleated RBC % 0 06/28/20 14:25: Sodium 141, Potassium 2.9 L, Chloride 104, Carbon Dioxide 32.0, Anion Gap 5, BUN 40 H, Creatinine 1.70 H, Estim Creat Clear Calc 32.51, Est GFR (MDRD) Af Amer 39 L, Est GFR (MDRD) Non-Af 32 L, BUN/Creatinine Ratio 23.5 H, Glucose 75, Calcium 8.8, Troponin I < 0.015 06/28/20 14:25: Lactic Acid 0.7 06/28/20 15:07: Urine Color Yellow, Urine Clarity Cloudy, Urine pH 6.0, Ur Specific [place] 1.015, Urine Protein 100 H, Urine Glucose (UA) Normal, Urine Ketones 5 H, Urine Occult Blood 250 H, Urine Nitrite Positive H, Urine Bilirubin Negative, Urine Urobilinogen 1 H, Ur Leukocyte Esterase 500 H, Urine RBC 25-50 SEEN, Urine WBC 25-50 SEEN, Ur Squamous Epith Cells 0-5 SEEN, Urine Bacteria 2+, Urine Mucus 0 SEEN Current Medications Vancomycin HCl 1,500 mg/ (Sodium Chloride) 530 mls @ 250 mls/hr IV X1 ONE Stop: 06/28/20 19:07 Assessment/Plan All Active Problems (Last Reviewed 03/02/20 @ 14:[address] Johann Malloy, DO) UTI (urinary tract infection) (Acute) LING (acute kidney injury) (Acute) Hypokalemia (Acute) Metabolic encephalopathy (Acute) Cystitis (Resolved) Suspected UTI -UA looks infected -Urine and blood cultures pending -Covid is negative -Patient's most recent urinary tract infection we have documentation of was in February 2020 -She was at that time were positive for Klebsiella and Pseudomonas--> both were resistant organisms--> they were sensitive to Zosyn -We will place on Vanco and Zosyn at this time and await culture results to narrow antibiotics -Exchange Milan Metabolic encephalopathy -Suspect related to above UTI -Check ammonia as patient is on Depakote at baseline -ABG was assessed and pH is normal with a mildly elevated PCO2 at 46.5 -Continue psychiatric drugs -TSH in a.m. Hypokalemia -40 mEq of p.o. potassium x2 doses -Repeat BMP in a.m. -Check mag level in a.m. LING on CKD stage II -baseline creatinine is about 1-1.1 -Normal saline at 75 cc an hour -BMP in a.m. -Hold Lasix, ibuprofen and reduce insulin doses Failure to thrive -Discussion with the emergency room physician the skilled nursing reported her p.o. intake is poor -Unclear if this is progression of disease or related to her acute infection -We will consult palliative care for input -Will initiate a liberal diet for now and restrict if needed -Social work consult in place History of DVT -Continue Eliquis grams twice daily Hypertension -Continue LR atenolol 25 mg daily -Hold furosemide 20 mg daily GERD -Continue PPI Hyperlipidemia -Continue pravastatin 40 mg daily DM-2 -Patient typically takes Levemir 45 mg at at bedtime -With recent reduced p.o. intake and LING will reduce dose to 20 mg nightly for now of Lantus -Scheduled lispro with meals 16 units -SSI -Will give a regular diet at this point in time as p.o. 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
[2020-06-28 17:30] LABS: Allen Test Positive; Base Excess 3 mmol/L (-2 to +2); Bicarbonate 27.8 mmol/L (22-26); Blood Gas Specimen Type ART; O2 Delivery Device Cannula; PO2 67 mmHG (75-100); SITE L Radial; SO2 93 % (95-99); Total Carbon Dioxide 29 mmol/L; pCO2 46.5 mmHg (35-45); pH 7.39 (7.35-7.45)
[2020-06-28] MEDS: Potassium Chloride Oral Tablet 20 MEQ 40 MEQ PO (18:57)
[2020-06-28 19:21] LABS: Bedside Glucose 92 mg/dL (70-110)
[2020-06-28 19:21] LABS: Bedside Glucose 61 mg/dL (70-110)
[2020-06-28 19:21] LABS: Bedside Glucose 69 mg/dL (70-110)
[2020-06-28] MEDS: 0.9% Normal Saline 1,000 ML 75 ML IV (19:21)
--- NOTE | 2020-06-28 19:36 | NURSING ---
Pt glucose on admission 61, pt asymptomatic given oj per policy. Recheck 15 min. later 69, oj repeated and meal given. Pt continues to be asymptomatic. Recheck at 1910 glucose 92 and pt finished 75% of meal.
--- NOTE | 2020-06-28 20:58 | PCM.RX.CS ---
Consult Pharmacy has been consulted to manage selected antiobiotic: Vancomycin Type of Consult: New start Suspected Infection: Other Labs: Sodium 141 mmol/L (136-145) 06/28/20 14:25 Potassium 2.9 mmol/L (3.5-5.1) L 06/28/20 14:25 Chloride 104 mmol/L (98-107) 06/28/20 14:25 Carbon Dioxide 32.0 mmol/L (21.0-32.0) 06/28/20 14:25 Anion Gap 5 (5-15) 06/28/20 14:25 BUN 40 mg/dL (7-18) H 06/28/20 14:25 Creatinine 1.70 mg/dL (0.55-1.02) H 06/28/20 14:25 Est GFR (MDRD) Af Amer 39 mL/min (>60) L 06/28/20 14:25 Est GFR (MDRD) Non-Af 32 mL/min (>60) L 06/28/20 14:25 BUN/Creatinine Ratio 23.5 RATIO (10-20) H 06/28/20 14:25 Glucose 75 mg/dL (74-106) 06/28/20 14:25 Microbiology: Microbiology 06/28/20 15:35 Mucosa - Nose SARS-CoV-2 Antigen (Rapid) - Final Goal Trough: 10-15 mcg/mL Pharmacy Plan for Drug Dosing: NEW START IV VANCOMYCIN Consulting Physician: David Munoz Indication: UTI Goal Trough: 10-15 SrCr: 1.70 CrCl: 42 (using and adjusted body weight of 78kg) Comments: pt received a 1500mg dose in the ER 06/28 at 1943 Vancomcyin Dose: 1500mg q24 starting 06/29/20 at 1900 Pending Level: 06/30/20 at 1830 Pharmacy Service will continue to monitor and adjust dosing as required. Follow-Up Labs: Trough Vancomycin - 06/30 at 1830
[2020-06-28 21:50] LABS: Bedside Glucose 149 mg/dL (70-110)
[2020-06-28] MEDS: APIXABAN 5 MG TABLET PO (21:56)
[2020-06-28] MEDS: Divalproex Sodium 250 MG Tablet 500 MG PO (21:56)
[2020-06-28] MEDS: Fludrocortisone Acetate 0.1 MG Tablet PO (21:56)
[2020-06-28] MEDS: Nystatin Powder 15gm Bottle 1 APPLIC TOPICAL (21:57)
[2020-06-28] MEDS: QUEtiapine 100 MG Tablet PO (22:01)
[2020-06-28] MEDS: Pravastatin 40 MG Tablet PO (22:01)
[2020-06-29] VITALS (9 sets, daily range): BP systolic 120–158; BP diastolic 56–83; PULSE 78–93; RESP 14–18; TEMP 36.7–37.2; O2SAT 93–99
--- NOTE | 2020-06-29 02:29 | NURSING ---
Pt. arrives to [facility] from [facility]
--- NOTE | 2020-06-29 02:51 | NURSING ---
Pt. weaned off 2L O2 at this time. SpO2 97 % on RA. See vitals PRN documentation.
--- NOTE | 2020-06-29 03:14 | NURSING ---
Addendum entered by Ira Stevenson 06/29/20 04:15: Accepts meds whole in pudding. Original Note: Update called to Yoanna DECKER at [facility] in regards to room change and to obtain pt.'s baseline of care. Yoanna reports pt. is bedbound, with a chronic tijerina, can be incont. of bowel at times, is on RA, and they mix an antacid, zinc and nystatin for topical treatment to skin.
[2020-06-29 06:04] LABS: Absolute Lymphocyte Count 1.71 X10^3/uL (0.83-4.51); Absolute Neutrophil Count 2.6 X10^3/uL (2.0-7.7); Basophil# 0.02 X10^3/uL; Basophil% 0.4 % (0-1); Eosinophil# 0.18 X10^3/uL; Eosinophils% 3.3 % (0-5); Hematocrit 30.3 % (37-47); Hemoglobin 9.3 g/dL (12.0-15.0); Lymphocyte # 1.71 X10^3/ul (4.0); Lymphocyte % 31.6 % (19-41); Mean Corp Hgb Conc 30.7 g/dL (32-36); Mean Corpuscular Volume 88.1 fL (81-99); Mean Platelet Vol. 10.3 fl (6.2-12.0); Monocyte# 0.89 X10^3/uL; Monocyte% 16.5 % (0-10); NRBC Flagged by Analyzer 0 % (0-5); Neutrophil # 2.58 X10^3/uL (2.7-7.7); Neutrophil % 47.6 % (47-70); Platelet Count 147 K/mm3 (150-450); RBC Distribution Width CV 13.6 % (11.6-14.6); RBC Distribution Width SD 43.9 fl (35.1-43.9); Red Blood Count 3.44 M/mm3 (4.2-5.4); White Blood Count 5.4 K/mm3 (4.4-11.0)
[2020-06-29] MEDS: Levothyroxine 125 MCG Tablet PO (06:48)
[2020-06-29 06:51] LABS: ALB/GLOB Ratio 0.4 RATIO (0.9-2.4); AST(SGOT) 27 U/L (15-37); Alanine Aminotransfer ALT/SGPT 17 U/L (13-56); Albumin, Serum 1.7 g/dL (3.2-5.0); Alkaline Phosphatase 110 U/L (45-117); Anion Gap 5 (5-15); BUN 29 mg/dL (7-18); BUN/Creat Ratio 24.2 RATIO (10-20); Calcium,Total 8.3 mg/dL (8.5-10.1); Chloride 109 mmol/L (98-107); EST Glomerular Filtration Rate 48 mL/min (>60); Est Glom Filt Rate - Afr Amer 58 mL/min (>60); Estimated Creatinine Clearance 46.06 ml/min; Globulin 4.3 g/dL (2.2-4.2); Glucose 190 mg/dL (74-106); Magnesium 1.8 mg/dL (1.6-2.6); Phosphorus 2.1 mg/dL (2.5-4.9); Potassium 3.3 mmol/L (3.5-5.1); Sodium Level 143 mmol/L (136-145); Thyroid Stim Hormone (TSH) 2.78 uIU/mL (0.358-3.74)
[2020-06-29] MEDS: Insulin Lispro 100 UNIT/ML INSULN.PEN SC ×3 (06:54→16:33)
[2020-06-29 07:00] LABS: Bedside Glucose 151 mg/dL (70-110)
--- NOTE | 2020-06-29 09:31 | CASEMGMT ---
RN LIVE updated that a Palliative referral order placed. CHUCK MANCINI faxed info to Palliative Care and left vm for Shena regarding the referral.
--- NOTE | 2020-06-29 09:33 | CASEMGMT ---
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 KAREN faxed clinicals to Maryana with [facility]. Annia QUIJANO ADMINISTRATIVE ASSISTANT OFFICE MANAGER
[2020-06-29] MEDS: Potassium Chloride Oral Tablet 20 MEQ 40 MEQ PO (10:10)
[2020-06-29] MEDS: Pantoprazole Sodium 20 MG Tablet PO (10:11)
[2020-06-29] MEDS: Loratadine 10 MG Tablet PO (10:11)
[2020-06-29] MEDS: Atenolol 25 MG Tablet PO (10:11)
[2020-06-29] MEDS: Aspirin E.C. 81 MG Tablet PO (10:11)
[2020-06-29] MEDS: APIXABAN 5 MG TABLET PO ×2 (10:12→21:43)
[2020-06-29] MEDS: Fludrocortisone Acetate 0.1 MG Tablet PO ×2 (10:12→21:43)
[2020-06-29] MEDS: Glucerna Shake 120 ML LIQUID PO ×4 (10:12→21:44)
[2020-06-29] MEDS: Divalproex Sodium 250 MG Tablet PO (10:12)
[2020-06-29] MEDS: Nystatin Powder 15gm Bottle 1 APPLIC TOPICAL ×2 (10:13→21:45)
[2020-06-29] MEDS: 0.9% Normal Saline 1,000 ML 75 ML IV (10:17)
[2020-06-29] MEDS: Anastrozole 1 MG TABLET PO (11:18)
[2020-06-29] MEDS: QUEtiapine 100 MG Tablet PO ×2 (11:18→21:43)
[2020-06-29] MEDS: buPROPion (XL) 300 MG TABLET.XL PO (11:18)
[2020-06-29 11:40] LABS: Bedside Glucose 194 mg/dL (70-110)
--- NOTE | 2020-06-29 13:41 | PN_ITS ---
Patient Problems: Active and Suspected Problems (Last Reviewed 06/28/20 @ 17:[address] Viri Munoz, DO) UTI (urinary tract infection) (Acute) LING (acute kidney injury) (Acute) Hypokalemia (Acute) Metabolic encephalopathy (Acute) Subjective: Patient seen and examined. She was admitted with a complaint of altered mental status,a nd is being managed for UTI and acute metabolic encephalopathy due to UTI. She has no complaints this morning. Review of systems is otherwise negative. She has remained hemodynamically stable. Potassium is 3.3 today, from 2.9 on admission. Vitals/I&O's: Vital Signs Temp Pulse Resp BP Pulse Ox 98.5 F 85 18 120/79 94 06/29/20 11:30 06/29/20 11:30 06/29/20 11:30 06/29/20 11:30 06/29/20 11:30 Oxygen Flow Rate (L/min) 2 Oxygen Delivery Method Room Air Weight: 228 lb 11.215 oz Body Mass Index (BMI) 35.8 Finger Stick Blood Glucose 99 Intake and Output for Last 24 Hours 06/27/20 06/28/20 06/29/20 23:59 23:59 23:59 Intake Total 2147.5 / 2147.5 1512.5 / 1512.5 Output Total 1100 / 1100 1600 / 1600 Balance 1047.5 / 1047.5 -87.5 / -87.5 General: Alert, Oriented x3, Cooperative, No apparent distress, - - obese HEENT: Atraumatic, PERRLA, EOMI, Normocephalic Oral: Dry Mucosa Neck: Supple, No JVD, Negative Carotid Bruits Lungs: Clear to auscultation, Normal air movement, No rhonchi, No wheeze Cardiovascular: Regular rate, Regular Rhythm, Normal S1, Normal S2, No murmurs Abdomen: Bowel Sounds Present, Soft, Non Tender, Non-Distended, No Hepato- splenomegaly Extremities: No clubbing, No cyanosis, No edema, Capillary Refill Less than 3 Seconds Skin: No rashes, No breakdown Musculoskeletal: No Tenderness to Palpation of Joints or Extremities Lymphatic: No Cervical, Supraclavicular, or Inguinal Adenopathy Neurological: Cranial nerves II-XII grossly intact, Neuro grossly intact, Motor Exam 5/5 strength throughout Psych/Mental Status: Normal Affect, Appropriate, Alert and oriented to time, place, person, mood and affect Microbiology Past 72 Hours 06/28/20 15:07 Urine Catheter - [place] 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 06/28/20 15:35 Mucosa - Nose SARS-CoV-2 Antigen (Rapid) - Final Laboratory Results 06/28/20 14:25: WBC 9.1, RBC 3.75 L, Hgb 10.1 L, Hct 33.1 L, MCV 88.3, MCH 26.9 L, MCHC 30.5 L, RDW Std Deviation 45.2 H, RDW Coeff of Derek 14.1, Plt Count 167, MPV 10.5, Immature Gran % (Auto) 0.300, Neut % (Auto) 54.6, Lymph % (Auto) 29.6, Cache % (Auto) 13.9 H, Eos % (Auto) 1.2, Baso % (Auto) 0.4, Absolute Neuts (auto) 5.0, Absolute Lymphs (auto) 2.69, Nucleated RBC % 0 06/28/20 14:25: Sodium 141, Potassium 2.9 L, Chloride 104, Carbon Dioxide 32.0, Anion Gap 5, BUN 40 H, Creatinine 1.70 H, Estim Creat Clear Calc 32.51, Est GFR (MDRD) Af Amer 39 L, Est GFR (MDRD) Non-Af 32 L, BUN/Creatinine Ratio 23.5 H, Glucose 75, Calcium 8.8, Troponin I < 0.015 06/28/20 14:25: Lactic Acid 0.7 06/28/20 15:07: Urine Color Yellow, Urine Clarity Cloudy, Urine pH 6.0, Ur Specific Dawson 1.015, Urine Protein 100 H, Urine Glucose (UA) Normal, Urine Ketones 5 H, Urine Occult Blood 250 H, Urine Nitrite Positive H, Urine Bilirubin Negative, Urine Urobilinogen 1 H, Ur Leukocyte Esterase 500 H, Urine RBC 25-50 SEEN, Urine WBC 25-50 SEEN, Ur Squamous Epith Cells 0-5 SEEN, Urine Bacteria 2+, Urine Mucus 0 SEEN 06/28/20 17:23: Specimen Type ART, Sample Site L Radial, pH 7.39, Bicarbonate Actual 27.8 H, Total CO2 29, Base Excess 3 H, O2 Saturation 93 L, ABG pCO2 46.5 H, ABG pO2 67 L, Michael Test Positive, O2 Delivery Device Cannula, Liter Flow 2.0 06/28/20 18:23: POC Glucose 61 L 06/28/20 18:45: POC Glucose 69 L 06/28/20 18:54: Ammonia 26.0 06/28/20 19:11: POC Glucose 92 06/28/20 21:46: POC Glucose 149 H 06/29/20 05:36: WBC 5.4, RBC 3.44 L, Hgb 9.3 L, Hct 30.3 L, MCV 88.1, MCH 27.0, MCHC 30.7 L, RDW Std Deviation 43.9, RDW Coeff of Derek 13.6, Plt Count 147 L, MPV 10.3, Immature Gran % (Auto) 0.600, Neut % (Auto) 47.6, Lymph % (Auto) 31.6, Cache % (Auto) 16.5 H, Eos % (Auto) 3.3, Baso % (Auto) 0.4, Absolute Neuts (auto) 2.6, Absolute Lymphs (auto) 1.71, Nucleated RBC % 0 06/29/20 05:36: Sodium 143, Potassium 3.3 L, Chloride 109 H, Carbon Dioxide 29.0, Anion Gap 5, BUN 29 H, Creatinine 1.20 H, Estim Creat Clear Calc 46.06, Est GFR (MDRD) Af Amer 58 L, Est GFR (MDRD) Non-Af 48 L, BUN/Creatinine Ratio 24.2 H, Glucose 190 H, Calcium 8.3 L, Phosphorus 2.1 L, Magnesium 1.8, Total Bilirubin 0.30, AST 27, ALT 17, Alkaline Phosphatase 110, Total Protein 6.0 L, Albumin 1.7 L, Globulin 4.3 H, Albumin/Globulin Ratio 0.4 L, TSH 2.78 06/29/20 06:50: POC Glucose 151 H 06/29/20 11:16: POC Glucose 194 H Diagnostic Data Chest X-Ray 06/28/20 15:11 IMPRESSION: Degenerative changes, as described above. No demonstrated acute cardiopulmonary process. Electronically Signed: Jason Arceo MD at 16:13 EST Tel , Service support , Current Medications Acetaminophen (Acetaminophen 325 Mg Tablet) 650 mg PO Q6H PRN PRN PRN Reason: Pain Score 1-10/Temp > 100.7 F Al Hydroxide/Mg Hydroxide (Mag Hydrox/Al Hydrox/Simeth 30 Ml Udc) 30 ml PO Q6H PRN PRN PRN Reason: Gastric Burning Albuterol Sulfate (Albuterol 2.5 Mg/3 Ml Vial.Neb.) 2.5 mg INHALATION Q2H PRN PRN PRN Reason: Shortness of Breath/Wheezing Anastrozole (Anastrozole 1 Mg Tablet) 1 mg PO DAILY [facility] Last Admin: 06/29/20 11:18 Dose: 1 mg Documented by: Apixaban (Apixaban 5 Mg Tablet) 5 mg PO BID [facility] Last Admin: 06/29/20 10:12 Dose: 5 mg Documented by: Aspirin (Aspirin E.C. 81 Mg Tablet) 81 mg PO DAILY@0800 [facility] Last Admin: 06/29/20 10:11 Dose: 81 mg Documented by: Atenolol (Atenolol 25 Mg Tablet) 25 mg PO DAILY [facility] Last Admin: 06/29/20 10:11 Dose: 25 mg Documented by: Bupropion HCl (Bupropion (Xl) 300 Mg Tablet.Xl) 300 mg PO DAILY [facility] Last Admin: 06/29/20 11:18 Dose: 300 mg Documented by: Divalproex Sodium (Divalproex Sodium 250 Mg Tablet) 500 mg PO QHS [facility] Last Admin: 06/28/20 21:56 Dose: 500 mg Documented by: Divalproex Sodium (Divalproex Sodium 250 Mg Tablet) 250 mg PO DAILY [facility] Last Admin: 06/29/20 10:12 Dose: 250 mg Documented by: Fludrocortisone Acetate (Fludrocortisone Acetate 0.1 Mg Tablet) 0.1 mg PO BID [facility] Last Admin: 06/29/20 10:12 Dose: 0.1 mg Documented by: Sodium Chloride () 1,000 mls @ 75 mls/hr IV .[id number] [facility] Last Admin: 06/29/20 10:17 Dose: 75 mls/hr Documented by: Piperacillin Sod/Tazobactam (Sod 3.375 gm/ Sodium Chloride) 50 mls @ 12.5 mls/hr IV Q8 [facility] Stop: 07/05/20 22:01 Last Admin: 06/29/20 13:26 Dose: 12.5 mls/hr Documented by: Vancomycin HCl 1,500 mg/ (Sodium Chloride) 530 mls @ 250 mls/hr IV Q24H [facility] Insulin Glargine (Insulin Glargine 100 Units/Ml Pen) 20 units SC QHS [facility] Last Admin: 06/28/20 21:57 Dose: 20 units Documented by: Insulin Human Lispro (Insulin Lispro 100 Unit/Ml Insuln.Pen) 0 unit SC TIDAC [facility]; Protocol Last Admin: 06/29/20 11:18 Dose: 2 u Documented by: Levothyroxine Sodium (Levothyroxine 125 Mcg Tablet) 125 mcg PO DAILY@0600 [facility] Last Admin: 06/29/20 06:48 Dose: 125 mcg Documented by: Loratadine (Loratadine 10 Mg Tablet) 10 mg PO DAILY [facility] Last Admin: 06/29/20 10:11 Dose: 10 mg Documented by: Nutritional Formula (Lactose Free) (Glucerna Shake 120 Ml Liquid) 120 ml PO 4X/DAY [facility] Last Admin: 06/29/20 13:26 Dose: 120 ml Documented by: Nystatin (Nystatin Powder 15gm Bottle) 1 applic TOPICAL BID [facility]; Protocol Last Admin: 06/29/20 10:13 Dose: 1 applicatio Documented by: Ondansetron HCl (Ondansetron 4 Mg/2 Ml Vial) 4 mg IV Q8H PRN PRN PRN Reason: NAUSEA/VOMITING Pantoprazole Sodium (Pantoprazole Sodium 20 Mg Tablet) 20 mg PO DAILY [facility] Last Admin: 06/29/20 10:11 Dose: 20 mg Documented by: Pravastatin Sodium (Pravastatin 40 Mg Tablet) 40 mg PO QHS [facility] Last Admin: 06/28/20 22:01 Dose: 40 mg Documented by: Quetiapine Fumarate (Quetiapine 100 Mg Tablet) 100 mg PO BID [facility] Last Admin: 06/29/20 11:18 Dose: 100 mg Documented by: Senna/Docusate Sodium (Senna/Docusate Sodium 1 Tablet) 2 tablet PO BID PRN PRN PRN Reason: Constipation Sodium Chloride (0.9% Saline Lock 10 Ml Syringe) 10 - 40 ml IV UD PRN PRN Reason: SALINE FLUSH STROKE Vital Signs/Narrative: Vital Signs Temp Pulse Resp BP Pulse Ox 03/10/21 11:30 98.5 F 85 18 120/79 94 06/29/20 10:53 14 93 Medical Necessity - Tobacco Use Smoking Status: Unknown if ever smoked Assessment/Plan All Active Problems (Last Reviewed 06/28/20 @ 17:[address] 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 Patient is alert and oriented today * Was normal at 26. * Likely due to UTI. TSH was 2.78. Will monitor. * #Hypokalemia: Potassium is 3.3 today. Will replace and monitor. #LING on CKD stage II: Cr is 1.2. Will trend and monitor #Failure to thrive: palliative care consulted. Case management and nutrition on board #History of DVT: On Eliquis #Hypertension: On atenolol. #GERD: On PPI #Hyperlipidemia: On statin #TYpe 2 diabetes mellitus: * Usually takes Levemir 45 units nightly. * This was reduced to 20 units of Lantus on admission on account of decreased intake. * Insulin sliding scale. * Accu-Cheks AC at bedtime. #History of breast cancer: on arimidex #Schizoaffective disorder/bipolar disorder * on depakote and wellbutrin as well as seroquel * #Hypothyroidism; on synthroid #Adrenal insufficiencey: on florinef #HFrEF: not in exacerbation. EF is known to be 40%. DVT prophylaxis: on eliquis Inpatient E&M: [id number] Subs Hosp L2
--- NOTE | 2020-06-29 14:57 | CHAPLAIN ---
Type of Pastoral Visit _x__ Initial Visit ___ Follow-up Visit ___ On-call Visit ___ General Patient Visit ___ Spiritual Assessment ___ Family Conference ___ Bereavement ___ Rapid Response ___ Code Blue ___ Other (describe below) Pastoral Care Referral From _x__ Patient ___ Family ___ Nurse ___ Physician ___ System Dispatcher ___ [employer]ic Field Service ___ Other (describe below) Sacrament/Intervention _x__ Active listening ___ Anointing ___ Holiness ___ Bereavement ___ Communion ___ Peace exploration ___ ___ Life review _x__ Prayer ___ Reconciliation ___ Sacrament of Sick _x__ Supportive presence ___ Wedding ___ Other (describe below) Pastoral Comments introduced self and role to patient who was welcoming of this sponge maker; pt however could not tell where she was and thought she was still at [facility]; pt did ask for a prayer; pt did answer some questions but did not stay focused and did not answer some other questions; sat with patient and gave casual conversation for a time; RN came to give meds
[2020-06-29 16:50] LABS: Bedside Glucose 244 mg/dL (70-110)
[2020-06-29] MEDS: Pravastatin 40 MG Tablet PO (21:43)
[2020-06-29] MEDS: Divalproex Sodium 250 MG Tablet 500 MG PO (21:43)
[2020-06-29 22:10] LABS: Bedside Glucose 211 mg/dL (70-110)
[2020-06-30] MEDS: 0.9% Normal Saline 1,000 ML 75 ML IV ×2 (00:26→13:23)
[2020-06-30 03:00] VITALS: BP 117/52; PULSE 73; RESP 18; TEMP 36.5; O2SAT 98
[2020-06-30] MEDS: Levothyroxine 125 MCG Tablet PO (06:22)
[2020-06-30 06:30] LABS: Bedside Glucose 125 mg/dL (70-110)
[2020-06-30 07:53] VITALS: O2SAT 98
[2020-06-30 08:35] LABS: Absolute Lymphocyte Count 2.23 X10^3/uL (0.83-4.51); Absolute Neutrophil Count 2.2 X10^3/uL (2.0-7.7); Basophil# 0.05 X10^3/uL; Basophil% 0.8 % (0-1); Eosinophil# 0.39 X10^3/uL; Eosinophils% 6.6 % (0-5); Hematocrit 31.9 % (37-47); Lymphocyte # 2.23 X10^3/ul (4.0); Lymphocyte % 37.8 % (19-41); Mean Corp Hgb Conc 31.3 g/dL (32-36); Mean Corpuscular Hgb 27.6 pg (27.0-32.0); Mean Corpuscular Volume 88.1 fL (81-99); Mean Platelet Vol. 10.3 fl (6.2-12.0); Monocyte# 0.99 X10^3/uL; Monocyte% 16.8 % (0-10); NRBC Flagged by Analyzer 0 % (0-5); Neutrophil # 2.19 X10^3/uL (2.7-7.7); Neutrophil % 37.2 % (47-70); Platelet Count 154 K/mm3 (150-450); RBC Distribution Width CV 13.3 % (11.6-14.6); RBC Distribution Width SD 43.4 fl (35.1-43.9); Red Blood Count 3.62 M/mm3 (4.2-5.4); White Blood Count 5.9 K/mm3 (4.4-11.0)
[2020-06-30 09:21] LABS: Anion Gap 5 (5-15); BUN 19 mg/dL (7-18); BUN/Creat Ratio 19.4 RATIO (10-20); Calcium,Total 8.2 mg/dL (8.5-10.1); Chloride 109 mmol/L (98-107); Creatinine, Serum 0.98 mg/dL (0.55-1.02); EST Glomerular Filtration Rate 61 mL/min (>60); Est Glom Filt Rate - Afr Amer 74 mL/min (>60); Glucose 124 mg/dL (74-106); Sodium Level 140 mmol/L (136-145)
[2020-06-30] MEDS: Aspirin E.C. 81 MG Tablet PO (09:24)
[2020-06-30] MEDS: Divalproex Sodium 250 MG Tablet PO (09:25)
[2020-06-30] MEDS: APIXABAN 5 MG TABLET PO ×2 (09:25→20:54)
[2020-06-30] MEDS: Fludrocortisone Acetate 0.1 MG Tablet PO ×2 (09:25→20:54)
[2020-06-30] MEDS: Anastrozole 1 MG TABLET PO (09:25)
[2020-06-30] MEDS: Nystatin Powder 15gm Bottle 1 APPLIC TOPICAL ×2 (09:25→20:32)
[2020-06-30] MEDS: Loratadine 10 MG Tablet PO (09:25)
[2020-06-30] MEDS: Pantoprazole Sodium 20 MG Tablet PO (09:26)
[2020-06-30] MEDS: QUEtiapine 100 MG Tablet PO ×2 (09:26→20:54)
[2020-06-30] MEDS: buPROPion (XL) 300 MG TABLET.XL PO (09:26)
[2020-06-30] MEDS: Atenolol 25 MG Tablet PO (09:26)
[2020-06-30] MEDS: Glucerna Shake 120 ML LIQUID PO ×4 (09:27→20:31)
[2020-06-30 09:32] VITALS: BP 148/75; PULSE 81; RESP 18; TEMP 36.3; O2SAT 100
--- NOTE | 2020-06-30 10:19 | CON.PCM_ITS ---
Problem List (1) Immobility Status: Chronic (2) Gait abnormality Status: Chronic (3) Frequent falls Status: Chronic (4) UTI (urinary tract infection) Status: Acute Qualifiers: Urinary tract infection type: catheter-associated UTI Indwelling urinary catheter type: indwelling urethral catheter Encounter type: subsequent en counter Qualified Code(s): T83.511D - Infection and inflammatory reaction due to indwelling urethral catheter, subsequent encounter; N39.0 - Urinary tract infection, site not specified (5) LING (acute kidney injury) Status: Acute (6) CKD (chronic kidney disease) stage 2, GFR 60-89 ml/min Status: Chronic (7) Anemia Status: Chronic (8) Hypokalemia Status: Acute (9) Peripheral arterial occlusive disease Status: Chronic (10) Metabolic encephalopathy Status: Acute (11) Dilated cardiomyopathy Status: Chronic (12) Benign hypertension Status: Chronic (13) Hyperlipidemia Status: Chronic Qualifiers: (14) Intertrigo Status: Chronic (15) Schizoaffective disorder Status: Chronic (16) Bipolar disorder Status: Chronic (17) Diabetes mellitus, type 2 Status: Chronic Qualifiers: (18) Fibromyalgia Status: Chronic (19) Morbid obesity Status: Chronic (20) CHF (congestive heart failure) Status: Chronic Comment: ef=40% (21) Sleep apnea Status: Chronic (22) Obesity (BMI 30-39.9) Status: Acute History of Present Illness Date of Consult: 06/30/20 Reason for Consult: weakness Requesting physician: [] Primary care physician: Dr. Babar Sahu MD - History of Present Illness The patient is a 64 year old F with a past medical history as below, presented to the ED 06/28/2020 secondary to acute mental status changes, baseline A&O x3. She is a resident of [place]. Was not answering questions or communicating with staff as well, and her oral intake was very poor for approximately 1 week. Patient has a history of recurrent UTIs and has been on multiple antibiotics in the last several months. Work-up in the ED showed stable anemia, hypokalemia at 2.9, and elevated renal function. Chest x-ray was unremarkable. She was hypokalemic at 2.9 and had an elevation in her renal function. Covid negative. UA was positive, patient was started on Cipro and admitted for further evaluation and management. She has had some hypoglycemia requiring intervention. She has been weaned off supplemental oxygen. Pain meds whole in pudding. Patient is bedbound at baseline, has a chronic Milan, intermittent incontinence of bowel. She is a long-term resident of [place]. penitentiary paperwork apparently had DNR CC on file, however patient was sent to the ED via squad. She is currently a DNR CCA with no intubation. Patient does have a significant psychiatric history, including schizoaffective disorder and bipolar. She is on low-dose Florinef for unknown reason, possible adrenal insufficiency? Reports she has a history of breast cancer with left mastectomy a long time ago. She is unsure if she followed with oncology. She has not had a repeat mammogram in a very long time. Has a rash on bilateral forearms, comes and goes for the last several weeks. Per patient, no treatment at the assisted. She is on Claritin 10 mg daily. Also gets nystatin to the groin for yeast issues. Has issues with chronic constipation, currently ordered 2 tabs of senna plus twice daily as needed. Also has chronic pain to bilateral knees, has tried Tylenol and ibuprofen in the past. Tylenol is ineffective, ibuprofen helps at times. Denies any previous imaging. Has been nonambulatory for several years. She is not sure what year she entered the assisted, however has been there a long time. Has 2 children but have no idea where they are, states she has tried to get hold of them in the past but has been unsuccessful. When asked why she had to live at a assisted, she states that she just decided 1 day she was not going to walk anymore because it was too painful. Mainly her legs. She does have some external rotation of the legs and dropfoot. Patient Problems: Chronic Problems (Last Reviewed 06/28/20 @ 17:[address] Viri Munoz, DO) CKD (chronic kidney disease) stage 2, GFR 60-89 ml/min (Chronic) Anemia (Chronic) Immobility (Chronic) Peripheral arterial occlusive disease (Chronic) Dilated cardiomyopathy (Chronic) Benign hypertension (Chronic) Hyperlipidemia (Chronic) Intertrigo (Chronic) Schizoaffective disorder (Chronic) Bipolar disorder (Chronic) Diabetes mellitus, type 2 (Chronic) Fibromyalgia (Chronic) Frequent falls (Chronic) Gait abnormality (Chronic) Morbid obesity (Chronic) CHF (congestive heart failure) (Chronic) ef=40% Morbid obesity with BMI of 40.0-44.9, adult (Chronic) Sleep apnea (Chronic) Surgical History: hysterectomy Psychiatric History: Bipolar, Schizophrenia Home Medications: Ambulatory Orders Medication Instructions Recorded Divalproex (ER) [Depakote ER] 500 mg PO QHS 03/16/13 Docusate Sodium [Colace] 200 mg PO QHS 03/16/13 Aspirin E.C. [Ecotrin] 81 mg PO DAILY@0800 #30 tab 03/20/13 furosemide 20 mg tablet 20 mg PO DAILY 05/20/17 Anastrozole [Arimidex] 1 mg PO DAILY 09/19/17 Fludrocortisone Acetate [Florinef] 0.1 mg PO BID 09/19/17 Apixaban [Eliquis] 5 mg PO BID 03/02/20 Ascorbic Acid [Vitamin C] 500 mg PO DAILY 03/02/20 Atenolol 25 mg PO DAILY 03/02/20 Divalproex Sodium [Depakote] 250 mg PO DAILY 03/02/20 Ergocalciferol (Vitamin D2) 50,000 unit PO TH 03/02/20 [Vitamin D2] Insulin Detemir [Levemir] 45 unit SQ QHS 03/02/20 Insulin Lispro [Humalog] 16 unit SQ TIDCM 03/02/20 Lactobacillus Acidophilus 1 cap PO BID 03/02/20 [Acidophilus] Potassium Chloride 20 meq PO DAILY 03/02/20 Quetiapine Fumarate [Seroquel] 100 mg PO BID 03/02/20 Cetirizine HCl 10 mg PO DAILY 06/28/20 Ciprofloxacin [Cipro] 500 mg PO BID 06/28/20 Cran/Vitc/Mannose/Fos/Bromeln 30 ml PO DAILY 06/28/20 [Uti-Stat Liquid] Levothyroxine Sodium 125 mcg PO DAILY 06/28/20 Melatonin 2 mg PO QHS 06/28/20 Menthol/Lanolin/Calamine/Znox 1 applic TOPICAL BID 06/28/20 [Calmoseptine Ointment] Multivitamins,Therapeutic 1 tab PO DAILY 06/28/20 [Multivitamin] Omeprazole 20 mg PO DAILY 06/28/20 Pravastatin Sodium 40 mg PO DAILY 06/28/20 buPROPion XL [Wellbutrin Xl] 300 mg PO DAILY 06/28/20 Allergies Sulfa (Sulfonamide Antibiotics) Allergy (Verified 06/28/20 14:05) Unknown sulfamethoxazole [From Bactrim] Allergy (Verified 06/28/20 14:05) Unknown trimethoprim [From Bactrim] Allergy (Verified 06/28/20 14:05) Unknown Maternal History Items: Unknown - Social History Lives: Half-Way Smoking Status: Unknown if ever smoked Alcohol: None Drugs: None Code Status: DNRCC-A Review of Systems Constitutional: Denies: Chills, Fever, Weight Change Eyes: Denies: Vision Change HEENT: Denies: Difficulty Swallowing, Sinus Congestion, Sore Throat Cardiovascular: Reports: Edema. Denies: Chest Pain, Palpitations Respiratory: Denies: Cough, Shortness of Breath, Wheezing Gastrointestinal: Reports: Constipation, Nausea. Denies: Abdominal Pain, Diarrhea, Vomiting Genitourinary: Reports: - - Chronic indwelling Milan. Denies: Dysuria Musculoskeletal: Reports: Joint Pain, Leg Pain Skin: Reports: Rash - bilat arms x few months intermittently Neurological: Reports: Confusion. Denies: Change in Speech, Difficulty swallowing, Numbness, Tingling, Tremor Psychiatric: Reports: Depression. Denies: Anxiety, Homicidal Ideations, Suicidal Ideations Hematologic/ Lymphatic: Reports: Anemia. Denies: Easy Bruising, Easy Bleeding Physical Exam Subjective: Awake and alert, states she feels better since coming to the hospital. Was surprised she was brought here in the first place. No current n/v/d. Legs hurt when palpated, knees hurt all the time. Rating pain 5/10 today. General: Alert, Oriented x3, Cooperative, No apparent distress HEENT: Atraumatic, Normocephalic Oral: No Gingival or Mucosal Lesions/ Ulcerations, - - edentulous Neck: Supple, No JVD Lungs: Clear to auscultation, Diminished, - - poor inspiratory effort, obese Cardiovascular: Regular rate, Regular Rhythm, Normal S1, Normal S2, - - Distant heart sounds secondary to body habitus Abdomen: Bowel Sounds Present, Soft, Non Tender, Obese Extremities: No clubbing, No cyanosis, Diminished Peripheral Pulses, Edema, - - External rotation bilateral lower extremities Skin: Rash Present - Bilateral forearms, pruritis, - - Pale flaky Musculoskeletal: Arthritic Changes, Muscle Wasting, Tenderness - to legs w/ palpation Lymphatic: No Cervical, Supraclavicular, or Inguinal Adenopathy Neurological: Neuro grossly intact Psych/Mental Status: Appropriate, Flat Affect Objective: Vital Signs Temp Pulse Resp BP Pulse Ox 97.3 F L 81 18 148/75 H 100 06/30/20 09:32 06/30/20 09:32 06/30/20 09:32 06/30/20 09:32 06/30/20 09:32 Oxygen Flow Rate (L/min) 2 Oxygen Delivery Method Nasal Cannula Weight: 103.737 kg Body Mass Index (BMI) 35.8 Finger Stick Blood Glucose 99 Intake and Output for Last 24 Hours 06/28/20 06/29/20 06/30/20 23:59 23:59 23:59 Intake Total 2147.5 / 2147.5 3512.5 / 3732.5 463.96 / 463.96 Output Total 1100 / 1100 2700 / 3325 1525 / 1525 Balance 1047.5 / 1047.5 812.5 / 407.5 -1061.04 / -1061.04 Microbiology Past 72 Hours 06/28/20 14:40 Blood Culture - Preliminary Blood Culture (Wb) - Arm Left No growth in 48 hours. 06/28/20 14:25 Blood Culture - Preliminary Blood Culture (Wb) - Right Hand No growth in 48 hours. 06/28/20 15:07 Urine Culture - Preliminary Urine Catheter - Milan Escherichia coli 06/28/20 15:35 SARS-CoV-2 Antigen (Rapid) - Final Mucosa - Nose Laboratory Tests Past 24 Hrs 06/30/20 06/30/20 08:14 08:14 WBC 5.9 RBC 3.62 L Hgb 10.0 L Hct 31.9 L MCV 88.1 MCH 27.6 MCHC 31.3 L RDW Std Deviation 43.4 RDW Coeff of Derek 13.3 Plt Count 154 MPV 10.3 Immature Gran % (Auto) 0.800 Neut % (Auto) 37.2 L Lymph % (Auto) 37.8 [place] % (Auto) 16.8 H Eos % (Auto) 6.6 H Baso % (Auto) 0.8 Absolute Neuts (auto) 2.2 Absolute Lymphs (auto) 2.23 Nucleated RBC % 0 Sodium 140 Potassium 3.0 L Chloride 109 H Carbon Dioxide 26.0 Anion Gap 5 BUN 19 H Creatinine 0.98 Estim Creat Clear Calc 56.40 Est GFR (MDRD) Af Amer 74 Est GFR (MDRD) Non-Af 61 BUN/Creatinine Ratio 19.4 Glucose 124 H Calcium 8.2 L Assessment/Plan All Active Problems (Last Reviewed 06/28/20 @ 17:[address] Viri Munoz, DO) UTI (urinary tract infection) (Acute) LING (acute kidney injury) (Acute) Hypokalemia (Acute) Obesity (BMI 30-39.9) (Acute) Metabolic encephalopathy (Acute) Cystitis (Resolved) 64-year-old resident of [place], seen today for palliative care consultation for weakness, immobility, bedbound at baseline. Also w/ significant mental health history. 1. Weakness/immobility/falls/confusion/FTT: comorbid conditions are likely complicating this, as well as acute infection. She is improving. Fall precautions in place. We will f/u with her at [place]. 2. Schizoaffective d/o, bipolar: takes wellbutrin 300 qd, depakote 250mg qam and 500 qhs, seroquel 100mg BID. Unclear if she follows with psych in the assisted. We will see her as outpatient and go from there. Depression may be undertreated? Not sure if she has behaviors at baseline. 3. Recurrent UTIs w/ ED visits: would recommend prophylactic antibiotics to avoid unneccessary trips to the ED and avoid confusion, which increases risk for other complications including falls. 4. Rash: We will try some topical hydrocortisone, preferably 1% BID for 10 days. Note sent to pharmacy, only strength coming up is 2.5%. Thank you for the opportunity to participate in this patient's care, please do not hesitate to contact [facility] with any further questions or concerns. RN will follow up within 3 days of discharge from the hospital. This note was generated with [employer] dictation software. It may contain incorrect words, spelling, and punctuation that were not noted in checking the note before signing.
[2020-06-30] MEDS: Insulin Lispro 100 UNIT/ML INSULN.PEN SC ×2 (11:25→17:07)
[2020-06-30 11:40] LABS: Bedside Glucose 211 mg/dL (70-110)
[2020-06-30] MEDS: Hydrocortisone 2.5% Crm 1 APPLIC TOPICAL ×2 (13:24→20:32)
--- NOTE | 2020-06-30 13:38 | PN_ITS ---
Patient Problems: Active and Suspected Problems (Last Reviewed 06/28/20 @ 17:[address] Viri Munoz DO) UTI (urinary tract infection) (Acute) LING (acute kidney injury) (Acute) Hypokalemia (Acute) Obesity (BMI 30-39.9) (Acute) Metabolic encephalopathy (Acute) Subjective: Patient seen and examined. He had no complaints and was resting in bed. She had had an uneventful night and review of systems otherwise negative. Has remained hemodynamically stable and remains on 2 L of oxygen. Potassium today was 3. Urine culture growing E. coli and blood cultures are negative. Vitals/I&O's: Vital Signs Temp Pulse Resp BP Pulse Ox 97.3 F L 81 18 148/75 H 100 06/30/20 09:32 06/30/20 09:32 06/30/20 09:32 06/30/20 09:32 06/30/20 09:32 Oxygen Flow Rate (L/min) 2 Oxygen Delivery Method Nasal Cannula Weight: 228 lb 11.215 oz Body Mass Index (BMI) 35.8 Finger Stick Blood Glucose 99 Intake and Output for Last 24 Hours 06/28/20 06/29/20 06/30/20 23:59 23:59 23:59 Intake Total 2147.5 / 2147.5 3512.5 / 3732.5 1965.21 / 1965.21 Output Total 1100 / 1100 2700 / 3325 2475 / 2475 Balance 1047.5 / 1047.5 812.5 / 407.5 -509.79 / -509.79 General: Alert, Oriented x3, Cooperative, No apparent distress, - - obese HEENT: Atraumatic, PERRLA, EOMI, Normocephalic Oral: Dry Mucosa Neck: Supple, No JVD, Negative Carotid Bruits Lungs: Clear to auscultation, Normal air movement, No rhonchi, No wheeze Cardiovascular: Regular rate, Regular Rhythm, Normal S1, Normal S2, No murmurs Abdomen: Bowel Sounds Present, Soft, Non Tender, Non-Distended, No Hepato- splenomegaly Extremities: No clubbing, No cyanosis, No edema, Capillary Refill Less than 3 Seconds Skin: No rashes, No breakdown Musculoskeletal: No Tenderness to Palpation of Joints or Extremities Lymphatic: No Cervical, Supraclavicular, or Inguinal Adenopathy Neurological: Cranial nerves II-XII grossly intact, Neuro grossly intact, Motor Exam 5/5 strength throughout Psych/Mental Status: Normal Affect, Appropriate, Alert and oriented to time, place, person, mood and affect Microbiology Past 72 Hours 06/28/20 14:40 Blood Culture (Wb) - Arm Left Blood Culture - Preliminary No growth in 48 hours. 06/28/20 14:25 Blood Culture (Wb) - Right Hand Blood Culture - Preliminary No growth in 48 hours. 06/28/20 15:07 Urine Catheter - [place] Urine Culture - Preliminary Escherichia coli 06/28/20 15:35 Mucosa - Nose SARS-CoV-2 Antigen (Rapid) - Final Laboratory Results 06/29/20 16:32: POC Glucose 244 H 06/29/20 21:50: POC Glucose 211 H 06/30/20 06:21: POC Glucose 125 H 06/30/20 08:14: WBC 5.9, RBC 3.62 L, Hgb 10.0 L, Hct 31.9 L, MCV 88.1, MCH 27.6, MCHC 31.3 L, RDW Std Deviation 43.4, RDW Coeff of Derek 13.3, Plt Count 154, MPV 10.3, Immature Gran % (Auto) 0.800, Neut % (Auto) 37.2 L, Lymph % (Auto) 37.8, Traill % (Auto) 16.8 H, Eos % (Auto) 6.6 H, Baso % (Auto) 0.8, Absolute Neuts (auto) 2.2, Absolute Lymphs (auto) 2.23, Nucleated RBC % 0 06/30/20 08:14: Sodium 140, Potassium 3.0 L, Chloride 109 H, Carbon Dioxide 26.0, Anion Gap 5, BUN 19 H, Creatinine 0.98, Estim Creat Clear Calc 56.40, Est GFR (MDRD) Af Amer 74, Est GFR (MDRD) Non-Af 61, BUN/Creatinine Ratio 19.4, Glucose 124 H, Calcium 8.2 L 06/30/20 11:24: POC Glucose 211 H Current Medications Acetaminophen (Acetaminophen 325 Mg Tablet) 650 mg PO Q6H PRN PRN PRN Reason: Pain Score 1-10/Temp > 100.7 F Al Hydroxide/Mg Hydroxide (Mag Hydrox/Al Hydrox/Simeth 30 Ml Udc) 30 ml PO Q6H PRN PRN PRN Reason: Gastric Burning Albuterol Sulfate (Albuterol 2.5 Mg/3 Ml Vial.Neb.) 2.5 mg INHALATION Q2H PRN PRN PRN Reason: Shortness of Breath/Wheezing Anastrozole (Anastrozole 1 Mg Tablet) 1 mg PO DAILY [facility] Last Admin: 06/30/20 09:25 Dose: 1 mg Documented by: Apixaban (Apixaban 5 Mg Tablet) 5 mg PO BID [facility] Last Admin: 06/30/20 09:25 Dose: 5 mg Documented by: Aspirin (Aspirin E.C. 81 Mg Tablet) 81 mg PO DAILY@0800 [facility] Last Admin: 06/30/20 09:24 Dose: 81 mg Documented by: Atenolol (Atenolol 25 Mg Tablet) 25 mg PO DAILY [facility] Last Admin: 06/30/20 09:26 Dose: 25 mg Documented by: Bupropion HCl (Bupropion (Xl) 300 Mg Tablet.Xl) 300 mg PO DAILY [facility] Last Admin: 06/30/20 09:26 Dose: 300 mg Documented by: Divalproex Sodium (Divalproex Sodium 250 Mg Tablet) 500 mg PO QHS [facility] Last Admin: 06/29/20 21:43 Dose: 500 mg Documented by: Divalproex Sodium (Divalproex Sodium 250 Mg Tablet) 250 mg PO DAILY [facility] Last Admin: 06/30/20 09:25 Dose: 250 mg Documented by: Fludrocortisone Acetate (Fludrocortisone Acetate 0.1 Mg Tablet) 0.1 mg PO BID [facility] Last Admin: 06/30/20 09:25 Dose: 0.1 mg Documented by: Hydrocortisone (Hydrocortisone 2.5% Crm) 1 applic TOPICAL BID [facility]; Protocol Stop: 07/10/20 11:26 Last Admin: 06/30/20 13:24 Dose: 1 applicatio Documented by: Sodium Chloride () 1,000 mls @ 75 mls/hr IV .[id number] [facility] Last Admin: 06/30/20 13:23 Dose: 75 mls/hr Documented by: Piperacillin Sod/Tazobactam (Sod 3.375 gm/ Sodium Chloride) 50 mls @ 12.5 mls/hr IV Q8 [facility] Stop: 07/05/20 22:01 Last Admin: 06/30/20 13:24 Dose: 12.5 mls/hr Documented by: Vancomycin HCl 1,500 mg/ (Sodium Chloride) 530 mls @ 250 mls/hr IV Q24H [facility] Last Infusion: 06/29/20 21:15 Dose: Infused Documented by: Potassium Chloride () 10 meq in 100 mls @ 100 mls/hr IV BOLUS Q1H [facility] Stop: 06/30/20 17:44 Insulin Glargine (Insulin Glargine 100 Units/Ml Pen) 20 units SC QHS [facility] Last Admin: 06/29/20 21:44 Dose: 20 units Documented by: Insulin Human Lispro (Insulin Lispro 100 Unit/Ml Insuln.Pen) 0 unit SC TIDAC [facility]; Protocol Last Admin: 06/30/20 11:25 Dose: 2 u Documented by: Levothyroxine Sodium (Levothyroxine 125 Mcg Tablet) 125 mcg PO DAILY@0600 [facility] Last Admin: 06/30/20 06:22 Dose: 125 mcg Documented by: Loratadine (Loratadine 10 Mg Tablet) 10 mg PO DAILY [facility] Last Admin: 06/30/20 09:25 Dose: 10 mg Documented by: Nutritional Formula (Lactose Free) (Glucerna Shake 120 Ml Liquid) 120 ml PO 4X/DAY [facility] Last Admin: 06/30/20 13:24 Dose: 120 ml Documented by: Nystatin (Nystatin Powder 15gm Bottle) 1 applic TOPICAL BID [facility]; Protocol Last Admin: 06/30/20 09:25 Dose: 1 applicatio Documented by: Ondansetron HCl (Ondansetron 4 Mg/2 Ml Vial) 4 mg IV Q8H PRN PRN PRN Reason: NAUSEA/VOMITING Pantoprazole Sodium (Pantoprazole Sodium 20 Mg Tablet) 20 mg PO DAILY [facility] Last Admin: 06/30/20 09:26 Dose: 20 mg Documented by: Pravastatin Sodium (Pravastatin 40 Mg Tablet) 40 mg PO QHS [facility] Last Admin: 06/29/20 21:43 Dose: 40 mg Documented by: Quetiapine Fumarate (Quetiapine 100 Mg Tablet) 100 mg PO BID [facility] Last Admin: 06/30/20 09:26 Dose: 100 mg Documented by: Senna/Docusate Sodium (Senna/Docusate Sodium 1 Tablet) 2 tablet PO BID PRN PRN PRN Reason: Constipation Sodium Chloride (0.9% Saline Lock 10 Ml Syringe) 10 - 40 ml IV UD PRN PRN Reason: SALINE FLUSH Medical Necessity - Tobacco Use Smoking Status: Unknown if ever smoked Assessment/Plan All Active Problems (Last Reviewed 06/28/20 @ 17:[address] Viri Munoz, DO) UTI (urinary tract infection) (Acute) LING (acute kidney injury) (Acute) Hypokalemia (Acute) Obesity (BMI 30-39.9) (Acute) Metabolic encephalopathy (Acute) Cystitis (Resolved) #UTI * on IV vancomycin and zosyn due to recurrent UTI; previous cultures grew Klebsiella and Pseudomonas * Urine culture growing E. coli. Blood cultures show no growth * Will DC IV vancomycin. Continue IV Zosyn for today. * will likely need prophylactic antibiotic o/a of recurrent UTI * # Acute metabolic encephalopathy due to UTI * Resolved. Patient is alert and oriented today * * #Hypokalemia: Potassium is 3.0 today. Will replace and monitor. #LING on CKD stage II: Resolved. Creatinine is 0.98 today. #Failure to thrive: palliative care consulted. Case management and nutrition on board #History of DVT: On Eliquis #Hypertension: On atenolol. #GERD: On PPI #Hyperlipidemia: On statin #TYpe 2 diabetes mellitus: * Usually takes Levemir 45 units nightly. * This was reduced to 20 units of Lantus on admission on account of decreased intake. * Insulin sliding scale. * Accu-Cheks AC at bedtime. #History of breast cancer: on arimidex #Schizoaffective disorder/bipolar disorder * on depakote and wellbutrin as well as seroquel * #Hypothyroidism; on synthroid #Adrenal insufficiency: on florinef #HFrEF: not in exacerbation. EF is known to be 40%. DVT prophylaxis: on eliquis Disposition: for likely dc back to SNF tomorrow Inpatient E&M: 12998 Subs Hosp L2
[2020-06-30] MEDS: Potassium Chloride 10mEq/100mL 10 MEQ/100 ML IV.SOLN. 100 MEQ IV BOLUS ×4 (14:54→18:18)
[2020-06-30 15:39] VITALS: BP 133/97; PULSE 75; RESP 20; TEMP 36.5; O2SAT 96
[2020-06-30 17:16] LABS: Bedside Glucose 241 mg/dL (70-110)
[2020-06-30 19:11] LABS: Vancomycin, Trough Level 10.7 ug/mL (5.0-15.0)
[2020-06-30] MEDS: 0.9% Saline Lock 10 ML Syringe IV (20:31)
[2020-06-30 20:36] VITALS: BP 147/94; PULSE 78; RESP 18; TEMP 36.8; O2SAT 97
[2020-06-30] MEDS: Divalproex Sodium 250 MG Tablet 500 MG PO (20:54)
[2020-06-30] MEDS: Pravastatin 40 MG Tablet PO (20:54)
[2020-06-30 21:16] LABS: Bedside Glucose 191 mg/dL (70-110)
[2020-07-01] MEDS: Menthol/Lanolin/Calamine/Znox 113 GM Tube 1 APPLIC TOPICAL ×2 (01:12→08:09)
[2020-07-01] MEDS: 0.9% Normal Saline 1,000 ML 75 ML IV ×2 (01:12→14:43)
[2020-07-01 02:33] VITALS: BP 141/92; PULSE 90; RESP 18; TEMP 37; O2SAT 96
[2020-07-01] MEDS: Levothyroxine 125 MCG Tablet PO (05:18)
[2020-07-01 06:01] LABS: Absolute Lymphocyte Count 2.17 X10^3/uL (0.83-4.51); Absolute Neutrophil Count 2.5 X10^3/uL (2.0-7.7); Basophil# 0.05 X10^3/uL; Basophil% 0.9 % (0-1); Eosinophil# 0.32 X10^3/uL; Eosinophils% 5.5 % (0-5); Hematocrit 30.9 % (37-47); Hemoglobin 9.8 g/dL (12.0-15.0); Lymphocyte # 2.17 X10^3/ul (4.0); Lymphocyte % 37.1 % (19-41); Mean Corp Hgb Conc 31.7 g/dL (32-36); Mean Corpuscular Hgb 26.9 pg (27.0-32.0); Mean Corpuscular Volume 84.9 fL (81-99); Mean Platelet Vol. 10.1 fl (6.2-12.0); Monocyte# 0.71 X10^3/uL; Monocyte% 12.1 % (0-10); NRBC Flagged by Analyzer 0 % (0-5); Neutrophil # 2.48 X10^3/uL (2.7-7.7); Neutrophil % 42.3 % (47-70); Platelet Count 168 K/mm3 (150-450); RBC Distribution Width CV 12.8 % (11.6-14.6); RBC Distribution Width SD 39.5 fl (35.1-43.9); Red Blood Count 3.64 M/mm3 (4.2-5.4); White Blood Count 5.9 K/mm3 (4.4-11.0)
[2020-07-01 06:22] LABS: Anion Gap 4 (5-15); BUN 15 mg/dL (7-18); BUN/Creat Ratio 15.8 RATIO (10-20); Calcium,Total 8.4 mg/dL (8.5-10.1); Chloride 106 mmol/L (98-107); Creatinine, Serum 0.95 mg/dL (0.55-1.02); EST Glomerular Filtration Rate 63 mL/min (>60); Est Glom Filt Rate - Afr Amer 76 mL/min (>60); Estimated Creatinine Clearance 58.18 ml/min; Glucose 173 mg/dL (74-106); Potassium 3.1 mmol/L (3.5-5.1); Sodium Level 142 mmol/L (136-145)
[2020-07-01] MEDS: Insulin Lispro 100 UNIT/ML INSULN.PEN SC ×3 (06:25→17:14)
[2020-07-01 06:41] LABS: Bedside Glucose 155 mg/dL (70-110)
[2020-07-01 07:36] VITALS: O2SAT 90
[2020-07-01] MEDS: Potassium Chloride 10mEq/100mL 10 MEQ/100 ML IV.SOLN. 100 MEQ IV BOLUS ×4 (08:04→11:13)
[2020-07-01] MEDS: QUEtiapine 100 MG Tablet PO (08:08)
[2020-07-01] MEDS: Anastrozole 1 MG TABLET PO (08:08)
[2020-07-01] MEDS: Atenolol 25 MG Tablet PO (08:08)
[2020-07-01] MEDS: Loratadine 10 MG Tablet PO (08:08)
[2020-07-01] MEDS: buPROPion (XL) 300 MG TABLET.XL PO (08:08)
[2020-07-01] MEDS: Aspirin E.C. 81 MG Tablet PO (08:08)
[2020-07-01] MEDS: Divalproex Sodium 250 MG Tablet PO (08:08)
[2020-07-01] MEDS: Fludrocortisone Acetate 0.1 MG Tablet PO (08:08)
[2020-07-01] MEDS: Glucerna Shake 120 ML LIQUID PO ×2 (08:09→14:43)
[2020-07-01] MEDS: APIXABAN 5 MG TABLET PO (08:09)
[2020-07-01] MEDS: Hydrocortisone 2.5% Crm 1 APPLIC TOPICAL (08:10)
[2020-07-01] MEDS: Nystatin Powder 15gm Bottle 1 APPLIC TOPICAL (08:10)
[2020-07-01] MEDS: Pantoprazole Sodium 20 MG Tablet PO (08:15)
[2020-07-01 08:18] VITALS: BP 127/74; PULSE 78; RESP 18; TEMP 36.7; O2SAT 97
[2020-07-01 11:20] LABS: Bedside Glucose 274 mg/dL (70-110)
--- NOTE | 2020-07-01 13:28 | CASEMGMT ---
Patient will be discharged back to [facility] today. KAREN called Maryana and let her know. Await orders. Annia QUIJANO MSW
--- NOTE | 2020-07-01 14:35 | PCM.HP.ID ---
Problem List (1) UTI (urinary tract infection) Status: Acute Qualifiers: Urinary tract infection type: catheter-associated UTI Indwelling urinary catheter type: indwelling urethral catheter Encounter type: subsequent encounter Qualified Code(s): T83.511D - Infection and inflammatory reaction due to indwelling urethral catheter, subsequent encounter; N39.0 - Urinary tract infection, site not specified Reason for Consult: uti Consulted by: Dr. Ibanez History of Present Illness: The patient is a 64 year old F with schizoaffective disorder, chronic tijer[place], CKD, F resident, presented to ED 06/28 with altered mental status, nausea, not feeling well. Dx with uti recently, started on cipro. Admitted from ED on vanc/zosyn. Pt denies fever, cough, abd/flank pain. Feeling better, wants to leave. Full ROS performed and neg except as noted above. - Medical History Past Medical History (Chronic Problems): Chronic Problems (Last Reviewed 06/28/20 @ 17:[address] Viri Munoz, DO) CKD (chronic kidney disease) stage 2, GFR 60-89 ml/min (Chronic) Anemia (Chronic) Immobility (Chronic) Peripheral arterial occlusive disease (Chronic) Dilated cardiomyopathy (Chronic) Benign hypertension (Chronic) Hyperlipidemia (Chronic) Intertrigo (Chronic) Schizoaffective disorder (Chronic) Bipolar disorder (Chronic) Diabetes mellitus, type 2 (Chronic) Fibromyalgia (Chronic) Frequent falls (Chronic) Gait abnormality (Chronic) Morbid obesity (Chronic) CHF (congestive heart failure) (Chronic) ef=40% Morbid obesity with BMI of 40.0-44.9, adult (Chronic) Sleep apnea (Chronic) Allergies/Adverse Reactions: Allergies Sulfa (Sulfonamide Antibiotics) Allergy (Verified 06/28/20 14:05) Unknown sulfamethoxazole [From Bactrim] Allergy (Verified 06/28/20 14:05) Unknown trimethoprim [From Bactrim] Allergy (Verified 06/28/20 14:05) Unknown Home Medications: Ambulatory Orders Medication Instructions Recorded Divalproex (ER) [Depakote ER] 500 mg PO QHS 03/16/13 Docusate Sodium [Colace] 200 mg PO QHS 03/16/13 Aspirin E.C. [Ecotrin] 81 mg PO DAILY@0800 #30 tab 03/20/13 furosemide 20 mg tablet 20 mg PO DAILY 05/20/17 Anastrozole [Arimidex] 1 mg PO DAILY 09/19/17 Fludrocortisone Acetate [Florinef] 0.1 mg PO BID 09/19/17 Apixaban [Eliquis] 5 mg PO BID 03/02/20 Ascorbic Acid [Vitamin C] 500 mg PO DAILY 03/02/20 Atenolol 25 mg PO DAILY 03/02/20 Divalproex Sodium [Depakote] 250 mg PO DAILY 03/02/20 Ergocalciferol (Vitamin D2) 50,000 unit PO TH 03/02/20 [Vitamin D2] Insulin Detemir [Levemir] 45 unit SQ QHS 03/02/20 Insulin Lispro [Humalog] 16 unit SQ TIDCM 03/02/20 Lactobacillus Acidophilus 1 cap PO BID 03/02/20 [Acidophilus] Potassium Chloride 20 meq PO DAILY 03/02/20 Quetiapine Fumarate [Seroquel] 100 mg PO BID 03/02/20 Cetirizine HCl 10 mg PO DAILY 06/28/20 Cran/Vitc/Mannose/Fos/Bromeln 30 ml PO DAILY 06/28/20 [Uti-Stat Liquid] Levothyroxine Sodium 125 mcg PO DAILY 06/28/20 Melatonin 2 mg PO QHS 06/28/20 Menthol/Lanolin/Calamine/Znox 1 applic TOPICAL BID 06/28/20 [Calmoseptine Ointment] Multivitamins,Therapeutic 1 tab PO DAILY 06/28/20 [Multivitamin] Omeprazole 20 mg PO DAILY 06/28/20 Pravastatin Sodium 40 mg PO DAILY 06/28/20 buPROPion XL [Wellbutrin Xl] 300 mg PO DAILY 06/28/20 Doxycycline 100 mg PO BID #10 capsule 07/01/20 - Social History Tobacco Use: non-smoker Vital Signs Temp Pulse Resp BP Pulse Ox 98.0 F 78 18 127/74 H 97 07/01/20 08:18 07/01/20 08:18 07/01/20 08:18 07/01/20 08:18 07/01/20 08:18 Oxygen Flow Rate (L/min) 1 Oxygen Delivery Method Room Air Weight: 103.737 kg Body Mass Index (BMI) 35.8 Finger Stick Blood Glucose 99 Microbiology Past 72 Hours 06/28/20 15:07 Urine Culture - Final Urine Catheter - [place] Escherichia coli 06/28/20 14:40 Blood Culture - Preliminary Blood Culture (Wb) - Arm Left No growth in 48 hours. 06/28/20 14:25 Blood Culture - Preliminary Blood Culture (Wb) - Right Hand No growth in 48 hours. 06/28/20 15:35 SARS-CoV-2 Antigen (Rapid) - Final Mucosa - Nose Laboratory Tests Past 24 Hrs 06/30/20 07/01/20 07/01/20 18:32 05:00 05:00 WBC 5.9 RBC 3.64 L Hgb 9.8 L Hct 30.9 L MCV 84.9 MCH 26.9 L MCHC 31.7 L RDW Std Deviation 39.5 RDW Coeff of Derek 12.8 Plt Count 168 MPV 10.1 Immature Gran % (Auto) 2.100 H Neut % (Auto) 42.3 L Lymph % (Auto) 37.1 Reagan % (Auto) 12.1 H Eos % (Auto) 5.5 H Baso % (Auto) 0.9 Absolute Neuts (auto) 2.5 Absolute Lymphs (auto) 2.17 Nucleated RBC % 0 Sodium 142 Potassium 3.1 L Chloride 106 Carbon Dioxide 32.0 Anion Gap 4 L BUN 15 Creatinine 0.95 Estim Creat Clear Calc 58.18 Est GFR (MDRD) Af Amer 76 Est GFR (MDRD) Non-Af 63 BUN/Creatinine Ratio 15.8 Glucose 173 H Calcium 8.4 L Vancomycin Trough 10.7 - Other Studies Radiology: [] reviewed Other Studies: [] Route of nutrition/ use of supplements: [] Nutritional Intake: [] IV Site: [] [place] Catheter: [] - Physical Exam General: Alert, Oriented x3, Cooperative, No apparent distress HEENT: Atraumatic, PERRLA, EOMI Neck: Supple, No Nodes Lungs: Clear to auscultation, Normal air movement Cardiovascular: Regular rate, Regular Rhythm Abdomen: Soft, Non Tender, Non-Distended Extremities: Edema Skin: No rashes IV Site: Peripheral, without redness Musculoskeletal: No Tenderness to Palpation of Joints or Extremities Neurological: Cranial nerves II-XII grossly intact - Assessment/Plan Antibiotics: [] Assessment/Plan: [] Active and Suspected Problems (Last Reviewed 06/28/20 @ 17:[address] Viri Munoz DO) UTI (urinary tract infection) (Acute) LING (acute kidney injury) (Acute) Hypokalemia (Acute) Obesity (BMI 30-39.9) (Acute) Metabolic encephalopathy (Acute) recurrent uti with chronic tijerina - now with ESBL ecoli uti. On zosyn, feeling better. Limited options for residential suppressive due to GFR and resistance pattern. Recommend urology followup. Ok for discharge on 5 days of doxy, put rx into EMR. Will follow as needed, d/w Dr. Ibanez, thank you
[2020-07-01 14:45] VITALS: BP 149/78; PULSE 76; RESP 18; TEMP 36.6; O2SAT 96
--- NOTE | 2020-07-01 15:10 | PCM.TXEXTCAR ---
- Diet 06/28/20 18:13 Diet: Regular - General Food consistency:: Regular Liquid Consistency:: Regular/Thin Is pt able to select menu?: No - Routine Orders/Code Status Enema Type: Fleetz Enema Frequency: Daily PRN Suppository Type: Dulcolax 10mg Suppository Frequency: Daily PRN O2 Frequency: PRN Keep PO Greater than or Equal to (%): 90 Code Status: DNC-A - Wound(s) coccyx Wound Type: Abrasion - Therapies Physical Therapy: Eval and Treat Occupational Therapy: Eval and Treat - Allergies/Procedures Done in Hospital Allergies/Adverse Reactions: Allergies Sulfa (Sulfonamide Antibiotics) Allergy (Verified 06/28/20 14:05) Unknown sulfamethoxazole [From Bactrim] Allergy (Verified 06/28/20 14:05) Unknown trimethoprim [From Bactrim] Allergy (Verified 06/28/20 14:05) Unknown Procedures: None - Type of Care/Length of Stay Estimated LOS: More Than 30 Days Type of Care Needed: Skilled Rehab Potential: Fair Prognosis: Fair - Additional Orders/Day of Discharge Day of Discharge: 07/01/20 - Dietary and Speech Recommendations Dietitian Recommendations/Changes: Regular diet ordered upon admission d/t poor appetite/PO intake. Will continue at this time and monitor need for CHO controlled/low sodium diet as PO intake improves; will continue Glucerna 120mL 4x/day for additional calories/protein if consumed. Regular textures OK per hospitalist. - Follow Up Care Primary Care Physician: Babar Sahu MD [Primary Care Provider] - Please follow up with your Primary Care Physician in: 1-2 weeks Please Follow Up With: Harsh Thomas MD When: 2-3 weeks
--- NOTE | 2020-07-01 15:14 | DS.PCM_ITS ---
Discharge Date and Diagnosis - Problem List Patient Problems: Active and Suspected Problems (Last Reviewed 06/28/20 @ 17:[address] Viri Munoz DO) UTI (urinary tract infection) (Acute) LING (acute kidney injury) (Acute) Hypokalemia (Acute) Obesity (BMI 30-39.9) (Acute) Metabolic encephalopathy (Acute) Date of Admission: 06/30/20 Date of Discharge: 07/01/20 - Primary Discharge Diagnosis Acute Problems: Active Problems (Last Reviewed 06/28/20 @ 17:[address] Viri Munoz DO) UTI (urinary tract infection) (Acute) LING (acute kidney injury) (Acute) Hypokalemia (Acute) Obesity (BMI 30-39.9) (Acute) Metabolic encephalopathy (Acute) - Secondary Discharge Diagnosis Chronic Problems: Chronic Problems (Last Reviewed 06/28/20 @ 17:[address] Viri Munoz DO) CKD (chronic kidney disease) stage 2, GFR 60-89 ml/min (Chronic) Anemia (Chronic) Immobility (Chronic) Peripheral arterial occlusive disease (Chronic) Dilated cardiomyopathy (Chronic) Benign hypertension (Chronic) Hyperlipidemia (Chronic) Intertrigo (Chronic) Schizoaffective disorder (Chronic) Bipolar disorder (Chronic) Diabetes mellitus, type 2 (Chronic) Fibromyalgia (Chronic) Frequent falls (Chronic) Gait abnormality (Chronic) Morbid obesity (Chronic) CHF (congestive heart failure) (Chronic) ef=40% Morbid obesity with BMI of 40.0-44.9, adult (Chronic) Sleep apnea (Chronic) Hospital Course and Treatment Imaging Results: Diagnostic Data Chest X-Ray 06/28/20 15:11 IMPRESSION: Degenerative changes, as described above. No demonstrated acute cardiopulmonary process. Electronically Signed: Jason Arceo MD at 16:13 EST Tel , Service support , infectious diseases- Dr Ledezma Operations: None Procedures: None Summary of Care Provided: The patient is a 64 year old F with a past medical history as outlined was [facility] through the ED [facility] on account of altered mental status. She had been on antibiotics on and off for the last few months due to UTI and had a chronic indwelling Milan catheter. She had not been eating or drinking well for about a week prior to admission was also noted to be confused. Lactic acid was 0.7 and white cell count was not elevated. Urinalysis was positive for UTI. She was admitted and managed for acute metabolic encephalopathy due to UTI and started on IV vancomycin and Zosyn on account of recurrent UTIs and chronic indwelling Milan catheter. Blood cultures were negative by urine culture grew E. coli which was ESBL. ID was therefore consulted to determine the duration of antibiotics. Per ID recommendations, she was discharged on p.o. doxycycline 100 mg twice daily for 5 days. Due to her impaired kidney function, per ID, she was a poor candidate for prophylactic antibiotics on outpatient basis. She was discharged home on 07/01/2020 and is follow-up with her primary care doctor and is also to follow-up with urology. Patient seen and examined prior to discharge. She had no complaints and was alert and oriented. Review systems otherwise negative. Labs and vitals reviewed. Home medication reviewed and reconciled. O/E: Vital Signs Temp Pulse Resp BP Pulse Ox 97.9 F 76 18 149/78 H 96 07/01/20 14:45 07/01/20 14:45 07/01/20 14:45 07/01/20 14:45 07/01/20 14:45 [] General: Alert, Oriented x3, Cooperative, No apparent distress, - - obese HEENT: Atraumatic, PERRLA, EOMI, Normocephalic Oral: Dry Mucosa Neck: Supple, No JVD, Negative Carotid Bruits Lungs: Clear to auscultation, Normal air movement, No rhonchi, No wheeze Cardiovascular: Regular rate, Regular Rhythm, Normal S1, Normal S2, No murmurs Abdomen: Bowel Sounds Present, Soft, Non Tender, Non-Distended, No Hepato- splenomegaly Extremities: No clubbing, No cyanosis, No edema, Capillary Refill Less than 3 Seconds Skin: No rashes, No breakdown Musculoskeletal: No Tenderness to Palpation of Joints or Extremities Lymphatic: No Cervical, Supraclavicular, or Inguinal Adenopathy Neurological: Cranial nerves II-XII grossly intact, Neuro grossly intact, Motor Exam 5/5 strength throughout Psych/Mental Status: Normal Affect, Appropriate, Alert and oriented to time, place, person, mood and affect Plan is for discharge back to SNF today. Patient Problems: Active and Suspected Problems (Last Reviewed 06/28/20 @ 17:[address] Viri Munoz DO) UTI (urinary tract infection) (Acute) LING (acute kidney injury) (Acute) Hypokalemia (Acute) Obesity (BMI 30-39.9) (Acute) Metabolic encephalopathy (Acute) - Physical Exam Vitals/I&O's: Vital Signs Temp Pulse Resp BP Pulse Ox 97.9 F 76 18 149/78 H 96 07/01/20 14:45 07/01/20 14:45 07/01/20 14:45 07/01/20 14:45 07/01/20 14:45 Oxygen Flow Rate (L/min) 1 Oxygen Delivery Method Room Air Weight: 228 lb 11.215 oz Body Mass Index (BMI) 35.8 Finger Stick Blood Glucose 99 Intake and Output for Last 24 Hours 06/29/20 06/30/20 07/01/20 23:59 23:59 23:59 Intake Total 3512.5 / 3732.5 2775.21 / 2775.21 3182.92 / 3182.92 Output Total 2700 / 3325 3725 / 5925 5150 / 5150 Balance 812.5 / 407.5 -949.79 / -3149.79 -1967.08 / -1967.08 Microbiology Past 72 Hours 06/28/20 15:07 Urine Catheter - Milan Urine Culture - Final Escherichia coli 06/28/20 14:40 Blood Culture (Wb) - Arm Left Blood Culture - Preliminary No growth in 48 hours. 06/28/20 14:25 Blood Culture (Wb) - Right Hand Blood Culture - Preliminary No growth in 48 hours. 06/28/20 15:35 Mucosa - Nose SARS-CoV-2 Antigen (Rapid) - Final Laboratory Results 06/30/20 17:03: POC Glucose 241 H 06/30/20 18:32: Vancomycin Trough 10.7 06/30/20 21:00: POC Glucose 191 H 07/01/20 05:00: WBC 5.9, RBC 3.64 L, Hgb 9.8 L, Hct 30.9 L, MCV 84.9, MCH 26.9 L , MCHC 31.7 L, RDW Std Deviation 39.5, RDW Coeff of Derek 12.8, Plt Count 168, MPV 10.1, Immature Gran % (Auto) 2.100 H, Neut % (Auto) 42.3 L, Lymph % (Auto) 37.1, [place] % (Auto) 12.1 H, Eos % (Auto) 5.5 H, Baso % (Auto) 0.9, Absolute Neuts (auto) 2.5, Absolute Lymphs (auto) 2.17, Nucleated RBC % 0 07/01/20 05:00: Sodium 142, Potassium 3.1 L, Chloride 106, Carbon Dioxide 32.0, Anion Gap 4 L, BUN 15, Creatinine 0.95, Estim Creat Clear Calc 58.18, Est GFR (MDRD) Af Amer 76, Est GFR (MDRD) Non-Af 63, BUN/Creatinine Ratio 15.8, Glucose 173 H, Calcium 8.4 L 07/01/20 06:23: POC Glucose 155 H 07/01/20 11:11: POC Glucose 274 H Current Medications Acetaminophen (Acetaminophen 325 Mg Tablet) 650 mg PO Q6H PRN PRN PRN Reason: Pain Score 1-10/Temp > 100.7 F Al Hydroxide/Mg Hydroxide (Mag Hydrox/Al Hydrox/Simeth 30 Ml Udc) 30 ml PO Q6H PRN PRN PRN Reason: Gastric Burning Albuterol Sulfate (Albuterol 2.5 Mg/3 Ml Vial.Neb.) 2.5 mg INHALATION Q2H PRN PRN PRN Reason: Shortness of Breath/Wheezing Anastrozole (Anastrozole 1 Mg Tablet) 1 mg PO DAILY [facility] Last Admin: 07/01/20 08:08 Dose: 1 mg Documented by: Apixaban (Apixaban 5 Mg Tablet) 5 mg PO BID [facility] Last Admin: 07/01/20 08:09 Dose: 5 mg Documented by: Aspirin (Aspirin E.C. 81 Mg Tablet) 81 mg PO DAILY@0800 [facility] Last Admin: 07/01/20 08:08 Dose: 81 mg Documented by: Atenolol (Atenolol 25 Mg Tablet) 25 mg PO DAILY [facility] Last Admin: 07/01/20 08:08 Dose: 25 mg Documented by: Bupropion HCl (Bupropion (Xl) 300 Mg Tablet.Xl) 300 mg PO DAILY [facility] Last Admin: 07/01/20 08:08 Dose: 300 mg Documented by: Calamine/Phenol (Menthol/Lanolin/Calamine/Znox 113 Gm Tube) 1 applic TOPICAL BID [facility]; Protocol Last Admin: 07/01/20 08:09 Dose: 1 applicatio Documented by: Divalproex Sodium (Divalproex Sodium 250 Mg Tablet) 500 mg PO QHS [facility] Last Admin: 06/30/20 20:54 Dose: 500 mg Documented by: Divalproex Sodium (Divalproex Sodium 250 Mg Tablet) 250 mg PO DAILY [facility] Last Admin: 07/01/20 08:08 Dose: 250 mg Documented by: Fludrocortisone Acetate (Fludrocortisone Acetate 0.1 Mg Tablet) 0.1 mg PO BID [facility] Last Admin: 07/01/20 08:08 Dose: 0.1 mg Documented by: Hydrocortisone (Hydrocortisone 2.5% Crm) 1 applic TOPICAL BID [facility]; Protocol Stop: 07/10/20 11:26 Last Admin: 07/01/20 08:10 Dose: 1 applicatio Documented by: Sodium Chloride () 1,000 mls @ 75 mls/hr IV .[id number] [facility] Last Admin: 07/01/20 14:43 Dose: 75 mls/hr Documented by: Piperacillin Sod/Tazobactam (Sod 3.375 gm/ Sodium Chloride) 50 mls @ 12.5 mls/hr IV Q8 [facility] Stop: 07/05/20 22:01 Last Admin: 07/01/20 14:43 Dose: 12.5 mls/hr Documented by: Insulin Glargine (Insulin Glargine 100 Units/Ml Pen) 20 units SC QHS [facility] Last Admin: 06/30/20 21:01 Dose: 20 units Documented by: Insulin Human Lispro (Insulin Lispro 100 Unit/Ml Insuln.Pen) 0 unit SC TIDAC [facility]; Protocol Last Admin: 07/01/20 11:12 Dose: 4 u Documented by: Levothyroxine Sodium (Levothyroxine 125 Mcg Tablet) 125 mcg PO DAILY@0600 [facility] Last Admin: 07/01/20 05:18 Dose: 125 mcg Documented by: Loratadine (Loratadine 10 Mg Tablet) 10 mg PO DAILY [facility] Last Admin: 07/01/20 08:08 Dose: 10 mg Documented by: Nutritional Formula (Lactose Free) (Glucerna Shake 120 Ml Liquid) 120 ml PO 4X/DAY [facility] Last Admin: 07/01/20 14:43 Dose: 120 ml Documented by: Nystatin (Nystatin Powder 15gm Bottle) 1 applic TOPICAL BID [facility]; Protocol Last Admin: 07/01/20 08:10 Dose: 1 applicatio Documented by: Ondansetron HCl (Ondansetron 4 Mg/2 Ml Vial) 4 mg IV Q8H PRN PRN PRN Reason: NAUSEA/VOMITING Pantoprazole Sodium (Pantoprazole Sodium 20 Mg Tablet) 20 mg PO DAILY [facility] Last Admin: 07/01/20 08:15 Dose: 20 mg Documented by: Pravastatin Sodium (Pravastatin 40 Mg Tablet) 40 mg PO QHS [facility] Last Admin: 06/30/20 20:54 Dose: 40 mg Documented by: Quetiapine Fumarate (Quetiapine 100 Mg Tablet) 100 mg PO BID [facility] Last Admin: 07/01/20 08:08 Dose: 100 mg Documented by: Senna/Docusate Sodium (Senna/Docusate Sodium 1 Tablet) 2 tablet PO BID PRN PRN PRN Reason: Constipation Sodium Chloride (0.9% Saline Lock 10 Ml Syringe) 10 - 40 ml IV UD PRN PRN Reason: SALINE FLUSH Last Admin: 06/30/20 20:31 Dose: 20 ml Documented by: Discharge Diet: Low fat/ Low Cholesterol Home Medications: Medications to take at Discharge Divalproex (ER) [Depakote ER] 500 mg PO QHS 03/16/13 Docusate Sodium [Colace] 200 mg PO QHS 03/16/13 Aspirin E.C. [Ecotrin] 81 mg PO DAILY@0800 #30 tab 03/20/13 furosemide 20 mg tablet 20 mg PO DAILY 05/20/17 Anastrozole [Arimidex] 1 mg PO DAILY 09/19/17 Fludrocortisone Acetate [Florinef] 0.1 mg PO BID 09/19/17 Apixaban [Eliquis] 5 mg PO BID 03/02/20 Ascorbic Acid [Vitamin C] 500 mg PO DAILY 03/02/20 Atenolol 25 mg PO DAILY 03/02/20 Divalproex Sodium [Depakote] 250 mg PO DAILY 03/02/20 Ergocalciferol (Vitamin D2) [Vitamin D2] 50,000 unit PO TH 03/02/20 Insulin Detemir [Levemir] 45 unit SQ QHS 03/02/20 Insulin Lispro [Humalog] 16 unit SQ TIDCM 03/02/20 Lactobacillus Acidophilus [Acidophilus] 1 cap PO BID 03/02/20 Potassium Chloride 20 meq PO DAILY 03/02/20 Quetiapine Fumarate [Seroquel] 100 mg PO BID 03/02/20 Cetirizine HCl 10 mg PO DAILY 06/28/20 Cran/Vitc/Mannose/Fos/Bromeln [Uti-Stat Liquid] 30 ml PO DAILY 06/28/20 Levothyroxine Sodium 125 mcg PO DAILY 06/28/20 Melatonin 2 mg PO QHS 06/28/20 Menthol/Lanolin/Calamine/Znox [Calmoseptine Ointment] 1 applic TOPICAL BID 06/28/20 Multivitamins,Therapeutic [Multivitamin] 1 tab PO DAILY 06/28/20 Omeprazole 20 mg PO DAILY 06/28/20 Pravastatin Sodium 40 mg PO DAILY 06/28/20 buPROPion XL [Wellbutrin Xl] 300 mg PO DAILY 06/28/20 Doxycycline 100 mg PO BID #10 cap 07/01/20 Following Prescriptions Were Given to Patient: Doxycycline 100 mg PO BID #10 cap Primary Care Physician: Babar Sahu MD [Primary Care Provider] - Please follow up with your Primary Care Physician in: 1-2 weeks Please Follow Up With: Harsh Thomas MD When: 2-3 weeks Disposition: [facility] facility Minutes spent on discharge:: 45 Patient Condition:: Stable Medical Necessity - Tobacco Use Smoking Status: Unknown if ever smoked Meaningful Use Info Meaningful Use Diagnoses (Choose all that apply): None applicable Inpatient E&M: [id number] [facility]
--- NOTE | 2020-07-01 16:09 | CASEMGMT ---
KAREN faxed orders to Maryana with [facility]. KAREN arranged for patient to get picked up via cot at 630p. SW notified patient and she did not need SW to call anyone. KAREN notified Maryana, medical assistant secretary, charger tester, and RN. Plan: d/c back to [place] under intermediate level of care. [facility] transported patient via cot. Annia CARLSON
--- NOTE | 2020-07-01 16:54 | NURSING ---
report called to anitra.
[2020-07-01 17:31] LABS: Bedside Glucose 201 mg/dL (70-110)
== END 2020-07-01 20:39 | disposition skilled nursing facility (03) | DRG 682 ==
LOC: ED 14:56 → MS3 17:13 → PCU 06-29 07:15
PROVIDERS: Admitting Provider Internal Medicine; Emergency Provider Emergency Medicine; PCP Family Medicine; Visit Provider Student in an Organized Health Care Education/Training Program
DX: N17.9 Acute kidney failure, unspecified (principal); G93.41 Metabolic encephalopathy; N39.0 Urinary tract infection, site not specified; I13.0 Hypertensive heart and chronic kidney disease with heart failure and stage 1 through stage 4 chronic kidney disease, or unspecified chronic kidney disease; I50.22 Chronic systolic (congestive) heart failure; E27.40 Unspecified adrenocortical insufficiency; Z16.12 Extended spectrum beta lactamase (ESBL) resistance; E87.6 Hypokalemia; E66.01 Morbid (severe) obesity due to excess calories; Z87.440 Personal history of urinary (tract) infections; Z68.36 Body mass index [BMI] 36.0-36.9, adult; N18.2 Chronic kidney disease, stage 2 (mild); E11.22 Type 2 diabetes mellitus with diabetic chronic kidney disease; R62.7 Adult failure to thrive; Z86.718 Personal history of other venous thrombosis and embolism; K21.9 Gastro-esophageal reflux disease without esophagitis; E78.5 Hyperlipidemia, unspecified; Z85.3 Personal history of malignant neoplasm of breast; F25.9 Schizoaffective disorder, unspecified; F31.9 Bipolar disorder, unspecified; E03.9 Hypothyroidism, unspecified; B37.2 Candidiasis of skin and nail; Z66 Do not resuscitate; Z79.4 Long term (current) use of insulin; B96.20 Unspecified Escherichia coli [E. coli] as the cause of diseases classified elsewhere
CPT/HCPCS: 36415; 36600; 71045; 80048; 80053; 80202; 81001; 82140; 82803; 82962; 83605; 83735; 84100; 84443; 84484; 85025; 87040; 87077; 87086; 87088; 87186; 87426; 93005; 97802; 99251; 99285; J7030; J7040; J7050; A4216; G0463

== ENCOUNTER 2020-08-22 10:31 | Inpatient (IN) | payer MEDICARE, MEDICAID, SELFPAY ==
[2020-06-28 18:18] VITALS: BMI 35.8
[2020-08-22] VITALS (28 sets, daily range): BP systolic 58–117; BP diastolic 38–68; PULSE 91–124; RESP 17–28; TEMP 35.6–37; O2SAT 90–100; BMI 37.7; BMI 40.4
--- NOTE | 2020-08-22 10:49 | EKG12_ITS ---
Test Reason : Blood Pressure : / mmHG Vent. Rate : 121 BPM Atrial Rate : 121 BPM P-R Int : 174 ms QRS Dur : 088 ms QT Int : 306 ms P-R-T Axes : 064 -05 051 degrees QTc Int : 434 ms Sinus tachycardia Inferior infarct , age undetermined Nonspecific T wave abnormality Abnormal ECG Confirmed by GWEN KEENAN, OSIEL ([id number]), editorial writer JOSE FLORES ([id number]) on 08/24/2020 8:57:19 AM Referred By: MAURISIO/MIGUELANGEL Confirmed By:OSIEL HIDALGO MD
--- NOTE | 2020-08-22 10:52 | EDS_ITS ---
HPI History of Present Illness Chief Complaint: Alt LOC Informant: EMS and SNF Narrative Narrative: Patient sent in from [facility] with limited history. They reportedly found the patient with altered mental status this morning. They were unable to answer when she was last her normal self. Nursing staff was told that the patient had pulled out her Azul catheter yesterday. [facility] Medical History (Updated 08/22/20 @ 14:[address] Muna Ibanez MD) Benign hypertension Bipolar disorder CHF (congestive heart failure) Diabetes mellitus, type 2 Dilated cardiomyopathy Hyperlipidemia Morbid obesity Schizoaffective disorder Sleep apnea Home Medications divalproex 500 mg PO QHS 03/16/13 [History Last Taken 08/21/20] docusate sodium 200 mg PO QHS 03/16/13 [History Last Taken 08/21/20] aspirin 81 mg PO DAILY@0800 #30 tab 03/20/13 [Rx Last Taken 08/22/20] furosemide 20 mg tablet 20 mg PO DAILY 05/20/17 [History Last Taken 08/22/20] anastrozole 1 mg PO DAILY 09/19/17 [History Last Taken 08/22/20] fludrocortisone 0.1 mg PO BID 09/19/17 [History Last Taken 08/22/20] apixaban 5 mg PO BID 03/02/20 [History Last Taken 08/22/20] ascorbic acid (vitamin C) 500 mg PO DAILY 03/02/20 [History Last Taken 08/22/20] atenolol 25 mg PO DAILY 03/02/20 [History Last Taken 08/22/20] divalproex 250 mg PO DAILY 03/02/20 [History Last Taken 08/22/20] ergocalciferol (vitamin D2) 50,000 unit PO TH 03/02/20 [History Last Taken 06/23/20] insulin detemir U-100 45 unit SQ QHS 03/02/20 [History Last Taken 08/21/20] insulin lispro 16 unit SQ TIDCM 03/02/20 [History Last Taken 08/22/20] quetiapine 100 mg PO BID 03/02/20 [History Last Taken 08/22/20] bupropion HCl 300 mg PO DAILY 06/28/20 [History Last Taken 08/22/20] cetirizine 10 mg PO DAILY 06/28/20 [History Last Taken 08/22/20] jrlu-[id number]-yoxyxcj-FOS-bromeln 30 ml PO DAILY 06/28/20 [History Last Taken 08/21/20] levothyroxine 125 mcg PO DAILY 06/28/20 [History Last Taken 08/22/20] melatonin 2 mg PO QHS 06/28/20 [History Last Taken 08/21/20] multivitamin 1 tab PO DAILY 06/28/20 [History Last Taken 08/22/20] omeprazole 20 mg PO DAILY 06/28/20 [History Last Taken 08/22/20] pravastatin 40 mg PO DAILY 06/28/20 [History Last Taken 08/21/20] potassium chloride [Klor-Con M20] 20 meq PO QHS 08/22/20 [History Last Taken 08/21/20] Allergy/AdvReac Type Severity Reaction Status Date / Time Sulfa (Sulfonamide Allergy Unknown Verified 08/22/20 10:51 Antibiotics) sulfamethoxazole Allergy Unknown Verified 08/22/20 10:51 [From Bactrim] trimethoprim [From Bactrim] Allergy Unknown Verified 08/22/20 10:51 Surgical History S/P hysterectomy Status post left mastectomy Social History Smoking Status: Unknown if ever smoked ROS ROS ED Review of Systems ROS Unobtainable: due to encephalopathy and due to mental status EXAM Physical Exam Const Vital Signs: 08/22/20 10:32 08/22/20 10:39 08/22/20 10:40 Temperature 96.9 F L 96.9 F L Temperature Source Temporal Temporal Pulse Rate 124 H 124 H Respiratory Rate 27 H 27 H Respiratory Effort Respiratory Pattern Blood Pressure 58/48 L 58/48 L Blood Pressure Mean 51 51 Pulse Ox 91 91 Oxygen Delivery Method Room Air Nasal Cannula Nasal Cannula Oxygen Flow Rate (L/min) 2 2 08/22/20 11:03 08/22/20 11:06 08/22/20 11:37 Temperature 98.6 F 98.4 F Temperature Source Oral Oral Pulse Rate 115 H 105 H Respiratory Rate 28 H 24 H Respiratory Effort Normal Non-Labored Respiratory Pattern Tachypnea Blood Pressure 78/52 L 79/54 L Blood Pressure Mean 60 62 Pulse Ox 95 95 95 Oxygen Delivery Method Nasal Cannula Nasal Cannula Nasal Cannula Oxygen Flow Rate (L/min) 2 2 2 08/22/20 12:00 08/22/20 13:00 Temperature 97 F L 96.6 F L Temperature Source Temporal Temporal Pulse Rate 100 94 Respiratory Rate 24 H 19 H Respiratory Effort Respiratory Pattern Blood Pressure 73/43 L 78/38 L Blood Pressure Mean 53 51 Pulse Ox 99 99 Oxygen Delivery Method Nasal Cannula Nasal Cannula Oxygen Flow Rate (L/min) 2 2 Positive obese Nutritional Appearance: obese HEENT Reports dry mucous membranes Negative for trauma Mouth ED: Yes dry mucous membranes Mouth: dry mucous membranes Neck supple Chest Wall palpation of chest normal Resp clear to auscultation bilaterally Resp Narrative: Tachypnea Cardio Rate: tachycardic GI GI Narrative: Abdomen soft with mild tenderness diffusely. Hypoactive bowel sounds present. Narrative: Discolored urine noted in Azul catheter. Extremity normal to inspection Neuro Neuro Narrative: Patient will respond to pain. She will follow commands to squeeze hands and move her feet. Skin no rashes or lesions noted MDM MDM MDM Narrative Medical decision making narrative: Patient was initiated on IV fluids on arrival. Blood work does indicate significant leukocytosis. She has acute renal failure with a creatinine of 2.93. Previous creatinine was 0.9. Lactic acid is elevated at 2.5. Urine is obviously infected. Blood and urine cultures have been sent. Lab Data Attestation: I reviewed the patient's lab results. Labs: Laboratory Results - last 24 hr 08/22/20 08/22/20 08/22/20 10:50 10:50 10:50 WBC 21.8 H RBC 4.47 Hgb 11.9 L Hct 38.3 MCV 85.7 MCH 26.6 L MCHC 31.1 L RDW Std Deviation 46.5 H RDW Coeff of Derek 14.9 H Plt Count 197 MPV 11.4 Immature Gran % (Auto) 1.500 H Neut % (Auto) 79.0 H Lymph % (Auto) 9.9 L [place] % (Auto) 8.9 Eos % (Auto) 0.4 Baso % (Auto) 0.3 Absolute Neuts (auto) 17.2 H Absolute Lymphs (auto) 2.15 Nucleated RBC % 0 Differential Comment COMMENT Diff Path Review May foll PT 22.6 H INR 2.1 APTT 34.1 Sodium 136 Potassium 5.0 Chloride 103 Carbon Dioxide 24.0 Anion Gap 9 BUN 58 H Creatinine 2.93 H Estim Creat Clear Calc 18.16 Est GFR (MDRD) Af Amer 21 L Est GFR (MDRD) Non-Af 17 L BUN/Creatinine Ratio 19.8 Glucose 257 H Lactic Acid Calcium 8.7 Total Bilirubin 0.60 AST 43 H ALT 13 Alkaline Phosphatase 88 Troponin I < 0.015 Total Protein 7.2 Albumin 2.1 L Globulin 5.1 H Albumin/Globulin Ratio 0.4 L Urine Color Urine Clarity Urine pH Ur Specific [place] Urine Protein Urine Glucose (UA) Urine Ketones Urine Occult Blood Urine Nitrite Urine Bilirubin Urine Urobilinogen Ur Leukocyte Esterase Urine RBC Urine WBC Ur Squamous Epith Cells Urine Bacteria Urine Mucus 08/22/20 08/22/20 10:50 11:56 WBC RBC Hgb Hct MCV MCH MCHC RDW Std Deviation RDW Coeff of Derek Plt Count MPV Immature Gran % (Auto) Neut % (Auto) Lymph % (Auto) [place] % (Auto) Eos % (Auto) Baso % (Auto) Absolute Neuts (auto) Absolute Lymphs (auto) Nucleated RBC % Differential Comment Diff Path Review PT INR APTT Sodium Potassium Chloride Carbon Dioxide Anion Gap BUN Creatinine Estim Creat Clear Calc Est GFR (MDRD) Af Amer Est GFR (MDRD) Non-Af BUN/Creatinine Ratio Glucose Lactic Acid 2.5 H* Calcium Total Bilirubin AST ALT Alkaline Phosphatase Troponin I Total Protein Albumin Globulin Albumin/Globulin Ratio Urine Color Brown Urine Clarity Cloudy Urine pH 5.0 Ur Specific [place] 1.020 Urine Protein 500 H Urine Glucose (UA) Normal Urine Ketones 5 H Urine Occult Blood 250 H Urine Nitrite Positive H Urine Bilirubin Negative Urine Urobilinogen Normal Ur Leukocyte Esterase 500 H Urine RBC 50-100 SEEN Urine WBC 50-100 SEEN Ur Squamous Epith Cells 5-10 SEEN Urine Bacteria 3+ Urine Mucus 1+ ABG Data ABG results: ABG 08/22/20 11:21 Specimen Type ART Sample Site R Radial pH 7.45 Bicarbonate Actual 23.6 Total CO2 25 Base Excess 0 O2 Saturation 69 L ABG pCO2 33.9 L ABG pO2 34 L* Michael Test Positive O2 Delivery Device Cannula Liter Flow 2.0 Crit Call To/Read Back Yes Radiography Chest X-Ray - ED: 1 View, Read by ED Physician and Chronic Changes Diagnostic Testing: Radiology Impression Chest X-Ray 05/03/21 11:16 IMPRESSION: Borderline cardiomegaly. The lungs are clear. Electronically Signed: Pablo Baen MD at 11:59 EDT , Service support , Brain CT 08/22/20 11:45 IMPRESSION: Chronic involutional changes of the brain. Electronically Signed: Pablo Bean MD at 12:30 EDT , Service support , Abdomen/Pelvis CT 08/22/20 11:46 IMPRESSION: A AZUL catheter is seen within the urinary bladder. There is diffuse bladder wall thickening with increased markings in the surrounding peritoneal fat. Cystitis should BE ruled out. Electronically Signed: Pablo Bean MD at 12:41 EDT , Service support , EKG Initial EKG: Interpretation: Sinus Tachycardia (Sinus tach at 121. Inferior Q waves noted. No acute ST change.) Treatment and Re-Evaluation Comments:: Patient has had 2 out of 3 L of IV fluid. Systolic blood pressure is currently 78. Patient has been given Zosyn and vancomycin for her infection. Patient has DNR comfort care only order. I attempted to contact her brother who is listed as first emergency contact. His phone went directly to [employer] and I left a message asking him to call me regarding any wishes as far as pressors, central lines, etc. I spoke with the patient's primary care physician, Dr. Babar Sahu. He stated that he believed the patient be okay with central line and pressors. Patient's mental status is not such that she can consent to the procedure. Patient was evaluated by hospitalist and we both agreed patient would benefit from central line and pressors. Right IJ was cannulated via modified Seldinger technique. Good blood flow return from all 3 ports. Postprocedure chest x-ray reveals line to be in good position with no evidence of pneumothorax. Shortly after central line was placed patient's brother did return my phone call. He was updated on her current condition and did agree with central line and pressors but no CPR or intubation. Brother (Bianka Kwan) can be reached at [phone]. Critical Care Time Critical Care Time: Yes Critical care time (excluding procedures): 30-74 minutes Discharge Plan Dx/Rx/DC Orders Clinical Impression: Septic shock, UTI (urinary tract infection) Disposition Disposition: Acute Care Hospital [facility]
[2020-08-22] MEDS: 0.9% Normal Saline 1,000 ML 999 ML IV ×3 (11:01→12:49)
[2020-08-22 11:04] LABS: Absolute Lymphocyte Count 2.15 X10^3/uL (0.83-4.51); Absolute Neutrophil Count 17.2 X10^3/uL (2.0-7.7); Basophil# 0.07 X10^3/uL; Basophil% 0.3 % (0-1); Eosinophil# 0.09 X10^3/uL; Eosinophils% 0.4 % (0-5); Hematocrit 38.3 % (37-47); Hemoglobin 11.9 g/dL (12.0-15.0); Lymphocyte # 2.15 X10^3/ul (0.83-4.51); Lymphocyte % 9.9 % (19-41); Mean Corp Hgb Conc 31.1 g/dL (32-36); Mean Corpuscular Hgb 26.6 pg (27.0-32.0); Mean Corpuscular Volume 85.7 fL (81-99); Mean Platelet Vol. 11.4 fl (6.2-12.0); Monocyte# 1.94 X10^3/uL; Monocyte% 8.9 % (0-10); NRBC Flagged by Analyzer 0 % (0-5); POSITIVE DIFFERENTIAL YES; Platelet Count 197 K/mm3 (150-450); RBC Distribution Width CV 14.9 % (11.6-14.6); RBC Distribution Width SD 46.5 fl (35.1-43.9); Red Blood Count 4.47 M/mm3 (4.2-5.4); White Blood Count 21.8 K/mm3 (4.4-11.0)
[2020-08-22 11:07] LABS: Differential Indicated SCAN CRITERIA MET
[2020-08-22 11:15] LABS: International Normalized Ratio 2.1; Partial Thromboplast Time 34.1 Seconds (24.1-36.2); Prothrombin Time (Protime)PT. 22.6 SECONDS (11.7-14.9)
--- NOTE | 2020-08-22 11:16 | RAD_ITS ---
STUDY: X-RAY CHEST REASON FOR EXAM: Female, 64 years old. SOB TECHNIQUE: Single AP portable view of the chest. COMPARISON: Comparison is made with prior study dated 06/28/2020. FINDINGS: EKG electrodes are seen. The lungs are clear and expanded. There is no demonstrated pleural abnormality. There is borderline cardiomegaly. Normal mediastinum and john. Normal visualized pulmonary arteries. Normal visualized aortic arch and descending thoracic aorta. There are degenerative changes of the visualized thoracic spine. Normal visualized ribs, clavicles, and shoulders. There is no demonstrated abnormality of the visualized soft tissue structures of the upper abdomen. RAD/Chest 1 View (Portable) IMPRESSION: Borderline cardiomegaly. The lungs are clear. Electronically Signed: Pablo Bean MD at 11:59 EDT , Service support ,
[2020-08-22 11:25] LABS: Allen Test Positive; Base Excess 0 mmol/L (-2 to +2); Bicarbonate 23.6 mmol/L (22-26); Blood Gas Specimen Type ART; O2 Delivery Device Cannula; PO2 34 mmHG (75-100); SITE R Radial; SO2 69 % (95-99); Total Carbon Dioxide 25 mmol/L; pCO2 33.9 mmHg (35-45); pH 7.45 (7.35-7.45)
--- NOTE | 2020-08-22 11:29 | CPS ---
Critical value verified times two.Hand delivered results to . Verified by read back.
[2020-08-22 11:33] LABS: ALB/GLOB Ratio 0.4 RATIO (0.9-2.4); AST(SGOT) 43 U/L (15-37); Alanine Aminotransfer ALT/SGPT 13 U/L (13-56); Albumin, Serum 2.1 g/dL (3.2-5.0); Alkaline Phosphatase 88 U/L (45-117); Anion Gap 9 (5-15); BUN 58 mg/dL (7-18); BUN/Creat Ratio 19.8 RATIO (10-20); Calcium,Total 8.7 mg/dL (8.5-10.1); Chloride 103 mmol/L (98-107); Creatinine, Serum 2.93 mg/dL (0.55-1.02); EST Glomerular Filtration Rate 17 mL/min (>60); Est Glom Filt Rate - Afr Amer 21 mL/min (>60); Estimated Creatinine Clearance 18.16 ml/min; Globulin 5.1 g/dL (2.2-4.2); Glucose 257 mg/dL (74-106); Protein, Total 7.2 g/dL (6.4-8.2); Sodium Level 136 mmol/L (136-145)
[2020-08-22 11:42] LABS: Lactic Acid 2.5 mmol/L (0.4-1.9)
--- NOTE | 2020-08-22 11:45 | CT_ITS ---
STUDY: CT BRAIN WITHOUT CONTRAST REASON FOR EXAM: Female, 64 years old. Mental status change RADIATION DOSAGE (If Supplied By Facility): CTDIvol = ( 44.99 ) mGy, DLP = ( 812.98 ) mGycm TECHNIQUE: Transaxial CT imaging of the brain was performed without administration of intravenous contrast material. Individualized dose optimization techniques were used for this CT. COMPARISON: No relevant priors. FINDINGS: Normal soft tissue structures. Normal calvarium. There is mild cerebral atrophy with widening of the extra-axial spaces and ventricular dilatation. There are areas of decreased attenuation within the white matter tracts of the supratentorial brain, consistent with microvascular disease changes. Stable focal encephalomalacia in the right temporal lobe. Normal basal ganglia and thalami. Normal brainstem. There is mild cerebellar atrophy. There is no intracranial hemorrhage. There are no findings of an acute ischemic infarction. Atherosclerotic calcification of the cavernous portions of the internal carotid arteries bilaterally. Normal visualized paranasal sinuses. CT/Brain/Head without Contrast IMPRESSION: Chronic involutional changes of the brain. Electronically Signed: Pablo Bean MD at 12:30 EDT , Service support ,
--- NOTE | 2020-08-22 11:46 | CT_ITS ---
STUDY: CT ABDOMEN AND PELVIS WITHOUT CONTRAST REASON FOR EXAM: Female, 64 years old. Abd pain, renal failure RADIATION DOSAGE (If Supplied By Facility): CTDIvol = ( 23.36 ) mGy, DLP = ( 1365.52 ) mGycm TECHNIQUE: Transaxial images were obtained from the dome of the diaphragm to the symphysis pubis without oral contrast, and without intravenous contrast. Sagittal and coronal images were reconstructed. Individualized dose optimization techniques were used for this CT. COMPARISON: Comparison is made with prior study dated 02/10/2015. FINDINGS: Minimal increased markings at the lung bases suggestive of scarring and/or atelectasis. Coronary artery calcification. There is decreased attenuation of the liver consistent with steatosis. Normal gallbladder and extrahepatic biliary system. Normal spleen. There is diffuse atrophy of the pancreas. Normal bilateral adrenal glands. Normal right kidney. Normal left kidney. Nonspecific bilateral perinephric stranding. Normal visualized stomach. Normal small intestine. Normal colon. The appendix is visualized and appears normal. There is scattered atherosclerotic calcification of the abdominal aorta, without a demonstrated aneurysm. Normal inferior vena cava. Normal retroperitoneum. A AZUL catheter is seen within the urinary bladder. There is diffuse irregular thickening of the urinary bladder wall. Mild degree of increased markings are seen in the peritoneal fat anterior to the urinary bladder. Urinary tract infection should be ruled out. Phleboliths are seen in the pelvis. Prior hysterectomy. Normal abdominal wall. Normal osseous structures. CT/Abdomen/Pelvis without Cont IMPRESSION: A AZUL catheter is seen within the urinary bladder. There is diffuse bladder wall thickening with increased markings in the surrounding peritoneal fat. Cystitis should BE ruled out. Electronically Signed: Pablo Bean MD at 12:41 EDT , Service support ,
[2020-08-22 12:17] LABS: Color, Urine Brown (Yellow); Glucose, Dipstick Normal (Normal); Ketone-Dipstick 5 mg/dl (Negative); Leukocyte Esterase-Dipstick 500 /ul (Negative); Nitrite-Dipstick Positive (Negative); Occult Blood-Urine 250 /ul (Negative); Protein-Dipstick 500 mg/dl (Negative); Urine Bilirubin Dipstick Negative (Negative); Urine Clarity Cloudy (Clear); Urine Urobilinogen Normal (Normal)
[2020-08-22 12:21] LABS: Bacteria 3+ /hpf (None Seen); Mucous, Urine 1+ /hpf (<or=2+); Red Blood Cells-Urine 50-100 SEEN /hpf (0-5); Squamous Epithelial Cells - UA 5-10 SEEN /hpf (5-10); White Blood Cells 50-100 SEEN /hpf (0-5)
--- NOTE | 2020-08-22 13:21 | NURSING ---
DR SOTO FOR DR MEANS
--- NOTE | 2020-08-22 14:02 | PCM.HP.STD ---
HPI - General General Date of Admission: 08/22/20 HPI Narrative MULUGETA CHRISTIAN, is a 64 F with an extensive past medical history as outlined who presents through the ED on 08/22/2020 with a complaint of altered mental status. Patient has a history of chronic and recurrent UTIs and has a chronic indwelling Azul catheter. Per history obtained from ED doctor, patient was brought into question and noted to be more confused. Staff senior living could apparently only tell that she has become more confused since Saturday before admission. Patient was very obtunded and so could not give any history. She did have a chronic indwelling Azul catheter and this was changed in the senior living prior to admission. Further history or review of systems could not be obtained as patient was unresponsive at time of review. In the ED blood pressure was noted to be 78/38 with a pulse rate of 94, respiratory rate of 19 and temperature of 96.6 Fahrenheit and she was saturating at 99% on room air. In the ED, labs done showed hemoglobin of 11.9 with WBC of 21.8 and platelets of 197. Of note, patient was recently admitted and discharged in June 2020 for UTI and urine culture at [facility] E. coli. She was discharged to the senior living on p.o. doxycycline 100 mg twice daily for 5 days and due to impaired kidney function, she was also not put on prophylactic antibiotics on outpatient basis. ABG done showed pH of 7.45 with PO2 of 34 and PCO2 of 33.9. Chemistry showed sodium of 136 with chloride of 103 and anion gap of 9 and bicarb of 24. Urine showed positive nitrite with evidence of UTI, with 3+ bacteria. Due to her tenuous state, she has been admitted to be managed for septic shock due to UTI. FORMERLY [facility], [facility] Medical History Benign hypertension Bipolar disorder CHF (congestive heart failure) Diabetes mellitus, type 2 Dilated cardiomyopathy Hyperlipidemia Morbid obesity Schizoaffective disorder Sleep apnea Home Medications divalproex 500 mg PO QHS 03/16/13 [History Last Taken 08/21/20] docusate sodium 200 mg PO QHS 03/16/13 [History Last Taken 08/21/20] aspirin 81 mg PO DAILY@0800 #30 tab 03/20/13 [Rx Last Taken 08/22/20] furosemide 20 mg tablet 20 mg PO DAILY 05/20/17 [History Last Taken 08/22/20] anastrozole 1 mg PO DAILY 09/19/17 [History Last Taken 08/22/20] fludrocortisone 0.1 mg PO BID 09/19/17 [History Last Taken 08/22/20] apixaban 5 mg PO BID 03/02/20 [History Last Taken 08/22/20] ascorbic acid (vitamin C) 500 mg PO DAILY 03/02/20 [History Last Taken 08/22/20] atenolol 25 mg PO DAILY 03/02/20 [History Last Taken 08/22/20] divalproex 250 mg PO DAILY 03/02/20 [History Last Taken 08/22/20] ergocalciferol (vitamin D2) 50,000 unit PO TH 03/02/20 [History Last Taken 06/23/20] insulin detemir U-100 45 unit SQ QHS 03/02/20 [History Last Taken 08/21/20] insulin lispro 16 unit SQ TIDCM 03/02/20 [History Last Taken 08/22/20] quetiapine 100 mg PO BID 03/02/20 [History Last Taken 08/22/20] bupropion HCl 300 mg PO DAILY 06/28/20 [History Last Taken 08/22/20] cetirizine 10 mg PO DAILY 06/28/20 [History Last Taken 08/22/20] zaio-jrzT-cqjwwgj-FOS-bromeln 30 ml PO DAILY 06/28/20 [History Last Taken 08/21/20] levothyroxine 125 mcg PO DAILY 06/28/20 [History Last Taken 08/22/20] melatonin 2 mg PO QHS 06/28/20 [History Last Taken 08/21/20] multivitamin 1 tab PO DAILY 06/28/20 [History Last Taken 08/22/20] omeprazole 20 mg PO DAILY 06/28/20 [History Last Taken 08/22/20] pravastatin 40 mg PO DAILY 06/28/20 [History Last Taken 08/21/20] potassium chloride [Klor-Con M20] 20 meq PO QHS 08/22/20 [History Last Taken 08/21/20] Allergy/AdvReac Type Severity Reaction Status Date / Time Sulfa (Sulfonamide Allergy Unknown Verified 08/22/20 10:51 Antibiotics) sulfamethoxazole Allergy Unknown Verified 08/22/20 10:51 [From Bactrim] trimethoprim [From Bactrim] Allergy Unknown Verified 08/22/20 10:51 Surgical History S/P hysterectomy Status post left mastectomy Social History (Updated 08/22/20 @ 15:22 by Joie Hernandez) adopted: No financial difficulty paying for basics: not applicable current occupational status: disabled current occupational exposures/hazards: No pets and animals: No Smoking Status: Unknown if ever smoked ROS Review of Systems ROS Unobtainable: due to encephalopathy, due to mental condition and due to mental status Vital Signs Vital Signs Vital Signs: 08/22/20 10:32 08/22/20 10:39 08/22/20 10:40 Temperature 96.9 F L 96.9 F L Temperature Source Temporal Temporal Pulse Rate 124 H 124 H Respiratory Rate 27 H 27 H Respiratory Effort Respiratory Pattern Blood Pressure 58/48 L 58/48 L Blood Pressure Mean 51 51 Pulse Ox 91 91 Oxygen Delivery Method Room Air Nasal Cannula Nasal Cannula Oxygen Flow Rate (L/min) 2 2 08/22/20 11:03 08/22/20 11:06 08/22/20 11:37 Temperature 98.6 F 98.4 F Temperature Source Oral Oral Pulse Rate 115 H 105 H Respiratory Rate 28 H 24 H Respiratory Effort Normal Non-Labored Respiratory Pattern Tachypnea Blood Pressure 78/52 L 79/54 L Blood Pressure Mean 60 62 Pulse Ox 95 95 95 Oxygen Delivery Method Nasal Cannula Nasal Cannula Nasal Cannula Oxygen Flow Rate (L/min) 2 2 2 08/22/20 12:00 08/22/20 13:00 Temperature 97 F L 96.6 F L Temperature Source Temporal Temporal Pulse Rate 100 94 Respiratory Rate 24 H 19 H Respiratory Effort Respiratory Pattern Blood Pressure 73/43 L 78/38 L Blood Pressure Mean 53 51 Pulse Ox 99 99 Oxygen Delivery Method Nasal Cannula Nasal Cannula Oxygen Flow Rate (L/min) 2 2 Physical Exam Const General Appearance: uncooperative Orientation / Consciousness: lethargic HEENT normocephalic and head/scalp atraumatic Eyes PERRL Resp Resp Narrative: tachypneic, breath sounds reduced bibasally, no wheezes or crackles Cardio Cardio Narrative: tachycardic, normal S1 and S2, no murmurs GI soft to palpation GI Narrative: has mild tenderness, but no guarding or rebound tenderness in left lower quadrant. Extremity normal to inspection Skin no rashes or lesions noted Skin Narrative: extremities cool to touch Neuro Neuro Narrative: patient encephalopathic, minimal response even to sternal rub. Lab / Micro Data Result Diagrams: 08/22/20 10:50 08/22/20 10:50 Labs: Laboratory Results - last 24 hr 08/22/20 08/22/20 08/22/20 10:50 10:50 10:50 WBC 21.8 H RBC 4.47 Hgb 11.9 L Hct 38.3 MCV 85.7 MCH 26.6 L MCHC 31.1 L RDW Std Deviation 46.5 H RDW Coeff of Derek 14.9 H Plt Count 197 MPV 11.4 Immature Gran % (Auto) 1.500 H Neut % (Auto) 79.0 H Lymph % (Auto) 9.9 L Rusk % (Auto) 8.9 Eos % (Auto) 0.4 Baso % (Auto) 0.3 Absolute Neuts (auto) 17.2 H Absolute Lymphs (auto) 2.15 Nucleated RBC % 0 Differential Comment COMMENT Diff Path Review May foll PT 22.6 H INR 2.1 APTT 34.1 Sodium 136 Potassium 5.0 Chloride 103 Carbon Dioxide 24.0 Anion Gap 9 BUN 58 H Creatinine 2.93 H Estim Creat Clear Calc 18.16 Est GFR (MDRD) Af Amer 21 L Est GFR (MDRD) Non-Af 17 L BUN/Creatinine Ratio 19.8 Glucose 257 H Lactic Acid Calcium 8.7 Total Bilirubin 0.60 AST 43 H ALT 13 Alkaline Phosphatase 88 Troponin I < 0.015 Total Protein 7.2 Albumin 2.1 L Globulin 5.1 H Albumin/Globulin Ratio 0.4 L Urine Color Urine Clarity Urine pH Ur Specific Callaway Urine Protein Urine Glucose (UA) Urine Ketones Urine Occult Blood Urine Nitrite Urine Bilirubin Urine Urobilinogen Ur Leukocyte Esterase Urine RBC Urine WBC Ur Squamous Epith Cells Urine Bacteria Urine Mucus 08/22/20 08/22/20 10:50 11:56 WBC RBC Hgb Hct MCV MCH MCHC RDW Std Deviation RDW Coeff of Derek Plt Count MPV Immature Gran % (Auto) Neut % (Auto) Lymph % (Auto) Rusk % (Auto) Eos % (Auto) Baso % (Auto) Absolute Neuts (auto) Absolute Lymphs (auto) Nucleated RBC % Differential Comment Diff Path Review PT INR APTT Sodium Potassium Chloride Carbon Dioxide Anion Gap BUN Creatinine Estim Creat Clear Calc Est GFR (MDRD) Af Amer Est GFR (MDRD) Non-Af BUN/Creatinine Ratio Glucose Lactic Acid 2.5 H* Calcium Total Bilirubin AST ALT Alkaline Phosphatase Troponin I Total Protein Albumin Globulin Albumin/Globulin Ratio Urine Color Brown Urine Clarity Cloudy Urine pH 5.0 Ur Specific Callaway 1.020 Urine Protein 500 H Urine Glucose (UA) Normal Urine Ketones 5 H Urine Occult Blood 250 H Urine Nitrite Positive H Urine Bilirubin Negative Urine Urobilinogen Normal Ur Leukocyte Esterase 500 H Urine RBC 50-100 SEEN Urine WBC 50-100 SEEN Ur Squamous Epith Cells 5-10 SEEN Urine Bacteria 3+ Urine Mucus 1+ Micro: Microbiology 08/22/20 10:56 SARS-CoV-2 Antigen (Rapid) - Final Interface Orders ABG Data ABG results: ABG 08/22/20 11:21 Specimen Type ART Sample Site R Radial pH 7.45 Bicarbonate Actual 23.6 Total CO2 25 Base Excess 0 O2 Saturation 69 L ABG pCO2 33.9 L ABG pO2 34 L* Michael Test Positive O2 Delivery Device Cannula Liter Flow 2.0 Crit Call To/Read Back Yes Radiology Impression Chest X-Ray 08/22/20 11:16 IMPRESSION: Borderline cardiomegaly. The lungs are clear. Electronically Signed: Pablo Bean MD at 11:59 EDT , Service support , Brain CT 08/22/20 11:45 IMPRESSION: Chronic involutional changes of the brain. Electronically Signed: Pablo Bean MD at 12:30 EDT , Service support , Abdomen/Pelvis CT 08/22/20 11:46 IMPRESSION: A AZUL catheter is seen within the urinary bladder. There is diffuse bladder wall thickening with increased markings in the surrounding peritoneal fat. Cystitis should BE ruled out. Electronically Signed: Pablo Baen MD at 12:41 EDT , Service support , Assessment & Plan Assessment/Plan (1) Septic shock: Status: Acute Code(s): A41.9 - Sepsis, unspecified organism; R65.21 - Severe sepsis with septic shock (2) UTI (urinary tract infection): Status: Acute Code(s): N39.0 - Urinary tract infection, site not specified (3) CHF (congestive heart failure): Status: Chronic Code(s): I50.9 - Heart failure, unspecified (4) Acute metabolic encephalopathy: Status: Acute Code(s): G93.41 - Metabolic encephalopathy Plan: #Septic shock due to UTI -Admit to ICU. -SIRS criteria is tachycardia with tachypnea as well as elevated white cell count making 3 out of 4. -Start on IV Zosyn. Patient has a history of [facility] E. coli in her urine cultures. Get blood and urine cultures. -Consult critical care. Dr. Obrien informed verbally. -Patient's blood pressures running in the 70s systolic. Hydrate with IV fluid and give IV pressors as needed to maintain an MAP of more than 65. -CT of the abdomen and pelvis showed a Azul catheter in the urinary bladder with diffuse bladder wall thickening with increased markings in the surrounding peritoneal fat. -Chest x-ray showed the lungs were clear with no evidence of pneumonia. -patient also has a history of taking florinef for adrenal insufficiency, so will start on stress dose steroids #UTI: As above #Acute metabolic encephalopathy due to UTI and septic shock -Patient is very lethargic and minimally responsive -management as above. -CT of the brain showed chronic involutional changes #Hypertension: hold BP meds in setting of septic shock #Type 2 diabetes mellitus: Hold long-acting insulin detemir 45 units nightly. Put on insulin sliding scale. Checks every 6 in light of patient's acute metabolic encephalopathy. #Hypothyroidism: Check TSH. On Synthroid. History of DVT: On Eliquis #Hyperlipidemia: On statin #History of breast cancer: On Arimidex #History of heart failure with reduced ejection fraction: Not in exacerbation. EF noted to be 40%. Hold diuretics in light of septic shock. DVT prophylaxis: Already on Eliquis GI prophylaxis: Famotidine CODE STATUS: Patient has papers signed from her senior living is DNR CC only. This was signed back in December 2019. Her next of kin is her brother and attempts were made by ED doctors gallbladder but there was no response. PCP also called to clarify CODE STATUS as if she was DNR CC only, she would not warrant admission to the ICU. Per discussion ED doctor reported that she had with patient's PCP Dr. Babar Sahu, he stated that he thought patient would be okay with pressors and being admitted in the ICU. Patient will therefore be made full code for now and admitted to the ICU. Currently updated by ED physician that after she placed a central line patient's brother Bianka Kwan returned her call. He was updated of patient's current condition and agreed to central line and pressors but did not want any CPR or intubation. Brother wants to be updated and his number is [phone] Code status: DNRCCA no intubation Visit Charges Inpatient E&M: 91439 Init Hosp L3
--- NOTE | 2020-08-22 14:16 | EX.PCM.CONCC ---
Assessment & Plan Assessment/Plan (1) Septic shock: Status: Acute Code(s): A41.9 - Sepsis, unspecified organism; R65.21 - Severe sepsis with septic shock (2) Acute metabolic encephalopathy: Status: Acute Code(s): G93.41 - Metabolic encephalopathy (3) LING (acute kidney injury): Status: Acute Code(s): N17.9 - Acute kidney failure, unspecified (4) Morbid obesity: Status: Chronic Code(s): E66.01 - Morbid (severe) obesity due to excess calories (5) CHF (congestive heart failure): Status: Chronic Code(s): I50.9 - Heart failure, unspecified Plan: RECOMMENDATIONS: 1. Continue broad-spectrum antimicrobials pending infectious work-up. 2. Fluids per sepsis protocol. 3. If the patient remains hemodynamically unstable, start vasopressor support to maintain a mean arterial pressure at or above 65 mmHg. 4. Continue systemic anticoagulation with Eliquis. 5. Hold diuretics until hemodynamic stability is ensured. IMPRESSIONS: 1. Septic shock Concern for gram-negative urinary tract source of infection. The patient has been adequately volume resuscitated and remains hypotensive. Triple-lumen catheter has already been placed. Plan to start vasopressor support if the patient remains hemodynamically unstable. Continue broad-spectrum antimicrobial coverage, pending finalized infectious work-up. 2. Acute kidney injury Likely prerenal in etiology. Anticipate improvement with volume expansion. Continue to monitor urine output for now. No current indication for renal replacement therapy. 3. Encephalopathy Likely metabolic in etiology and related to presenting sepsis and underlying infection. Anticipate improvement in mentation as underlying infection is addressed. 4. History of hypertension/diabetes mellitus/obesity/hypothyroidism/DVT/hyperlipidemia Complicates care, management, recovery and prognosis. Continue home medications, with the exception of antihypertensives/diuretics given hemodynamic instability. This note was generated with [employer] software. It may contain incorrect words, spelling, and punctuation that were not noted in checking the note before signing. HPI Consult Data Date of Consult: 08/23/20 HPI Narrative Reason for Consultation: Septic Shock HPI Narrative: The patient is a 64-year-old female, with a history as outlined below, who presented to the emergency department from her longterm facility on August 22 with altered mentation. The patient was last admitted to the hospital August 30- secondary to a urinary tract infection in the setting of a chronic indwelling Azul catheter. The patient at that time grew out ESBL. The patient was discharged at that time on doxycycline. On presentation to the emergency department, the patient had a temperature documented to be 96.9 ?F. The patient was tachycardic, tachypneic and hypotensive. Laboratory evaluation revealed an elevated white blood cell count to 22,000. Chemistry profile was notable for acute kidney injury with a creatinine of 2.93. Lactate was elevated to 2.5. Urine analysis was notable for nitrites, leukocyte esterase and 3+ urine bacteria. Chest x-ray was unremarkable. CT head revealed chronic involutional changes of the brain. CT abdomen/pelvis revealed findings concerning for cystitis. The patient received supplemental IV fluid hydration and was started on broad-spectrum antimicrobials. [facility] Medical History (Updated 08/23/20 @ 06:[address] Josh Obrien, ) Benign hypertension Bipolar disorder CHF (congestive heart failure) Diabetes mellitus, type 2 Dilated cardiomyopathy Hyperlipidemia Morbid obesity Schizoaffective disorder Sleep apnea Home Medications divalproex 500 mg PO QHS 03/16/13 [History Last Taken 08/21/20] docusate sodium 200 mg PO QHS 03/16/13 [History Last Taken 08/21/20] aspirin 81 mg PO DAILY@0800 #30 tab 03/20/13 [Rx Last Taken 08/22/20] furosemide 20 mg tablet 20 mg PO DAILY 05/20/17 [History Last Taken 08/22/20] anastrozole 1 mg PO DAILY 09/19/17 [History Last Taken 08/22/20] fludrocortisone 0.1 mg PO BID 09/19/17 [History Last Taken 08/22/20] apixaban 5 mg PO BID 03/02/20 [History Last Taken 08/22/20] ascorbic acid (vitamin C) 500 mg PO DAILY 03/02/20 [History Last Taken 08/22/20] atenolol 25 mg PO DAILY 03/02/20 [History Last Taken 08/22/20] divalproex 250 mg PO DAILY 03/02/20 [History Last Taken 08/22/20] ergocalciferol (vitamin D2) 50,000 unit PO TH 03/02/20 [History Last Taken 06/23/20] insulin detemir U-100 45 unit SQ QHS 03/02/20 [History Last Taken 08/21/20] insulin lispro 16 unit SQ TIDCM 03/02/20 [History Last Taken 08/22/20] quetiapine 100 mg PO BID 03/02/20 [History Last Taken 08/22/20] bupropion HCl 300 mg PO DAILY 06/28/20 [History Last Taken 08/22/20] cetirizine 10 mg PO DAILY 06/28/20 [History Last Taken 08/22/20] elrz-eemO-pwwgior-FOS-bromeln 30 ml PO DAILY 06/28/20 [History Last Taken 08/21/20] levothyroxine 125 mcg PO DAILY 06/28/20 [History Last Taken 08/22/20] melatonin 2 mg PO QHS 06/28/20 [History Last Taken 08/21/20] multivitamin 1 tab PO DAILY 06/28/20 [History Last Taken 08/22/20] omeprazole 20 mg PO DAILY 06/28/20 [History Last Taken 08/22/20] pravastatin 40 mg PO DAILY 06/28/20 [History Last Taken 08/21/20] potassium chloride [Klor-Con M20] 20 meq PO QHS 08/22/20 [History Last Taken 08/21/20] Allergy/AdvReac Type Severity Reaction Status Date / Time Sulfa (Sulfonamide Allergy Unknown Verified 08/22/20 10:51 Antibiotics) sulfamethoxazole Allergy Unknown Verified 08/22/20 10:51 [From Bactrim] trimethoprim [From Bactrim] Allergy Unknown Verified 08/22/20 10:51 Surgical History S/P hysterectomy Status post left mastectomy Social History (Updated 08/22/20 @ 15:22 by Joie Hernandez) adopted: No current occupational status: disabled current occupational exposures/hazards: No pets and animals: No Smoking Status: Unknown if ever smoked ROS Review of Systems ROS Unobtainable: due to encephalopathy and due to mental status Physical Exam Narrative The patient's most recent lab work, culture data and imaging studies have all been personally reviewed. Const no apparent distress General Appearance: cooperative and lethargic HEENT normocephalic and head/scalp atraumatic Eyes PERRL Resp no use of accessory muscles Effort and Inspection: tachypneic and uses accessory muscles Auscultation: diminished lung sounds Cardio S1 normal heart sound and S2 normal heart sound Rate: tachycardic GI soft to palpation and non-tender Extremity no clubbing, cyanosis or edema Skin no rashes or lesions noted Neuro no focal motor deficits Psych Mood & Affect: flat affect Lab / Micro Data Result Diagrams: 08/23/20 04:15 08/23/20 04:15 Labs: Laboratory Results - last 24 hr 08/22/20 08/22/20 08/22/20 10:50 10:50 10:50 WBC 21.8 H RBC 4.47 Hgb 11.9 L Hct 38.3 MCV 85.7 MCH 26.6 L MCHC 31.1 L RDW Std Deviation 46.5 H RDW Coeff of Derek 14.9 H Plt Count 197 MPV 11.4 Immature Gran % (Auto) 1.500 H Neut % (Auto) 79.0 H Lymph % (Auto) 9.[address] [place] % (Auto) 8.9 Eos % (Auto) 0.4 Baso % (Auto) 0.3 Absolute Neuts (auto) 17.2 H Absolute Lymphs (auto) 2.15 Nucleated RBC % 0 Differential Comment COMMENT Diff Path Review May foll PT 22.6 H INR 2.1 APTT 34.1 Sodium 136 Potassium 5.0 Chloride 103 Carbon Dioxide 24.0 Anion Gap 9 BUN 58 H Creatinine 2.93 H Estim Creat Clear Calc 18.16 Est GFR (MDRD) Af Amer 21 L Est GFR (MDRD) Non-Af 17 L BUN/Creatinine Ratio 19.8 Glucose 257 H Lactic Acid Calcium 8.7 Total Bilirubin 0.60 AST 43 H ALT 13 Alkaline Phosphatase 88 Troponin I < 0.015 Total Protein 7.2 Albumin 2.1 L Globulin 5.1 H Albumin/Globulin Ratio 0.4 L Urine Color Urine Clarity Urine pH Ur Specific [place] Urine Protein Urine Glucose (UA) Urine Ketones Urine Occult Blood Urine Nitrite Urine Bilirubin Urine Urobilinogen Ur Leukocyte Esterase Urine RBC Urine WBC Ur Squamous Epith Cells Urine Bacteria Urine Mucus 08/22/20 08/22/20 10:50 11:56 WBC RBC Hgb Hct MCV MCH MCHC RDW Std Deviation RDW Coeff of Derek Plt Count MPV Immature Gran % (Auto) Neut % (Auto) Lymph % (Auto) [place] % (Auto) Eos % (Auto) Baso % (Auto) Absolute Neuts (auto) Absolute Lymphs (auto) Nucleated RBC % Differential Comment Diff Path Review PT INR APTT Sodium Potassium Chloride Carbon Dioxide Anion Gap BUN Creatinine Estim Creat Clear Calc Est GFR (MDRD) Af Amer Est GFR (MDRD) Non-Af BUN/Creatinine Ratio Glucose Lactic Acid 2.5 H* Calcium Total Bilirubin AST ALT Alkaline Phosphatase Troponin I Total Protein Albumin Globulin Albumin/Globulin Ratio Urine Color Brown Urine Clarity Cloudy Urine pH 5.0 Ur Specific [place] 1.020 Urine Protein 500 H Urine Glucose (UA) Normal Urine Ketones 5 H Urine Occult Blood 250 H Urine Nitrite Positive H Urine Bilirubin Negative Urine Urobilinogen Normal Ur Leukocyte Esterase 500 H Urine RBC 50-100 SEEN Urine WBC 50-100 SEEN Ur Squamous Epith Cells 5-10 SEEN Urine Bacteria 3+ Urine Mucus 1+ Micro: Microbiology 08/22/20 10:56 SARS-CoV-2 Antigen (Rapid) - Final Interface Orders ABG Data ABG results: ABG 08/22/20 11:21 Specimen Type ART Sample Site R Radial pH 7.45 Bicarbonate Actual 23.6 Total CO2 25 Base Excess 0 O2 Saturation 69 L ABG pCO2 33.9 L ABG pO2 34 L* Michael Test Positive O2 Delivery Device Cannula Liter Flow 2.0 Crit Call To/Read Back Yes Radiology Impression Chest X-Ray 08/22/20 11:16 IMPRESSION: Borderline cardiomegaly. The lungs are clear. Electronically Signed: Pablo Bean MD at 11:59 EDT , Service support , Brain CT 08/22/20 11:45 IMPRESSION: Chronic involutional changes of the brain. Electronically Signed: Pablo Bean MD at 12:30 EDT , Service support , Abdomen/Pelvis CT 08/22/20 11:46 IMPRESSION: A AZUL catheter is seen within the urinary bladder. There is diffuse bladder wall thickening with increased markings in the surrounding peritoneal fat. Cystitis should BE ruled out. Electronically Signed: Pablo Bean MD at 12:41 EDT , Service support , Charges/Coding Visit Charges Inpatient E&M: 70848 Init Hosp L3
--- NOTE | 2020-08-22 14:39 | RAD_ITS ---
STUDY: X-RAY CHEST REASON FOR EXAM: Female, 64 years old. Central line placement. TECHNIQUE: Single AP portable view of the chest. COMPARISON: Comparison is made with prior examination done earlier in the day. FINDINGS: A right-sided internal jugular venous catheter has been placed. The tip is at the junction of the superior vena cava and right atrium. The lungs are clear and expanded. There is no demonstrated pleural abnormality. There is borderline cardiomegaly. Normal mediastinum and john. Normal visualized pulmonary arteries. Normal visualized aortic arch and descending thoracic aorta. There are diffuse degenerative changes of the visualized thoracic spine. Normal visualized ribs, clavicles, and shoulders. There is no demonstrated abnormality of the visualized soft tissue structures of the upper abdomen. RAD/CXR for Line Placement IMPRESSION: The tip of the right internal jugular venous catheter is at the junction of the superior vena cava and right atrium. Electronically Signed: Pablo Bean MD at 14:58 EDT , Service support ,
[2020-08-22 14:59] LABS: Reflex Lactate? Y
[2020-08-22 16:19] LABS: Lactic Acid 1.3 mmol/L (0.4-1.9)
[2020-08-22] MEDS: Insulin Lispro 100 UNIT/ML INSULN.PEN SC ×2 (16:55→21:09)
[2020-08-22] MEDS: Hydrocortisone Sod Succinate 100 MG/2 ML Vial 50 MG IV ×2 (16:56→21:08)
[2020-08-22] MEDS: 0.9% Saline Lock 10 ML Syringe IV ×2 (16:57→21:06)
[2020-08-22 17:26] LABS: Bedside Glucose 160 mg/dL (70-110)
[2020-08-22 21:01] LABS: Bedside Glucose 204 mg/dL (70-110)
[2020-08-22] MEDS: APIXABAN 5 MG TABLET PO (21:07)
[2020-08-23] VITALS (20 sets, daily range): BP systolic 89–145; BP diastolic 52–92; PULSE 62–119; RESP 14–21; TEMP 35.6–38.4; O2SAT 92–100
[2020-08-23] MEDS: 0.9% Saline Lock 10 ML Syringe IV ×2 (04:17→18:07)
[2020-08-23 04:37] LABS: Absolute Lymphocyte Count 1.51 X10^3/uL (0.83-4.51); Absolute Neutrophil Count 12.4 X10^3/uL (2.0-7.7); Basophil# 0.04 X10^3/uL; Basophil% 0.3 % (0-1); Hematocrit 31.4 % (37-47); Hemoglobin 9.7 g/dL (12.0-15.0); Lymphocyte # 1.51 X10^3/ul (0.83-4.51); Mean Corp Hgb Conc 30.9 g/dL (32-36); Mean Corpuscular Hgb 27.4 pg (27.0-32.0); Mean Corpuscular Volume 88.7 fL (81-99); Mean Platelet Vol. 11.1 fl (6.2-12.0); Monocyte# 0.99 X10^3/uL; Monocyte% 6.6 % (0-10); NRBC Flagged by Analyzer 0 % (0-5); Platelet Count 145 K/mm3 (150-450); RBC Distribution Width CV 14.9 % (11.6-14.6); RBC Distribution Width SD 48.5 fl (35.1-43.9); Red Blood Count 3.54 M/mm3 (4.2-5.4); White Blood Count 15.1 K/mm3 (4.4-11.0)
[2020-08-23 04:51] LABS: ALB/GLOB Ratio 0.4 RATIO (0.9-2.4); AST(SGOT) 12 U/L (15-37); Alanine Aminotransfer ALT/SGPT 12 U/L (13-56); Albumin, Serum 1.9 g/dL (3.2-5.0); Alkaline Phosphatase 80 U/L (45-117); Anion Gap 9 (5-15); BUN 61 mg/dL (7-18); BUN/Creat Ratio 24.2 RATIO (10-20); Calcium,Total 8.1 mg/dL (8.5-10.1); Chloride 107 mmol/L (98-107); Creatinine, Serum 2.52 mg/dL (0.55-1.02); EST Glomerular Filtration Rate 20 mL/min (>60); Est Glom Filt Rate - Afr Amer 25 mL/min (>60); Estimated Creatinine Clearance 19.48 ml/min; Globulin 4.5 g/dL (2.2-4.2); Glucose 274 mg/dL (74-106); Potassium 3.8 mmol/L (3.5-5.1); Protein, Total 6.4 g/dL (6.4-8.2); Sodium Level 141 mmol/L (136-145)
[2020-08-23] MEDS: Hydrocortisone Sod Succinate 100 MG/2 ML Vial 50 MG IV (05:50)
--- NOTE | 2020-08-23 06:29 | PCM.PN.INT ---
Assessment & Plan Assessment/Plan (1) Septic shock: Status: Acute Code(s): A41.9 - Sepsis, unspecified organism; R65.21 - Severe sepsis with septic shock (2) Gram-negative bacteremia: Status: Acute Code(s): R78.81 - Bacteremia Plan: RECOMMENDATIONS: 1. Continue broad-spectrum antimicrobials, pending finalized infectious work-up. 2. Continue systemic anticoagulation with Eliquis. 3. Okay to resume home diuretic regimen, given stability in hemodynamics. 4. Encourage incentive spirometer use and mobilize patient as tolerated. 5. The patient is medically stable for transfer out of the intensive care unit. IMPRESSIONS: 1. Septic shock Improved. Concern for gram-negative urinary tract source of infection. Although hypotensive, the patient was volume resuscitated and never had to be started on vasopressor support. Blood cultures were positive for gram-negative rods. Therefore, primary urinary tract source of infection with secondary hematogenous spread is likely. Continue antimicrobials as ordered. 2. Acute kidney injury Improved. Likely prerenal in etiology. Continue to monitor urine output for now. No current indication for renal replacement therapy. 3. Encephalopathy Improved. Likely metabolic in etiology and related to presenting sepsis and underlying infection. 4. History of hypertension/diabetes mellitus/obesity/hypothyroidism/DVT/hyperlipidemia Complicates care, management, recovery and prognosis. Continue home medications as indicated. This note was generated with M[employer] dictation software. It may contain incorrect words, spelling, and punctuation that were not noted in checking the note before signing. Subjective Subjective: The patient was seen and examined at the bedside this morning. Events from the last 24 hours have been reviewed. The patient is currently afebrile, hemodynamically stable and maintaining appropriate oxygen saturations on room air. The patient never had to be started on vasopressor support following her arrival to the intensive care unit yesterday. She is currently documented to be overall net +3.6 L for the hospital admission. Creatinine has improved to 2.52 this morning. Objective Data Objective Data The patient's most recent lab work, culture data and imaging studies have all been personally reviewed. Surface echocardiogram from 2017 revealed mild concentric LVH with an ejection fraction of 60%. Diastolic dysfunction was present. Rapid coronavirus antigen testing was negative. Preliminary blood cultures were positive for gram-negative rods. Urine culture is pending. Vital Signs: Vital Signs Temp Pulse Resp BP Pulse Ox 96.2 F L 89 16 121/70 H 100 08/23/20 03:00 08/23/20 06:00 08/23/20 06:00 08/23/20 06:00 08/23/20 06:00 Oxygen Flow Rate (L/min) 2 Oxygen Delivery Method Room Air Weight: 236 lb 8.896 oz Body Mass Index (BMI) 40.4 Finger Stick Blood Glucose 99 Intake & Output: Intake and Output for Last 24 Hours 08/21/20 08/22/20 08/23/20 23:59 23:59 23:59 Intake Total 3879.25 / 3879.25 462.75 / 462.75 Output Total 350 / 350 375 / 375 Balance 3529.25 / 3529.25 87.75 / 87.75 Lab / Micro Data Attestation: I reviewed the patient's lab results. Result Diagrams: 08/26/20 06:10 08/26/20 06:10 Labs: Laboratory Results - last 24 hr 08/22/20 08/22/20 08/22/20 10:50 10:50 10:50 WBC 21.8 H RBC 4.47 Hgb 11.9 L Hct 38.3 MCV 85.7 MCH 26.6 L MCHC 31.1 L RDW Std Deviation 46.5 H RDW Coeff of Derek 14.9 H Plt Count 197 MPV 11.4 Immature Gran % (Auto) 1.500 H Neut % (Auto) 79.0 H Lymph % (Auto) 9.9 L [place] % (Auto) 8.9 Eos % (Auto) 0.4 Baso % (Auto) 0.3 Absolute Neuts (auto) 17.2 H Absolute Lymphs (auto) 2.15 Nucleated RBC % 0 Differential Comment COMMENT Diff Path Review August foll PT 22.6 H INR 2.1 APTT 34.1 Sodium 136 Potassium 5.0 Chloride 103 Carbon Dioxide 24.0 Anion Gap 9 BUN 58 H Creatinine 2.93 H Estim Creat Clear Calc 18.16 Est GFR (MDRD) Af Amer 21 L Est GFR (MDRD) Non-Af 17 L BUN/Creatinine Ratio 19.8 Glucose 257 H Lactic Acid Calcium 8.7 Total Bilirubin 0.60 AST 43 H ALT 13 Alkaline Phosphatase 88 Troponin I < 0.015 Total Protein 7.2 Albumin 2.1 L Globulin 5.1 H Albumin/Globulin Ratio 0.4 L Urine Color Urine Clarity Urine pH Ur Specific [place] Urine Protein Urine Glucose (UA) Urine Ketones Urine Occult Blood Urine Nitrite Urine Bilirubin Urine Urobilinogen Ur Leukocyte Esterase Urine RBC Urine WBC Ur Squamous Epith Cells Urine Bacteria Urine Mucus POC Glucose 08/22/20 08/22/20 08/22/20 10:50 11:56 15:30 WBC RBC Hgb Hct MCV MCH MCHC RDW Std Deviation RDW Coeff of Derek Plt Count MPV Immature Gran % (Auto) Neut % (Auto) Lymph % (Auto) [place] % (Auto) Eos % (Auto) Baso % (Auto) Absolute Neuts (auto) Absolute Lymphs (auto) Nucleated RBC % Differential Comment Diff Path Review PT INR APTT Sodium Potassium Chloride Carbon Dioxide Anion Gap BUN Creatinine Estim Creat Clear Calc Est GFR (MDRD) Af Amer Est GFR (MDRD) Non-Af BUN/Creatinine Ratio Glucose Lactic Acid 2.5 H* 1.3 Calcium Total Bilirubin AST ALT Alkaline Phosphatase Troponin I Total Protein Albumin Globulin Albumin/Globulin Ratio Urine Color Brown Urine Clarity Cloudy Urine pH 5.0 Ur Specific [place] 1.020 Urine Protein 500 H Urine Glucose (UA) Normal Urine Ketones 5 H Urine Occult Blood 250 H Urine Nitrite Positive H Urine Bilirubin Negative Urine Urobilinogen Normal Ur Leukocyte Esterase 500 H Urine RBC 50-100 SEEN Urine WBC 50-100 SEEN Ur Squamous Epith Cells 5-10 SEEN Urine Bacteria 3+ Urine Mucus 1+ POC Glucose 08/22/20 08/22/20 08/23/20 16:45 20:54 04:15 WBC 15.1 H RBC 3.54 L Hgb 9.7 L Hct 31.4 L MCV 88.7 MCH 27.4 MCHC 30.9 L RDW Std Deviation 48.5 H RDW Coeff of Derek 14.9 H Plt Count 145 L MPV 11.1 Immature Gran % (Auto) 1.100 H Neut % (Auto) 82.0 H Lymph % (Auto) 10.0 L [place] % (Auto) 6.6 Eos % (Auto) 0.0 Baso % (Auto) 0.3 Absolute Neuts (auto) 12.4 H Absolute Lymphs (auto) 1.51 Nucleated RBC % 0 Differential Comment Diff Path Review PT INR APTT Sodium Potassium Chloride Carbon Dioxide Anion Gap BUN Creatinine Estim Creat Clear Calc Est GFR (MDRD) Af Amer Est GFR (MDRD) Non-Af BUN/Creatinine Ratio Glucose Lactic Acid Calcium Total Bilirubin AST ALT Alkaline Phosphatase Troponin I Total Protein Albumin Globulin Albumin/Globulin Ratio Urine Color Urine Clarity Urine pH Ur Specific [place] Urine Protein Urine Glucose (UA) Urine Ketones Urine Occult Blood Urine Nitrite Urine Bilirubin Urine Urobilinogen Ur Leukocyte Esterase Urine RBC Urine WBC Ur Squamous Epith Cells Urine Bacteria Urine Mucus POC Glucose 160 H 204 H 08/23/20 04:15 WBC RBC Hgb Hct MCV MCH MCHC RDW Std Deviation RDW Coeff of Derek Plt Count MPV Immature Gran % (Auto) Neut % (Auto) Lymph % (Auto) [place] % (Auto) Eos % (Auto) Baso % (Auto) Absolute Neuts (auto) Absolute Lymphs (auto) Nucleated RBC % Differential Comment Diff Path Review PT INR APTT Sodium 141 Potassium 3.8 Chloride 107 Carbon Dioxide 25.0 Anion Gap 9 BUN 61 H Creatinine 2.52 H Estim Creat Clear Calc 19.48 Est GFR (MDRD) Af Amer 25 L Est GFR (MDRD) Non-Af 20 L BUN/Creatinine Ratio 24.2 H Glucose 274 H Lactic Acid Calcium 8.1 L Total Bilirubin 0.40 AST 12 L ALT 12 L Alkaline Phosphatase 80 Troponin I Total Protein 6.4 Albumin 1.9 L Globulin 4.5 H Albumin/Globulin Ratio 0.4 L Urine Color Urine Clarity Urine pH Ur Specific [place] Urine Protein Urine Glucose (UA) Urine Ketones Urine Occult Blood Urine Nitrite Urine Bilirubin Urine Urobilinogen Ur Leukocyte Esterase Urine RBC Urine WBC Ur Squamous Epith Cells Urine Bacteria Urine Mucus POC Glucose Micro: Microbiology 08/22/20 10:46 Blood Culture (Wb) - Anticubital Right Blood Culture - Preliminary 08/22/20 10:50 Blood Culture (Wb) - Right Hand Blood Culture - Preliminary 08/22/20 10:56 Interface Orders SARS-CoV-2 Antigen (Rapid) - Final ABG Data ABG results: ABG 08/22/20 11:21 Specimen Type ART Sample Site R Radial pH 7.45 Bicarbonate Actual 23.6 Total CO2 25 Base Excess 0 O2 Saturation 69 L ABG pCO2 33.9 L ABG pO2 34 L* Michael Test Positive O2 Delivery Device Cannula Liter Flow 2.0 Crit Call To/Read Back Yes Radiography Diagnostic Testing: Radiology Impression Chest X-Ray 08/22/20 11:16 IMPRESSION: Borderline cardiomegaly. The lungs are clear. Electronically Signed: Pablo Bean MD at 11:59 EDT , Service support , Brain CT 08/22/20 11:45 IMPRESSION: Chronic involutional changes of the brain. Electronically Signed: Pablo Bean MD at 12:30 EDT , Service support , Abdomen/Pelvis CT 08/22/20 11:46 IMPRESSION: A AZUL catheter is seen within the urinary bladder. There is diffuse bladder wall thickening with increased markings in the surrounding peritoneal fat. Cystitis should BE ruled out. Electronically Signed: Pablo Bean MD at 12:41 EDT , Service support , Chest X-Ray 08/22/20 14:39 IMPRESSION: The tip of the right internal jugular venous catheter is at the junction of the superior vena cava and right atrium. Electronically Signed: Pablo Bean MD at 14:58 EDT , Service support , Physical Exam Const alert and no apparent distress General Appearance: cooperative HEENT normocephalic and head/scalp atraumatic Eyes PERRL and EOMs intact bilaterally Resp normal respiratory effort and no use of accessory muscles Auscultation: diminished lung sounds; Negative for rales, rhonchi or wheezes Cardio regular rate and regular rhythm GI normal to inspection, nondistended, normoactive bowel sounds Extremity General Extremity: edema bilateral lower extremity Skin no rashes or lesions noted Neuro CN's II-XII intact bilaterally and no focal motor deficits Psych Mood & Affect: flat affect Charges/Coding Visit Charges Inpatient E&M: 56787 Subs Hosp L3
[2020-08-23 07:56] LABS: Bedside Glucose 224 mg/dL (70-110)
[2020-08-23] MEDS: Aspirin E.C. 81 MG Tablet PO (09:03)
[2020-08-23] MEDS: APIXABAN 5 MG TABLET PO ×2 (09:03→23:09)
[2020-08-23] MEDS: Insulin Lispro 100 UNIT/ML INSULN.PEN SC ×4 (09:03→22:58)
[2020-08-23] MEDS: Menthol/Lanolin/Calamine/Znox 113 GM Tube 1 APPLIC TOPICAL ×2 (09:04→22:59)
[2020-08-23] MEDS: Nystatin Powder 15gm Bottle 1 APPLIC TOPICAL ×2 (09:05→22:59)
--- NOTE | 2020-08-23 10:25 | PN.HOSP_ITS ---
Subjective Subjective: Patient seen and examined. She is alert and communicative, and was eating breakfast. SHe says she doesnt recall why she was brought in to the hospital yesterday. She did not require vasopressors yesterday. Review of symptoms otherwise negative. She has remained hemodynamically stable and remains on IV cefepime. Objective Data Objective Data Vital Signs: Vital Signs Temp Pulse Resp BP Pulse Ox 96.2 F L 92 16 121/70 H 100 08/23/20 03:00 08/23/20 08:00 08/23/20 06:00 08/23/20 06:00 08/23/20 06:00 Oxygen Flow Rate (L/min) 2 Oxygen Delivery Method Room Air Weight: 236 lb 8.896 oz Body Mass Index (BMI) 40.4 Finger Stick Blood Glucose 99 Intake & Output: Intake and Output for Last 24 Hours 08/21/20 08/22/20 08/23/20 23:59 23:59 23:59 Intake Total 3879.25 / 3879.25 462.75 / 462.75 Output Total 350 / 350 375 / 375 Balance 3529.25 / 3529.25 87.75 / 87.75 Lab / Micro Data Result Diagrams: 08/23/20 04:15 08/23/20 04:15 Labs: Laboratory Results - last 24 hr 08/22/20 08/22/20 08/22/20 10:50 10:50 10:50 WBC 21.8 H RBC 4.47 Hgb 11.9 L Hct 38.3 MCV 85.7 MCH 26.6 L MCHC 31.1 L RDW Std Deviation 46.5 H RDW Coeff of Derek 14.9 H Plt Count 197 MPV 11.4 Immature Gran % (Auto) 1.500 H Neut % (Auto) 79.0 H Lymph % (Auto) 9.9 L [place] % (Auto) 8.9 Eos % (Auto) 0.4 Baso % (Auto) 0.3 Absolute Neuts (auto) 17.2 H Absolute Lymphs (auto) 2.15 Nucleated RBC % 0 Differential Comment COMMENT Diff Path Review May foll PT 22.6 H INR 2.1 APTT 34.1 Sodium 136 Potassium 5.0 Chloride 103 Carbon Dioxide 24.0 Anion Gap 9 BUN 58 H Creatinine 2.93 H Estim Creat Clear Calc 18.16 Est GFR (MDRD) Af Amer 21 L Est GFR (MDRD) Non-Af 17 L BUN/Creatinine Ratio 19.8 Glucose 257 H Lactic Acid Calcium 8.7 Total Bilirubin 0.60 AST 43 H ALT 13 Alkaline Phosphatase 88 Troponin I < 0.015 Total Protein 7.2 Albumin 2.1 L Globulin 5.1 H Albumin/Globulin Ratio 0.4 L Urine Color Urine Clarity Urine pH Ur Specific [place] Urine Protein Urine Glucose (UA) Urine Ketones Urine Occult Blood Urine Nitrite Urine Bilirubin Urine Urobilinogen Ur Leukocyte Esterase Urine RBC Urine WBC Ur Squamous Epith Cells Urine Bacteria Urine Mucus POC Glucose 08/22/20 08/22/20 08/22/20 10:50 11:56 15:30 WBC RBC Hgb Hct MCV MCH MCHC RDW Std Deviation RDW Coeff of Derek Plt Count MPV Immature Gran % (Auto) Neut % (Auto) Lymph % (Auto) Ro[place] % (Auto) Eos % (Auto) Baso % (Auto) Absolute Neuts (auto) Absolute Lymphs (auto) Nucleated RBC % Differential Comment Diff Path Review PT INR APTT Sodium Potassium Chloride Carbon Dioxide Anion Gap BUN Creatinine Estim Creat Clear Calc Est GFR (MDRD) Af Amer Est GFR (MDRD) Non-Af BUN/Creatinine Ratio Glucose Lactic Acid 2.5 H* 1.3 Calcium Total Bilirubin AST ALT Alkaline Phosphatase Troponin I Total Protein Albumin Globulin Albumin/Globulin Ratio Urine Color Brown Urine Clarity Cloudy Urine pH 5.0 Ur Specific [place] 1.020 Urine Protein 500 H Urine Glucose (UA) Normal Urine Ketones 5 H Urine Occult Blood 250 H Urine Nitrite Positive H Urine Bilirubin Negative Urine Urobilinogen Normal Ur Leukocyte Esterase 500 H Urine RBC 50-100 SEEN Urine WBC 50-100 SEEN Ur Squamous Epith Cells 5-10 SEEN Urine Bacteria 3+ Urine Mucus 1+ POC Glucose 08/22/20 08/22/20 08/23/20 16:45 20:54 04:15 WBC 15.1 H RBC 3.54 L Hgb 9.7 L Hct 31.4 L MCV 88.7 MCH 27.4 MCHC 30.9 L RDW Std Deviation 48.5 H RDW Coeff of Derek 14.9 H Plt Count 145 L MPV 11.1 Immature Gran % (Auto) 1.100 H Neut % (Auto) 82.0 H Lymph % (Auto) 10.0 L [place] % (Auto) 6.6 Eos % (Auto) 0.0 Baso % (Auto) 0.3 Absolute Neuts (auto) 12.4 H Absolute Lymphs (auto) 1.51 Nucleated RBC % 0 Differential Comment Diff Path Review PT INR APTT Sodium Potassium Chloride Carbon Dioxide Anion Gap BUN Creatinine Estim Creat Clear Calc Est GFR (MDRD) Af Amer Est GFR (MDRD) Non-Af BUN/Creatinine Ratio Glucose Lactic Acid Calcium Total Bilirubin AST ALT Alkaline Phosphatase Troponin I Total Protein Albumin Globulin Albumin/Globulin Ratio Urine Color Urine Clarity Urine pH Ur Specific [place] Urine Protein Urine Glucose (UA) Urine Ketones Urine Occult Blood Urine Nitrite Urine Bilirubin Urine Urobilinogen Ur Leukocyte Esterase Urine RBC Urine WBC Ur Squamous Epith Cells Urine Bacteria Urine Mucus POC Glucose 160 H 204 H 08/23/20 08/23/20 04:15 07:51 WBC RBC Hgb Hct MCV MCH MCHC RDW Std Deviation RDW Coeff of Derek Plt Count MPV Immature Gran % (Auto) Neut % (Auto) Lymph % (Auto) [place] % (Auto) Eos % (Auto) Baso % (Auto) Absolute Neuts (auto) Absolute Lymphs (auto) Nucleated RBC % Differential Comment Diff Path Review PT INR APTT Sodium 141 Potassium 3.8 Chloride 107 Carbon Dioxide 25.0 Anion Gap 9 BUN 61 H Creatinine 2.52 H Estim Creat Clear Calc 19.48 Est GFR (MDRD) Af Amer 25 L Est GFR (MDRD) Non-Af 20 L BUN/Creatinine Ratio 24.2 H Glucose 274 H Lactic Acid Calcium 8.1 L Total Bilirubin 0.40 AST 12 L ALT 12 L Alkaline Phosphatase 80 Troponin I Total Protein 6.4 Albumin 1.9 L Globulin 4.5 H Albumin/Globulin Ratio 0.4 L Urine Color Urine Clarity Urine pH Ur Specific [place] Urine Protein Urine Glucose (UA) Urine Ketones Urine Occult Blood Urine Nitrite Urine Bilirubin Urine Urobilinogen Ur Leukocyte Esterase Urine RBC Urine WBC Ur Squamous Epith Cells Urine Bacteria Urine Mucus POC Glucose 224 H Micro: Microbiology 08/22/20 11:56 Urine, Random Urine Culture - Preliminary GNR lactose manager of global 08/22/20 10:50 Blood Culture (Wb) - Right Hand Blood Culture - Preliminary 08/22/20 10:46 Blood Culture (Wb) - Anticubital Right Blood Culture - Preliminary Gram negative niyah 08/22/20 10:56 Interface Orders SARS-CoV-2 Antigen (Rapid) - Final ABG Data ABG results: ABG 08/22/20 11:21 Specimen Type ART Sample Site R Radial pH 7.45 Bicarbonate Actual 23.6 Total CO2 25 Base Excess 0 O2 Saturation 69 L ABG pCO2 33.9 L ABG pO2 34 L* Michael Test Positive O2 Delivery Device Cannula Liter Flow 2.0 Crit Call To/Read Back Yes Radiography Diagnostic Testing: Radiology Impression Chest X-Ray 08/22/20 11:16 IMPRESSION: Borderline cardiomegaly. The lungs are clear. Electronically Signed: Pablo Bean MD at 11:59 EDT , Service support , Brain CT 08/22/20 11:45 IMPRESSION: Chronic involutional changes of the brain. Electronically Signed: Pablo Bean MD at 12:30 EDT , Service support , Abdomen/Pelvis CT 08/22/20 11:46 IMPRESSION: A AZUL catheter is seen within the urinary bladder. There is diffuse bladder wall thickening with increased markings in the surrounding peritoneal fat. Cystitis should BE ruled out. Electronically Signed: Pablo Bean MD at 12:41 EDT , Service support , Chest X-Ray 08/22/20 14:39 IMPRESSION: The tip of the right internal jugular venous catheter is at the junction of the superior vena cava and right atrium. Electronically Signed: Pablo Bean MD at 14:58 EDT , Service support , Physical Exam Const alert, oriented x3 and no apparent distress General Appearance: uncooperative Orientation / Consciousness: lethargic Exam Limitations: no limitations Nutritional Appearance: obese HEENT head/scalp atraumatic Head and Scalp: normocephalic Eyes PERRL, EOMs intact bilaterally and conjunctivae normal Neck no lymphadenopathy and supple Resp normal respiratory effort, no retractions, no use of accessory muscles and clear to auscultation bilaterally Resp Narrative: tachypneic, breath sounds reduced bibasally, no wheezes or crackles Cardio regular rate, regular rhythm, S1 normal heart sound, S2 normal heart sound and no murmurs Cardio Narrative: tachycardic, normal S1 and S2, no murmurs GI normal to inspection, nondistended, normoactive bowel sounds, soft to palpation, non-tender and non-distended GI Narrative: has mild tenderness, but no guarding or rebound tenderness in left lower quadrant. Extremity normal to inspection and full ROM Skin no rashes or lesions noted Skin Narrative: extremities cool to touch Neuro oriented x3 Neuro Narrative: patient encephalopathic, minimal response even to sternal rub. Sensorium / Orientation: awake and alert Psych affect normal Assessment & Plan Assessment/Plan (1) Septic shock: Status: Acute Code(s): A41.9 - Sepsis, unspecified organism; R65.21 - Severe sepsis with septic shock (2) UTI (urinary tract infection): Status: Acute Code(s): N39.0 - Urinary tract infection, site not specified (3) CHF (congestive heart failure): Status: Chronic Code(s): I50.9 - Heart failure, unspecified (4) Acute metabolic encephalopathy: Status: Acute Code(s): G93.41 - Metabolic encephalopathy Plan: #Septic shock due to UTI -shock has resolved. Didnt need vasopressors -wbc is down to 15.1 -on IV cefepime. Blood and urine cultures pending critical care on board -transfer out of ICU today to telemetry bed #UTI: As above #Acute metabolic encephalopathy due to UTI and septic shock -resolved. Paitent alert and oriented today. #Hypertension: shock has resolved. resume BP meds #Type 2 diabetes mellitus: -resume insulin detemir 45 units daily. -ISS. Accuchecks ACHS. #Hypothyroidism: Check TSH. On Synthroid. History of DVT: On Eliquis #Hyperlipidemia: On statin #History of breast cancer: On Arimidex #History of heart failure with reduced ejection fraction: - Not in exacerbation. EF known to be 40%. DVT prophylaxis: Already on Eliquis GI prophylaxis: Famotidine CODE STATUS: DNRCCA do not intubate.
--- NOTE | 2020-08-23 11:24 | NURSING ---
report called to 3rd floor for transfer to room 316, transferred per bed with belongings
--- NOTE | 2020-08-23 11:29 | NURSING ---
message left for brother pt transferred wo room 316
--- NOTE | 2020-08-23 11:36 | NURSING ---
Pt transferred up to MS3 from ICU. had been consulted on patient for reddened area to buttocks. a couple pinpoint open area noted to buttocks. some redness noted to entire buttocks and hip areas. appears to be more of an incontinence associated dermatitis than pressure. the redness is dry and flaky currently. patient is getting calmoseptine and nystatin powder. would recommend continuing these. pt does not turn well and needs much encouragement to move.
--- NOTE | 2020-08-23 12:30 | CASEMGMT ---
Pt is here from [place]. SW spoke w/pt, confirmed plan is for her to return to [place]. SW asked pt about who would be her primary contact. She states brother Bianka Skelton is, and that Josias Bruce listed in the demographics has . She states she has completed POA for healthcare forms. KAREN called Maryana w/[facility] initially, confirmed pt can return when ready. KAREN faxed updates. KAREN called back to [place] to ask about POA papers as they are not on file. Someone from [place] will call KAREN back if they have the forms on file. Demographics in [facility] updated. Plan: Return to [place] when ready. TRI Newton
[2020-08-23 12:59] LABS: Pathologist Review Reviewed
[2020-08-23 13:21] LABS: Bedside Glucose 307 mg/dL (70-110)
[2020-08-23 16:40] LABS: Bedside Glucose 248 mg/dL (70-110)
[2020-08-23] MEDS: Acetaminophen 325 MG Tablet 650 MG PO (17:35)
[2020-08-23] MEDS: Fludrocortisone Acetate 0.1 MG Tablet PO (18:02)
[2020-08-23] MEDS: Divalproex Sodium 250 MG Tablet 500 MG PO (18:03)
[2020-08-23] MEDS: 0.9% Normal Saline 1,000 ML 125 ML IV (18:10)
[2020-08-23] MEDS: Docusate Sodium 100 MG Capsule 200 MG PO (22:58)
[2020-08-23] MEDS: Potassium Chloride Oral Tablet 20 MEQ PO (23:08)
[2020-08-23] MEDS: MELATONIN 3 MG TABLET PO (23:08)
[2020-08-23] MEDS: QUEtiapine 100 MG Tablet PO (23:08)
[2020-08-24] VITALS (14 sets, daily range): BP systolic 111–150; BP diastolic 54–78; PULSE 97–115; RESP 16–22; TEMP 36.4–37.9; O2SAT 92–96
[2020-08-24 01:56] LABS: Bedside Glucose 199 mg/dL (70-110)
[2020-08-24] MEDS: 0.9% Saline Lock 10 ML Syringe IV ×2 (02:08→12:14)
[2020-08-24] MEDS: Levothyroxine 125 MCG Tablet PO (06:32)
[2020-08-24] MEDS: Insulin Lispro 100 UNIT/ML INSULN.PEN SC ×3 (06:32→21:46)
[2020-08-24 06:41] LABS: Bedside Glucose 179 mg/dL (70-110)
[2020-08-24 08:50] LABS: Absolute Lymphocyte Count 1.28 X10^3/uL (0.83-4.51); Absolute Neutrophil Count 7.4 X10^3/uL (2.0-7.7); Basophil# 0.03 X10^3/uL; Basophil% 0.3 % (0-1); Eosinophil# 0.03 X10^3/uL; Eosinophils% 0.3 % (0-5); Hematocrit 30.7 % (37-47); Hemoglobin 9.7 g/dL (12.0-15.0); Lymphocyte # 1.28 X10^3/ul (0.83-4.51); Lymphocyte % 12.7 % (19-41); Mean Corp Hgb Conc 31.6 g/dL (32-36); Mean Corpuscular Hgb 27.6 pg (27.0-32.0); Mean Corpuscular Volume 87.2 fL (81-99); Mean Platelet Vol. 10.6 fl (6.2-12.0); Monocyte# 1.21 X10^3/uL; NRBC Flagged by Analyzer 0 % (0-5); Neutrophil # 7.43 X10^3/uL (2.7-7.7); Neutrophil % 73.9 % (47-70); Platelet Count 141 K/mm3 (150-450); RBC Distribution Width CV 14.7 % (11.6-14.6); RBC Distribution Width SD 47.3 fl (35.1-43.9); Red Blood Count 3.52 M/mm3 (4.2-5.4); White Blood Count 10.1 K/mm3 (4.4-11.0)
[2020-08-24 09:08] LABS: Anion Gap 6 (5-15); BUN 42 mg/dL (7-18); BUN/Creat Ratio 27.1 RATIO (10-20); Calcium,Total 8.6 mg/dL (8.5-10.1); Chloride 113 mmol/L (98-107); Creatinine, Serum 1.55 mg/dL (0.55-1.02); EST Glomerular Filtration Rate 36 mL/min (>60); Est Glom Filt Rate - Afr Amer 43 mL/min (>60); Estimated Creatinine Clearance 31.66 ml/min; Glucose 162 mg/dL (74-106); Potassium 3.1 mmol/L (3.5-5.1); Sodium Level 144 mmol/L (136-145)
[2020-08-24] MEDS: Multivitamins,Therapeutic Tablet 1 TABLET PO (09:42)
[2020-08-24] MEDS: Ascorbic Acid 500 MG Tablet PO (09:42)
[2020-08-24] MEDS: Divalproex Sodium 250 MG Tablet PO (09:42)
[2020-08-24] MEDS: Pantoprazole Sodium 20 MG Tablet PO (09:43)
[2020-08-24] MEDS: Pravastatin 40 MG Tablet PO (09:43)
[2020-08-24] MEDS: Loratadine 10 MG Tablet PO (09:43)
[2020-08-24] MEDS: Nystatin Powder 15gm Bottle 1 APPLIC TOPICAL ×2 (09:43→21:32)
[2020-08-24] MEDS: buPROPion (XL) 300 MG TABLET.XL PO (09:43)
[2020-08-24] MEDS: Furosemide 20 MG Tablet PO (09:43)
[2020-08-24] MEDS: Atenolol 25 MG Tablet PO (09:43)
[2020-08-24] MEDS: QUEtiapine 100 MG Tablet PO ×2 (09:43→21:34)
[2020-08-24] MEDS: Aspirin E.C. 81 MG Tablet PO (09:44)
[2020-08-24] MEDS: Menthol/Lanolin/Calamine/Znox 113 GM Tube 1 APPLIC TOPICAL ×2 (09:44→21:32)
[2020-08-24] MEDS: APIXABAN 5 MG TABLET PO ×2 (09:44→21:34)
[2020-08-24] MEDS: Anastrozole 1 MG TABLET PO (09:44)
--- NOTE | 2020-08-24 10:17 | CASEMGMT ---
Social Work Note SW placed a call to Maryana at [place] and provided update. Maryana confirms pt is Queta Lift at [place]. Aura Gonzalez THERMOFORMING MACHINE OPERATOR, TURNTABLE WORKER
[2020-08-24 12:00] LABS: Bedside Glucose 168 mg/dL (70-110)
[2020-08-24] MEDS: Fludrocortisone Acetate 0.1 MG Tablet PO ×2 (12:04→18:15)
--- NOTE | 2020-08-24 13:12 | CHAPLAIN ---
Type of Pastoral Visit _x__ Initial Visit ___ Follow-up Visit ___ On-call Visit ___ General Patient Visit ___ Spiritual Assessment ___ Family Conference ___ Bereavement ___ Rapid Response ___ Code Blue ___ Other (describe below) Pastoral Care Referral From _x__ Patient ___ Family ___ Nurse ___ Physician ___ Assembler Metal Building ___ Resp Therapist ___ Other (describe below) Sacrament/Intervention ___ Active listening ___ Anointing ___ Methodist ___ Bereavement ___ Communion ___ Peace exploration ___ ___ Life review _x__ Prayer ___ Reconciliation ___ Sacrament of Sick _x__ Supportive presence ___ Wedding ___ Other (describe below) Pastoral Comments
--- NOTE | 2020-08-24 14:15 | PN.HOSP_ITS ---
Subjective Subjective: Patient seen and examined. She had no complaints. She was noted to be febrile and tachypneic as well as tachycardic yesterday triggering SIRS criteria. She was hydrated with IV fluids and some signs of subsequently resolved. Review of systems otherwise negative. She does have a mild fever today of 99.7 Fahrenheit. Objective Data Objective Data Vital Signs: Vital Signs Temp Pulse Resp BP Pulse Ox 99.7 F H 97 20 H 127/62 H 94 08/24/20 12:01 08/24/20 12:01 08/24/20 12:01 08/24/20 12:01 08/24/20 12:01 Oxygen Flow Rate (L/min) 3 Oxygen Delivery Method Nasal Cannula Weight: 237 lb Body Mass Index (BMI) 40.4 Finger Stick Blood Glucose 99 Intake & Output: Intake and Output for Last 24 Hours 08/22/20 08/23/20 08/24/20 23:59 23:59 23:59 Intake Total 3879.25 / 3879.25 1804.75 / 2354.75 2052.5 / 2052.5 Output Total 350 / 350 1875 / 2600 2525 / 2525 Balance 3529.25 / 3529.25 -70.25 / -245.25 -472.5 / -472.5 Lab / Micro Data Result Diagrams: 08/24/20 08:36 08/24/20 08:36 Labs: Laboratory Results - last 24 hr 08/23/20 08/23/20 08/24/20 16:34 22:58 06:31 WBC RBC Hgb Hct MCV MCH MCHC RDW Std Deviation RDW Coeff of Derek Plt Count MPV Immature Gran % (Auto) Neut % (Auto) Lymph % (Auto) [place] % (Auto) Eos % (Auto) Baso % (Auto) Absolute Neuts (auto) Absolute Lymphs (auto) Nucleated RBC % Sodium Potassium Chloride Carbon Dioxide Anion Gap BUN Creatinine Estim Creat Clear Calc Est GFR (MDRD) Af Amer Est GFR (MDRD) Non-Af BUN/Creatinine Ratio Glucose Calcium POC Glucose 248 H 199 H 179 H 08/24/20 08/24/20 08/24/20 08:36 08:36 11:56 WBC 10.1 RBC 3.52 L Hgb 9.7 L Hct 30.7 L MCV 87.2 MCH 27.6 MCHC 31.6 L RDW Std Deviation 47.3 H RDW Coeff of Derek 14.7 H Plt Count 141 L MPV 10.6 Immature Gran % (Auto) 0.800 Neut % (Auto) 73.9 H Lymph % (Auto) 12.7 L [place]elia % (Auto) 12.0 H Eos % (Auto) 0.3 Baso % (Auto) 0.3 Absolute Neuts (auto) 7.4 Absolute Lymphs (auto) 1.28 Nucleated RBC % 0 Sodium 144 Potassium 3.1 L Chloride 113 H Carbon Dioxide 25.0 Anion Gap 6 BUN 42 H Creatinine 1.55 H Estim Creat Clear Calc 31.66 Est GFR (MDRD) Af Amer 43 L Est GFR (MDRD) Non-Af 36 L BUN/Creatinine Ratio 27.1 H Glucose 162 H Calcium 8.6 POC Glucose 168 H Micro: Microbiology 08/22/20 10:50 Blood Culture (Wb) - Right Hand Blood Culture - Final GNR lactose first line supervisor 08/22/20 10:46 Blood Culture (Wb) - Anticubital Right Blood Culture - Preliminary Escherichia coli 08/22/20 11:56 Urine, Random Urine Culture - Preliminary Escherichia coli 08/22/20 10:56 Interface Orders SARS-CoV-2 Antigen (Rapid) - Final Physical Exam Const alert, oriented x3 and no apparent distress General Appearance: uncooperative Orientation / Consciousness: lethargic Exam Limitations: no limitations Nutritional Appearance: obese HEENT normocephalic and head/scalp atraumatic Eyes PERRL, EOMs intact bilaterally and conjunctivae normal Neck no lymphadenopathy and supple Resp normal respiratory effort, no retractions, no use of accessory muscles and clear to auscultation bilaterally Resp Narrative: on 3L of oxygen, which is her baseline. Cardio regular rate, regular rhythm, S1 normal heart sound, S2 normal heart sound and no murmurs Cardio Narrative: tachycardic, normal S1 and S2, no murmurs GI normal to inspection, nondistended, normoactive bowel sounds, soft to palpation, non-tender and non-distended GI Narrative: has mild tenderness, but no guarding or rebound tenderness in left lower quadrant. Extremity normal to inspection and full ROM Skin no rashes or lesions noted Skin Narrative: extremities cool to touch Neuro oriented x3 Neuro Narrative: patient encephalopathic, minimal response even to sternal rub. Sensorium / Orientation: awake and alert Psych affect normal Assessment & Plan Assessment/Plan (1) Gram-negative bacteremia: (2) Acute metabolic encephalopathy: (3) Septic shock: PLAN: #Septic shock due to UTI -resolved. -blood cultures growing ESBL E coli, as well as urine cultures -ID consulted; patient put on meropenem #UTI: As above #Acute metabolic encephalopathy due to UTI and septic shock -resolved. #Hypertension: on atenolol #Type 2 diabetes mellitus: -resume insulin detemir 45 units daily. -ISS. Accuchecks ACHS. #Hypothyroidism: On Synthroid. History of DVT: On Eliquis #Hyperlipidemia: On statin #History of breast cancer: On Arimidex #History of heart failure with reduced ejection fraction: - Not in exacerbation. EF known to be 40%. DVT prophylaxis: Already on Eliquis GI prophylaxis: Famotidine CODE STATUS: DNRCCA do not intubate. Multi Select Codes Visit Charges Visit Charges: 61892 Subs Hosp L3
--- NOTE | 2020-08-24 15:09 | CASEMGMT ---
Social Work Note SW faxed updated clinicals to [facility]. Plan: Return to [place] when medically cleared Aura Gonzalez ONLINE MARKETING STRATEGIST, INTERNSHIP COORDINATOR
--- NOTE | 2020-08-24 16:42 | CON.PCM.ID_ITS ---
Assessment & Plan Assessment/Plan (1) Gram-negative bacteremia: PLAN: septic shock and LING due to esbl ecoli bacteremia from urinary source - much improved, will change zosyn to meropenem given severity of infection. Will follow, thank you (2) UTI (urinary tract infection): QUALIFIERS: Urinary tract infection type: catheter-associated UTI Indwelling urinary catheter type: indwelling urethral catheter Encounter type: subsequent encounter Qualified Code(s): T83.511D - Infection and inflammatory reaction due to indwelling urethral catheter, subsequent encounter; N39.0 - Urinary tract infection, site not specified (3) LING (acute kidney injury): (4) Septic shock: HPI Consult Data Date of Consult: 08/24/20 HPI Narrative HPI Narrative: MULUGETA CHRISTIAN, is a 64 F who presented 08/22 with septic shock, she is unable to provide much history. Admitted to icu, started on cefepime. Bcx and ucx with esbl ecoli, changed to zosyn this Am. Full ROS performed and neg except as noted above. [facility] Medical History Benign hypertension Bipolar disorder CHF (congestive heart failure) Diabetes mellitus, type 2 Dilated cardiomyopathy Hyperlipidemia Morbid obesity Schizoaffective disorder Sleep apnea Home Medications divalproex 500 mg PO QHS 03/16/13 [History Last Taken 08/21/20] docusate sodium 200 mg PO QHS 03/16/13 [History Last Taken 08/21/20] aspirin 81 mg PO DAILY@0800 #30 tab 03/20/13 [Rx Last Taken 08/22/20] furosemide 20 mg tablet 20 mg PO DAILY 05/20/17 [History Last Taken 08/22/20] anastrozole 1 mg PO DAILY 09/19/17 [History Last Taken 08/22/20] fludrocortisone 0.1 mg PO BID 09/19/17 [History Last Taken 08/22/20] apixaban 5 mg PO BID 03/02/20 [History Last Taken 08/22/20] ascorbic acid (vitamin C) 500 mg PO DAILY 03/02/20 [History Last Taken 08/22/20] atenolol 25 mg PO DAILY 03/02/20 [History Last Taken 08/22/20] divalproex 250 mg PO DAILY 03/02/20 [History Last Taken 08/22/20] ergocalciferol (vitamin D2) 50,000 unit PO TH 03/02/20 [History Last Taken 06/23/20] insulin detemir U-100 45 unit SQ QHS 03/02/20 [History Last Taken 08/21/20] insulin lispro 16 unit SQ TIDCM 03/02/20 [History Last Taken 08/22/20] quetiapine 100 mg PO BID 03/02/20 [History Last Taken 08/22/20] bupropion HCl 300 mg PO DAILY 06/28/20 [History Last Taken 08/22/20] cetirizine 10 mg PO DAILY 06/28/20 [History Last Taken 08/22/20] fzlf-gxhI-vlqpikn-FOS-bromeln 30 ml PO DAILY 06/28/20 [History Last Taken 08/21/20] levothyroxine 125 mcg PO DAILY 06/28/20 [History Last Taken 08/22/20] melatonin 2 mg PO QHS 06/28/20 [History Last Taken 08/21/20] multivitamin 1 tab PO DAILY 06/28/20 [History Last Taken 08/22/20] omeprazole 20 mg PO DAILY 06/28/20 [History Last Taken 08/22/20] pravastatin 40 mg PO DAILY 06/28/20 [History Last Taken 08/21/20] potassium chloride [Klor-Con M20] 20 meq PO QHS 08/22/20 [History Last Taken 08/21/20] Allergy/AdvReac Type Severity Reaction Status Date / Time Sulfa (Sulfonamide Allergy Unknown Verified 08/22/20 10:51 Antibiotics) sulfamethoxazole Allergy Unknown Verified 08/22/20 10:51 [From Bactrim] trimethoprim [From Bactrim] Allergy Unknown Verified 08/22/20 10:51 Surgical History S/P hysterectomy Status post left mastectomy Social History (Updated 08/22/20 @ 15:22 by Joie Hernandez) adopted: No current occupational status: disabled current occupational exposures/hazards: No pets and animals: No Smoking Status: Unknown if ever smoked Physical Exam Const General Appearance: lethargic Orientation / Consciousness: confused HEENT normocephalic and head/scalp atraumatic Eyes PERRL and EOMs intact bilaterally Neck supple and No nodes Resp normal air movement and clear to auscultation bilaterally Cardio regular rate and regular rhythm GI normal to inspection, nondistended, normoactive bowel sounds Extremity no clubbing, cyanosis or edema Skin no rashes or lesions noted Neuro CN's II-XII intact bilaterally Lab / Micro Data Result Diagrams: 08/24/20 08:36 08/24/20 08:36 Labs: Laboratory Results - last 24 hr 08/23/20 08/24/20 08/24/20 22:58 06:31 08:36 WBC 10.1 RBC 3.52 L Hgb 9.7 L Hct 30.7 L MCV 87.2 MCH 27.6 MCHC 31.6 L RDW Std Deviation 47.3 H RDW Coeff of Derek 14.7 H Plt Count 141 L MPV 10.6 Immature Gran % (Auto) 0.800 Neut % (Auto) 73.9 H Lymph % (Auto) 12.7 L [place] % (Auto) 12.0 H Eos % (Auto) 0.3 Baso % (Auto) 0.3 Absolute Neuts (auto) 7.4 Absolute Lymphs (auto) 1.28 Nucleated RBC % 0 Sodium Potassium Chloride Carbon Dioxide Anion Gap BUN Creatinine Estim Creat Clear Calc Est GFR (MDRD) Af Amer Est GFR (MDRD) Non-Af BUN/Creatinine Ratio Glucose Calcium POC Glucose 199 H 179 H 08/24/20 08/24/20 08:36 11:56 WBC RBC Hgb Hct MCV MCH MCHC RDW Std Deviation RDW Coeff of Derek Plt Count MPV Immature Gran % (Auto) Neut % (Auto) Lymph % (Auto) [place] % (Auto) Eos % (Auto) Baso % (Auto) Absolute Neuts (auto) Absolute Lymphs (auto) Nucleated RBC % Sodium 144 Potassium 3.1 L Chloride 113 H Carbon Dioxide 25.0 Anion Gap 6 BUN 42 H Creatinine 1.55 H Estim Creat Clear Calc 31.66 Est GFR (MDRD) Af Amer 43 L Est GFR (MDRD) Non-Af 36 L BUN/Creatinine Ratio 27.1 H Glucose 162 H Calcium 8.6 POC Glucose 168 H Micro: Microbiology 08/22/20 10:50 Blood Culture - Final Blood Culture (Wb) - Right Hand GNR lactose plastic welder 08/22/20 10:46 Blood Culture - Preliminary Blood Culture (Wb) - Anticubital Right Escherichia coli 08/22/20 11:56 Urine Culture - Preliminary Urine, Random Escherichia coli
[2020-08-24 17:05] LABS: Bedside Glucose 142 mg/dL (70-110)
[2020-08-24] MEDS: Docusate Sodium 100 MG Capsule 200 MG PO (21:33)
[2020-08-24] MEDS: Potassium Chloride Oral Tablet 20 MEQ PO (21:33)
[2020-08-24] MEDS: Divalproex Sodium 250 MG Tablet 500 MG PO (21:34)
[2020-08-24] MEDS: MELATONIN 3 MG TABLET PO (21:35)
[2020-08-24 22:21] LABS: Bedside Glucose 179 mg/dL (70-110)
[2020-08-25] VITALS (17 sets, daily range): BP systolic 111–150; BP diastolic 47–104; PULSE 79–98; RESP 16–20; TEMP 36.3–37.6; O2SAT 89–98
[2020-08-25] MEDS: Levothyroxine 125 MCG Tablet PO (05:56)
[2020-08-25 06:30] LABS: Bedside Glucose 93 mg/dL (70-110)
[2020-08-25 06:39] LABS: Absolute Lymphocyte Count 1.73 X10^3/uL (0.83-4.51); Absolute Neutrophil Count 5.7 X10^3/uL (2.0-7.7); Basophil# 0.05 X10^3/uL; Basophil% 0.5 % (0-1); Eosinophil# 0.13 X10^3/uL; Eosinophils% 1.4 % (0-5); Hemoglobin 9.3 g/dL (12.0-15.0); Lymphocyte # 1.73 X10^3/ul (0.83-4.51); Mean Corpuscular Hgb 26.6 pg (27.0-32.0); Mean Corpuscular Volume 88.8 fL (81-99); Mean Platelet Vol. 10.5 fl (6.2-12.0); Monocyte# 1.42 X10^3/uL; Monocyte% 15.6 % (0-10); NRBC Flagged by Analyzer 0 % (0-5); Neutrophil % 62.7 % (47-70); Platelet Count 145 K/mm3 (150-450); RBC Distribution Width CV 14.9 % (11.6-14.6); RBC Distribution Width SD 48.1 fl (35.1-43.9); Red Blood Count 3.49 M/mm3 (4.2-5.4); White Blood Count 9.1 K/mm3 (4.4-11.0)
[2020-08-25 07:08] LABS: Anion Gap 2 (5-15); BUN 35 mg/dL (7-18); BUN/Creat Ratio 24.3 RATIO (10-20); Calcium,Total 8.9 mg/dL (8.5-10.1); Chloride 116 mmol/L (98-107); Creatinine, Serum 1.44 mg/dL (0.55-1.02); EST Glomerular Filtration Rate 39 mL/min (>60); Est Glom Filt Rate - Afr Amer 47 mL/min (>60); Estimated Creatinine Clearance 34.08 ml/min; Glucose 95 mg/dL (74-106); Potassium 3.2 mmol/L (3.5-5.1); Sodium Level 144 mmol/L (136-145)
[2020-08-25] MEDS: Potassium Chloride Oral Tablet 20 MEQ 60 MEQ PO (08:50)
[2020-08-25] MEDS: Aspirin E.C. 81 MG Tablet PO (08:51)
[2020-08-25] MEDS: Furosemide 20 MG Tablet PO (08:55)
[2020-08-25] MEDS: Fludrocortisone Acetate 0.1 MG Tablet PO ×2 (08:55→17:55)
[2020-08-25] MEDS: Loratadine 10 MG Tablet PO (08:55)
--- NOTE | 2020-08-25 09:34 | CASEMGMT ---
RN CM NOTE: Palliative screening completed using [facility] screening tool. Pt does not meet criteria at this time. Prem DICKINSON RN CM
--- NOTE | 2020-08-25 09:43 | CASEMGMT ---
CHUCK MANCINI NOTE: Spoke w/Shena @ [facility] Palliative [facility]. Pt is currently active w/Palliative Care. Shena made aware pt has been admitted to [facility]. Prem DICKINSON RN CM
--- NOTE | 2020-08-25 10:02 | PN.ID_ITS ---
Physical Exam Narrative Feeling better, no fever Const alert General Appearance: cooperative Resp clear to auscultation bilaterally Cardio regular rate and regular rhythm GI normal to inspection, nondistended, normoactive bowel sounds Skin no rashes or lesions noted ID ID: Route of nutrition/ use of supplements: [] Nutritional Intake: [] IV Site: [] [place] Catheter: [] Assessment & Plan Assessment/Plan (1) Gram-negative bacteremia: PLAN: septic shock and LING due to esbl ecoli bacteremia from urinary source - much improved. Ok for d/c to ECF on 6 more days IM ertapenem, no need for line placement. Will follow as needed, d/w case management coordinator, wrote rx (2) UTI (urinary tract infection): QUALIFIERS: Urinary tract infection type: catheter-associated UTI Indwelling urinary catheter type: indwelling urethral catheter Encounter type: subsequent encounter Qualified Code(s): T83.511D - Infection and inflammatory reaction due to indwelling urethral catheter, subsequent encounter; N39.0 - Urinary tract infection, site not specified (3) LING (acute kidney injury): (4) Septic shock:
[2020-08-25] MEDS: Atenolol 25 MG Tablet PO (10:31)
[2020-08-25] MEDS: QUEtiapine 100 MG Tablet PO ×2 (10:32→21:10)
[2020-08-25] MEDS: Divalproex Sodium 250 MG Tablet PO (10:32)
[2020-08-25] MEDS: Ascorbic Acid 500 MG Tablet PO (10:32)
[2020-08-25] MEDS: Pantoprazole Sodium 20 MG Tablet PO (10:32)
[2020-08-25] MEDS: buPROPion (XL) 300 MG TABLET.XL PO (10:32)
[2020-08-25] MEDS: Anastrozole 1 MG TABLET PO (10:32)
[2020-08-25] MEDS: Menthol/Lanolin/Calamine/Znox 113 GM Tube 1 APPLIC TOPICAL ×2 (10:33→21:16)
[2020-08-25] MEDS: APIXABAN 5 MG TABLET PO ×2 (10:33→21:10)
[2020-08-25] MEDS: Nystatin Powder 15gm Bottle 1 APPLIC TOPICAL ×2 (10:33→21:16)
[2020-08-25] MEDS: Pravastatin 40 MG Tablet PO (10:34)
--- NOTE | 2020-08-25 10:47 | CASEMGMT ---
Addendum entered by Aura Gonzalez 08/25/20 13:53: Pt is not medically ready for discharge today. KAREN placed a call to Maryana at [facility] and updated her pt is not medically ready for discharge today. Original Note: Social Work Note Pt will be discharged on IM Ertapenem. KAREN placed a call to Maryana at [facility] and updated her. Maryana states pt is able to return to [facility] when medically cleared. Plan: [facility] when medically cleared Aura Gonzalez FITNESS SUPERVISOR, GASOLINE PUMP MECHANIC
[2020-08-25] MEDS: Insulin Lispro 100 UNIT/ML INSULN.PEN SC ×2 (11:56→17:55)
[2020-08-25] MEDS: Multivitamins,Therapeutic Tablet 1 TABLET PO (11:57)
[2020-08-25 12:10] LABS: Bedside Glucose 184 mg/dL (70-110)
--- NOTE | 2020-08-25 12:21 | PCM.PN.HOSP ---
Subjective Subjective: Patient seen and examined. She has no complaints today. Review of symptoms otherwise negative. She has remained hemodynamically stable. She did have a low-grade fever yesterday with temperature peaking at 100.2 Fahrenheit. Temperature was 99.6 Fahrenheit in the early hours of this morning. Objective Data Objective Data Vital Signs: Vital Signs Temp Pulse Resp BP Pulse Ox 97.7 F L 79 16 150/104 H 98 08/25/20 08:31 08/25/20 08:31 08/25/20 08:31 08/25/20 08:31 08/25/20 08:31 Oxygen Flow Rate (L/min) 2.5 Oxygen Delivery Method Nasal Cannula Weight: 235 lb 0.204 oz Body Mass Index (BMI) 40.4 Finger Stick Blood Glucose 99 Intake & Output: Intake and Output for Last 24 Hours 08/23/20 08/24/20 08/25/20 23:59 23:59 23:59 Intake Total 1804.75 / 2354.75 2612.5 / 2612.5 570 / 570 Output Total 1875 / 2600 3675 / 3675 900 / 900 Balance -70.25 / -245.25 -1062.5 / -1062.5 -330 / -330 Lab / Micro Data Result Diagrams: 08/25/20 06:26 08/25/20 06:26 Labs: Laboratory Results - last 24 hr 08/24/20 08/24/20 08/25/20 16:56 21:45 06:26 WBC 9.1 RBC 3.49 L Hgb 9.3 L Hct 31.0 L MCV 88.8 MCH 26.6 L MCHC 30.0 L D RDW Std Deviation 48.1 H RDW Coeff of Derek 14.9 H Plt Count 145 L MPV 10.5 Immature Gran % (Auto) 0.800 Neut % (Auto) 62.7 Lymph % (Auto) 19.0 [place] % (Auto) 15.6 H Eos % (Auto) 1.4 Baso % (Auto) 0.5 Absolute Neuts (auto) 5.7 Absolute Lymphs (auto) 1.73 Nucleated RBC % 0 Sodium Potassium Chloride Carbon Dioxide Anion Gap BUN Creatinine Estim Creat Clear Calc Est GFR (MDRD) Af Amer Est GFR (MDRD) Non-Af BUN/Creatinine Ratio Glucose Calcium POC Glucose 142 H 179 H 08/25/20 08/25/20 08/25/20 06:26 06:27 11:54 WBC RBC Hgb Hct MCV MCH MCHC RDW Std Deviation RDW Coeff of Derek Plt Count MPV Immature Gran % (Auto) Neut % (Auto) Lymph % (Auto) [place] % (Auto) Eos % (Auto) Baso % (Auto) Absolute Neuts (auto) Absolute Lymphs (auto) Nucleated RBC % Sodium 144 Potassium 3.2 L Chloride 116 H Carbon Dioxide 26.0 Anion Gap 2 L BUN 35 H Creatinine 1.44 H Estim Creat Clear Calc 34.08 Est GFR (MDRD) Af Amer 47 L Est GFR (MDRD) Non-Af 39 L BUN/Creatinine Ratio 24.3 H Glucose 95 Calcium 8.9 POC Glucose 93 184 H Micro: Microbiology 08/22/20 10:46 Blood Culture (Wb) - Anticubital Right Blood Culture - Final Escherichia coli 08/22/20 11:56 Urine, Random Urine Culture - Final Escherichia coli 08/22/20 10:50 Blood Culture (Wb) - Right Hand Blood Culture - Final GNR lactose marketing automation analyst 08/22/20 10:56 Interface Orders SARS-CoV-2 Antigen (Rapid) - Final Physical Exam Const alert, oriented x3 and no apparent distress Exam Limitations: no limitations Nutritional Appearance: obese HEENT normocephalic and head/scalp atraumatic Eyes PERRL, EOMs intact bilaterally and conjunctivae normal Neck no lymphadenopathy and supple Resp normal respiratory effort, no retractions, no use of accessory muscles and clear to auscultation bilaterally Resp Narrative: on 3L of oxygen, which is her baseline. Cardio regular rate, regular rhythm, S1 normal heart sound, S2 normal heart sound and no murmurs Cardio Narrative: tachycardic, normal S1 and S2, no murmurs GI normal to inspection, nondistended, normoactive bowel sounds, soft to palpation, non-tender and non-distended GI Narrative: Extremity normal to inspection and full ROM Skin no rashes or lesions noted Skin Narrative: extremities cool to touch Neuro oriented x3 Neuro Narrative: patient encephalopathic, minimal response even to sternal rub. Sensorium / Orientation: awake and alert Psych affect normal Assessment & Plan Assessment/Plan (1) Gram-negative bacteremia: (2) Acute metabolic encephalopathy: (3) Septic shock: PLAN: #Septic shock due to UTI -resolved. -blood cultures growing ESBL E coli, as well as urine cultures -ID consulted; patient now on meropenem -still running a low grade fever. PO tylenol prn #UTI: As above #Hypertension: on atenolol #Type 2 diabetes mellitus: -on insulin detemir 45 units daily. -ISS. Accuchecks ACHS. #Hypothyroidism: On Synthroid. History of DVT: On Eliquis #Hyperlipidemia: On statin #History of breast cancer: On Arimidex #History of heart failure with reduced ejection fraction: - Not in exacerbation. EF known to be 40%. DVT prophylaxis: Already on Eliquis GI prophylaxis: Famotidine CODE STATUS: DNRCCA do not intubate. Multi Select Codes Visit Charges Visit Charges: 73731 Subs Hosp L2
[2020-08-25 16:36] LABS: Bedside Glucose 153 mg/dL (70-110)
--- NOTE | 2020-08-25 17:53 | NURSING ---
O2 DECREASED TO 2L NC
[2020-08-25] MEDS: Divalproex Sodium 250 MG Tablet 500 MG PO (21:10)
[2020-08-25] MEDS: Potassium Chloride Oral Tablet 20 MEQ PO (21:10)
[2020-08-25] MEDS: MELATONIN 3 MG TABLET PO (21:10)
[2020-08-25] MEDS: Docusate Sodium 100 MG Capsule 200 MG PO (21:10)
[2020-08-25 22:56] LABS: Bedside Glucose 140 mg/dL (70-110)
[2020-08-26] VITALS (14 sets, daily range): BP systolic 129–148; BP diastolic 66–78; PULSE 74–98; RESP 16–18; TEMP 36.7–37.1; O2SAT 93–99
[2020-08-26] MEDS: 0.9% Saline Lock 10 ML Syringe IV ×3 (06:29→14:27)
[2020-08-26] MEDS: Levothyroxine 125 MCG Tablet PO (06:38)
[2020-08-26] MEDS: Insulin Lispro 100 UNIT/ML INSULN.PEN SC ×4 (06:39→21:20)
[2020-08-26 06:46] LABS: Bedside Glucose 156 mg/dL (70-110)
[2020-08-26 06:49] LABS: Absolute Lymphocyte Count 2.01 X10^3/uL (0.83-4.51); Basophil# 0.05 X10^3/uL; Basophil% 0.6 % (0-1); Eosinophil# 0.35 X10^3/uL; Hematocrit 31.2 % (37-47); Hemoglobin 9.5 g/dL (12.0-15.0); Lymphocyte # 2.01 X10^3/ul (0.83-4.51); Mean Corp Hgb Conc 30.4 g/dL (32-36); Mean Corpuscular Hgb 26.9 pg (27.0-32.0); Mean Corpuscular Volume 88.4 fL (81-99); Mean Platelet Vol. 10.5 fl (6.2-12.0); Monocyte# 1.19 X10^3/uL; Monocyte% 13.6 % (0-10); NRBC Flagged by Analyzer 0 % (0-5); Neutrophil # 4.99 X10^3/uL (2.7-7.7); Neutrophil % 57.1 % (47-70); Platelet Count 179 K/mm3 (150-450); RBC Distribution Width CV 14.6 % (11.6-14.6); RBC Distribution Width SD 46.5 fl (35.1-43.9); Red Blood Count 3.53 M/mm3 (4.2-5.4); White Blood Count 8.7 K/mm3 (4.4-11.0)
[2020-08-26 07:16] LABS: Anion Gap 6 (5-15); BUN 31 mg/dL (7-18); BUN/Creat Ratio 24.2 RATIO (10-20); Calcium,Total 8.7 mg/dL (8.5-10.1); Chloride 110 mmol/L (98-107); Creatinine, Serum 1.28 mg/dL (0.55-1.02); EST Glomerular Filtration Rate 45 mL/min (>60); Est Glom Filt Rate - Afr Amer 54 mL/min (>60); Estimated Creatinine Clearance 38.34 ml/min; Glucose 139 mg/dL (74-106); Potassium 3.4 mmol/L (3.5-5.1); Sodium Level 147 mmol/L (136-145)
[2020-08-26] MEDS: Menthol/Lanolin/Calamine/Znox 113 GM Tube 1 APPLIC TOPICAL ×2 (08:30→21:07)
[2020-08-26] MEDS: Nystatin Powder 15gm Bottle 1 APPLIC TOPICAL ×2 (08:31→21:07)
[2020-08-26] MEDS: Aspirin E.C. 81 MG Tablet PO (08:32)
[2020-08-26] MEDS: Fludrocortisone Acetate 0.1 MG Tablet PO ×2 (08:32→17:47)
[2020-08-26] MEDS: Anastrozole 1 MG TABLET PO (08:32)
[2020-08-26] MEDS: Loratadine 10 MG Tablet PO (08:33)
[2020-08-26] MEDS: Divalproex Sodium 250 MG Tablet PO (08:33)
[2020-08-26] MEDS: APIXABAN 5 MG TABLET PO ×2 (08:33→21:31)
[2020-08-26] MEDS: Furosemide 20 MG Tablet PO (08:33)
[2020-08-26] MEDS: Pravastatin 40 MG Tablet PO (08:34)
[2020-08-26] MEDS: Ascorbic Acid 500 MG Tablet PO (08:34)
[2020-08-26] MEDS: buPROPion (XL) 300 MG TABLET.XL PO (08:34)
[2020-08-26] MEDS: QUEtiapine 100 MG Tablet PO ×2 (08:34→21:30)
[2020-08-26] MEDS: Atenolol 25 MG Tablet PO (08:34)
[2020-08-26] MEDS: Pantoprazole Sodium 20 MG Tablet PO (08:34)
[2020-08-26] MEDS: 0.9 % NaCl (Sterile) Posiflush 10 mL IV (11:03)
[2020-08-26 11:20] LABS: Bedside Glucose 229 mg/dL (70-110)
[2020-08-26] MEDS: Multivitamins,Therapeutic Tablet 1 TABLET PO (12:32)
--- NOTE | 2020-08-26 13:17 | DS.PCM_ITS ---
Providers Date of Admission: 08/22/20 Primary Care Physician: Dr. Babar Sahu MD Consultations 08/22/20 15:22 Consult: Senior Net Application Developer / Pulmonary Medicine Routine Consulting Provider: Josh Obrien Reason for Consult: septic shock EMERGENT Consult: No Notified: Yes Date Notified:: 08/22/20 Time Notified: 15:26 Method of Notification: Verbal 08/23/20 06:06 Consult: Onc/Wound/automation tech Routine Comment: 08/24/20 07:58 Consult: Infectious Disease Routine Consulting Provider: Gerry Ledezma Reason for Consult: bacteremia, E coli EMERGENT Consult: No Notified: Yes Date Notified:: 08/24/20 Time Notified: 07:59 Method of Notification: Text Reason For Visit: SEPTIC SHOCK DUE TO UTI Diagnosis Discharge Diagnosis (1) Gram-negative bacteremia: Status: Acute Code(s): R78.81 - Bacteremia (2) Acute metabolic encephalopathy: Status: Acute Code(s): G93.41 - Metabolic encephalopathy (3) Septic shock: Status: Acute Code(s): A41.9 - Sepsis, unspecified organism; R65.21 - Severe sepsis with septic shock Medications at Discharge Home Medications divalproex 500 mg PO QHS 03/16/13 docusate sodium 200 mg PO QHS 03/16/13 aspirin 81 mg PO DAILY@0800 #30 tab 03/20/13 furosemide 20 mg tablet 20 mg PO DAILY 05/20/17 anastrozole 1 mg PO DAILY 09/19/17 fludrocortisone 0.1 mg PO BID 09/19/17 apixaban 5 mg PO BID 03/02/20 ascorbic acid (vitamin C) 500 mg PO DAILY 03/02/20 atenolol 25 mg PO DAILY 03/02/20 divalproex 250 mg PO DAILY 03/02/20 ergocalciferol (vitamin D2) 50,000 unit PO TH 03/02/20 insulin detemir U-100 45 unit SQ QHS 03/02/20 insulin lispro 16 unit SQ TIDCM 03/02/20 quetiapine 100 mg PO BID 03/02/20 bupropion HCl 300 mg PO DAILY 06/28/20 cetirizine 10 mg PO DAILY 06/28/20 bdrk-npbN-xanifmp-FOS-bromeln 30 ml PO DAILY 06/28/20 levothyroxine 125 mcg PO DAILY 06/28/20 melatonin 2 mg PO QHS 06/28/20 multivitamin 1 tab PO DAILY 06/28/20 omeprazole 20 mg PO DAILY 06/28/20 pravastatin 40 mg PO DAILY 06/28/20 potassium chloride [Klor-Con M20] 20 meq PO QHS 08/22/20 ertapenem 1 g IM Q24H #6 ea 08/25/20 Hospital Course Operations None Procedures None Summary of Care Provided Minutes Spent on Discharge: 45 Hospital Course: MULUGETA CHRISTIAN, is a 64 F with an extensive past medical hist ory as outlined who presents through the ED on 08/22/2020 with a complaint of altered mental status. Patient has a history of chronic and recurrent UTIs and has a chronic indwelling Milan catheter. Per history obtained from ED doctor, patient was brought into question and noted to be more confused. Staff fpc could apparently only tell that she has become more confused since Saturday before admission. Patient was very obtunded and so could not give any history. She did have a chronic indwelling Milan catheter and this was changed in the fpc prior to admission. Further history or review of systems could not be obtained as patient was unresponsive at time of review. In the ED blood pressure was noted to be 78/38 with a pulse rate of 94, respiratory rate of 19 and temperature of 96.6 Fahrenheit and she was saturating at 99% on room air. In the ED, labs done showed hemoglobin of 11.9 with WBC of 21.8 and platelets of 197. Of note, patient was recently admitted and discharged in June 2020 for UTI and urine culture at ESBL E. coli. She was discharged to the fpc on p.o. doxycycline 100 mg twice daily for 5 days and due to impaired kidney function, she was also not put on prophylactic antibiotics on outpatient basis. ABG done showed pH of 7.45 with PO2 of 34 and PCO2 of 33.9. Chemistry showed sodium of 136 with chloride of 103 and anion gap of 9 and bicarb of 24. Urine showed positive nitrite with evidence of UTI, with 3+ bacteria. Due to her tenuous state, she was admitted to be managed for septic shock due to UTI. Patient's blood pressure subsequently improved without the need for vasopressors and adjust IV fluids. She was started on stress dose steroids on account of her history of adrenal insufficiency and oral steroids. She was started on IV broad-spectrum antibiotics. Patient's altered mental status subsequently resolved and she became alert and oriented and able to communicate. She was transferred out of the ICU. She was initially started on IV cefepime but this was switched to IV meropenem on account of blood cultures growing ESBL E. coli and same was in her urine cultures. Patient gradually improved and stabilized. She was discharged back to her half-way facility on 08/26/2020 with a prescription for IM ertapenem for 6 more doses. She is follow-up with her primary care doctor and follow-up with infectious diseases as well. Patient was seen and examined prior to discharge. She had no complaints. Revi ew of symptoms otherwise negative. Labs and vitals reviewed. Medication reviewed and reconciled. Physical Exam Const alert, oriented x3 and no apparent distress General Appearance: cooperative Exam Limitations: no limitations Nutritional Appearance: obese HEENT normocephalic and head/scalp atraumatic Eyes PERRL, EOMs intact bilaterally and conjunctivae normal Neck no lymphadenopathy and supple Resp normal respiratory effort, no retractions, no use of accessory muscles and clear to auscultation bilaterally Resp Narrative: on 3L of oxygen, which is her baseline. Cardio regular rate, regular rhythm, S1 normal heart sound, S2 normal heart sound and no murmurs GI normal to inspection, nondistended, normoactive bowel sounds, soft to palpation, non-tender and non-distended GI Narrative: Extremity normal to inspection and full ROM Skin no rashes or lesions noted Skin Narrative: extremities cool to touch Neuro oriented x3 Neuro Narrative: patient encephalopathic, minimal response even to sternal rub. Sensorium / Orientation: awake and alert Psych affect normal ABG / Lab / Microbiology Data Result Diagrams: 08/26/20 06:10 08/26/20 06:10 Laboratory: Laboratory Results - last 24 hr 08/25/20 08/25/20 08/26/20 16:29 21:04 06:10 WBC 8.7 RBC 3.53 L Hgb 9.5 L Hct 31.2 L MCV 88.4 MCH 26.9 L MCHC 30.4 L RDW Std Deviation 46.5 H RDW Coeff of Derek 14.6 Plt Count 179 MPV 10.5 Immature Gran % (Auto) 1.700 H Neut % (Auto) 57.1 Lymph % (Auto) 23.0 [place] % (Auto) 13.6 H Eos % (Auto) 4.0 Baso % (Auto) 0.6 Absolute Neuts (auto) 5.0 Absolute Lymphs (auto) 2.01 Nucleated RBC % 0 Sodium Potassium Chloride Carbon Dioxide Anion Gap BUN Creatinine Estim Creat Clear Calc Est GFR (MDRD) Af Amer Est GFR (MDRD) Non-Af BUN/Creatinine Ratio Glucose Calcium POC Glucose 153 H 140 H 08/26/20 08/26/20 08/26/20 06:10 06:37 11:17 WBC RBC Hgb Hct MCV MCH MCHC RDW Std Deviation RDW Coeff of Derek Plt Count MPV Immature Gran % (Auto) Neut % (Auto) Lymph % (Auto) [place] % (Auto) Eos % (Auto) Baso % (Auto) Absolute Neuts (auto) Absolute Lymphs (auto) Nucleated RBC % Sodium 147 H Potassium 3.4 L Chloride 110 H Carbon Dioxide 31.0 Anion Gap 6 BUN 31 H Creatinine 1.28 H Estim Creat Clear Calc 38.34 Est GFR (MDRD) Af Amer 54 L Est GFR (MDRD) Non-Af 45 L BUN/Creatinine Ratio 24.2 H Glucose 139 H Calcium 8.7 POC Glucose 156 H 229 H Microbiology: Microbiology 08/22/20 10:46 Blood Culture (Wb) - Anticubital Right Blood Culture - Final Escherichia coli 08/22/20 11:56 Urine, Random Urine Culture - Final Escherichia coli 08/22/20 10:50 Blood Culture (Wb) - Right Hand Blood Culture - Final GNR lactose gauge maker apprentice 08/22/20 10:56 Interface Orders SARS-CoV-2 Antigen (Rapid) - Final D/C Instructions Discharge Diet: Low fat / Low cholesterol Discharge Activity: Return to Normal Activity Weight Bearing Status: Weight bearing as tolerated Call your doctor if you observe: Fever of 101 or Higher, Inability to urinate, Shortness of breath and Dizziness Meaningful Use Info Meaningful Use Diagnoses (Choose all that apply): None applicable Discharge Plan Admission Admit Date/Time: 08/22/20 13:56 Primary Reason for Your Visit: septic shock due to UTI Attending Provider: Muna Ibanez Primary Care Provider: Babar Sahu Consulting Providers: Gerry Ledezma ; Josh Obrien Instructions Patient Instructions: ED Urinary Tract Infections in Women Discharge Orders/Prescriptions Prescriptions: New ertapenem 1 gram recon soln 1 g IM Q24H Qty: 6 RF: 0 Continued furosemide 20 mg tablet 20 mg PO DAILY RF: 0 docusate sodium 100 MG capsule 200 mg PO QHS RF: 0 divalproex 500 MG tablet 500 mg PO QHS RF: 0 aspirin 81 MG tablet 81 mg PO DAILY@0800 Qty: 30 RF: 0 anastrozole 1 MG tablet 1 mg PO DAILY RF: 0 fludrocortisone 0.1 MG tablet 0.1 mg PO BID RF: 0 divalproex 250 MG tablet 250 mg PO DAILY RF: 0 atenolol 25 MG tablet 25 mg PO DAILY RF: 0 quetiapine 100 MG tablet 100 mg PO BID RF: 0 ergocalciferol (vitamin D2) 50,000 UNIT capsule 50,000 unit PO TH RF: 0 insulin lispro 100 UNIT/ML solution 16 unit SQ TIDCM RF: 0 insulin detemir U-100 100 UNIT/ML solution 45 unit SQ QHS RF: 0 apixaban 5 MG tablet 5 mg PO BID RF: 0 ascorbic acid (vitamin C) 500 MG capsule 500 mg PO DAILY RF: 0 multivitamin 1 TABLET tablet 1 tab PO DAILY RF: 0 cetirizine 10 MG tablet 10 mg PO DAILY RF: 0 pravastatin 40 MG tablet 40 mg PO DAILY RF: 0 levothyroxine 125 MCG tablet 125 mcg PO DAILY RF: 0 omeprazole 20 MG capsule,delayed release(DR/EC) 20 mg PO DAILY RF: 0 bupropion HCl 300 MG tablet extended release 24 hr 300 mg PO DAILY RF: 0 melatonin 1 MG tablet 2 mg PO QHS RF: 0 nubh-whqK-amdpjky-FOS-bromeln 3,875 MG/30 ML liquid 30 ml PO DAILY RF: 0 potassium chloride [Klor-Con M20] 20 mEq Tablet,Er Particles/Crystals 20 meq PO QHS RF: 0 Referrals / Follow Up: Babar Sahu MD [Primary Care Provider] - Visit Charges Inpatient E&M: 64722 Disch Hosp
--- NOTE | 2020-08-26 13:36 | PCM.TXEXTCAR ---
Diet 08/22/20 16:15 Diet: Consistent Carb - Calorie Controlled Food consistency:: Mechanical (Minced/Moist) Liquid Consistency:: Regular/Thin Type of Dietary Supplement:: Ensure Surgery Is pt able to select menu?: Yes Diet Comments: ground meats, very soft veggies/fruit. no dentures at all. How many daily calories?: 1800 calorie Routine Orders/Code Status Enema Type: Fleetz Enema Frequency: Daily PRN Suppository Type: Dulcolax 10mg Suppository Frequency: Daily PRN O2 Frequency: PRN Keep PO Greater than or Equal to (%): 90 Wound(s) left side of thigh: Wound Type: dry scabs Therapies Weight Bearing: Weight bearing as tolerated Problem/Diagnosis (1) Gram-negative bacteremia: Status: Acute (2) Acute metabolic encephalopathy: Status: Acute (3) Septic shock: Status: Acute Allergies/Procedures Done in Hospital Allergies Sulfa (Sulfonamide Antibiotics) Allergy (Verified 08/22/20 10:51) Unknown sulfamethoxazole [From Bactrim] Allergy (Verified 08/22/20 10:51) Unknown trimethoprim [From Bactrim] Allergy (Verified 08/22/20 10:51) Unknown Procedures: None Type of Care/Length of Stay Estimated LOS: More Than 30 Days Type of Care Needed: Skilled Rehab Potential: Fair Prognosis: Fair Additional Orders/Day of Discharge Day of Discharge: 08/26/20 Dietary and Speech Recommendations Dietitian Recommendations/Changes: Continue 1800 calorie controlled, consistent CHO diet w/ soft/cut up meats per pt request Follow Up Care Please follow up with your Primary Care Physician in: 1-2 weeks Discharge Plan Admission Admit Date/Time: 08/22/20 13:56 Primary Reason for Your Visit: septic shock due to UTI Attending Provider: Muna Ibanez Primary Care Provider: Babar Sahu Consulting Providers: Gerry Ledezma ; Josh Obrien Instructions Patient Instructions: ED Urinary Tract Infections in Women Discharge Orders/Prescriptions Prescriptions: New ertapenem 1 gram recon soln 1 g IM Q24H Qty: 6 RF: 0 Continued furosemide 20 mg tablet 20 mg PO DAILY RF: 0 docusate sodium 100 MG capsule 200 mg PO QHS RF: 0 divalproex 500 MG tablet 500 mg PO QHS RF: 0 aspirin 81 MG tablet 81 mg PO DAILY@0800 Qty: 30 RF: 0 anastrozole 1 MG tablet 1 mg PO DAILY RF: 0 fludrocortisone 0.1 MG tablet 0.1 mg PO BID RF: 0 divalproex 250 MG tablet 250 mg PO DAILY RF: 0 atenolol 25 MG tablet 25 mg PO DAILY RF: 0 quetiapine 100 MG tablet 100 mg PO BID RF: 0 ergocalciferol (vitamin D2) 50,000 UNIT capsule 50,000 unit PO TH RF: 0 insulin lispro 100 UNIT/ML solution 16 unit SQ TIDCM RF: 0 insulin detemir U-100 100 UNIT/ML solution 45 unit SQ QHS RF: 0 apixaban 5 MG tablet 5 mg PO BID RF: 0 ascorbic acid (vitamin C) 500 MG capsule 500 mg PO DAILY RF: 0 multivitamin 1 TABLET tablet 1 tab PO DAILY RF: 0 cetirizine 10 MG tablet 10 mg PO DAILY RF: 0 pravastatin 40 MG tablet 40 mg PO DAILY RF: 0 levothyroxine 125 MCG tablet 125 mcg PO DAILY RF: 0 omeprazole 20 MG capsule,delayed release(DR/EC) 20 mg PO DAILY RF: 0 bupropion HCl 300 MG tablet extended release 24 hr 300 mg PO DAILY RF: 0 melatonin 1 MG tablet 2 mg PO QHS RF: 0 namb-cjdF-zvawnmz-FOS-bromeln 3,875 MG/30 ML liquid 30 ml PO DAILY RF: 0 potassium chloride [Klor-Con M20] 20 mEq Tablet,Er Particles/Crystals 20 meq PO QHS RF: 0 Referrals / Follow Up: Babar Sahu MD [Primary Care Provider] -
[2020-08-26 16:26] LABS: Bedside Glucose 183 mg/dL (70-110)
--- NOTE | 2020-08-26 18:15 | CASEMGMT ---
Addendum entered by Aura Gonzalez 08/26/20 18:28: Transportation form completed and placed on SNF folder and copy on pt's chart. Original Note: Social Work Note Pt is able to discharge back to [facility] today. SW faxed completed discharge paperwork to [facility] including transfer to extended care facility, signed medication list, any scripts, and COVID tool. Original in SNF folder and copy on pt's chart. SW accessed trip assist and earliest [facility] can transport pt is 9:00pm. Transportation form completed and placed on SNF folder and copy on pt's chart. SW in to speak with pt. SW updated pt that pt will discharge back to [facility] today at 9:00pm. Pt states understanding, gave this worker permissions to call her brother Bianka to update. SW updated RN on transportation time. KAREN placed a call to Maryana at [facility] and updated her on discharge and transportation time. KAREN placed a call to pt's brother Bianka and updated him on discharge back to [facility] today. Bianka states understanding, asked this worker to tell pt he will be in contact with her. SW updated pt. Plan: Return to [facility] today with [facility] transporting pt via cot at 9:00pm Aura Gonzalez CERTIFIED TOWER CLIMBER, FLOOR WORKER TRANSFER BAY
--- NOTE | 2020-08-26 19:00 | NURSING ---
REPORT CALLED TO CASSANDRA MICHEL
[2020-08-26] MEDS: MELATONIN 3 MG TABLET PO (21:30)
[2020-08-26] MEDS: Docusate Sodium 100 MG Capsule 200 MG PO (21:31)
[2020-08-26] MEDS: Divalproex Sodium 250 MG Tablet 500 MG PO (21:31)
[2020-08-26] MEDS: Potassium Chloride Oral Tablet 20 MEQ PO (21:35)
[2020-08-26 22:36] LABS: Bedside Glucose 205 mg/dL (70-110)
== END 2020-08-26 22:05 | DRG 698 ==
LOC: ED 13:06 → ICU 14:08 → MS3 08-23 11:58 → ICU 08-24 11:42 → MS3 08-24 11:42
PROVIDERS: Admitting Provider Student in an Organized Health Care Education/Training Program; Emergency Provider Emergency Medicine; PCP Family Medicine; Visit Provider Student in an Organized Health Care Education/Training Program
DX: T83.511A Infection and inflammatory reaction due to indwelling urethral catheter, initial encounter (principal); A41.9 Sepsis, unspecified organism; G93.41 Metabolic encephalopathy; R65.21 Severe sepsis with septic shock; E27.40 Unspecified adrenocortical insufficiency; I50.22 Chronic systolic (congestive) heart failure; Z68.41 Body mass index [BMI] 40.0-44.9, adult; N17.9 Acute kidney failure, unspecified; N39.0 Urinary tract infection, site not specified; I11.0 Hypertensive heart disease with heart failure; Y84.6 Urinary catheterization as the cause of abnormal reaction of the patient, or of later complication, without mention of misadventure at the time of the procedure; B96.20 Unspecified Escherichia coli [E. coli] as the cause of diseases classified elsewhere; C50.919 Malignant neoplasm of unspecified site of unspecified female breast; E66.01 Morbid (severe) obesity due to excess calories; F31.9 Bipolar disorder, unspecified; F25.9 Schizoaffective disorder, unspecified; Z66 Do not resuscitate; Z79.899 Other long term (current) drug therapy; Z87.440 Personal history of urinary (tract) infections; Z79.82 Long term (current) use of aspirin; Z79.890 Hormone replacement therapy; Z79.4 Long term (current) use of insulin; Z79.01 Long term (current) use of anticoagulants; E78.5 Hyperlipidemia, unspecified; E03.9 Hypothyroidism, unspecified; E11.9 Type 2 diabetes mellitus without complications
CPT/HCPCS: 36415; 36600; 70450; 71045; 74176; 80048; 80053; 81001; 82803; 82962; 83605; 84484; 85025; 85610; 85730; 87040; 87077; 87086; 87088; 87186; 87426; 93005; 94762; 99251; 99285; J2185; J7030; J7040; J7050; A4216; C1751; G0463

== ENCOUNTER 2023-12-07 12:34 | Emergency (ER) | payer MEDICARE, MEDICAID, SELFPAY ==
[2023-12-07 12:35] VITALS: BP 195/139; PULSE 75; RESP 18; TEMP 36.1; O2SAT 94; BMI 36.6
[2023-12-07 12:48] VITALS: BMI 36.6
--- NOTE | 2023-12-07 13:06 | EX.ED.DYSGE1 ---
HPI History of Present Illness Chief Complaint: Neuro S/Sx Informant: patient Onset/Context/Timing Onset: Today Narrative Narrative: 68-year-old female history of cardiomyopathy, diabetes, bipolar, schizoaffective, hypertension, anemia, chronic kidney disease and on the blood thinner Eliquis. Reportedly the [facility] center for possible left facial droop. Squad brought her in when they arrived at the [facility] they did not see any facial droop. She does not have one currently. Patient denies any complaints. Prior similar symptoms: No Recent Illness/Hospitalization: No PFSH PFS Medical History Dilated cardiomyopathy Sleep apnea CHF (congestive heart failure) Morbid obesity Diabetes mellitus, type 2 Bipolar disorder Schizoaffective disorder Hyperlipidemia Benign hypertension Home Medications ?Medication ?Instructions ?Recorded ?Last Taken ?Type divalproex 500 mg tablet,extended 500 mg PO QHS schizophrenia 03/16/13 08/21/20 History release 24 hr docusate sodium 100 mg capsule 200 mg PO QHS CONSTIPATION 03/16/13 08/21/20 History aspirin 81 mg tablet,delayed 81 mg PO DAILY@0800 #30 tabs 03/20/13 08/22/20 Rx release furosemide 20 mg tablet 20 mg PO DAILY 05/20/17 08/22/20 History anastrozole 1 mg tablet 1 mg PO DAILY BREAST CANCER 09/19/17 08/22/20 History fludrocortisone 0.1 mg tablet 0.1 mg PO BID FIBROMYALGIA 09/19/17 08/22/20 History apixaban 5 mg tablet 5 mg PO BID BLOOD THINNER 03/02/20 08/22/20 History ascorbic acid (vitamin C) 500 mg 500 mg PO DAILY general health 03/02/20 08/22/20 History capsule atenolol 25 mg tablet 25 mg PO DAILY 03/02/20 08/22/20 History divalproex 250 mg tablet,delayed 250 mg PO DAILY 03/02/20 08/22/20 History release ergocalciferol (vitamin D2) 1,250 50,000 unit PO TH supplement 03/02/20 06/23/20 History mcg (50,000 unit) capsule insulin detemir U-100 100 unit/mL 45 unit SQ QHS 03/02/20 08/21/20 History subcutaneous solution insulin lispro 100 unit/mL 16 unit SQ TIDCM 03/02/20 08/22/20 History subcutaneous solution quetiapine 100 mg tablet 100 mg PO BID MENTAL HEALTH 03/02/20 08/22/20 History bupropion HCl 300 mg 24 hr tablet, 300 mg PO DAILY DEPRESSION 06/28/20 08/22/20 History extended release cetirizine 10 mg tablet 10 mg PO DAILY ALLERGIES 06/28/20 08/22/20 History cranberry conc-vit 30 ml PO DAILY URINARY 06/28/20 08/21/20 History R-yqgcrqb-SHD-bromelain 3,875 mg/30 mL oral liquid levothyroxine 125 mcg tablet 125 mcg PO DAILY THYROID 06/28/20 08/22/20 History melatonin 1 mg tablet 2 mg PO QHS SLEEP 06/28/20 08/21/20 History multivitamin 1 tab PO DAILY SUPPLEMENT 06/28/20 08/22/20 History omeprazole 20 mg capsule,delayed 20 mg PO DAILY HEARTBURN 06/28/20 08/22/20 History release pravastatin 40 mg tablet 40 mg PO DAILY CHOLESTEROL 06/28/20 08/21/20 History potassium chloride 20 mEq 20 meq PO QHS K 08/22/20 08/21/20 History tablet,extended release(part/cryst) (Klor-Con M) ertapenem 1 gram solution for 1 g IM Q24H #6 ea 08/25/20 Unknown Rx injection Allergy/AdvReac Type Severity Reaction Status Date / Time Sulfa (Sulfonamide Allergy Unknown Verified 12/07/23 12:50 Antibiotics) sulfamethoxazole (From Allergy Unknown Verified 12/07/23 12:50 Bactrim) trimethoprim (From Bactrim) Allergy Unknown Verified 12/07/23 12:50 Surgical History Status post left mastectomy S/P hysterectomy Social History adopted: No current occupational status: disabled current occupational exposures/hazards: No pets and animals: No Smoking Status: Unknown if ever smoked ROS ROS ED ROS Narrative Patient denies any complaints. Denies recent illness. Constitutional Constitutional ED: Denies chills or fever(s) Eyes Eyes: Denies blurry vision ENT ENT ED: Denies ear pain Cardiovascular Cardiovascular: Denies chest pain Respiratory/Chest Respiratory/Chest: Denies cough Gastrointestinal Gastrointestinal: Denies abdominal pain Genitourinary Genitourinary ED: Denies dysuria Musculoskeletal Musculoskeletal: Denies arthralgias Integumentary Denies abscess Neurologic Neurologic: Denies headache(s) Psychiatric Psychiatric: Denies anxiety Endocrine Endocrinology: Denies cold intolerance Hematologic/Lymphatic Hematologic/Lymphatic: Reports none Allergic/Immunologic Allergic/Immunologic ED: Denies mouth swelling or tongue swelling EXAM Physical Exam Narrative Exam Narrative: Well-appearing 68-year-old female. Vital signs are stable afebrile. Initial blood pressure was elevated at 195/139. She does not appear to be septic toxic or in distress. There is a nurse present in the room. No family. H EENT exam pupils round reactive light. No trauma. No facial droop. Normal speech. She does smacking her lips but there is no facial droop. Neck nontender. Lungs clear. Heart regular rate and rhythm rate about 75 no murmur. Chest wall and ribs nontender. Abdomen soft nontender. Moving all 4 extremities. Normal polyethylene combiner strength. Neurologically she is awake. She is answering questions and follows limited commands. Patient at times refuses to follow commands. Const Vital Signs: 12/07/23 12:35 12/07/23 13:35 12/07/23 14:00 Temperature 97 F L Temperature Source Temporal Pulse Rate 75 70 74 Respiratory Rate 18 14 16 Blood Pressure 195/139 H 170/106 H 123/91 H Blood Pressure Mean 157 127 101 Pulse Ox 94 96 96 Oxygen Delivery Method Room Air Room Air Room Air Positive well nourished, well developed and obese; Negative for cachectic, contractures or unkempt General Appearance ED: well developed and NAD; Negative for unkempt, cachectic, contractures, cyanotic, diaphoretic or pallor Nutritional Appearance: obese; Negative for cachectic HEENT Reports moist mucous membranes Negative for trauma or tenderness Eyes PERRL and EOMs intact bilaterally General Eye ED: Negative for pale conjunctiva or scleral icterus Neck no lymphadenopathy, supple and no JVD General: Negative for tenderness Chest Wall inspection of chest normal and palpation of chest normal Resp normal respiratory effort and clear to auscultation bilaterally Effort and Inspection: Negative for retractions Auscultation: Negative for rales or rhonchi Cardio regular rate, regular rhythm, S1 normal heart sound, S2 normal heart sound and no murmurs GI normal to inspection, nondistended, normoactive bowel sounds, non-tender, non-distended and no masses Palpation: soft; Negative for tender, guarding or rebound tenderness present Back/Spine no CVA tenderness General Back: Negative for CVA tenderness Cervical Spine: Negative for cervical spine tenderness Thoracic Spine / Upper Back: Negative for thoracic spinal tenderness or paraspinal muscle tenderness Lumbar Spine / Lower Back: Negative for lumbar spinal tenderness Extremity normal to inspection General Extremety ED: Negative for edema or tenderness General Extremity: Negative for edema Neuro No oriented x3 and CN's II-XII intact bilaterally Neuro Narrative: Awake. Alert. Normal speech. Moving all 4 extremities. Answering questions. Sensorium / Orientation: alert Motor Exam: strength 5/5 throughout Psych mental status grossly normal Appearance: Negative for unkempt Attitude: No agitated Mood & Affect: Negative for depressed, anxious or tearful Skin no rashes or lesions noted and no wounds General Skin Exam: Negative for jaundice or pallor Lesions: No lesion noted Rashes: No rashes noted Trauma: Negative for abrasion Wounds: Negative for wounds noted MDM MDM MDM Narrative Medical decision making narrative: 68-year-old sent in for possible facial droop which she currently does not have. CAT scan screening labs to be obtained. Repeat exam at 2:36 PM patient doing well. No change in exam. She will be discharged back to the extended care facility. I did speak to the nurse in [place]. Patient had an episode where she was less responsive there. He now she is awake alert and seems to be doing well. I told them we would we will discharge her back to their facility. History & Record Review Discussion w/independent historian: Patient Additional record(s) reviewed:: Prior inpatient record, Prior outpatient record, Prior ED visit and Prior labs Lab Data Attestation: I reviewed the patient's lab results. Lab results narrative: CBC shows normal white count 7. H&H 14 and 46. Platelets 137. Electrolytes show a gap of 4. BUN and creatinine 33 and 1.54. She has a history of chronic kidney disease. Glucose 141. Labs are consistent or better than prior. Labs: Laboratory Results - last 24 hr 12/07/23 13:22 WBC 7.1 RBC 4.83 Hgb 14.8 Hct 46.3 MCV 95.9 MCH 30.6 MCHC 32.0 RDW Std Deviation 47.1 H RDW Coeff of Derek 13.2 Plt Count 137 L MPV 11.0 Immature Gran % (Auto) 0.300 Neut % (Auto) 24.5 L Lymph % (Auto) 63.3 H [place] % (Auto) 9.8 Eos % (Auto) 1.5 Baso % (Auto) 0.6 Absolute Neuts (auto) 1.7 L Absolute Lymphs (auto) 4.50 Nucleated RBC % 0 Sodium 142 Potassium 4.2 Chloride 107 Carbon Dioxide 31.0 Anion Gap 4 L BUN 33 H Creatinine 1.54 H Estim Creat Clear Calc 39.49 Est GFR (MDRD) Af Amer 43 L Est GFR (MDRD) Non-Af 36 L BUN/Creatinine Ratio 21.4 H Glucose 141 H Calcium 9.3 Radiography Diagnostic Testing: Clinical Impression(s) from Imaging Studies Brain CT 12/07/23 13:10 IMPRESSION: Chronic involutional changes of the brain, no acute hemorrhage. Electronically Signed: Ramu Rosario MD at 13:52 EDT , Discharge Plan Triage Chief Complaint: Neuro S/Sx ED Provider: Delmer Cain Dx/Rx/DC Orders Clinical Impression: History of bipolar disorder, History of diabetes mellitus, Chronic anticoagulation, Chronic kidney disease Prescriptions: No Action furosemide 20 mg tablet 20 mg PO DAILY docusate sodium 100 MG capsule 200 mg PO QHS Patient Comments: CONSTIPATION divalproex 500 MG tablet 500 mg PO QHS Patient Comments: MENTAL HEALTH aspirin 81 MG tablet 81 mg PO DAILY@0800 Qty: 30 0RF Patient Comments: ANTIPLATELET. HOLDING FOR SURGERY anastrozole 1 MG tablet 1 mg PO DAILY fludrocortisone 0.1 MG tablet 0.1 mg PO BID divalproex 250 MG tablet 250 mg PO DAILY atenolol 25 MG tablet 25 mg PO DAILY quetiapine 100 MG tablet 100 mg PO BID ergocalciferol (vitamin D2) 50,000 UNIT capsule 50,000 unit PO TH insulin lispro 100 UNIT/ML solution 16 unit SQ TIDCM insulin detemir U-100 100 UNIT/ML solution 45 unit SQ QHS apixaban 5 MG tablet 5 mg PO BID ascorbic acid (vitamin C) 500 MG capsule 500 mg PO DAILY multivitamin 1 TABLET tablet 1 tab PO DAILY cetirizine 10 MG tablet 10 mg PO DAILY pravastatin 40 MG tablet 40 mg PO DAILY levothyroxine 125 MCG tablet 125 mcg PO DAILY omeprazole 20 MG capsule,delayed release(DR/EC) 20 mg PO DAILY bupropion HCl 300 MG tablet extended release 24 hr 300 mg PO DAILY melatonin 1 MG tablet 2 mg PO QHS salt-sojI-mdatmaw-FOS-bromeln 3,875 MG/30 ML liquid 30 ml PO DAILY potassium chloride [Klor-Con M20] 20 mEq Tablet,Er Particles/Crystals 20 meq PO QHS ertapenem 1 gram recon soln 1 g IM Q24H Qty: 6 0RF Rx Instructions: start 08/26/20 Primary Care Provider: Babar Sahu Referrals: Babar Sahu MD [Primary Care Provider] - 3-5 Days Activity Restrictions/Additional Instructions: Follow-up with Dr. Sahu as needed. Workup in the emergency department clued and CAT scan was unremarkable. Print Language: Stateless Disposition Disposition: Home, Self Care
--- NOTE | 2023-12-07 13:10 | CT_ITS ---
STUDY: CT BRAIN WITHOUT CONTRAST REASON FOR EXAM: Female, 68 years old. Mental status change, recent facial droop RADIATION DOSAGE (If Supplied By Facility): CTDIvol = ( 44.99 ) mGy, DLP = ( 846.73 ) mGycm TECHNIQUE: Transaxial CT imaging of the brain was performed without administration of intravenous contrast material. Individualized dose optimization techniques were used for this CT. COMPARISON: No relevant priors. FINDINGS: Normal soft tissue structures. Normal calvarium. Normal size ventricles and extra-axial spaces for the patient''s age. Normal white matter tracts of the cerebral hemispheres. Normal basal ganglia and thalami. Normal brainstem. Normal cerebellum. There is no intracranial hemorrhage. There are no findings of an acute ischemic infarction. Normal visualized paranasal sinuses. CT/Brain/Head without Contrast IMPRESSION: Chronic involutional changes of the brain, no acute hemorrhage. Electronically Signed: Ramu Rosario MD at 13:52 EDT ,
[2023-12-07 13:33] LABS: Absolute Neutrophil Count 1.7 X10^3/uL (2.0-7.7); Basophil# 0.04 X10^3/uL; Basophil% 0.6 % (0-1); Eosinophil# 0.11 X10^3/uL; Eosinophils% 1.5 % (0-5); Hematocrit 46.3 % (37-47); Hemoglobin 14.8 g/dL (12.0-15.0); Lymphocyte % 63.3 % (19-41); Mean Corpuscular Hgb 30.6 pg (27.0-32.0); Mean Corpuscular Volume 95.9 fL (81-99); Monocyte% 9.8 % (0-10); NRBC Flagged by Analyzer 0 % (0-5); Neutrophil # 1.74 X10^3/uL (2.7-7.7); Neutrophil % 24.5 % (47-70); Platelet Count 137 K/mm3 (150-450); RBC Distribution Width CV 13.2 % (11.6-14.6); RBC Distribution Width SD 47.1 fl (35.1-43.9); Red Blood Count 4.83 M/mm3 (4.2-5.4); White Blood Count 7.1 K/mm3 (4.4-11.0)
[2023-12-07 13:35] VITALS: BP 170/106; PULSE 70; RESP 14; O2SAT 96
[2023-12-07 13:44] LABS: Anion Gap 4 (5-15); BUN 33 mg/dL (7-18); BUN/Creat Ratio 21.4 RATIO (10-20); Calcium,Total 9.3 mg/dL (8.5-10.1); Chloride 107 mmol/L (98-107); Creatinine, Serum 1.54 mg/dL (0.55-1.02); EST Glomerular Filtration Rate 36 mL/min (>60); Est Glom Filt Rate - Afr Amer 43 mL/min (>60); Estimated Creatinine Clearance 39.49 ml/min; Glucose 141 mg/dL (74-106); Potassium 4.2 mmol/L (3.5-5.1); Sodium Level 142 mmol/L (136-145)
[2023-12-07 14:00] VITALS: BP 123/91; PULSE 74; RESP 16; O2SAT 96
[2023-12-07 15:00] VITALS: PULSE 74; RESP 16; O2SAT 98
[2023-12-07 15:22] VITALS: BP 122/83; PULSE 78; RESP 16; TEMP 36; O2SAT 94
== END 2023-12-07 16:07 | disposition home or self-care (01) ==
PROVIDERS: Emergency Provider Emergency Medicine; PCP Family Medicine; Visit Provider Emergency Medicine
DX: R29.810 Facial weakness (principal); F25.9 Schizoaffective disorder, unspecified; I13.0 Hypertensive heart and chronic kidney disease with heart failure and stage 1 through stage 4 chronic kidney disease, or unspecified chronic kidney disease; I50.9 Heart failure, unspecified; F31.9 Bipolar disorder, unspecified; E11.22 Type 2 diabetes mellitus with diabetic chronic kidney disease; Z79.4 Long term (current) use of insulin; E78.5 Hyperlipidemia, unspecified; N18.9 Chronic kidney disease, unspecified; Z79.01 Long term (current) use of anticoagulants; Z79.899 Other long term (current) drug therapy; Z79.82 Long term (current) use of aspirin; Z90.12 Acquired absence of left breast and nipple; Z90.710 Acquired absence of both cervix and uterus
CPT/HCPCS: 70450; 80048; 85025; 99283; A4216

== ENCOUNTER 2023-12-23 03:21 | Emergency (ER) | payer MEDICARE, MEDICAID, SELFPAY ==
[2023-12-23] VITALS (19 sets, daily range): BP systolic 94–121; BP diastolic 50–94; PULSE 64–98; RESP 16–20; TEMP 36.6–37.3; O2SAT 94–99; BMI 34.7
[2023-12-23 04:33] LABS: Absolute Lymphocyte Count 4.28 X10^3/uL (0.83-4.51); Absolute Neutrophil Count 6.4 X10^3/uL (2.0-7.7); Basophil# 0.08 X10^3/uL; Basophil% 0.6 % (0-1); Eosinophil# 0.11 X10^3/uL; Eosinophils% 0.9 % (0-5); Hematocrit 46.2 % (37-47); Hemoglobin 14.6 g/dL (12.0-15.0); Lymphocyte # 4.28 X10^3/ul (0.83-4.51); Lymphocyte % 34.7 % (19-41); Mean Corp Hgb Conc 31.6 g/dL (32-36); Mean Corpuscular Volume 98.1 fL (81-99); Mean Platelet Vol. 11.8 fl (6.2-12.0); Monocyte# 1.45 X10^3/uL; Monocyte% 11.7 % (0-10); NRBC Flagged by Analyzer 0.2 % (0-5); Neutrophil # 6.35 X10^3/uL (2.7-7.7); Neutrophil % 51.5 % (47-70); Platelet Count 107 K/mm3 (150-450); RBC Distribution Width CV 13.9 % (11.6-14.6); RBC Distribution Width SD 49.9 fl (35.1-43.9); Red Blood Count 4.71 M/mm3 (4.2-5.4); White Blood Count 12.4 K/mm3 (4.4-11.0)
[2023-12-23 04:38] LABS: Mucous, Urine 0 SEEN /hpf (<or=2+); Red Blood Cells-Urine 0 SEEN /hpf (0-5); Squamous Epithelial Cells - UA 0 SEEN /hpf (5-10)
[2023-12-23 04:39] LABS: Color, Urine Yellow (Yellow); Glucose, Dipstick 50 mg/dl (Normal); Ketone-Dipstick 5 mg/dl (Negative); Leukocyte Esterase-Dipstick 500 /ul (Negative); Nitrite-Dipstick Positive (Negative); Occult Blood-Urine 50 /ul (Negative); Protein-Dipstick 30 mg/dl (Negative); Specific Gravity, Urine 1.025 (1.002-1.030); Urine Clarity Clear (Clear); Urine Urobilinogen 8 mg/dl (Normal)
[2023-12-23 04:54] LABS: Bacteria 3+ /hpf (None Seen); Urine Bilirubin Dipstick 3 mg/dL (Negative); White Blood Cells 10-25 SEEN /hpf (0-5)
[2023-12-23 05:03] LABS: AST(SGOT) 28 U/L (15-37); Alanine Aminotransfer ALT/SGPT 15 U/L (13-56); Albumin, Serum 2.6 g/dL (3.2-5.0); Alkaline Phosphatase 89 U/L (45-117); Anion Gap 7 (5-15); BUN 44 mg/dL (7-18); BUN/Creat Ratio 28.8 RATIO (10-20); Bilirubin, Direct 0.58 mg/dL (0.00-0.30); Calcium,Total 9.9 mg/dL (8.5-10.1); Chloride 106 mmol/L (98-107); Creatinine, Serum 1.53 mg/dL (0.55-1.02); EST Glomerular Filtration Rate 36 mL/min (>60); Est Glom Filt Rate - Afr Amer 43 mL/min (>60); Estimated Creatinine Clearance 41.48 ml/min; Globulin 5.2 g/dL (2.2-4.2); Glucose 199 mg/dL (74-106); Potassium 4.8 mmol/L (3.5-5.1); Protein, Total 7.8 g/dL (6.4-8.2); Sodium Level 142 mmol/L (136-145)
[2023-12-23] MEDS: Ceftriaxone 1 GM/50 ML BAG IV (05:41)
[2023-12-23 06:36] LABS: Valproic Acid (Depakene) Level 108 ug/mL (50-100)
--- NOTE | 2023-12-23 06:59 | EX.ED.DYSGE1 ---
HPI History of Present Illness Chief Complaint: Alt LOC Informant: SNF Narrative Narrative: Patient is a 68-year-old female with history of hypertension hyperlipidemia cardiomyopathy type 2 diabetes as well as schizophrenia and bipolar disorder. She is a DNR comfort care only. senior care states that she typically is able to hold a conversation and this evening was confused and overall seeming to just mumble and not follow commands. Secondary to the change in mental status they concern that this could potentially be an infectious process or something neurologic and had her sent in for evaluation. The patient cannot provide any history based on her mental status. [facility] Medical History Dilated cardiomyopathy Sleep apnea CHF (congestive heart failure) Morbid obesity Diabetes mellitus, type 2 Bipolar disorder Schizoaffective disorder Hyperlipidemia Benign hypertension Home Medications ?Medication ?Instructions ?Recorded ?Last Taken ?Type divalproex 500 mg tablet,extended 500 mg PO BID schizophrenia 03/16/13 08/21/20 History release 24 hr furosemide 20 mg tablet 20 mg PO DAILY 05/20/17 08/22/20 History fludrocortisone 0.1 mg tablet 0.1 mg PO BID FIBROMYALGIA 09/19/17 08/22/20 History atenolol 25 mg tablet 25 mg PO DAILY 03/02/20 08/22/20 History insulin lispro 100 unit/mL 20 unit subcut TIDCM 03/02/20 08/22/20 History subcutaneous solution quetiapine 100 mg tablet 100 mg PO BID MENTAL HEALTH 03/02/20 08/22/20 History bupropion HCl 300 mg 24 hr tablet, 300 mg PO DAILY DEPRESSION 06/28/20 08/22/20 History extended release cetirizine 10 mg tablet 10 mg PO DAILY ALLERGIES 06/28/20 08/22/20 History cranberry conc-vit 30 ml PO DAILY URINARY 06/28/20 08/21/20 History O-ckgtgfm-RRN-bromelain 3,875 mg/30 mL oral liquid levothyroxine 125 mcg tablet 125 mcg PO DAILY THYROID 06/28/20 08/22/20 History omeprazole 20 mg capsule,delayed 20 mg PO DAILY HEARTBURN 06/28/20 08/22/20 History release potassium chloride 20 mEq 20 meq PO QHS K 08/22/20 08/21/20 History tablet,extended release(part/cryst) (Klor-Con M) bupropion HCl 150 mg 24 hr tablet, 150 mg PO DAILY 12/23/23 Unknown History extended release ertapenem 1 gram solution for 1 g IM DAILY 5 days #5 ea 12/23/23 Unknown Rx injection gabapentin 100 mg capsule 100 mg PO Q12H 12/23/23 Unknown History insulin glargine 100 unit/mL (3 76 unit subcut QHS 12/23/23 Unknown History mL) subcutaneous pen (Lantus Solostar U-100 Insulin) ondansetron HCl 8 mg tablet 8 mg PO TID 12/23/23 Unknown History oxycodone 5 mg tablet 5 mg PO Q4H PRN pain 12/23/23 Unknown History Allergy/AdvReac Type Severity Reaction Status Date / Time Sulfa (Sulfonamide Allergy Unknown Verified 12/07/23 12:50 Antibiotics) sulfamethoxazole (From Allergy Unknown Verified 12/07/23 12:50 Bactrim) trimethoprim (From Bactrim) Allergy Unknown Verified 12/07/23 12:50 Surgical History Status post left mastectomy S/P hysterectomy Social History adopted: No current occupational status: disabled current occupational exposures/hazards: No pets and animals: No Smoking Status: Unknown if ever smoked ROS ROS ED ROS Narrative Unable to obtain review of systems based on patient's mental status Review of Systems ROS Unobtainable: due to mental status EXAM Physical Exam Const Vital Signs: 12/23/23 03:22 12/23/23 03:27 12/23/23 04:22 Temperature 99.1 F 99.1 F Temperature Source Oral Oral Pulse Rate 93 96 96 Respiratory Rate 16 16 20 H Blood Pressure 113/58 L 113/58 L 94/71 Blood Pressure Mean 76 76 78 Pulse Ox 99 94 95 Oxygen Delivery Method Room Air Room Air 12/23/23 04:27 12/23/23 05:00 12/23/23 06:00 Temperature 98.0 F 98.0 F 98.2 F Temperature Source Oral Oral Oral Pulse Rate 94 95 98 Respiratory Rate 18 18 18 Blood Pressure 102/50 L 102/50 L 118/94 H Blood Pressure Mean 67 67 102 Pulse Ox 95 95 Oxygen Delivery Method Room Air Room Air 12/23/23 07:00 Temperature Temperature Source Pulse Rate 64 Respiratory Rate 18 Blood Pressure 116/76 Blood Pressure Mean 89 Pulse Ox 95 Oxygen Delivery Method Positive well nourished, well developed and unkempt General Appearance ED: unkempt and well developed; Negative for pallor HEENT Reports dry mucous membranes HEENT Narrative: No tongue or lip swelling no oral lesions no airway edema or compromise Mucous membranes are dry and tacky No secondary findings in the posterior pharynx to suggest infection Mouth ED: Yes dry mucous membranes Mouth: dry mucous membranes Eyes PERRL and EOMs intact bilaterally General Eye ED: Negative for scleral icterus Neck supple Neck Narrative: No nuchal rigidity or meningeal signs Chest Wall palpation of chest normal Chest Narrative: No bony deformity or crepitance noted Resp normal respiratory effort and clear to auscultation bilaterally Resp Narrative: Breath sounds are diminished throughout but overall clear to auscultation without nasal flaring retractions tachypnea or accessory muscle use Cardio regular rate and regular rhythm GI normal to inspection, nondistended, normoactive bowel sounds, non-tender, non-distended and no masses GI Narrative: Soft nontender nondistended with normal active bowel sounds no voluntary guarding or rigidity or pulsatile mass Auscultation: normoactive bowel sounds Palpation: soft Extremity normal to inspection Extremity Narrative: No bony deformity or joint effusion noted Neuro Neuro Narrative: Patient is obtunded with GCS of 13. There is no obvious focal neurologic deficit Psych Psych Narrative: Patient has a depressed/flat affect Appearance: unkempt Skin no rashes or lesions noted Skin Narrative: No secondary findings to suggest infection such as overlying erythema or warmth General Skin Exam: Negative for jaundice or pallor MDM MDM MDM Narrative Medical decision making narrative: Patient arrived to the ER with stable vitals. Mental status was obtunded and she had a GCS of 13 which correlates with this. However she is protecting her airway and she does not have focal neurologic findings to suggest acute CVA. Therefore there is no need for a head CT. Patient's history and exam is most consistent/concerning for potential infectious process leading to delirium. Therefore basic labs with urine sample were obtained. I did not feel the need for a chest x-ray as patient had no cough clear lungs on exam and was satting in the mid to high 90s without signs of respiratory distress. Patient's white count is slightly elevated at 12.4 but there is no left shift. She did not have acute kidney injury or clinically significant electrolyte abnormality. Blood sugar is also slightly elevated at 199 going against hypoglycemia as the cause of her symptoms. Urine sample did show changes consistent with infection. Secondary to this she was given 1 g of IV Rocephin. Prior to discharge her chart from 2020 was reviewed and at that time urine sample showed ESBL E. coli which was resistant to multiple drugs. Therefore the decision was made to add 1 g of IM ertapenem. As this culture is 3 years old it is uncertain if it will reflect similarly in today's urinary sample and as she is a DNR comfort care only without signs of acute kidney injury or sepsis I do not feel there is need for admission. The patient will continue 1 g IM ertapenem at the detention for infection until the culture is resulted. But overall as she is hemodynamically stable without laboratory or vital sign findings to suggest septicemia and she does not have acute kidney injury and there is no need for airway protection she can be discharged home Lab Data Attestation: I reviewed the patient's lab results. Labs: Laboratory Results - last 24 hr 12/23/23 12/23/23 12/23/23 04:25 04:35 05:58 WBC 12.4 H RBC 4.71 Hgb 14.6 Hct 46.2 MCV 98.1 MCH 31.0 MCHC 31.6 L RDW Std Deviation 49.9 H RDW Coeff of Derek 13.9 Plt Count 107 L MPV 11.8 Immature Gran % (Auto) 0.600 Neut % (Auto) 51.5 Lymph % (Auto) 34.7 [place] % (Auto) 11.7 H Eos % (Auto) 0.9 Baso % (Auto) 0.6 Absolute Neuts (auto) 6.4 Absolute Lymphs (auto) 4.28 Nucleated RBC % 0.2 Sodium 142 Potassium 4.8 Chloride 106 Carbon Dioxide 29.0 Anion Gap 7 BUN 44 H Creatinine 1.53 H Estim Creat Clear Calc 41.48 Est GFR (MDRD) Af Amer 43 L Est GFR (MDRD) Non-Af 36 L BUN/Creatinine Ratio 28.8 H Glucose 199 H Calcium 9.9 Magnesium 2.0 Total Bilirubin 1.30 H Direct Bilirubin 0.58 H AST 28 ALT 15 Alkaline Phosphatase 89 Total Protein 7.8 Albumin 2.6 L Globulin 5.2 H TSH 1.200 Urine Color Yellow Urine Clarity Clear Urine pH 6.0 Ur Specific [place] 1.025 Urine Protein 30 H Urine Glucose (UA) 50 H Urine Ketones 5 H Urine Occult Blood 50 H Urine Nitrite Positive H Urine Bilirubin 3 H Urine Urobilinogen 8 H Ur Leukocyte Esterase 500 H Urine RBC 0 SEEN Urine WBC 10-25 SEEN Ur Squamous Epith Cells 0 SEEN Urine Bacteria 3+ Urine Mucus 0 SEEN Valproic Acid Cancelled 108 H Discharge Plan Triage Chief Complaint: Alt LOC ED Provider: Anupam Umana Dx/Rx/DC Orders Clinical Impression: UTI (urinary tract infection), Delirium, Benign hypertension, Hyperlipidemia, Diabetes mellitus, type 2, Schizoaffective disorder, Bipolar disorder Instructions: Urinary Tract Infections in Women, What is Delirium? Prescriptions: New ertapenem 1 gram recon soln 1 g IM DAILY 5 Days Qty: 5 0RF No Action furosemide 20 mg tablet 20 mg PO DAILY divalproex 500 MG tablet 500 mg PO BID Patient Comments: MENTAL HEALTH fludrocortisone 0.1 MG tablet 0.1 mg PO BID atenolol 25 MG tablet 25 mg PO DAILY quetiapine 100 MG tablet 100 mg PO BID insulin lispro 100 UNIT/ML solution 20 unit subcut TIDCM cetirizine 10 MG tablet 10 mg PO DAILY levothyroxine 125 MCG tablet 125 mcg PO DAILY omeprazole 20 MG capsule,delayed release(DR/EC) 20 mg PO DAILY bupropion HCl 300 MG tablet extended release 24 hr 300 mg PO DAILY vxiz-prqC-hoipfro-FOS-bromeln 3,875 MG/30 ML liquid 30 ml PO DAILY potassium chloride [Klor-Con M20] 20 mEq Tablet,Er Particles/Crystals 20 meq PO QHS insulin glargine [Lantus Solostar U-100 Insulin] 100 unit/mL (3 mL) insulin pen 76 unit subcut QHS ondansetron HCl 8 mg tablet 8 mg PO TID gabapentin 100 mg capsule 100 mg PO Q12H bupropion HCl 150 mg tablet extended release 24 hr 150 mg PO DAILY oxycodone 5 mg tablet 5 mg PO Q4H PRN (Reason: pain) Primary Care Provider: Babar Sahu Referrals: Babar Sahu MD [Primary Care Provider] - Activity Restrictions/Additional Instructions: The patient has a urinary tract infection. This is creating delirium which is infection leading to change in mental status. The patient does not have signs of acute kidney injury or sepsis. If the patient takes the antibiotic as directed, this should resolve the infection and return the patient to her baseline mental status. Print Language: Persian Disposition Disposition: Home, Self Care
[2023-12-23] MEDS: Ertapenem Sod 1 GM in 0.9% Normal Saline (50mL MB+) 50 ML 100 GM IM (07:47)
== END 2023-12-23 08:57 | disposition home or self-care (01) ==
PROVIDERS: Emergency Provider Emergency Medicine; PCP Family Medicine; Visit Provider Emergency Medicine
DX: N39.0 Urinary tract infection, site not specified (principal); F25.9 Schizoaffective disorder, unspecified; I11.0 Hypertensive heart disease with heart failure; I50.9 Heart failure, unspecified; F31.9 Bipolar disorder, unspecified; E11.65 Type 2 diabetes mellitus with hyperglycemia; Z79.4 Long term (current) use of insulin; E78.5 Hyperlipidemia, unspecified; Z66 Do not resuscitate; Z79.899 Other long term (current) drug therapy
CPT/HCPCS: 36415; 80048; 80076; 80164; 81001; 83735; 84443; 85025; 87077; 87086; 87088; 87186; 96365; 96367; 99282; J7050; A4216